=== PATIENT | female | born 1950 | race Caucasian/White ===

== ENCOUNTER → 2016-10-12 | Outpatient (CLI) | payer OTHER ==
[~2016-10-12] MED LIST: ACET-1138 PO; ALL180 PO; ASPI-435 PO; ATEN-173 PO; ATOR-24 PO; BUME1TAB43 PO; CHOL200010 PO; CYAN100028 PO; DOCU100C31 PO; FEXO1TAB49 PO; FLUT0.15 NAE; LPT/20 PO; METO25TA56 PO; NITR1CAP32 PO; OMEG10002 PO; OXYC1TAB3 PO; PRLSR20 PO; PROB1TAB16 PO; SERT-234 PO; TRAM-10 PO; TRAM-453 PO; WARF10TA4 PO; WARF7.5T4 PO; [UNRECOGNIZED DRUG - CODE] PO
[2016-10-12 09:47] LABS: BASO % 0.2 %; BASO ABS # 0.01 K/uL (0-0.2); COMPLETE YES; EOS % 3.1 %; HEMATOCRIT 37.2 % (37-47); IG% 0.2 %; LYMPH % 22.4 %; LYMPH ABS # 0.94 K/uL (1.2-3.4); MEAN CELL VOLUME 84.7 fL (80-100); MEAN CORPUSCULAR HEMOGLOBIN 27.6 pg (25-34); MEAN CORPUSCULAR HGB CONC 32.5 g/dl (32-36); MEAN PLATELET VOLUME 12.1 fL (7.4-10.4); MONO % 9.5 %; NEUT % 64.6 %; PLATELET COUNT 165 K/uL (130-400); RED BLOOD COUNT 4.39 M/uL (4.2-5.4); WHITE BLOOD COUNT 4.19 K/uL (4.8-10.8)
[2016-10-12 10:41] LABS: ALT/SGPT 35 U/L (12-78); BLOOD UREA NITROGEN 15 mg/dl (7-18); BUN/CREATININE RATIO 21.6 (10-20); CARBON DIOXIDE 26 mmol/L (21-32); CHLORIDE 110 mmol/L (98-107); CHOLESTEROL 184 mg/dl (0-200); CREATININE 0.69 mg/dl (0.60-1.20); GLUCOSE 96 mg/dl (70-99); SODIUM 144 mmol/L (136-145); TRIGLYCERIDES 110 mg/dl (0-150); VERY LOW DENSITY LIPOPROT CALC 22 mg/dl
[2016-10-12 10:51] LABS: AST/SGOT 26 U/L (15-37); CHOLESTEROL/HDL RATIO 3.5; HDL CHOLESTEROL 52 mg/dl; LDL CHOLESTEROL CALCULATED 110 mg/dl
== END | disposition home or self-care (01) ==
LOC: C.LAB 07:14
PROVIDERS: ATTEND Internal Medicine
DX: E78.5 Hyperlipidemia, unspecified (principal); D64.9 Anemia, unspecified; I10 Essential (primary) hypertension; I35.0 Nonrheumatic aortic (valve) stenosis

== ENCOUNTER → 2016-10-15 | Outpatient (CLI) | payer OTHER ==
--- NOTE | 2016-10-15 13:44 | DIAGNOSTIC IMAGING REPORT ---
C-SPINE ROUTINE 4 OR 5 VIEWS CLINICAL HISTORY: Neck pain. COMPARISON STUDY: No previous studies for comparison. FINDINGS: There is mild reversal of the normal cervical lordosis. No fracture or suspicious lesion is present. There is mild to moderate disc space narrowing and osteophytosis at C5-C6 and C6-C7. There is severe multilevel facet arthrosis with multilevel bony neural foraminal narrowing. IMPRESSION: 1. No cervical spine fracture. 2. Moderate multilevel degenerative disc disease and moderate to severe multilevel facet arthrosis of the cervical spine. Electronically signed by: Earl Solorio M.D. 10/15/2016 1:41 PM Dictated Date/Time: 10/15/2016 1:40 PM
== END | disposition home or self-care (01) ==
LOC: C.RAD1850 12:51
PROVIDERS: ATTEND Nurse Practitioner Adult Health
DX: M50.30 Other cervical disc degeneration, unspecified cervical region (principal); M47.892 Other spondylosis, cervical region

== ENCOUNTER → 2016-11-16 | Outpatient (CLI) | payer OTHER ==
[~2016-11-16] MED LIST changes: -ALL180 PO; -CYAN100028 PO; -DOCU100C31 PO; -OMEG10002 PO; -OXYC1TAB3 PO; -TRAM-453 PO; -[UNRECOGNIZED DRUG - CODE] PO
--- NOTE | 2016-11-26 08:51 | CODING QUERY MEDICAL NECESSITY ---
SUPPORTING DIAGNOSIS NEEDED [employer], A supporting diagnosis is required for the test/procedure performed on this patient in order for us to be reimbursed by the patient's insurance. Please provide a supporting diagnosis for the following test/procedure listed below next to the test name along with your signature. *If there is no additional diagnosis for this patient that would support the following test/procedure please document that below next to the test/procedure. Test(s)/Procedure(s) that require a supporting diagnosis: * ([id number]) VITAMIN B6 PYRIDOXAL PHOSPHATE DIAGNOSIS: DATE OF SERVICE: 11/16/16 Provider Signature: Date: Thank you Ruperto Diop [facility] Information Management Once completed, please kindly fax back to [phone] For questions please call [phone]
== END | disposition home or self-care (01) ==
LOC: C.LAB 11:39
PROVIDERS: ATTEND Nurse Practitioner Adult Health
DX: R20.0 Anesthesia of skin (principal); R19.7 Diarrhea, unspecified; R94.6 Abnormal results of thyroid function studies

== ENCOUNTER → 2016-11-16 | Day surgery (SDC) | payer OTHER ==
[2016-11-14 08:56] VITALS: Ht 160 cm; Wt 102.3 kg
[~2016-11-16] VITALS: Ht 160 cm; Wt 102.3 kg
[~2016-11-16] MED LIST changes: +LIDOCAINE HCL 2% 2 ML VIAL (20MG/ML) ONE; +MIDAZOLAM HCL 1 MG/ML 2ML VIAL ONE; +PROPOFOL IV EMULSION 10 MG/ML 20 ML VIAL IV ONE; +SODIUM CHLORIDE 0.9% 500ML 500 ML IV ONE
--- NOTE | 2016-11-16 10:18 | Endo History and Physical ---
History & Physical Date of Service: November 16, 2016. Chief Complaint: CHANGE IN BOWEL HABITS Referring Physician: JANIE WEBBER History of Present Illness 66 yo CF who presents for colonoscopy secondary to change in bowel habits. Past Medical History Arthritis, Pulmonary Emboli, Reflux, Depression Past Surgical History Hx Cardiac Surgery: No Hx Internal Defibrillator: No Hx Pacemaker: No Hx Abdominal Surgery: Yes (2 C-SECTIONS/ TUBAL LIGATION) Hx of Implantable Prosthesis: No Hx Post-Op Nausea and Vomiting: No Hx Cancer Surgery: No Hx Thoracic Surgery: No Hx Orthopedic: Yes (LT TKA) Hx Urinary Tract Surgery: No Family History None Social History Smoking Status: Never Smoker Hx Substance Use: No Hx Alcohol Use: Yes ("SOCIALLY") Allergies Coded Allergies: Cat Dander (Verified Allergy, Unknown, "sneezing", 11/16/16) Dust (Verified Allergy, Unknown, "itchy eyes,sneezing", 11/16/16) NO KNOWN DRUG ALLERGIES (Verified Allergy, Unknown, ., 11/16/16) Current Medications Reported Home Medications Medications Dose Route/Sig Max Daily Dose Days Date Category Dose Instructions Vitamin D (Cholecalciferol) 2,000 Unit Cap 2 Cap PO QAM 11/14/16 Reported Ultram (Tramadol HCl) 50 Mg Tab 50 Mg PO Q8H PRN 11/14/16 Reported Zoloft (Sertraline HCl) 100 Mg Tab 100 Mg PO QAM 11/14/16 Reported Prilosec (Omeprazole) 20 Mg Capcr 20 Mg PO HS 11/14/16 Reported Macrodantin (Nitrofurantoin Macrocrystals) 100 Mg Cap 100 Mg PO QAM 11/14/16 Reported Probiotic (Probiotic Product) 1 Tab Tab 1 Tab PO QAM 11/14/16 Reported Flonase Allergy Relief (Fluticasone Propionate (Nasal)) 50 Mcg/Act Spr 1 [place] MARCELA DAILY PRN 11/14/16 Reported Janet Allergy (Fexofenadine Hcl) 180 Mg Tab 1 Tab PO QAM 14 11/14/16 Reported Tenormin (Atenolol) 25 Mg Tab 25 Mg PO HS 11/14/16 Reported Jantoven (Warfarin Sodium) 10 Mg Tab 10 Mg PO 2XWK 06/12/16 Reported ON HOLD FOR PROCEDURE Jantoven (Warfarin Sodium) 7.5 Mg Tab 7.5 Mg PO 5XWK 06/12/16 Reported ON HOLD FOR PROCEDURE Atorvastatin Calcium (Atorvastatin) 20 Mg Tab 20 Mg PO QAM 11/23/13 Reported Vital Signs Weight (Kilograms): 102.27 Height (Feet): 5 Height (Inches): 3 Date Time Temp Pulse Resp B/P Pulse Ox O2 Delivery O2 Flow Rate FiO2 11/16/16 09:50 188/87 11/16/16 09:38 36.5 72 24 200/84 96 Room Air Physical Exam General Appearance: WD/WN, no apparent distress Respiratory/Chest: Auscultation: breath sounds normal Cardiovascular: Heart Auscultation: RRR Abdomen: Bowel Sounds: normal Inspection & Palpation: soft, non-distended, no tenderness, guarding & rebound Assessment and Plan Assessment: 66 yo CF who presents for colonoscopy secondary to change in bowel habits. Plan: Proceed with colonoscopy.
--- NOTE | 2016-11-16 10:50 | GI REPORT ---
Procedure Date: 11/16/2016 10:17 AM Procedure: Colonoscopy Indications: Change in bowel habits Medicines: Monitored Anesthesia Care Complications: No immediate complications. Estimated Blood Loss: Estimated blood loss: none. Procedure: Pre-Anesthesia Assessment: - Prior to the procedure, a History and Physical was performed, and patient medications and allergies were reviewed. The patient's tolerance of previous anesthesia was also reviewed. The risks and benefits of the procedure and the sedation options and risks were discussed with the patient. All questions were answered, and informed consent was obtained. Prior Anticoagulants: The patient has taken Coumadin (warfarin), last dose was 4 days prior to procedure. ASA Grade Assessment: III - A patient with severe systemic disease. After reviewing the risks and benefits, the patient was deemed in satisfactory condition to undergo the procedure. After I obtained informed consent, the scope was passed under direct vision. Throughout the procedure, the patient's blood pressure, pulse, and oxygen saturations were monitored continuously. The Scope was introduced through the anus and advanced to the cecum, identified by appendiceal orifice and ileocecal valve. The colonoscopy was performed without difficulty. The patient tolerated the procedure well. The quality of the bowel preparation was good. The ileocecal valve, appendiceal orifice, and rectum were photographed. Findings: Multiple small-mouthed diverticula were found in the sigmoid colon. Non-bleeding internal hemorrhoids were found during retroflexion. The hemorrhoids were small. Impression: - Diverticulosis in the sigmoid colon. - Non-bleeding internal hemorrhoids. - No specimens collected. Recommendation: - Resume previous diet. - Continue present medications. - Repeat colonoscopy in 10 years for surveillance. - Return to primary care physician as previously scheduled. Murphy Cruz, 11/16/2016 10:49:42 AM This report has been signed electronically. Note Initiated On: 11/16/2016 10:17 AM I attest to the content of the Intraoperative Record and orders documented therein, exceptions below
--- NOTE | 2016-11-16 10:50 | Discharge Instructions ---
Endoscopy Patient Instructions Date / Procedure(s) Performed November 16, 2016. Colonoscopy Allergy Information Coded Allergies: Cat Dander (Verified Allergy, Unknown, "sneezing", 11/16/16) Dust (Verified Allergy, Unknown, "itchy eyes,sneezing", 11/16/16) NO KNOWN DRUG ALLERGIES (Verified Allergy, Unknown, ., 11/16/16) Discharge Date / Findings November 16, 2016. Diverticulosis Internal Hemorrhoids Medication Instructions Stopped Medication(s): COUMADIN 7.5MG LAST DOSE Saturday11/12/16 OK to resume all medications today as prescribed Reported Home Medications Medications Dose Route/Sig Max Daily Dose Days Date Category Dose Instructions Vitamin D (Cholecalciferol) 2,000 Unit Cap 2 Cap PO QAM 11/14/16 Reported Ultram (Tramadol HCl) 50 Mg Tab 50 Mg PO Q8H PRN 11/14/16 Reported Zoloft (Sertraline HCl) 100 Mg Tab 100 Mg PO QAM 11/14/16 Reported Prilosec (Omeprazole) 20 Mg Capcr 20 Mg PO HS 11/14/16 Reported Macrodantin (Nitrofurantoin Macrocrystals) 100 Mg Cap 100 Mg PO QAM 11/14/16 Reported Probiotic (Probiotic Product) 1 Tab Tab 1 Tab PO QAM 11/14/16 Reported Flonase Allergy Relief (Fluticasone Propionate (Nasal)) 50 Mcg/Act Spr 1 [place] MARCELA DAILY PRN 11/14/16 Reported Janet Allergy (Fexofenadine Hcl) 180 Mg Tab 1 Tab PO QAM 14 11/14/16 Reported Tenormin (Atenolol) 25 Mg Tab 25 Mg PO HS 11/14/16 Reported Jantoven (Warfarin Sodium) 10 Mg Tab 10 Mg PO 2XWK 06/12/16 Reported ON HOLD FOR PROCEDURE Jantoven (Warfarin Sodium) 7.5 Mg Tab 7.5 Mg PO 5XWK 06/12/16 Reported ON HOLD FOR PROCEDURE Atorvastatin Calcium (Atorvastatin) 20 Mg Tab 20 Mg PO QAM 11/23/13 Reported Provider Instructions Activity Restrictions - No exercising or heavy lifting for 24 hours. - Do not drink alcohol the day of the procedure. - Do not drive a car or operate machinery until the day after the procedure. - Do not make any important decisions or sign important papers in 24 hours after the procedure. Following Day: - Return to full activity which may include returning to work/school. Diet Start your diet with liquids and light foods (jello, soup, juice, toast). Then eat your usual diet if not nauseated. Treatment For Common After Affects For mild abdominal pain, bloating, or excessive gas: - Rest - Eat lightly - Lie on right side Follow-Up Information Follow-up with JANIE WEBBER as scheduled Anesthesia Information What You Should Know You have had a procedure that required some medicine to reduce anxiety and discomfort. This treatment is called moderate sedation. After receiving the treatment, you may be sleepy, but you will be able to breathe on your own. The effects of the treatment may last for several hours. Follow these instructions along with Activity/Diet recommendations noted above: * Do NOT do anything where dizziness or clumsiness would be dangerous. * Rest quietly at home today, then you can be up and about tomorrow. * Have a responsible person stay with you the rest of today. * You may have had an I.V. today. If so, you may take the dressing off later today. Recommendations Call your doctor if: * Trouble breathing * Continuous vomiting for more than 24 hours * Temperature above 101 degrees * Severe abdominal pain or bloating * Pain not relieved by pain medicine ordered * There is increased drainage or redness from any incision * A large amount of rectal bleeding greater than 2-3 tablespoons. (If you had a polyp/s removed or have hemorrhoids, a small amount of blood - from the rectum is to be expected.) * You have any unanswered questions or concerns. IN THE EVENT OF A SERIOUS EMERGENCY, GO TO THE NEAREST EMERGENCY ROOM Your discharge instructions were prepared by provider Murphy Cruz. Patient Instructions Signature Page Ophelia Serrano Patient (or Guardian) Signature/Date: I have read and understand the instructions given to me by my caregivers. Caregiver/RN/Doctor Signature/Date: The above-named patient and/or guardian has received patient instructions on this date. + Original Patient Signature Page (only) stays with chart. Please make copy for patient.
[2016-11-16 11:10] VITALS: BP 168/86; PULSE 65; O2SAT 97
--- NOTE | 2016-11-16 11:19 | Anesthesiology Progress Note ---
Anesthesia Post Op Note Date & Time November 16, 2016 at 11:19 Vital Signs Pain Intensity: 0 Vital Signs Past 12 Hours Date Time Temp Pulse Resp B/P Pulse Ox O2 Delivery O2 Flow Rate FiO2 11/16/16 11:10 65 20 168/86 97 Room Air 11/16/16 11:01 64 20 151/71 97 Room Air 11/16/16 10:51 65 20 134/78 95 Room Air 11/16/16 09:50 188/87 11/16/16 09:38 36.5 72 24 200/84 96 Room Air Notes Mental Status: alert / awake / arousable, participated in evaluation Pt Amnestic to Procedure: Yes Nausea / Vomiting: adequately controlled Pain: adequately controlled Airway Patency, RR, SpO2: stable & adequate BP & HR: stable & adequate Hydration State: stable & adequate Anesthetic Complications: no major complications apparent
== END | disposition home or self-care (01) ==
LOC: C.GI 09:12
PROVIDERS: ATTEND Internal Medicine
DX: R19.4 Change in bowel habit (principal); K57.30 Diverticulosis of large intestine without perforation or abscess without bleeding; K64.8 Other hemorrhoids; F32.9 Major depressive disorder, single episode, unspecified; G47.33 Obstructive sleep apnea (adult) (pediatric); I10 Essential (primary) hypertension; Z98.51 Tubal ligation status; Z68.41 Body mass index [BMI] 40.0-44.9, adult; E66.9 Obesity, unspecified; Z96.652 Presence of left artificial knee joint; Z86.711 Personal history of pulmonary embolism; Z79.01 Long term (current) use of anticoagulants; R20.0 Anesthesia of skin; R19.7 Diarrhea, unspecified; R94.6 Abnormal results of thyroid function studies

== ENCOUNTER → 2017-01-30 | Outpatient (CLI) | payer OTHER ==
[~2017-01-30] MED LIST changes: -ACET-1138 PO; -ATOR-24 PO; -BUME1TAB43 PO; -LIDOCAINE HCL 2% 2 ML VIAL (20MG/ML) ONE; -MIDAZOLAM HCL 1 MG/ML 2ML VIAL ONE; -PROPOFOL IV EMULSION 10 MG/ML 20 ML VIAL IV ONE; -SODIUM CHLORIDE 0.9% 500ML 500 ML IV ONE
[2017-01-30 14:37] LABS: HEMATOCRIT 37.1 % (37-47); MEAN CELL VOLUME 83.7 fL (80-100); MEAN CORPUSCULAR HEMOGLOBIN 27.1 pg (25-34); MEAN CORPUSCULAR HGB CONC 32.3 g/dl (32-36); MEAN PLATELET VOLUME 11.8 fL (7.4-10.4); PLATELET COUNT 156 K/uL (130-400); RED BLOOD COUNT 4.43 M/uL (4.2-5.4); WHITE BLOOD COUNT 5.33 K/uL (4.8-10.8)
[2017-01-30 15:05] LABS: PARTIAL THROMBOPLASTIN RATIO 1.4
[2017-01-30 15:20] LABS: BLOOD UREA NITROGEN 15 mg/dl (7-18); BUN/CREATININE RATIO 20.2 (10-20); CALCIUM 8.9 mg/dl (8.5-10.1); CARBON DIOXIDE 27 mmol/L (21-32); CHLORIDE 110 mmol/L (98-107); CREATININE 0.75 mg/dl (0.60-1.20); GLUCOSE 92 mg/dl (70-99); POTASSIUM 3.9 mmol/L (3.5-5.1); SODIUM 142 mmol/L (136-145)
== END | disposition home or self-care (01) ==
LOC: C.LAB 13:42
PROVIDERS: ATTEND Internal Medicine Cardiovascular Disease
DX: Z01.818 Encounter for other preprocedural examination (principal)

== ENCOUNTER → 2017-02-05 | Day surgery (SDC) | payer OTHER ==
[~2017-02-05] VITALS: Ht 160 cm; Wt 105.0 kg
[~2017-02-05] MED LIST changes: +ACETAMINOPHEN 325 MG TAB PO PRN; +FENTANYL CITRATE INJ 50 MCG/1 ML 2 ML VIAL ONE; +HEPARIN SOD (PORCINE) 1000 UNIT/ML 10 ML VIAL ONE; +METOPROLOL TARTRATE 25 MG TAB PO SCH; +MIDAZOLAM HCL 1 MG/ML 2ML VIAL ONE; +NITROGLYCERIN/D5W 100MCG/ML 20ML SYR ONE; +NiCARDipine HCL INJ 2.5 MG/ML 10 ML AMP ONE; +ONDANSETRON INJ 2 MG/ML 2 ML VIAL IV PRN; +SODIUM CHLORIDE 0.9% 1000ML 1,000 ML IV SCH; +SODIUM CHLORIDE 0.9% 1000ML 250 ML IV PRN
[2017-02-05 10:31] VITALS: BP 171/82; PULSE 68; TEMP 36.5; O2SAT 97; Ht 160 cm; Wt 105.0 kg
--- NOTE | 2017-02-05 11:18 | History & Physical Bridge Note ---
H&P Re-Evaluation Bridge Note: I have examined the patient, reviewed the History & Physical and in the interval since the performance of the History & Physical I have noted the following changes of clinical significance: No changes noted
--- NOTE | 2017-02-05 11:18 | Procedure Note ---
Pre-Mod Sedation Assessment General Date of Moderate Sedation: Feb 05, 2017. Vital Signs: Vital Signs Past 12 Hours Date Time Temp Pulse Resp B/P (MAP) Pulse Ox O2 Delivery O2 Flow Rate FiO2 02/05/17 10:31 36.5 68 16 171/82 97 Room Air Review Cardiovascular: regular rate, rhythm, + systolic murmur Abdomen: soft Lungs: lungs clear Pre-Sedation Airway Assessment Oral Cavity: WNL Short Thick Neck: No Hx of Sleep Apnea: Yes Smoking Status: Never Smoker Procedure Planning Contraindications-for Mod Sed: None Yes Notes The planned sedation has been discussed with the patient and consent obtained. I have identified the patient, determined the appropriateness of sedation and have assessed the patient immediately prior to the procedure. All medicine(s) and interventions are by my order.
--- NOTE | 2017-02-05 12:39 | Procedure Note ---
Post-Mod Sedation Assessment General Date of Moderate Sedation Feb 05, 2017. Vital Signs: Vital Signs Past 12 Hours Date Time Temp Pulse Resp B/P (MAP) Pulse Ox O2 Delivery O2 Flow Rate FiO2 02/05/17 12:30 71 16 145/65 (91) 95 Room Air 02/05/17 12:15 77 16 153/55 (87) 95 Room Air 02/05/17 12:00 72 16 156/72 (100) 95 Room Air 02/05/17 11:55 69 16 171/63 (99) 95 Room Air 02/05/17 11:50 71 18 167/71 (103) 95 Room Air 02/05/17 11:45 72 16 145/75 (98) 95 Room Air 02/05/17 10:31 36.5 68 16 171/82 97 Room Air Review - Discharge Criteria Vital Signs Stable: Yes Alert/Oriented/Conversant: Yes Returned to Baseline Mental St: Yes Nausea Absent/Minimal: Yes Pain/Discomfort/Absent/Minimal: Yes Normal/Baseline Respirations: Yes Active Bleeding?: No
--- NOTE | 2017-02-05 12:46 | Cardiac Catheterization ---
Procedure Note Procedure Date Feb 05, 2017. Pre-Procedure Diagnosis Valvular Disease AUC Score 7 Post-Procedure Diagnosis Severe CAD Procedure(s) Performed Coronary Angiography [facility] Lia[facility] Dr. Gallegos [place] Department Operator(s) Estimated Blood Loss < 20 ml Medication(s) Fentanyl, Heparin, Nicardipine, Versed, Lidocaine 1% Summary of Findings Coronary angiography: 1. Left main coronary artery: The LMCA is very short but does give rise to the LAD and circumflex vessels. No significant CAD within the LM CA. 2. Left anterior descending: The LAD is a large caliber vessel that extends to the apex. Proximal LAD 20%. Mid LAD 70% just prior to the bifurcation of a small caliber D1. Distal LAD 30%. Small caliber D1 and D2 without significant CAD. 3. Circumflex: The circumflex is codominant. Proximal circumflex 40%. Medium caliber OM1. Large caliber OM 2 and OM 3. No significant CAD within the marginal vessels and left PDA. 4. Right coronary artery: The RCA is medium in caliber and codominant. No significant CAD within the RCA or RCA PDA. Procedural notes: 1. There were no attempts made to cross the aortic valve as she has severe aortic stenosis as seen on transthoracic echo. Sedation start time 11:22 a.m. Sedation end time 11:45 a.m. Impression: 1. Severe CAD within the early mid LAD. Otherwise, nonobstructive CAD within the circumflex and proximal/distal LAD. 2. Known severe aortic stenosis. Plan: 1. CT surgery evaluation for consideration of aortic valve replacement and LAD CABG. 2. Adjusting beta-armando as she is no longer able to obtain atenolol. Will start metoprolol. 3. High-intensity statin therapy. Hemodynamics Rest Ao: 158/70 Final Ao: 165/76 LV: n/a Recommendations valve replacement Specimens Radiation Exposure (mGy) 1194 mGy. Fluoro time 4.2 min. Contrast (mls) 90 ml Procedural Complication(s) None Disposition Quality Process Lead Holding/Recovery ACC Data Cardiac Status Clinical evaluation leading to the procedure CAD Presntation: No Sxs, no angina Anginal Classification: No symptoms Heart Failure: No Cardiogenic Shock w/in 24Hrs: No Cardiac Arrest w/in 24Hrs: No Imaging studies past 6 months: Yes (echo) Stress studies past 6 months: No Standard Exercise Stress Test: No Stress Echocardiogram: No Stress Testing w/SPECT MPI: No Cardiac CTA: No Coronary Anatomy Dominant: Co-dominant Left Main (% Stenosis): Normal LAD (% Stenosis): Proximal (20%), Mid (70%), Distal (30%) D1 (% Stenosis): Normal D2 (% Stenosis): Normal Circumflex (% Stenosis): Proximal (40%) OM1 (% Stenosis): Normal OM2 (% Stenosis): Normal OM3 (% Stenosis): Normal L PDA (% Stenosis): Normal RCA (% Stenosis): Normal R PDA (% Stenosis): Normal Left Ventricular Angiography EF (%): n/a Diagnostic Physician's Name: Osmin Gallegos MD Status: Elective Closure Device Percutaneous Entry Location: Radial Closure Device: Radial Band Recommendations: CABG, valve replacement
--- NOTE | 2017-02-05 12:52 | Discharge Instructions ---
Discharge Instructions Date of Service Feb 05, 2017. Visit Reason for Visit: Aortic Stenosis Discharge Discharge Diagnosis / Problem: Coronary artery disease and aortic stenosis Discharge Goals Goal(s): Diagnostic testing Medications Restart Stopped Medication(s): Resume coumadin tonight and notify PCP's office. Activity Recommendations Activity Limitations: per Instructions/Follow-up section Anesthesia . Post Anesthesia Instructions: If you have had General Anesthesia or IV Sedation: * Do not drive today. * Resume driving when surgeon permits. * Do not make important decisions or sign legal documents today. * Call surgeon for: 1. Temperature elevations greater than 101 degrees F. 2. Uncontrollable pain. 3. Excessive bleeding. 4. Persistent nausea and vomiting. 5. Medication intolerance (nausea, vomiting or rash). * For nausea and vomiting use only clear liquids such as: tea, soda, bouillon until nausea subsides, then gradually increase diet as tolerated. * If you have any concerns or questions, call your surgeon's office. If physician is unavailable and it is an emergency, call 911 or go to the nearest emergency room. . Instructions / Follow-Up Instructions / Follow-Up Follow up: 1. CT surgery (Dr. Dunham) at [facility]. Take Echo and Cath images with you to appointment. [facility] will contact you. Call [phone] for questions/directions. 2. Follow up with Dr. Gallegos after procedure. ACTIVITY RECOMMENDATIONS: Excess manipulation of the wrist should be avoided for the next 24-48 hours. * No lifting over 2 pounds (approximately a 1/2 gallon of milk) with the utilized arm for 24 hours. * No strenuous activity such as bowling or tennis for 3 days. * Keep the site of the procedure covered with a bandage for 24 hours. *You may shower the day after the procedure. Do not take a tub bath or submerge the puncture site in water for the next 3 days. *Do not operate any motorized equipment for 3 days. SPECIAL CARE INSTRUCTIONS: The site may be slightly bruised and sore following your procedure. Should any of the following occur, contact the DrRamiro who performed your procedure. 1. Redness/inflammation, swelling, chills, or fever, or colored drainage at procedure site within 3-7 days after your procedure. 2. Coldness, discoloration, ongoing numbness, severe pain, or swelling. Expect mild tingling of hand and tenderness at the puncture site for up to three days. If this persists beyond three days, or other symptoms develop, notify the Dr. who performed your procedure. BLEEDING: If the procedure site on your wrist begins to bleed, do not panic 1. Place 1 or 2 fingers firmly just slightly above the insertion site to stop the bleeding. You may be able to feel your pulse as you hold pressure. 2. Lift your finger after 5 minutes to see if the bleeding has stopped. 3. Once the bleeding has stopped, gently wipe the wrist area clean with a bandage. * If the bleeding from your wrist does not stop after 10 minutes, or if there is a large amount of bleeding or spurting, call 911 (do not drive yourself to the hospital). SKIN IRRITATION: * You may experience some redness and/or swelling in the area where radiation was administered. If any skin irritation occurs, please contact your family physician. FOLLOW UP VISIT: Keep any scheduled doctor appointments. Diet Recommendations Recommended Home Diet: low cholesterol Procedures Procedures Performed: 1. Coronary angiography Pending Studies Studies pending at discharge: yes List of pending studies: Carotid duplex Medical Emergencies . Who to Call and When: Medical Emergencies: If at any time you feel your situation is an emergency, please call 911 immediately. . Non-Emergent Contact Non-Emergency issues call your: Pipefitter Helper . . "Provider Documentation" section prepared by Osmin Jesus. .
[2017-02-05 15:00] VITALS: BP 157/86; PULSE 76; O2SAT 95
== END | disposition home or self-care (01) ==
LOC: C.CATH 10:04
PROVIDERS: ATTEND Internal Medicine Cardiovascular Disease
DX: I35.0 Nonrheumatic aortic (valve) stenosis (principal); I25.10 Atherosclerotic heart disease of native coronary artery without angina pectoris; I10 Essential (primary) hypertension; K21.9 Gastro-esophageal reflux disease without esophagitis; F32.9 Major depressive disorder, single episode, unspecified; K44.9 Diaphragmatic hernia without obstruction or gangrene; E78.5 Hyperlipidemia, unspecified; K64.8 Other hemorrhoids; G47.33 Obstructive sleep apnea (adult) (pediatric); Z79.01 Long term (current) use of anticoagulants; Z86.711 Personal history of pulmonary embolism; Z87.440 Personal history of urinary (tract) infections; Z96.659 Presence of unspecified artificial knee joint; Z82.49 Family history of ischemic heart disease and other diseases of the circulatory system

== ENCOUNTER 2017-04-22 09:11 | Observation (INO) | payer OTHER ==
[~2017-04-22] VITALS: Ht 160 cm; Wt 106.1 kg
[~2017-04-22 09:11] MED LIST changes: -ACETAMINOPHEN 325 MG TAB PO PRN; -ATEN-173 PO; -FENTANYL CITRATE INJ 50 MCG/1 ML 2 ML VIAL ONE; -HEPARIN SOD (PORCINE) 1000 UNIT/ML 10 ML VIAL ONE; -METOPROLOL TARTRATE 25 MG TAB PO SCH; -MIDAZOLAM HCL 1 MG/ML 2ML VIAL ONE; -NITROGLYCERIN/D5W 100MCG/ML 20ML SYR ONE; -NiCARDipine HCL INJ 2.5 MG/ML 10 ML AMP ONE; -ONDANSETRON INJ 2 MG/ML 2 ML VIAL IV PRN; -PROB1TAB16 PO; -SODIUM CHLORIDE 0.9% 1000ML 1,000 ML IV SCH; -SODIUM CHLORIDE 0.9% 1000ML 250 ML IV PRN; -WARF10TA4 PO
[2017-04-22] MEDS ORDERED: METO25TA56 PO (09:35)
[2017-04-22] MEDS ORDERED: ATOR-24 PO (09:35)
[2017-04-22] MEDS ORDERED: ACET-1138 PO (09:36)
[2017-04-22 10:14] LABS: ISTAT CREATININE 0.7 mg/dl (0.6-1.3); ISTAT HEMOGLOBIN 10.2 g/dl (12.0-16.0); ISTAT IONIZED CALCIUM 1.18 mmol/l (1.12-1.32)
[2017-04-22 10:25] LABS: INR 1.6 (0.9-1.1); PARTIAL THROMBOPLASTIN RATIO 1.3; PROTHROMBIN TIME (PATIENT) 17.1 SECONDS (9.0-12.0)
[2017-04-22 10:28] LABS: BASO % 0.3 %; BASO ABS # 0.02 K/uL (0-0.2); COMPLETE YES; EOS % 3.2 %; HEMATOCRIT 30.3 % (37-47); IG% 0.7 %; LYMPH % 12.8 %; LYMPH ABS # 0.95 K/uL (1.2-3.4); MEAN CELL VOLUME 83.9 fL (80-100); MEAN CORPUSCULAR HEMOGLOBIN 26.6 pg (25-34); MEAN CORPUSCULAR HGB CONC 31.7 g/dl (32-36); MEAN PLATELET VOLUME 10.6 fL (7.4-10.4); MONO % 7.8 %; NEUT % 75.2 %; PLATELET COUNT 276 K/uL (130-400); RED BLOOD COUNT 3.61 M/uL (4.2-5.4); WHITE BLOOD COUNT 7.42 K/uL (4.8-10.8)
[2017-04-22 10:32] LABS: BUN/CREATININE RATIO 17.3 (10-20); CALCIUM 8.8 mg/dl (8.5-10.1); CREATININE 0.67 mg/dl (0.60-1.20); POTASSIUM 3.8 mmol/L (3.5-5.1)
[2017-04-22] MEDS ORDERED: OPTIRAY 320 IV PRN (11:15)
--- NOTE | 2017-04-22 11:50 | DIAGNOSTIC IMAGING REPORT ---
(CHEST FOR PE) ANGIO WITH CT DOSE: 568.90 mGy.cm HISTORY: 66 years-old Female presents with acute shortness of breath with history of recent heart surgery. Concern for pulmonary was. TECHNIQUE: Multiple CTA images of the chest were obtained after the intravenous administration of 92 ml Optiray 320. Coronal and sagittal MIPS were obtained from the axial data set and were submitted for review. A dose lowering technique was utilized adhering to the principles of ALARA. COMPARISON: Chest radiograph 07/31/2015, chest CT 09/13/2011. FINDINGS: CTA: Heart is moderately enlarged with multiple chamber enlargement. No large pericardial effusion. Postoperative changes from prior median sternotomy and CABG with [place] coronary arterial calcifications. Aortic annular static valvular ring is noted. No acute aortic dissection or aneurysm identified. Mild mixed plaquing of the aorta. Pulmonary arterial tree is well-opacified to the level of the segmental branches, however evaluation of the more distal pulmonary arterial branches is limited secondary to respiratory motion. No central pulmonary embolus identified. CT CHEST: Small bilateral pleural effusions with dependent subsegmental consolidative opacities, right greater than left. Fluid tracks along the fissures. No pneumothorax. Linear subsegmental opacities of the upper lobe suggest atelectasis. 3 mm pulmonary nodule of the right middle lobe within the region of the minor fissure suggests perifissural lymph node, however is indeterminate. Central airways are patent. No dominant thyroid lesion. No pathologic-appearing adenopathy of the chest. No acute amount of the imaged upper abdomen. Patient obesity is noted. Mild soft tissue stranding at area of sternotomy noted. No drainable fluid collection. Bones appear intact. Multilevel endplate spurring of the spine. IMPRESSION: 1. Limited evaluation of the pulmonary arterial tree secondary to prominent respiratory motion. No central pulmonary embolus identified. 2. Small bilateral pleural effusions with subsegmental bibasilar consolidative opacities, likely reflecting atelectasis. Superimposed pneumonia would be difficult to exclude. 3. Moderate cardiomegaly with evidence of recent median sternotomy. The above report was generated using voice recognition software. It may contain grammatical, syntax or spelling errors. Electronically signed by: Mark Arias M.D. 04/22/2017 11:49 AM Dictated Date/Time: 04/22/2017 11:41 AM
[2017-04-22] MEDS ORDERED: FUROSEMIDE 40 MG/4 ML VIAL IV STA (12:11)
[2017-04-22] MEDS ORDERED: BUMETANIDE SOLN 1 MG/4 ML VIAL IV ONE (12:30)
[2017-04-22] MEDS ORDERED: ONDANSETRON INJ 2 MG/ML 2 ML VIAL IV PRN (12:45)
[2017-04-22] MEDS ORDERED: ALUMINUM/MAGNESIUM/SIMETH (MAALOX MAX) 30 ML UDC PO PRN (12:45)
[2017-04-22] MEDS ORDERED: POLYETHYLENE (MIRALAX) 17 GM PACK PO PRN (12:45)
[2017-04-22] MEDS ORDERED: ACETAMINOPHEN 325 MG TAB PO PRN (12:45)
[2017-04-22] MEDS ORDERED: MAGNESIUM HYDROXIDE SUSP 30 ML UDC PO PRN (12:45)
[2017-04-22 12:50] VITALS: O2SAT 98; Ht 160 cm; Wt 106.1 kg
[2017-04-22] MEDS ORDERED: IV FLUIDS COMPLETED PRN (14:00)
[2017-04-22 14:37] VITALS: BP 105/73; PULSE 89; O2SAT 98
[2017-04-22 16:00] VITALS: O2SAT 98
--- NOTE | 2017-04-22 16:37 | EMERGENCY ROOM VISIT NOTE ---
History Report prepared by Dheeraj: Yann Gutierrez Under the Supervision of: Dr. Freddy Brown M.D. First contact with patient: 09:51 Chief Complaint: RESPIRATORY PROBLEMS Stated Complaint: POST OP, SHORT OF BREATH,DARK STOOL History of Present Illness The patient is a 66 year old female who presents to the Emergency Room with complaints of worsening shortness of breath that started yesterday. The patient had a single vessel bypass and aortic valve replacement a week ago in [place], and was discharged 2 days ago. The patient states that she was doing fine after the surgery, but started to get a bit short of breath yesterday. She adds that she then had one episode of blackened stools last night, but did not notice any blood in the stool. The patient states that she called [facility] this morning while on the way to get her INR checked, and was noted to be short of breath, so she was told to come here. She notes that she started to become short of breath yesterday, but it worsened today. The patient notes that she also noted some worsened leg swelling this morning. She says that during the surgery, a vessel was not taken from her leg. They used an internal mammary artery. The patient states that she was on an iron supplement while in [place], but is not on it anymore. She says that she did not seem short of breath in the hospital. Per the patient's family, the patient has been using an incentive spirometer, but has not been more active the past few days. The patient states that she has noticed some left shoulder blade pain ever since the surgery. She denies any chest pain other than her incision site, and she also denies any fevers, abdominal pain, or urinary symptoms. The patient was noted to have restarted her Coumadin 5 days ago. She adds that she has hypertension, and a history of blood clots in her lungs. She is a non-smoker. Source of History: patient, family Onset: Yesterday Position: other (global - shortness of breath) Quality: other (had surgery a week ago) Timing: worsening Associated Symptoms: No fevers, No chest pain (other than incision site), No abdominal pain, No urinary symptoms Note: Associated symptoms: One episode of blackened stool last night. Noticed some increased leg swelling this morning. Left shoulder blade pain since surgery. Review of Systems See HPI for pertinent positives & negatives. A total of 10 systems reviewed and were otherwise negative. Past Medical & Surgical Medical Problems: (1) Anemia (2) Aortic Valve Disorder (3) Arthritis (4) Atrial Fibrillation (5) CHF (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 failure) (6) Diaphragmatic Hernia (7) Esophageal Reflux (8) HTN (hypertension) (9) Hyperlipidemia, Unspecified (10) Hypothyroidism Nos (11) Morbid Obesity (12) Obstructive Sleep Apnea (Adult) (Pediatric) (13) Pulmonary emboli (14) Vitamin D Deficiency Nos Surgical Problems: (1) History of delivery (2) History of knee surgery Family History FH: cancer FH: heart disease FH: hypertension No pertinent family history Social History Smoking Status: Never Smoker Alcohol Use: none Marital Status: Housing Status: lives with family Occupation Status: retired Current/Historical Medications Scheduled Aspirin (Aspirin 81), 81 MG PO DAILY Atorvastatin (Lipitor), 40 MG PO QAM Cholecalciferol (Vitamin D), 4,000 UNITS PO QAM Fexofenadine Hcl (Jaent Allergy), 180 MG PO QAM Metoprolol Tartrate (Lopressor) (Lopressor), 25 MG PO BID Nitrofurantoin Macrocrystals (Macrodantin), 100 MG PO QAM Omeprazole (Prilosec), 20 MG PO HS Sertraline (Zoloft), 100 MG PO QAM Warfarin Sod (Jantoven), 7.5 MG PO DAILY Scheduled PRN Acetaminophen (Tylenol Extra Strength), 1,000 MG PO UD PRN for Pain Fluticasone Propionate (Nasal) (Flonase Allergy Relief), 1 SPRAY MARCELA DAILY PRN for PRN Tramadol (Ultram), 50 MG PO Q8H PRN for Pain Allergies Coded Allergies: Amlodipine (Unverified Allergy, Unknown, ANAPHYLAXIS, 04/22/17) Cat Dander (Verified Allergy, Unknown, "sneezing", 04/22/17) Dust (Verified Allergy, Unknown, "itchy eyes,sneezing", 04/22/17) NO KNOWN DRUG ALLERGIES (Verified Allergy, Unknown, ., 11/16/16) Physical Exam Vital Signs Date Time Temp Pulse Resp B/P (MAP) Pulse Ox O2 Delivery O2 Flow Rate FiO2 04/22/17 11:57 75 20 156/99 100 Room Air 04/22/17 10:27 73 24 146/62 99 Nasal Cannula 2.0 04/22/17 09:49 94 Room Air 04/22/17 09:49 97 Nasal Cannula 2.0 04/22/17 09:35 94 Room Air 04/22/17 09:32 82 04/22/17 09:16 36.4 81 18 175/76 96 Room Air Physical Exam Constitutional: Vital signs reviewed. Dyspneic with some labored breathing. Eyes: Pupils are equal round reactive to light. Conjunctiva are noninjected. ENT: Pharynx is clear without erythema or exudate. Mucous membranes are moist. Neck supple without meningeal signs. Respiratory: Has bibasilar rales with some expiratory wheezing. Breathing sounds are equal bilaterally. Cardiovascular: Regular rate and rhythm. No rubs or gallops. GI: Soft, nondistended and nontender. Bowel sounds are present. Musculoskeletal: Lower extremity edema. Incision to midline chest without signs of dehiscence, redness, or drainage. Integumentary: No cyanosis. Neurological: The patient is awake and alert. No focal deficits. Psychiatric: Normal affect. Medical Decision & Procedures ER Provider Diagnostic Interpretation: CT results as stated below per my review and radiologist interpretation. (CHEST FOR PE) ANGIO WITH CT DOSE: 568.90 mGy.cm HISTORY: 66 years-old Female presents with acute shortness of breath with history of recent heart surgery. Concern for pulmonary was. TECHNIQUE: Multiple CTA images of the chest were obtained after the intravenous administration of 92 ml Optiray 320. Coronal and sagittal MIPS were obtained from the axial data set and were submitted for review. A dose lowering technique was utilized adhering to the principles of ALARA. COMPARISON: Chest radiograph 07/31/2015, chest CT 09/13/2011. FINDINGS: CTA: Heart is moderately enlarged with multiple chamber enlargement. No large pericardial effusion. Postoperative changes from prior median sternotomy and CABG with pilot station coronary arterial calcifications. Aortic annular static valvular ring is noted. No acute aortic dissection or aneurysm identified. Mild mixed plaquing of the aorta. Pulmonary arterial tree is well-opacified to the level of the segmental branches, however evaluation of the more distal pulmonary arterial branches is limited secondary to respiratory motion. No central pulmonary embolus identified. CT CHEST: Small bilateral pleural effusions with dependent subsegmental consolidative opacities, right greater than left. Fluid tracks along the fissures. No pneumothorax. Linear subsegmental opacities of the upper lobe suggest atelectasis. 3 mm pulmonary nodule of the right middle lobe within the region of the minor fissure suggests perifissural lymph node, however is indeterminate. Central airways are patent. No dominant thyroid lesion. No pathologic-appearing adenopathy of the chest. No acute amount of the imaged upper abdomen. Patient obesity is noted. Mild soft tissue stranding at area of sternotomy noted. No drainable fluid collection. Bones appear intact. Multilevel endplate spurring of the spine. IMPRESSION: 1. Limited evaluation of the pulmonary arterial tree secondary to prominent respiratory motion. No central pulmonary embolus identified. 2. Small bilateral pleural effusions with subsegmental bibasilar consolidative opacities, likely reflecting atelectasis. Superimposed pneumonia would be difficult to exclude. 3. Moderate cardiomegaly with evidence of recent median sternotomy. The above report was generated using voice recognition software. It may contain grammatical, syntax or spelling errors. Electronically signed by: Mark Arias M.D. 04/22/2017 11:49 AM Dictated Date/Time: 04/22/2017 11:41 AM Laboratory Results 04/22/17 09:03 Red Blood Count 3.61, Mean Corpuscular Volume 83.9, Mean Corpuscular Hemoglobin 26.6, Mean Corpuscular Hemoglobin Concent 31.7, Mean Platelet Volume 10.6, Neutrophils (%) (Auto) 75.2, Lymphocytes (%) (Auto) 12.8, Monocytes (%) (Auto) 7.8, Eosinophils (%) (Auto) 3.2, Basophils (%) (Auto) 0.3, Neutrophils # (Auto) 5.58, Lymphocytes # (Auto) 0.95, Monocytes # (Auto) 0.58, Eosinophils # (Auto) 0.24, Basophils # (Auto) 0.02 04/22/17 09:03 Test 04/22/17 09:03 04/22/17 10:00 04/22/17 10:05 04/22/17 10:25 White Blood Count 7.42 K/uL (4.8-10.8) Red Blood Count 3.61 M/uL (4.2-5.4) Hemoglobin 9.6 g/dL (12.0-16.0) Hematocrit 30.3 % (37-47) Mean Corpuscular Volume 83.9 fL (80-100) Mean Corpuscular Hemoglobin 26.6 pg (25-34) Mean Corpuscular Hemoglobin Concent 31.7 g/dl (32-36) Platelet Count 276 K/uL (130-400) Mean Platelet Volume 10.6 fL (7.4-10.4) Neutrophils (%) (Auto) 75.2 % Lymphocytes (%) (Auto) 12.8 % Monocytes (%) (Auto) 7.8 % Eosinophils (%) (Auto) 3.2 % Basophils (%) (Auto) 0.3 % Neutrophils # (Auto) 5.58 K/uL (1.4-6.5) Lymphocytes # (Auto) 0.95 K/uL (1.2-3.4) Monocytes # (Auto) 0.58 K/uL (0.11-0.59) Eosinophils # (Auto) 0.24 K/uL (0-0.5) Basophils # (Auto) 0.02 K/uL (0-0.2) RDW Standard Deviation 48.0 fL (36.4-46.3) RDW Coefficient of Variation 15.8 % (11.5-14.5) Immature Granulocyte % (Auto) 0.7 % Immature Granulocyte # (Auto) 0.05 K/uL (0.00-0.02) Prothrombin Time 17.1 SECONDS (9.0-12.0) Prothromb Time International Ratio 1.6 (0.9-1.1) Activated Partial Thromboplast Time 32.5 SECONDS (21.0-31.0) Partial Thromboplastin Ratio 1.3 Est Creatinine Clear Calc Drug Dose 94.1 ml/min Estimated GFR () 104.7 Estimated GFR (Non- 90.3 BUN/Creatinine Ratio 17.3 (10-20) Calcium Level 8.8 mg/dl (8.5-10.1) Pro-B-Type Natriuretic Peptide 1887 pg/ml (0-900) Bedside Hemoglobin 10.2 g/dl (12.0-16.0) Bedside Hematocrit 30 % (37-47) Bedside Sodium 140 mEq/L (135-144) Bedside Potassium 4.0 mEq/L (3.3-5.0) Bedside Chloride 103 mEq/L (101-112) Bedside Total CO2 28 mEq/l (24-31) Anion Gap 15.0 mmol/L (16-25) Bedside Blood Urea Nitrogen 12 mg/dl (7-18) Bedside Creatinine 0.7 mg/dl (0.6-1.3) Bedside Glucose (other) 109 mg/dl (70-99) Bedside Ionized Calcium (Inés) 1.18 mmol/l (1.12-1.32) Bedside Prothrombin Time INR 1.8 (0.9-1.1) Bedside Troponin I 0.050 ng/ml (0-0.045) Laboratory results as reviewed by me. Medications Administered Medications (Trade) Dose Ordered Sig/Yudy Route Start Time Stop Time Status Last Admin Dose Admin Bumetanide (Bumex Iv) 1 mg NOW ONCE IV 04/22/17 12:30 04/22/17 12:34 DC 04/22/17 13:15 1 MG ECG Indication: SOB/dyspnea Rate (beats per minute): 81 Rhythm: normal sinus Findings: no acute ischemic change, no ectopy ED Course 0957: The patient was evaluated in room B5. A complete history and physical exam was performed. 1015: I reevaluated the patient and discussed her low INR and need for CT to rule-out PE. Nurses are working on an 18-gauge. 1155: I reevaluated the patient and talked to her about the test results. She is feeling better but is still dyspneic. The patient's stool exam done by nurses was Guaiac negative, no blood. 1209: I discussed the patient with Dr. Dunham of CT surgery at [facility] - he says there is no need for transfer, and to diurese her with Lasix and admit to the medical service. 1211: Ordered Lasix Inj 40 mg IV. 1221: I spoke with Dr. Rees - [facility] steel handler. We discussed the patient and her results. He will evaluate the patient for further treatment. 1227: I reevaluated the patient and she is resting. The patient verbally expressed understanding and agreement of the treatment plan. The patient will be evaluated for further treatment. Medical Decision This is a 66-year-old female who presents with shortness of breath after bypass surgery and aortic valve replacement. Differential diagnosis includes pulmonary embolism, DVT, anemia, rectal bleeding, pleural effusion, CHF, pericardial effusion. I did perform a limited focused review of portions of the patient's old chart on the electronic medical record. The patient had a cardiac catheterization in January, which showed severe CAD and aortic stenosis, and was referred to CT surgery for AVR and CABG. Her INR was 2.1 on April 09. Reviewed discharge summary from [facility]: The patient had a [facility] valve placed with a single vessel bypass on April 15. Her Coumadin was resumed to a dose of 7.5 mg, and her last INR at [facility] was 1.3. I did evaluate the patient as noted above. The patient is presenting with dyspnea yesterday. She also complained of one episode of black stools. The nurse performed a rectal guaiac exam which was negative for blood. She does state that she was on iron during her hospitalization which may have discolored her stool. IV access was established. The patient was placed on a continuous monitoring and evaluation advisor. I did order and personally review the patient's 12-lead EKG and chest x-ray as described above. I did order and review the patient's blood work as noted in the electronic medical record. She is anemic. Troponin is slightly elevated. I did order a CT of the chest to rule out pulmonary embolism. I did review the images myself as well as the radiology report as described above. The CAT scan was somewhat compromised but did not show any evidence of pulmonary emboli. She does have pleural effusions. I did discuss the test results with the patient. I did discuss the case with the patient's cardiothoracic surgeon at [facility]. He recommended diuresis and did not see any need for transfer. I did discuss case with the hospitalist. Initially ordered Lasix IV but the patient states that she gets tinnitus with Lasix. I did cancel that order. The patient was hospitalized and will likely receive echocardiogram and possible Dopplers of the lower extremities. Medication Reconcilliation Current Medication List: was personally reviewed by me Blood Pressure Screening Patient's blood pressure: Elevated blood pressure Consults Time Called: 1200 Consulting Physician: Dr. Dunham of CT surgery at [place] Returned Call: 1209 discussed the patient with Dr. Dunham of CT surgery at [place] - he says there is no need for transfer, and to diurese her with Lasix and admit to the medical service. Additional Consults: Time Called: 1220 Consulted Physician: Dr. Cabrera [facility] steel handler Returned Call: 1221 Additional Comments: I spoke with Dr. Cabrera [facility] steel handler. We discussed the patient and her results. He will evaluate the patient for further treatment. Impression Primary Impression: Acute dyspnea Additional Impressions: Bilateral pleural effusion Subtherapeutic international normalized ratio (INR) Anemia Scribe Attestation The scribe's documentation has been prepared under my direct and personally reviewed by me in its entirety. I confirm that the note above accurately reflects all work, treatment, procedures, and medical decision making performed by me. Departure Information Dispostion Being Evaluated By Hospitalist Referrals Pro,Fahad Beal M.D. (PCP) Patient Instructions My [facility] Problem Qualifiers Additional Impressions: Anemia Anemia type: unspecified type Qualified Codes: D64.9 - Anemia, unspecified
--- NOTE | 2017-04-22 17:19 | History and Physical ---
History & Physical Date & Time of Service: Apr 22, 2017 at 17:14 Chief Complaint: CHF Primary Care Physician: Fahad Ye M.D. Past Medical/Surgical History Medical Problems: (1) Anemia Status: Chronic (2) Arthritis Status: Chronic (3) Pulmonary emboli Status: Resolved Family History FH: cancer FH: heart disease FH: hypertension No pertinent family history Social History Smoking Status: Never Smoker Marital Status: Occupational Status: retired Immunizations History of Influenza Vaccine: Yes Influenza Vaccine Date: May 15, 2011 History of Tetanus Vaccine?: Yes History of Pneumococcal: No History of Hepatitis B Vaccine: No Multi-Drug Resistant Organisms History of MDRO: No Allergies Coded Allergies: Amlodipine (Unverified Allergy, Unknown, ANAPHYLAXIS, 04/22/17) Cat Dander (Verified Allergy, Unknown, "sneezing", 04/22/17) Dust (Verified Allergy, Unknown, "itchy eyes,sneezing", 04/22/17) NO KNOWN DRUG ALLERGIES (Verified Allergy, Unknown, ., 11/16/16) Home Medications Scheduled Aspirin (Aspirin 81), 81 MG PO DAILY Atorvastatin (Lipitor), 40 MG PO QAM Cholecalciferol (Vitamin D), 4,000 UNITS PO QAM Fexofenadine Hcl (Janet Allergy), 180 MG PO QAM Metoprolol Tartrate (Lopressor) (Lopressor), 25 MG PO BID Nitrofurantoin Macrocrystals (Macrodantin), 100 MG PO QAM Omeprazole (Prilosec), 20 MG PO HS Sertraline (Zoloft), 100 MG PO QAM Warfarin Sod (Jantoven), 7.5 MG PO DAILY Scheduled PRN Acetaminophen (Tylenol Extra Strength), 1,000 MG PO UD PRN for Pain Fluticasone Propionate (Nasal) (Flonase Allergy Relief), 1 SPRAY MARCELA DAILY PRN for PRN Tramadol (Ultram), 50 MG PO Q8H PRN for Pain Physical Exam Vital Signs Date Time Temp Pulse Resp B/P (MAP) Pulse Ox O2 Delivery O2 Flow Rate FiO2 04/22/17 16:00 98 Nasal Cannula 4.0 04/22/17 14:37 89 24 105/73 (84) 98 Nasal Cannula 4.0 04/22/17 13:19 79 20 159/76 98 Nasal Cannula 2.0 04/22/17 13:04 78 04/22/17 12:50 98 Nasal Cannula 2.0 04/22/17 11:57 75 20 156/99 100 Room Air 04/22/17 10:27 73 24 146/62 99 Nasal Cannula 2.0 04/22/17 09:49 94 Room Air 04/22/17 09:49 97 Nasal Cannula 2.0 04/22/17 09:35 94 Room Air 04/22/17 09:32 82 04/22/17 09:16 36.4 81 18 175/76 96 Room Air Diagnostics Laboratory Results Results Past 24 Hours Test 04/22/17 09:03 04/22/17 10:00 04/22/17 10:05 04/22/17 10:25 Range/Units White Blood Count 7.42 4.8-10.8 K/uL Red Blood Count 3.61 4.2-5.4 M/uL Hemoglobin 9.6 12.0-16.0 g/dL Hematocrit 30.3 37-47 % Mean Corpuscular Volume 83.9 80-100 fL Mean Corpuscular Hemoglobin 26.6 25-34 pg Mean Corpuscular Hemoglobin Concent 31.7 32-36 g/dl Platelet Count 276 130-400 K/uL Mean Platelet Volume 10.6 7.4-10.4 fL Neutrophils (%) (Auto) 75.2 % Lymphocytes (%) (Auto) 12.8 % Monocytes (%) (Auto) 7.8 % Eosinophils (%) (Auto) 3.2 % Basophils (%) (Auto) 0.3 % Neutrophils # (Auto) 5.58 1.4-6.5 K/uL Lymphocytes # (Auto) 0.95 1.2-3.4 K/uL Monocytes # (Auto) 0.58 0.11-0.59 K/uL Eosinophils # (Auto) 0.24 0-0.5 K/uL Basophils # (Auto) 0.02 0-0.2 K/uL RDW Standard Deviation 48.0 36.4-46.3 fL RDW Coefficient of Variation 15.8 11.5-14.5 % Immature Granulocyte % (Auto) 0.7 % Immature Granulocyte # (Auto) 0.05 0.00-0.02 K/uL Prothrombin Time 17.1 9.0-12.0 SECONDS Prothromb Time International Ratio 1.6 0.9-1.1 Activated Partial Thromboplast Time 32.5 21.0-31.0 SECONDS Partial Thromboplastin Ratio 1.3 Sodium Level 140 136-145 mmol/L Potassium Level 3.8 3.5-5.1 mmol/L Chloride Level 106 98-107 mmol/L Carbon Dioxide Level 26 21-32 mmol/L Anion Gap 9.0 15.0 16-25 mmol/L Blood Urea Nitrogen 12 7-18 mg/dl Creatinine 0.67 0.60-1.20 mg/dl Est Creatinine Clear Calc Drug Dose 94.1 ml/min Estimated GFR () 104.7 Estimated GFR (Non- 90.3 BUN/Creatinine Ratio 17.3 10-20 Random Glucose 106 70-99 mg/dl Calcium Level 8.8 8.5-10.1 mg/dl Pro-B-Type Natriuretic Peptide 1887 0-900 pg/ml Bedside Hemoglobin 10.2 12.0-16.0 g/dl Bedside Hematocrit 30 37-47 % Bedside Sodium 140 135-144 mEq/L Bedside Potassium 4.0 3.3-5.0 mEq/L Bedside Chloride 103 101-112 mEq/L Bedside Total CO2 28 24-31 mEq/l Bedside Blood Urea Nitrogen 12 7-18 mg/dl Bedside Creatinine 0.7 0.6-1.3 mg/dl Bedside Glucose (other) 109 70-99 mg/dl Bedside Ionized Calcium (Inés) 1.18 1.12-1.32 mmol/l Bedside Prothrombin Time INR 1.8 0.9-1.1 Bedside Troponin I 0.050 0-0.045 ng/ml Impression Assessment and Plan #[id number] Advanced Directives Existing Living Will: No Existing Power of County Or City Auditor: No VTE Prophylaxis VTE Risk Assessment Done? Y/N: Yes Risk Level: Moderate
--- NOTE | 2017-04-22 17:48 | HISTORY & PHYSICAL EXAMINATION ---
DATE OF ADMISSION: 04/22/2017 CHIEF COMPLAINT: Shortness of breath as well as dark stools. HISTORY OF PRESENT ILLNESS: The patient is a very pleasant 66-year-old female who is about 1 week status post CABG single vessel and aortic valve replacement at [place] who came to the ER after discussion with Harika for dual complaints of dark stools and shortness of breath. She noted the dark stools late last night, called [place] for further guidance, complained about sitting on hold for about a half an hour and then was directed to the ER. She also notes incidentally but on directed questioning, it does appear to be new and of significant that she is feeling a bit short of breath. This seems to be new, it is a little bit ill-defined, but definitely that she cannot catch her breath, cannot breathe very deeply. She does in a way related to feeling anxious but also then separately notes that she was truly feeling short of breath. She does not have any weakness, lightheadedness, dizziness, no fevers, chills, or sweats. She does have a little bit of leg swelling today that is new. In regards to her shortness of breath she notes since she has had a dose of Bumex and supplemental oxygen, her breathing feels much better. REVIEW OF SYSTEMS: Otherwise negative, except for as above. PAST MEDICAL HISTORY: Includes coronary artery disease, aortic valve stenosis. She is now status post single vessel bypass and aortic valve replacement a week ago, hypertension, anemia, history of PE. PAST SURGICAL HISTORY: Includes last week's cardiothoracic surgery as well as a left knee replacement. MEDICATIONS: Her meds are noted to be Tylenol, aspirin, atorvastatin, vitamin D, Janet, Flonase allergy, Lopressor, Macrodantin, Prilosec, Zoloft, Ultram, and Coumadin. FAMILY HISTORY: Both parents had heart issues including aortic valve stenosis. SOCIAL HISTORY: She is not a smoker and a social drinker. No significant alcohol or drugs. ALLERGIES: AMLODIPINE, CAT DANDER AND DUST. PHYSICAL EXAMINATION: VITAL SIGNS: Temp 36.4, pulse 81, respiratory rate 18, blood pressure 175/76, and 96% on room air. GENERAL: She is awake, alert, oriented x3, pleasant, in no acute distress. HEENT: Normocephalic, atraumatic. Mucous membranes are moist. CARDIOVASCULAR: Regular without rubs, murmurs, or gallops. She does have a click. LUNGS: Show diminished air entry bibasilar and no rales, rhonchi, or wheezes. Good effort. No accessory muscle use. ABDOMEN: Soft, nondistended, nontender, no masses or organomegaly. EXTREMITIES: Without cyanosis or clubbing. She has trace to maybe 1+ edema equal bilaterally, no erythema. No cords. No calf tenderness. SKIN: Shows no rashes. No pallor or icterus. NEUROLOGIC: Shows cranial nerves II-XII to be grossly intact. Gross motor and sensory are intact. MUSCULOSKELETAL: Yields no gross lesions. LABORATORY AND DIAGNOSTICS: Her CBC shows a white count of 7.42, hemoglobin 9.6 with an MCV of 83.9, platelets 276. Basic metabolic panel with sodium 140, potassium 3.8, chloride 106, CO2 26, BUN 12, creatinine 0.67, calcium 8.8, glucose 106. BNP of 187. Troponin is 0.05. PT of 17.1 with INR of 1.6. Chest CT shows no PE, did show a consolidative opacity that seems most consistent with atelectasis bibasilar, but certainly right worse than left. She also has small to maybe on the small size with moderate bilateral pleural effusions. Her EKG is sinus with nonspecific ST-T abnormalities. ASSESSMENT AND PLAN: 1. Shortness of breath: This appears to be multifactorial between a degree of acute probably diastolic 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 failure as well as her pleural effusions as well as what appears to be atelectasis. She has been given 0.5 mg of Bumex in the ER. We will follow for need for further diuretic dosing. Given that the pulmonary edema did not seem markedly overwhelming, we will hold on additional diuretics and dose only if clearly if needed. We will encourage incentive spirometry and follow serial exams. Her CT has consolidative changes that kind of bridge the differential between infiltrate or atelectasis; however, clinically it behaves much more like atelectasis and therefore, we will refrain from antibiotics and follow for improvement with incentive spirometry and her effusions are doubtfully big enough to require intervention, but if it seems like she is unable to be weaned off oxygen, then we may need to give consideration to a thoracentesis. If this were to be the case, I discussed with her certainly we are going to discuss with cardiothoracic surgery in [place]; however, at this point in time, the ER has already discussed with cardiothoracic surgery team in [place] and at this point, they would prefer that she be treated here. 2. Mild hypoxia: This is related to above. See above. 3. Melena: She is taking an iron supplement. She shows no other signs of active bleeding. We will continue her warfarin, but not give her escalated dosing with her subtherapeutic INR at this point in time, but rather we will follow it up and follow her hemoglobin. She certainly shows no signs of active bleeding. At this point, a Hemoccult would not be of value because it would definitely be positive from her iron supplement and she also notes her last colonoscopy was only about a year ago and she was told that she would probably not need any further colonoscopies. 4. Anemia: See above. She seems to be consistent with what one would expect post coronary artery bypass grafting. Her prior baseline hemoglobin that I have access to was about 12.9, but it was 4 months ago. We will follow up her hemoglobin in the morning. Hopefully, I will be able to obtain records from [place] in regards to her discharge hemoglobin there. 5. Hypertension: Continue her home meds and follow. 6. Coronary artery disease: Continue home meds. 7. Deep venous thrombosis prophylaxis: Coumadin and obviously need to follow her INR. MTDD
[2017-04-22 19:51] LABS: URINE APPEARANCE CLEAR (CLEAR); URINE BILIRUBIN NEG (NEG); URINE COLOR YELLOW; URINE EPITHELIAL CELL AUTO >30 /lpf (0-5); URINE NITRITE NEG (NEG); URINE SPECIFIC GRAVITY 1.015 (1.000-1.030); UROBILINOGEN NEG (NEG)
[2017-04-22 19:54] LABS: MANUAL MICROSCOPIC REQUIRED? NO; REVIEW REQ? NO
[2017-04-22] MEDS ORDERED: FLUTICASONE PROPIONATE NA SPR 16 GM BTL NAE PRN (20:30)
[2017-04-22] MEDS ORDERED: TRAMADOL HCL 50 MG TAB PO PRN (20:30)
[2017-04-22] MEDS ORDERED: ACETAMINOPHEN 500 MG TAB PO PRN (20:30)
[2017-04-22] MEDS ORDERED: WARFARIN SOD 7.5 MG TAB PO SCH (21:00)
[2017-04-22] MEDS ORDERED: PANTOprazole SOD 40 MG TAB PO SCH (21:00)
[2017-04-22 21:42] VITALS: BP 178/72; PULSE 97
[2017-04-22] MEDS: METOPROLOL TARTRATE 25 MG TAB PO SCH (21:46)
[2017-04-22 23:56] VITALS: BP 125/75; PULSE 86; TEMP 37.1; O2SAT 99
[2017-04-23 06:54] LABS: BASO % 0.2 %; BASO ABS # 0.02 K/uL (0-0.2); COMPLETE YES; EOS % 2.2 %; HEMATOCRIT 30.8 % (37-47); IG% 0.4 %; LYMPH % 13.2 %; LYMPH ABS # 1.08 K/uL (1.2-3.4); MEAN CELL VOLUME 83.5 fL (80-100); MEAN CORPUSCULAR HEMOGLOBIN 26.8 pg (25-34); MEAN CORPUSCULAR HGB CONC 32.1 g/dl (32-36); MEAN PLATELET VOLUME 10.6 fL (7.4-10.4); MONO % 6.6 %; NEUT % 77.4 %; PLATELET COUNT 283 K/uL (130-400); RED BLOOD COUNT 3.69 M/uL (4.2-5.4); WHITE BLOOD COUNT 8.18 K/uL (4.8-10.8)
[2017-04-23 07:05] LABS: INR 1.8 (0.9-1.1); PROTHROMBIN TIME (PATIENT) 19.4 SECONDS (9.0-12.0)
[2017-04-23 07:15] VITALS: BP 132/80; PULSE 89; TEMP 37; O2SAT 100
[2017-04-23 07:37] LABS: BUN/CREATININE RATIO 18.3 (10-20); CALCIUM 8.8 mg/dl (8.5-10.1); CREATININE 0.7 mg/dl (0.60-1.20)
[2017-04-23] MEDS ORDERED: SERTRALINE HCL 100 MG TAB PO SCH (08:00)
[2017-04-23] MEDS ORDERED: CHOLECALCIFEROL 1000 INTER.UNIT TAB PO SCH (08:00)
[2017-04-23] MEDS ORDERED: FEXOFENADINE HCL 180 MG TAB PO SCH (08:00)
[2017-04-23] MEDS ORDERED: ASPIRIN 81 MG ECTAB PO SCH (08:00)
[2017-04-23] MEDS ORDERED: ATORVASTATIN 40 MG TAB PO SCH (08:00)
[2017-04-23] MEDS ORDERED: NITROFURANTOIN MACROCRYSTALS 50 MG CAP PO SCH (08:00)
[2017-04-23] MEDS: METOPROLOL TARTRATE 25 MG TAB PO SCH (08:11)
[2017-04-23] MEDS ORDERED: BUME1TAB43 PO (09:11)
--- NOTE | 2017-04-23 09:17 | Discharge Instructions ---
Discharge Instructions Date of Service Apr 23, 2017. Admission Reason for Admission: CHF Discharge Discharge Diagnosis / Problem: acute diastolic heart failure, small pleural effusions, atelectasis Discharge Goals Goal(s): Decrease discomfort, Improve function Activity Recommendations Activity Limitations: per Instructions/Follow-up section Lifting Limitations: until after follow-up appointment Exercise/Sports Limitations: as tolerated May Resume Sexual Activity: when tolerated Shower/Bathe: no limitations Driving or Machine Use: no limitations . Instructions / Follow-Up Instructions / Follow-Up Medications: - BUMEX: take 1mg in the morning for increased lower extremity edema or weight gain of 2 lbs from baseline Acute diastolic heart failure, pleural effusions: likely related to recent heart surgery, responded well to Bumex yesterday best way to track volume retention is to weigh yourself daily, step on scale in morning after you urinate, before you eat if your weight goes up by 2 lbs from baseline, take a Bumex, or, if you notice increased leg swelling that is abnormal for you, take a Bumex if you are taking Bumex more often than not, contact Dr. Gallegos for further instructions Atelectasis: bases of lungs are compressed from small effusions, continue to take deep breaths with the incentive spirometer several times a day to open up lungs Dark stools, anemia: as we discussed, your hemoglobin went up to 9.9 from 9.6, no concerns for active bleeding FOLLOW UP - call office of Dr. Ye for appointment in 5-7 days for hospital follow up - keep previously scheduled appointments with heart surgeon and Dr. Gallegos Call your Primary Care doctor if any of the following symptoms or problems start or get worse: * Shortness of breath or difficulty breathing * Wake up at night short of breath * Chest pain * Cough * Swelling of your hands, feet, or legs * More fatigued or tired with your normal activity * Palpitations - sudden fast heart beats WEIGHT * Weigh yourself every morning after using the bathroom. * Use the same scale. * Wear the same amount of clothing. * Write your weight down on a chart. * Call your Primary Care doctor if you gain more than 2-3 pounds in 1-2 days. MEDICATIONS * Use this discharge instruction sheet for medication instructions. * Take your medications at the time your doctor ordered. * Do not skip a dose of your medicines. * If you miss a dose of medicine, take it as soon as possible, but DO NOT DOUBLE A DOSE. * Read your medicine information when you get home. * Know all of the side effects of your medicine. If in doubt, ask your pharmacist * Call your Primary Care doctor's office if you have any side effects. * Be sure all of your doctors know what medicine and herbs you take (including cold, flu, and herbal medicine). Take the following with you to your follow-up doctor appointments: * Weight Chart * Medication List * List of questions Do not drink excessive alcohol, beer or wine. Current Hospital Diet Patient's current hospital diet: Low Sodium Diet (2gm Na) Discharge Diet Recommended Diet: Low Sodium Diet (2gm Na) Pending Studies Studies pending at discharge: no Medical Emergencies . Who to Call and When: Call 911 or go to the Emergency Room if: * If at any time you feel your situation is an emergency * You have tightness or pain in your chest that does not go away with rest or Nitroglycerin * You are very short of breath even with rest . Non-Emergent Contact Non-Emergency issues call your: Primary Care Provider, Project Production Engineer Call Non-Emergent contact if: you have any medication questions if you are gaining fluid, swelling despite Bumex use . . "Provider Documentation" section prepared by Freddy Hayes. . VTE Core Measure Inpt VTE Proph given/why not?: Warfarin (Coumadin) [place] Drug Monitoring Program Search Results: no issues identified
[2017-04-23 09:33] VITALS: BP 132/80; PULSE 89; TEMP 37; O2SAT 100
--- NOTE | 2017-04-23 14:48 | Discharge Summary ---
Discharge Summary Date of Service Apr 23, 2017. Discharge Summary Admission Date: Apr 22, 2017 at 12:38 Discharge Date: Apr 23, 2017 Discharge Disposition: Home Principal Diagnosis: Acute diastolic heart failure Problems/Secondary Diagnoses: Acute on chronic anemia recent CABG and AVR h/o PE Immunizations: Have You Had Influenza Vaccine: Yes Influenza Vaccine Date: May 15, 2011 History of Tetanus Vaccine?: Yes History of Pneumococcal: No History of Hepatitis B Vaccine: No Procedures: none Consultations: none Medication Reconciliation New Medications: Bumetanide (Bumex) 1 Mg Tab 1 MG PO UD PRN for weight gain/swelling, #30 TABS 2 Refills Continued Medications: Acetaminophen (Tylenol Extra Strength) 500 Mg Tab 1000 MG PO UD PRN for Pain Aspirin (Aspirin 81) 81 Mg Tab 81 MG PO DAILY for 30 Days Atorvastatin (Lipitor) 40 Mg Tab 40 MG PO QAM, TAB Cholecalciferol (Vitamin D) 2,000 Unit Cap 4000 UNITS PO QAM Fexofenadine Hcl (Janet Allergy) 180 Mg Tab 180 MG PO QAM, TAB 2 Refills Fluticasone Propionate (Nasal) (Flonase Allergy Relief) 50 Mcg/Act Spr 1 SPRAY MARCELA DAILY PRN for PRN Metoprolol Tartrate (Lopressor) (Lopressor) 25 Mg Tab 25 MG PO BID, TAB Nitrofurantoin Macrocrystals (Macrodantin) 100 Mg Cap 100 MG PO QAM, CAP Omeprazole (Prilosec) 20 Mg Capcr 20 MG PO HS, CAP Sertraline (Zoloft) 100 Mg Tab 100 MG PO QAM, TAB Tramadol (Ultram) 50 Mg Tab 50 MG PO Q8H PRN for Pain, TAB Warfarin Sod (Jantoven) 7.5 Mg Tab 7.5 MG PO DAILY, TAB Discharge Exam Patient feeling much better this morning, responded well to Bumex, lots of diuresis yesterday and last night. Breathing improved with diuresis. Discussed labs, Hb up to 9.9, Cr stable, electrolytes stable. 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 Review of Systems: Constitutional: No fever, No chills, No sweats, No weight loss, No weakness , No fatigue, No problem reported Eyes: No worsening of vision, No eye pain, No redness, No discharge, No diplopia, No problem reported ENT: No hearing loss, No unusual epistaxis, No nasal symptoms, No sore throat, No tinnitus, No dental problems, No trouble swallowing, No problem reported Respiratory: + dyspnea on exertion, No cough, No sputum, No wheezing, No shortness of breath, No dyspnea at rest, No hemoptysis, No problem reported Cardiovascular: + edema (nearly gone), No chest pain, No orthopnea, No PND, No claudication, No palpitations, No problem reported Abdomen: No pain, No nausea, No vomiting, No diarrhea, No constipation, No GI bleeding, No problem reported Musculoskeletal: No joint pain, No muscle pain, No swelling, No calf pain, No problem reported Genitourinary - Female: No dysuria, No urinary frequency, No urinary urgency , No urinary incontinence Neurologic: No memory loss, No paralysis, No weakness, No numbness/tingling , No vertigo, No balance problems, No problem reported Psychiatric: No depression symptoms, No anhedonism, No anxiety, No insomnia , No substance abuse, No problem reported Endocrine: No fatigue, No excessive thirst, No excessive urination, No problem reported Hematologic / Lymphatic: No abnormal bleeding/bruising, No clotting problems , No swollen lymph nodes, No night sweats, No problem reported Integumentary: No rash, No itch, No new/changing skin lesions, No color change, No bleeding, No problem reported Physical Exam: General Appearance: WD/WN, no apparent distress Eyes: normal inspection, EOMI, sclerae normal ENT: normal ENT inspection, hearing grossly normal, pharynx normal Neck: supple, no adenopathy, no JVD, trachea midline Respiratory/Chest: chest non-tender, no respiratory distress, no accessory muscle use, + decreased breath sounds (bases) Cardiovascular: regular rate, rhythm, no edema, no gallop, no JVD, no murmur , normal peripheral pulses, + pertinent finding (artificial valve sound) Abdomen / GI: normal bowel sounds, non tender, soft, no organomegaly Extremities: normal inspection, no calf tenderness, normal capillary refill , normal range of motion, non-tender, pelvis stable, + pedal edema (trace bilaterally) Neurologic/Psychiatric: mechanical designer II-XII nml as tested, no motor/sensory deficits , alert, normal mood/affect, normal reflexes Skin: normal color, warm/dry, no rash Hospital Course 66 yo female who presented with shortness of breath, one week out from CABG with AVR at [facility]. Found to have small effusions bilaterally with atelectasis. Treated for acute diastolic heart failure with Bumex and encouraged incentive spirometry for atelectasis. Responded quite well, off of oxygen quickly and ready to go home. 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 Gallegos in two weeks - Atelectasis with acute hypoxic respiratory failure breathing room air given incentive spirometer to use at home, encourage up in chair, ambulate often - H/o PE: continue Coumadin Total Time Spent: Greater than 30 minutes This includes examination of the patient, discharge planning, medication reconciliation, and communication with other providers. Discharge Instructions Please refer to the electronic Patient Visit Report (Discharge Instructions) for additional information. Follow-Up Dr. Ye in one week Cardiothoracic surgeon at [facility] next week Dr. Gallegos in two weeks Additional Copies To ,Fahad Beal M.D.; Osmin Gallegos MD
== END 2017-04-23 10:23 | disposition home or self-care (01) ==
LOC: C.EDB 09:16 → C.4E 12:38 → ENRESERV 13:07
PROVIDERS: ADMIT Family Medicine; ATTEND Internal Medicine
DX: I50.31 Acute diastolic (congestive) heart failure (principal); D64.9 Anemia, unspecified; J98.11 Atelectasis; Z79.01 Long term (current) use of anticoagulants; Z79.899 Other long term (current) drug therapy; Z86.711 Personal history of pulmonary embolism; Z95.1 Presence of aortocoronary bypass graft; Z95.2 Presence of prosthetic heart valve

== ENCOUNTER → 2017-05-03 | Outpatient (CLI) | payer OTHER ==
[~2017-05-03] MED LIST changes: +ACET-1138 PO; +ATOR-24 PO; +BUME1TAB43 PO; -LPT/20 PO
[2017-05-03 09:36] LABS: INR 3.1 (0.9-1.1); PROTHROMBIN TIME (PATIENT) 34.6 SECONDS (9.0-12.0)
== END | disposition home or self-care (01) ==
LOC: C.LAB 08:31
PROVIDERS: ATTEND Internal Medicine Cardiovascular Disease
DX: Z79.01 Long term (current) use of anticoagulants (principal); Z51.81 Encounter for therapeutic drug level monitoring

== ENCOUNTER → 2017-05-08 | Outpatient (CLI) | payer OTHER ==
[2017-05-08 15:43] LABS: HEMATOCRIT 33.6 % (37-47); MEAN CELL VOLUME 85.1 fL (80-100); MEAN CORPUSCULAR HEMOGLOBIN 26.3 pg (25-34); MEAN PLATELET VOLUME 11.1 fL (7.4-10.4); PLATELET COUNT 262 K/uL (130-400); RED BLOOD COUNT 3.95 M/uL (4.2-5.4); WHITE BLOOD COUNT 6.59 K/uL (4.8-10.8)
[2017-05-08 16:12] LABS: BLOOD UREA NITROGEN 20 mg/dl (7-18); BUN/CREATININE RATIO 26.6 (10-20); CARBON DIOXIDE 26 mmol/L (21-32); CHLORIDE 108 mmol/L (98-107); CREATININE 0.76 mg/dl (0.60-1.20); GLUCOSE 101 mg/dl (70-99); POTASSIUM 3.8 mmol/L (3.5-5.1); SODIUM 143 mmol/L (136-145)
== END | disposition home or self-care (01) ==
LOC: C.LAB1850 14:32
PROVIDERS: ATTEND Internal Medicine Cardiovascular Disease
DX: I10 Essential (primary) hypertension (principal); I35.0 Nonrheumatic aortic (valve) stenosis; I25.10 Atherosclerotic heart disease of native coronary artery without angina pectoris; R06.09 Other forms of dyspnea; D64.9 Anemia, unspecified

== ENCOUNTER → 2017-05-15 | Outpatient (CLI) | payer OTHER ==
--- NOTE | 2017-05-15 11:00 | DIAGNOSTIC IMAGING REPORT ---
CHEST 2 VIEWS ROUTINE CLINICAL HISTORY: I11.0 Hypertensive heart disease with CHFR07.89 Chest discomfort COMPARISON STUDY: 06/16/2014 FINDINGS: The heart is borderline enlarged. There are postsurgical changes of midline sternotomy and aortic valve replacement. There is mild elevation right hemidiaphragm. There is no failure. There are parenchymal opacities the right lung base, likely atelectatic. No significant pleural effusions are visualized. IMPRESSION: 1. Postsurgical changes of midline sternotomy and aortic valve replacement 2. Elevation right hemidiaphragm 3. Right lower lobe parenchymal opacities, statistically atelectatic Electronically signed by: Torsten Lozada M.D. 05/15/2017 10:59 AM Dictated Date/Time: 05/15/2017 10:57 AM
== END | disposition home or self-care (01) ==
LOC: C.RAD1850 10:32
PROVIDERS: ATTEND Internal Medicine Pulmonary Disease
DX: R07.89 Other chest pain (principal); I11.0 Hypertensive heart disease with heart failure; R91.8 Other nonspecific abnormal finding of lung field; J98.6 Disorders of diaphragm; Z98.890 Other specified postprocedural states

== ENCOUNTER → 2017-05-15 | Outpatient (CLI) | payer OTHER ==
[~2017-05-15] MED LIST changes: +OPTIRAY 320 IV PRN
--- NOTE | 2017-05-15 13:51 | DIAGNOSTIC IMAGING REPORT ---
CT ANGIOGRAM OF THE CHEST CLINICAL HISTORY: Shortness of breath. Chest pain. History of recent open heart surgery. COMPARISON STUDY: 04/22/2017 TECHNIQUE: Following the IV administration of 109 mL of Optiray-320, CT angiogram of the thorax was performed from the thoracic inlet to the lung bases utilizing the pulmonary embolus protocol. Images are reviewed in the axial, sagittal, and coronal planes. IV contrast was administered without complication. MIP imaging was performed. A dose lowering technique was utilized adhering to the principles of ALARA. CT DOSE: 552.39 mGycm FINDINGS: No pathologically enlarged axillary mediastinal or hilar lymph nodes were visualized. There was no evidence of thoracic aortic dilatation. There were no pulmonary artery filling defects to indicate acute pulmonary embolism. There is a small left pleural effusion which has decreased in size when compared the preceding study. There is persistent but improving right lower and middle lobe atelectasis/consolidation. There are minimal dependent left lower lobe atelectatic changes. There is a 3 mm solid right upper lobe pulmonary nodule. There is a stable solid 4 mm perifissural left lower lobe pulmonary nodule. In a low risk patient, no further follow-up is indicated. In a high risk patient, a 12 month follow-up is optional. There is elevation/eventration right hemidiaphragm. There are postsurgical changes of a midline sternotomy. Increased attenuation of the anterior mediastinal fat is felt to be postsurgical. IMPRESSION: 1. No CT evidence of acute pulmonary embolism 2. Decreasing left pleural effusion 3. Improving right middle and lower lobe atelectasis/consolidation. 4. Persistent elevation of the right hemidiaphragm Electronically signed by: Torsten Lozada M.D. 05/15/2017 1:50 PM Dictated Date/Time: 05/15/2017 1:43 PM
--- NOTE | 2017-05-15 14:33 | DIAGNOSTIC IMAGING REPORT ---
FLUOROSCOPY PROVIDED FOR A SNIFF TEST CLINICAL HISTORY: Chest discomfort. Short of breath. Elevated hemidiaphragm. COMPARISON STUDY: Chest 05/15/2017. FINDINGS: There is persistent elevation the right hemidiaphragm. There are poststernotomy changes. There is markedly diminished movement of the right hemidiaphragm with the. There is evidence for paradoxical movement of the right hemidiaphragm in comparison to the left. 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 Electronically signed by: Fabian Kamara M.D. 05/15/2017 2:32 PM Dictated Date/Time: 05/15/2017 2:28 PM
== END | disposition home or self-care (01) ==
LOC: C.RAD 12:17
PROVIDERS: ATTEND Internal Medicine Pulmonary Disease
DX: R06.02 Shortness of breath (principal); R07.89 Other chest pain; J98.6 Disorders of diaphragm

== ENCOUNTER → 2017-07-18 | Outpatient (CLI) | payer OTHER ==
[~2017-07-18] MED LIST changes: -OPTIRAY 320 IV PRN
--- NOTE | 2017-07-18 13:49 | DIAGNOSTIC IMAGING REPORT ---
CHEST 2 VIEWS ROUTINE CLINICAL HISTORY: R05 CoughPRIOR TO F/U IN [id number] COMPARISON STUDY: 1120 08/23/2016 FINDINGS: Mildly progressive infiltrative/atelectatic changes right base. Persistent and/or chronic elevation right hemidiaphragm. Moderate cardiomegaly post median sternotomy and valve replacement. The left lung as well as mid and upper right lung are clear. IMPRESSION: Mildly progressive infiltrative and/or atelectatic change right base. All remaining components of the study are unaltered. Given this progression, CT of the chest is suggested. The above report was generated using voice recognition software. It may contain grammatical, syntax or spelling errors. Electronically signed by: Rashard Zimmer M.D. 07/18/2017 1:48 PM Dictated Date/Time: 07/18/2017 1:46 PM
== END | disposition home or self-care (01) ==
LOC: C.RAD1850 13:30
PROVIDERS: ATTEND Internal Medicine Pulmonary Disease
DX: R05 Cough (principal)

== ENCOUNTER → 2017-07-18 | Outpatient (CLI) | payer OTHER ==
--- NOTE | 2017-07-18 16:53 | DIAGNOSTIC IMAGING REPORT ---
BILATERAL LOWER EXTREMITY VENOUS DOPPLER HISTORY: R06.02 SOB (shortness of breath)R60.0 Edema of extremitiesAPPT S COMPARISON STUDY: Duplex venous Doppler study 09/13/2011. FINDINGS: There is normal compressibility, flow, and augmentation within the bilateral lower extremity deep venous systems. IMPRESSION: No sonographic evidence of deep venous thrombosis within the right or left lower extremity. Electronically signed by: Mark Arias M.D. 07/18/2017 4:52 PM Dictated Date/Time: 07/18/2017 4:51 PM
== END | disposition home or self-care (01) ==
LOC: C.ULTR 15:22
PROVIDERS: ATTEND Internal Medicine Pulmonary Disease
DX: R06.02 Shortness of breath (principal); R60.0 Localized edema

== ENCOUNTER → 2017-08-02 | Day surgery (SDC) | payer OTHER ==
[2017-08-02] VITALS (7 sets, daily range): BP systolic 141–181; BP diastolic 62–74; PULSE 66–77; TEMP 36.6–37; O2SAT 93–99; Ht 160 cm; Wt 109.0 kg
[~2017-08-02] VITALS: Ht 160 cm; Wt 109.0 kg
[~2017-08-02] MED LIST changes: +FENTANYL CITRATE INJ 50 MCG/1 ML 2 ML VIAL IV ONE; +LEVALBUTEROL 1.25MG/3ML NEB INH ONE; +LIDOCAINE 4% INH SOLN 4 ML BTL TOP ONE; +LIDOCAINE HCL 2% LOCAL 50ML VIAL INSTIL ONE; +LIDOCAINE VISCOUS 2% 100ML TOP ONE; +MIDAZOLAM HCL 5 MG/ML 1 ML VIAL IV ONE; +OXYMETAZOLINE HCL 0.05% NA SPR 15 ML BTL ONE
--- NOTE | 2017-08-02 07:42 | Pre Sedation Assessment ---
Pre Sedation Assessment General Date of Sedation: Aug 02, 2017. Pre-Sedation Airway Assessment Smoking Status: Never Smoker Mallampati Classification: Class II ASA Classification: Class II Procedure Planning Contraindications for Sedation: None Current Medications Reviewed: Yes Notes The planned sedation has been discussed with the patient. Informed Consent was obtained. I have identified the patient, determined the appropriateness of sedation and have assessed the patient immediately prior to the procedure. All medicine(s) and interventions are by my order.
--- NOTE | 2017-08-02 09:45 | Post Sedation Assessment ---
Post Sedation Assessment General Date of Sedation Aug 02, 2017. Vital Signs: Vital Signs Past 12 Hours Date Time Temp Pulse Resp B/P (MAP) Pulse Ox O2 Delivery O2 Flow Rate FiO2 08/02/17 09:30 68 21 197/78 98 Nasal Cannula 6 08/02/17 09:25 60 21 173/94 98 Nasal Cannula 6 08/02/17 09:20 64 20 189/89 97 Nasal Cannula 4 08/02/17 09:15 60 20 173/96 97 Nasal Cannula 4 08/02/17 09:05 60 20 173/96 97 Nasal Cannula 4 08/02/17 07:58 36.6 68 22 181/69 (106) 97 Room Air Post Procedure Recovery Score Activity: (2) Moves 4 extremities * Respiration: (1) Dyspnea/ltd breathing Circulation: (2) +/-20% PreAnes Value Consciousness: (2) Fully Awake Oxygen Saturation: (1) O2 needed for >90% Post Anesthesia Score: 8 Discharge Sedation Level of Care: Fast Track Phase II Post Sedation Plan On clinical assessment, the patient appears to have tolerated the sedation without complications. Patient is recovering as anticipated. Patient will continue to be monitored by nursing and may be discharged when sedation discharge criteria are met per below protocol. Upon Completions of procedure and additional 15 minutes continue every 5 minute vital signs and the P.A.R. score; then discharge to a Phase I or Fast Track to Phase II per the following guidelines: * Discharge Patient to appropriate Phase II area if PAR is 8 or greater or return to pre- procedure baseline. The post - procedure orders will be as directed. * If PAR score is less than 8 or not return to pre-procedure baseline then patient will follow Phase I monitoring till PAR is reached for Phase II. The Phase I may be done in procedure room or may call to secure a Phase I area. * If naloxone or flumazenil are used for reversal, hold in Phase I for an additional 60 -120 minutes before discharge to Phase II. Please call the Sedation Physician to re-evaluate and complete post-note for discharge to Phase II area. Do NOT discharge from procedure sedation or Phase 1 until post- sedation evaluation note is complete by procedure /sedation MD Sedation Discharge Instructions to be given to the patient at discharge to home.
--- NOTE | 2017-08-02 09:56 | OPERATIVE REPORT ---
DATE OF OPERATION: 08/02/2017 PROCEDURE: Fiberoptic bronchoscopy with bronchoalveolar lavage. INDICATIONS: Right hemidiaphragmatic paralysis/atelectasis right middle and right lower lobe secondary to mucoid impaction. ANESTHESIA PREOPERATIVELY: None. ANESTHESIA DURING PROCEDURE: 15 mcg IV fentanyl, 5 mg IV Versed, 20 mL 2% Xylocaine spray above and below the cords, 4% viscous Xylocaine intranasally. DESCRIPTION OF PROCEDURE: Fiberoptic bronchoscope was inserted into the left naris with minimal difficulty and passed to the level of the true vocal cords. The cords appeared to approximate normally with phonation without evidence of lesions or paralysis. The area was anesthetized with 2% Xylocaine spray and the scope was then introduced in the trachea and right and left tracheobronchial tree. The ghada was sharp. The right main stem bronchus was explored initially and there was clear evidence of EDAC or endoscopic dynamic airway collapse involving the right mainstem bronchus, specifically the right posterior wall of the right main stem bronchus at the level of the ghada during expiratory maneuvers and coughing paroxysms. The scope was entered into the right mainstem bronchus and no endobronchial lesion was seen. A global degree of inflammatory mucosal change was seen. The right upper lobe, the apical posterior, anterior segments, bronchus intermedius, right middle lobe, medial lateral segments and all basilar segments of right lower lobe were found to be free of endobronchial lesions. A moderate amount of mucopurulent secretion was lavaged from the right middle lobe and right lower lobe basilar segments until clear. There was some evidence for fish-mouthing or volume loss involving the basilar segments of right lower lobe. These segments were lavaged with normosol copiously and the aspirate sent for appropriate studies. The left tracheobronchial tree was explored and no endobronchial lesion was seen. Left upper lobe, the apical-posterior and anterior segments, lingular subdivision with the superior and inferior segments and all basilar segments of left lower lobe were found to be free of endobronchial lesions. The left lower lobe was lavaged with normosol and the aspirate sent for appropriate studies. No brushings or biopsies were deemed necessary. The patient did desaturate to 83% and the procedure was terminated and patient was given a nebulizer treatment with Xopenex 1.25 mg and appeared to be hemodynamically stable. There was some evidence of paradoxical breathing. Post-procedure patient appeared in no respiratory distress, was transferred to the medical treatment unit hemodynamically stable with no signs of respiratory compromise. We will await microbiological and cytologic examination of the bronchial washings. I attest to the content of the Intraoperative Record and any orders documented therein. Any exception s are noted below.
--- NOTE | 2017-08-02 11:12 | Discharge Instructions ---
Discharge Instructions Date of Service Aug 02, 2017. Admission Reason for Admission: Cough, Shortness Of Breath Discharge Discharge Diagnosis / Problem: Chronic Mucopurulent Bronchitis Discharge Goals Goal(s): Diagnostic testing Activity Recommendations Activity Limitations: resume your previous activity Lifting Limitations: none Exercise/Sports Limitations: none May Resume Sexual Activity: when tolerated Shower/Bathe: no limitations Driving or Machine Use: resume 1 day after discharge None . Instructions / Follow-Up Instructions / Follow-Up ACTIVITY RECOMMENDATIONS: * Rest today, resume normal activity tomorrow. * Do not drive today. SPECIAL CARE INSTRUCTIONS: * Call your physician if you experience any chest or shoulder pain, fever, coughing, spitting up blood (more than 2 teaspoons) or excessive shortness of breath. * Remove dressing from IV site (where needle was placed into the vein) after 2 hours. Apply a warm, moist compress to site if irritation occurs. Call physician if site becomes red or painful to touch. FOLLOW UP VISIT: * Keep any scheduled doctor appointments. Current Hospital Diet Patient's current hospital diet:regular Discharge Diet Recommended Diet: Regular Diet Fluid Restriction: None Procedures Procedures Performed: BRONCHOSCOPY Pending Studies Studies pending at discharge: no Medical Emergencies . Who to Call and When: Medical Emergencies: If at any time you feel your situation is an emergency, please call 911 immediately. . Non-Emergent Contact Non-Emergency issues call your: Cycling Instructor Call Non-Emergent contact if: temperature is above 101 . . "Provider Documentation" section prepared by Fahad Chinchilla. . VTE Core Measure Inpt VTE Proph given/why not?: Treatment not indicated
== END | disposition home or self-care (01) ==
LOC: C.ACU 07:26
PROVIDERS: ATTEND Internal Medicine Pulmonary Disease
DX: J98.6 Disorders of diaphragm (principal); J98.11 Atelectasis; R07.89 Other chest pain; I11.0 Hypertensive heart disease with heart failure; G47.33 Obstructive sleep apnea (adult) (pediatric); I50.31 Acute diastolic (congestive) heart failure; F32.9 Major depressive disorder, single episode, unspecified; E78.5 Hyperlipidemia, unspecified; Z96.659 Presence of unspecified artificial knee joint; Z86.711 Personal history of pulmonary embolism; Z98.51 Tubal ligation status; Z88.8 Allergy status to other drugs, medicaments and biological substances; Z82.49 Family history of ischemic heart disease and other diseases of the circulatory system; Z82.61 Family history of arthritis

== ENCOUNTER → 2017-08-22 | Outpatient (CLI) | payer OTHER ==
[~2017-08-22] MED LIST changes: -BUME1TAB43 PO; -FENTANYL CITRATE INJ 50 MCG/1 ML 2 ML VIAL IV ONE; -FLUT0.15 NAE; -LEVALBUTEROL 1.25MG/3ML NEB INH ONE; -LIDOCAINE 4% INH SOLN 4 ML BTL TOP ONE; -LIDOCAINE HCL 2% LOCAL 50ML VIAL INSTIL ONE; -LIDOCAINE VISCOUS 2% 100ML TOP ONE; -MIDAZOLAM HCL 5 MG/ML 1 ML VIAL IV ONE; -OXYMETAZOLINE HCL 0.05% NA SPR 15 ML BTL ONE
[2017-08-22 12:44] LABS: BLOOD UREA NITROGEN 21 mg/dl (7-18); CALCIUM 8.9 mg/dl (8.5-10.1); CARBON DIOXIDE 27 mmol/L (21-32); CREATININE 0.81 mg/dl (0.60-1.20); GLUCOSE 95 mg/dl (70-99); POTASSIUM 3.9 mmol/L (3.5-5.1); SODIUM 141 mmol/L (136-145)
== END | disposition home or self-care (01) ==
LOC: C.LAB 10:55
PROVIDERS: ATTEND Internal Medicine Cardiovascular Disease
DX: I10 Essential (primary) hypertension (principal); E78.5 Hyperlipidemia, unspecified; I25.10 Atherosclerotic heart disease of native coronary artery without angina pectoris; R06.09 Other forms of dyspnea; Z51.81 Encounter for therapeutic drug level monitoring

== ENCOUNTER → 2018-01-29 | Outpatient (CLI) | payer OTHER ==
[~2018-01-29] MED LIST changes: +AZIT-57 PO; +BMX1 PO; +CIPR-304 PO; +FLUT1INH7 INH; +METO50TA16 PO; +ONDA4TAB10 SL; +POTA10CA28 PO; +PRED10TA PO; +WARF5TAB7 PO
--- NOTE | 2018-01-29 16:29 | DIAGNOSTIC IMAGING REPORT ---
CHEST 2 VIEWS ROUTINE CLINICAL HISTORY: R05 [id number] Chronic [id number] cough COMPARISON STUDY: 07/18/2017 FINDINGS: Chronic right basilar atelectatic change. Chronic interstitial prominence left base. Mid and upper lungs are clear. Degenerative change both shoulders. IMPRESSION: Bibasilar atelectasis and chronic interstitial change. The above report was generated using voice recognition software. It may contain grammatical, syntax or spelling errors. Electronically signed by: Rashard Zimmer M.D. 01/29/2018 4:27 PM Dictated Date/Time: 01/29/2018 4:27 PM
== END | disposition home or self-care (01) ==
LOC: C.RAD1850 15:37
PROVIDERS: ATTEND Internal Medicine Pulmonary Disease
DX: J42 Unspecified chronic bronchitis (principal); R05 Cough

== ENCOUNTER 2018-01-31 16:44 | Emergency (ER) | payer OTHER ==
[~2018-01-31] VITALS: Ht 160 cm; Wt 110.0 kg
[~2018-01-31 16:44] MED LIST changes: -AZIT-57 PO; -BMX1 PO; -METO50TA16 PO; -PRED10TA PO
[2018-01-31 17:05] VITALS: Ht 160 cm; Wt 110.0 kg
[2018-01-31] MEDS ORDERED: METOCLOPRAMIDE HCL INJ 5 MG/ML 2 ML VIAL IV. STA (17:23)
[2018-01-31] MEDS ORDERED: ALBUTEROL 0.083% NEBU SOLN 3 ML VIAL INH STA ×2 (17:23→18:32)
[2018-01-31] MEDS ORDERED: HYDROmorphone INJ 1 MG/ML SYR IV STA ×2 (17:23→21:32)
[2018-01-31] MEDS ORDERED: OPTIRAY 320 IV PRN (17:30)
[2018-01-31 17:38] VITALS: O2SAT 95
--- NOTE | 2018-01-31 17:42 | DIAGNOSTIC IMAGING REPORT ---
CHEST ONE VIEW PORTABLE CLINICAL HISTORY: Chest pain. COMPARISON STUDY: Chest radiograph January 29, 2018. FINDINGS: There are median sternotomy wires, prosthetic aortic valve and median sternotomy wires. There is no pneumothorax. Moderate cardiomegaly is unchanged. Elevation of the right hemidiaphragm is unchanged. There are suspected small bilateral pleural effusions. Interstitial thickening has developed. Bibasilar opacities favor atelectasis. IMPRESSION: 1. Pulmonary vascular congestion with suspected mild pulmonary edema. 2. Linear right basilar opacity suggestive of atelectasis. Electronically signed by: Earl Solorio M.D. 01/31/2018 5:41 PM Dictated Date/Time: 01/31/2018 5:39 PM
[2018-01-31 18:06] LABS: EOS % 0.1 %; EOS ABS # 0.01 K/uL (0-0.5); HEMATOCRIT 34.9 % (37-47); IG# 0.02 K/uL (0.00-0.02); LYMPH % 8.4 %; LYMPH ABS # 0.61 K/uL (1.2-3.4); MEAN CELL VOLUME 80.6 fL (80-100); MEAN CORPUSCULAR HEMOGLOBIN 25.4 pg (25-34); MEAN CORPUSCULAR HGB CONC 31.5 g/dl (32-36); MEAN PLATELET VOLUME 11.3 fL (7.4-10.4); MONO % 1.4 %; NEUT % 89.8 %; PLATELET COUNT 231 K/uL (130-400); RED CELL DISTRIBUTION WIDTH CV 17.1 % (11.5-14.5); WHITE BLOOD COUNT 7.24 K/uL (4.8-10.8)
[2018-01-31 18:11] LABS: INR 1.8 (0.9-1.1)
[2018-01-31] MEDS ORDERED: AZIT-57 PO (18:18)
[2018-01-31] MEDS ORDERED: PRED10TA PO (18:18)
[2018-01-31] MEDS ORDERED: BMX1 PO (18:18)
[2018-01-31] MEDS ORDERED: METO50TA16 PO (18:18)
[2018-01-31 18:28] LABS: ALBUMIN 3.4 gm/dl (3.4-5.0); ALKALINE PHOSPHATASE 111 U/L (45-117); ALT/SGPT 33 U/L (12-78); AST/SGOT 29 U/L (15-37); BLOOD UREA NITROGEN 15 mg/dl (7-18); CALCIUM 8.1 mg/dl (8.5-10.1); CARBON DIOXIDE 22 mmol/L (21-32); CREATININE 1.09 mg/dl (0.60-1.20); GLUCOSE 149 mg/dl (70-99); LIPASE 87 U/L (73-393); POTASSIUM 4.2 mmol/L (3.5-5.1); SODIUM 138 mmol/L (136-145); TOTAL PROTEIN 7.2 gm/dl (6.4-8.2)
--- NOTE | 2018-01-31 20:13 | EMERGENCY ROOM VISIT NOTE ---
History Report prepared by Dheeraj: Debora Shelton Under the Supervision of: Dr. Munir Rodriguez M.D. First contact with patient: 17:12 Chief Complaint: ABDOMINAL PAIN Stated Complaint: SEVERE ABDOMINAL PAIN History of Present Illness The patient is a 67 year old female who presents to the Emergency Room with complaints of worsening abdominal pain that onset today. The patient notes that she was in the hospital 12 days ago for bronchitis and was put on steroids and antibiotics 10 days ago. She states that she came to the ED 5 days ago because she was coughing and had an x-ray completed for a suspected broken rib. She describes her pain as sharp and hot. The patient notes that her pain is exacerbated with coughing, sneezing, and movement. The patient denies rib cage pain, and rash. 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 She notes that she had a blood clot in her lung 5 years ago. She states that she has hypertension, which she takes Coumadin for. Source of History: patient Onset: today Quality: sharp, other (hot) Timing: worsening Modifying Factors (Worsening): movement, other (coughing and sneezing ) Associated Symptoms: No rash Note: The patient denies rib cage pain. Review of Systems See HPI for pertinent positives & negatives. A total of 10 systems reviewed and were otherwise negative. Past Medical & Surgical Medical Problems: (1) Anemia (2) Aortic Valve Disorder (3) Arthritis (4) Atrial Fibrillation (5) CHF (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 failure) (6) Diaphragmatic Hernia (7) Esophageal Reflux (8) HTN (hypertension) (9) Hyperlipidemia, Unspecified (10) Hypothyroidism Nos (11) Morbid Obesity (12) Obstructive Sleep Apnea (Adult) (Pediatric) (13) Pulmonary emboli (14) Vitamin D Deficiency Nos Surgical Problems: (1) History of delivery (2) History of knee surgery Family History FH: cancer FH: heart disease FH: hypertension No pertinent family history Social History Smoking Status: Never Smoker Alcohol Use: none Marital Status: Housing Status: lives with family Occupation Status: retired Current/Historical Medications Scheduled Aspirin (Aspirin 81), 81 MG PO DAILY Atorvastatin (Lipitor), 40 MG PO QAM Azithromycin (Azithromycin), 1 DOSE PO UD Cholecalciferol (Vitamin D), 4,000 UNITS PO QAM Fexofenadine Hcl (Janet Allergy), 180 MG PO QAM Fluticasone Furoate-Vilanterol (Breo Ellipta 200-25 Mcg/INH), 1 PUFF INH DAILY Metoprolol Tartrate (Lopressor) (Lopressor), 50 MG PO BID Nitrofurantoin Macrocrystals (Macrodantin), 100 MG PO QAM Omeprazole (Prilosec), 20 MG PO HS Prednisone (Prednisone), 1 DOSE PO UD Sertraline (Zoloft), 100 MG PO QAM Warfarin Sod (Jantoven), 5 MG PO DAILY Scheduled PRN Bumetanide (Bumetanide), 1 MG PO DAILY PRN for FLUID RETENTION Potassium Chloride (Micro-K Ext Rel), 10 MEQ PO DAILY PRN for WHEN TAKING BUMEX Tramadol (Ultram), 50 MG PO Q8H PRN for Pain Allergies Coded Allergies: Amlodipine (Unverified Allergy, Unknown, ANAPHYLAXIS, 01/31/18) Cat Dander (Verified Allergy, Unknown, "sneezing", 01/31/18) Dust (Verified Allergy, Unknown, "itchy eyes,sneezing", 01/31/18) NO KNOWN DRUG ALLERGIES (Verified Allergy, Unknown, ., 01/31/18) Physical Exam Vital Signs Date Time Temp Pulse Resp B/P (MAP) Pulse Ox O2 Delivery O2 Flow Rate FiO2 02/01/18 01:35 36.8 62 20 168/93 92 02/01/18 01:12 36.8 62 168/93 92 Room Air 01/31/18 23:35 56 21 192/84 01/31/18 22:59 60 01/31/18 22:25 62 194/78 01/31/18 20:40 64 22 162/76 95 Room Air 01/31/18 18:57 58 16 167/80 94 Room Air 01/31/18 18:56 58 01/31/18 17:56 58 18 167/80 98 Room Air 01/31/18 17:38 95 Room Air 01/31/18 17:05 36.6 68 18 198/94 95 Room Air Physical Exam GENERAL: Awake, alert, well-appearing, in no acute distress HENT: Normocephalic, atraumatic. Oropharynx unremarkable. EYES: Normal conjunctiva. Sclera non-icteric. NECK: Supple. No nuchal rigidity. FROM. No JVD. RESPIRATORY: Bilateral wheezing present. CARDIAC: Regular rate, normal rhythm. Extremities warm and well perfused. Pulses equal. ABDOMEN: Soft, non-distended. Tender to right upper quadrant. No rebound or guarding. No masses. RECTAL: Deferred. MUSCULOSKELETAL: Chest examination reveals no tenderness. The back is symmetrical on inspection without obvious abnormality. There is no CVA tenderness to palpation. No joint edema. LOWER EXTREMITIES: Calves are equal size bilaterally and non-tender. No edema. No discoloration. NEURO: Normal sensorium. No sensory or motor deficits noted. SKIN: No rash or jaundice noted. Medical Decision & Procedures ER Provider Diagnostic Interpretation: Radiology results as stated below per my review and radiologist interpretation: CHEST ONE VIEW PORTABLE CLINICAL HISTORY: Chest pain. COMPARISON STUDY: Chest radiograph January 29, 2018. FINDINGS: There are median sternotomy wires, prosthetic aortic valve and median sternotomy wires. There is no pneumothorax. Moderate cardiomegaly is unchanged. Elevation of the right hemidiaphragm is unchanged. There are suspected small bilateral pleural effusions. Interstitial thickening has developed. Bibasilar opacities favor atelectasis. IMPRESSION: 1. Pulmonary vascular congestion with suspected mild pulmonary edema. 2. Linear right basilar opacity suggestive of atelectasis. Electronically signed by: Earl Solorio M.D. 01/31/2018 5:41 PM Dictated Date/Time: 01/31/2018 5:[address] OF THE ABDOMEN AND PELVIS WITH CONTRAST CLINICAL HISTORY: Right flank pain. COMPARISON STUDY: CT of the abdomen and pelvis January 07, 2018 and right upper quadrant ultrasound performed earlier today. TECHNIQUE: Following IV administration of 115 mL of Optiray-320, axial images of the abdomen and pelvis were obtained from the lung bases to the proximal femurs. Images were reviewed in the axial, sagittal, and coronal planes. IV contrast was administered without complication. A dose lowering technique was utilized adhering to the principles of ALARA. Oral contrast was administered. CT DOSE: 1365.28 mGy.cm FINDINGS: Elevation of the right hemidiaphragm is unchanged. Note is made of moderate cardiomegaly with a prosthetic aortic valve. Lower lung opacities favor atelectasis. The liver, spleen, adrenal glands, kidneys and pancreas are unremarkable. There is no evidence for a bowel obstruction. There is no right lower quadrant inflammation. There is no evidence for a bowel obstruction. Note is made of a large right rectus sheath hematoma which measures approximately 16 x 9.7 x 5.1 cm. This contains a focus of active extravasation. There is slight extension into the extraperitoneal space within the pelvis. No additional sites of hemorrhage are identified on this examination. No suspicious osseous lesion is noted. There is no lymphadenopathy. IMPRESSION: Large right rectus sheath hematoma, measuring approximately 16 x 9.7 x 5.1 cm, with active extravasation and slight extension into the extraperitoneal space. Findings discussed with Dr. Rodriguez at time of dictation. Electronically signed by: Earl Solorio M.D. 01/31/2018 8:40 PM Dictated Date/Time: 01/31/2018 8:34 PM ABDOMINAL ULTRASOUND, RIGHT UPPER QUADRANT HISTORY: Right upper quadrant abdominal pain. COMPARISON: CT of the abdomen and pelvis January 07, 2018. FINDINGS: No hepatic lesions are identified. There is mild heterogeneity of the liver parenchyma. The pancreas was obscured. No biliary ductal dilatation is noted. Note is made of sludge versus nonshadowing stones within the gallbladder. There is no gallbladder wall thickening or pericholecystic fluid. There is no right hydronephrosis. IMPRESSION: 1. Sludge versus nonshadowing stones within the gallbladder. No evidence for acute cholecystitis. 2. No biliary ductal dilatation. 3. Largely obscured pancreas. 4. Heterogeneous liver parenchyma. This may be artifactual however early cirrhosis could have this sonographic appearance. Electronically signed by: Earl Solorio M.D. 01/31/2018 8:11 PM Dictated Date/Time: 01/31/2018 8:09 PM Laboratory Results 01/31/18 17:45 Red Blood Count 4.33, Mean Corpuscular Volume 80.6, Mean Corpuscular Hemoglobin 25.4, Mean Corpuscular Hemoglobin Concent 31.5, Mean Platelet Volume 11.3, Neutrophils (%) (Auto) 89.8, Lymphocytes (%) (Auto) 8.4, Monocytes (%) (Auto) 1.4, Eosinophils (%) (Auto) 0.1, Basophils (%) (Auto) 0.0, Neutrophils # (Auto) 6.50, Lymphocytes # (Auto) 0.61, Monocytes # (Auto) 0.10, Eosinophils # (Auto) 0.01, Basophils # (Auto) 0.00 01/31/18 17:45 Test 01/31/18 17:45 01/31/18 17:56 01/31/18 18:05 White Blood Count 7.24 K/uL (4.8-10.8) Red Blood Count 4.33 M/uL (4.2-5.4) Hemoglobin 11.0 g/dL (12.0-16.0) Hematocrit 34.9 % (37-47) Mean Corpuscular Volume 80.6 fL (80-100) Mean Corpuscular Hemoglobin 25.4 pg (25-34) Mean Corpuscular Hemoglobin Concent 31.5 g/dl (32-36) Platelet Count 231 K/uL (130-400) Mean Platelet Volume 11.3 fL (7.4-10.4) Neutrophils (%) (Auto) 89.8 % Lymphocytes (%) (Auto) 8.4 % Monocytes (%) (Auto) 1.4 % Eosinophils (%) (Auto) 0.1 % Basophils (%) (Auto) 0.0 % Neutrophils # (Auto) 6.50 K/uL (1.4-6.5) Lymphocytes # (Auto) 0.61 K/uL (1.2-3.4) Monocytes # (Auto) 0.10 K/uL (0.11-0.59) Eosinophils # (Auto) 0.01 K/uL (0-0.5) Basophils # (Auto) 0.00 K/uL (0-0.2) RDW Standard Deviation 51.0 fL (36.4-46.3) RDW Coefficient of Variation 17.1 % (11.5-14.5) Immature Granulocyte % (Auto) 0.3 % Immature Granulocyte # (Auto) 0.02 K/uL (0.00-0.02) Prothrombin Time 18.3 SECONDS (9.0-12.0) Prothromb Time International Ratio 1.8 (0.9-1.1) Anion Gap 8.0 mmol/L (3-11) Est Creatinine Clear Calc Drug Dose 58.0 ml/min Estimated GFR () 60.0 Estimated GFR (Non- 51.8 BUN/Creatinine Ratio 13.8 (10-20) Calcium Level 8.1 mg/dl (8.5-10.1) Total Bilirubin 0.4 mg/dl (0.2-1) Direct Bilirubin 0.1 mg/dl (0-0.2) Aspartate Amino Transf (AST/SGOT) 29 U/L (15-37) Alanine Aminotransferase (ALT/SGPT) 33 U/L (12-78) Alkaline Phosphatase 111 U/L (45-117) Total Creatine Kinase 336 U/L (26-192) Creatine Kinase MB 1.0 ng/ml (0.5-3.6) Creatine Kinase MB Ratio 0.3 (0-3.0) Troponin I < 0.015 ng/ml (0-0.045) Total Protein 7.2 gm/dl (6.4-8.2) Albumin 3.4 gm/dl (3.4-5.0) Lipase 87 U/L (73-393) Bedside Lactic Acid Venous 1.45 mmol/L (0.90-1.70) Urine Color YELLOW Urine Appearance CLEAR (CLEAR) Urine pH 6.0 (4.5-7.5) Urine Specific [place] 1.012 (1.000-1.030) Urine Protein NEG (NEG) Urine Glucose (UA) NEG (NEG) Urine Ketones NEG (NEG) Urine Occult Blood NEG (NEG) Urine Nitrite NEG (NEG) Urine Bilirubin NEG (NEG) Urine Urobilinogen NEG (NEG) Urine Leukocyte Esterase NEG (NEG) Labs reviewed by ED physician. Medications Administered Medications (Trade) Dose Ordered Sig/Yudy Route Start Time Stop Time Status Last Admin Dose Admin Hydromorphone HCl (Dilaudid Inj) 1 mg NOW STAT IV 01/31/18 17:23 01/31/18 17:27 DC 01/31/18 17:56 1 MG Metoclopramide HCl (Reglan Inj) 10 mg NOW STAT IV. 01/31/18 17:23 01/31/18 17:27 DC 01/31/18 17:56 10 MG Albuterol Sulfate (Ventolin 0.083% 2.5MG/3ML Neb) 2.5 mg NOW STAT INH 01/31/18 17:23 01/31/18 17:27 DC 01/31/18 17:56 2.5 MG Albuterol Sulfate (Ventolin 0.083% 2.5MG/3ML Neb) 2.5 mg NOW STAT INH 01/31/18 18:32 01/31/18 18:33 DC 01/31/18 18:56 2.5 MG Phytonadione 2 mg/ Sodium Chloride 50.2 ml @ 100.5 mls/ hr ONE ONCE IV 01/31/18 21:30 01/31/18 21:59 DC 01/31/18 21:50 100.5 MLS/HR Hydromorphone HCl (Dilaudid Inj) 1 mg NOW STAT IV 01/31/18 21:32 01/31/18 21:33 DC 01/31/18 21:51 1 MG Hydromorphone HCl (Dilaudid Inj) 1 mg NOW STAT IV 02/01/18 00:09 02/01/18 00:10 DC 02/01/18 00:14 1 MG ECG Per My Interpretation Indication: abdominal pain Rate (beats per minute): 64 Rhythm: normal sinus Findings: other (Normal EKG, no ST segment elevation or depression. ) ED Course 1741: Past medical records reviewed. The patient was evaluated in room B12A. A complete history and physical examination was performed. 1815: Upon reexamination the patient is resting comfortably. 1827: Upon reexamination the patient is resting comfortably. 2014: Upon reexamination the patient is resting comfortably. 0140: Upon reexamination the patient is resting comfortably. I discussed results and treatment plan with the patient. She verbalizes agreement and understanding. The patient is being transferred to an acute care facility [facility]. Medical Decision Differential diagnosis: Etiologies such as appendicitis, diverticulitis, PUD, biliary pathology, UTI, pancreatitis, obstruction, mesenteric ischemia, aortic pathology, infections, inflammatory bowel disease, renal colic, as well as others were entertained. This is a 67-year-old female who presents emergency department over concerns of right sided abdominal pain. Patient has had a severe cough for the past week and was being treated for bronchitis. The patient is on Coumadin for a mechanical heart valve. She was given Reglan as well as Dilaudid here in the emergency department for her pain. The patient was originally sent for an ultrasound based on the location of her pain however this did not show any evidence of acute cholecystitis. She was then sent for CAT scan of the abdomen pelvis which was concerning for a rectus sheath hematoma with active extravasation. For this reason I did discuss the case with the on-call electrical maintenance engineer Dr. Deluca who recommended that the patient's INR be reversed. This was done with 2 mg of vitamin K IV. I did discuss the case with the on- call surgeon who asked that the patient be transferred to a tertiary care center with interventional radiology capabilities. I then discussed this with the patient. The patient does not wish to go to [facility] and at first requested [facility] however [facility] does not have any available beds. At that the patient then requested [facility]. I did discuss the case with the on-call surgeon at [facility] who readily accepted the patient. Patient did require Dilaudid 2. She was then transferred without further incident. Medication Reconcilliation Current Medication List: was personally reviewed by me Blood Pressure Screening Patient's blood pressure: Elevated blood pressure Blood pressure disposition: Referred to PCP Impression Primary Impression: Rectus sheath hematoma Scribe Attestation The scribe's documentation has been prepared under my direction and personally reviewed by me in its entirety. I confirm that the note above accurately reflects all work, treatment, procedures, and medical decision making performed by me. Departure Information Dispostion Transfer Acute Care Facility Referrals ProFahad M.D. (PCP) Forms Call Back Authorization, HOME CARE DOCUMENTATION FORM, IMPORTANT VISIT INFORMATION Patient Instructions My [facility]
--- NOTE | 2018-01-31 20:41 | DIAGNOSTIC IMAGING REPORT ---
CT OF THE ABDOMEN AND PELVIS WITH CONTRAST CLINICAL HISTORY: Right flank pain. COMPARISON STUDY: CT of the abdomen and pelvis January 07, 2018 and right upper quadrant ultrasound performed earlier today. TECHNIQUE: Following IV administration of 115 mL of Optiray-320, axial images of the abdomen and pelvis were obtained from the lung bases to the proximal femurs. Images were reviewed in the axial, sagittal, and coronal planes. IV contrast was administered without complication. A dose lowering technique was utilized adhering to the principles of ALARA. Oral contrast was administered. CT DOSE: 1365.28 mGy.cm FINDINGS: Elevation of the right hemidiaphragm is unchanged. Note is made of moderate cardiomegaly with a prosthetic aortic valve. Lower lung opacities favor atelectasis. The liver, spleen, adrenal glands, kidneys and pancreas are unremarkable. There is no evidence for a bowel obstruction. There is no right lower quadrant inflammation. There is no evidence for a bowel obstruction. Note is made of a large right rectus sheath hematoma which measures approximately 16 x 9.7 x 5.1 cm. This contains a focus of active extravasation. There is slight extension into the extraperitoneal space within the pelvis. No additional sites of hemorrhage are identified on this examination. No suspicious osseous lesion is noted. There is no lymphadenopathy. IMPRESSION: Large right rectus sheath hematoma, measuring approximately 16 x 9.7 x 5.1 cm, with active extravasation and slight extension into the extraperitoneal space. Findings discussed with Dr. Rodriguez at time of dictation. Electronically signed by: Earl Solorio M.D. 01/31/2018 8:40 PM Dictated Date/Time: 01/31/2018 8:34 PM
[2018-01-31] MEDS ORDERED: PHYTONADIONE INJ 2 MG in SODIUM CHLORIDE 0.9% 50ML 50 ML IV ONE (21:30)
[2018-02-01] MEDS ORDERED: HYDROmorphone INJ 1 MG/ML SYR IV STA (00:09)
[2018-02-01 01:35] VITALS: BP 168/93; PULSE 62; TEMP 36.8; O2SAT 92
--- NOTE | 2018-02-04 07:22 | EDITING REQUIRED CODING QUERY ---
CODING QUERY To promote full compliance with coding requirements relating to patient care, provider participation is requested in all cases of channel rougher uncertainty. Please assist us with the question(s) below: Coding Question(s): Patient's Primary Impression: Rectus Sheath Hematoma, please document if the hematoma is traumatic or non-traumatic. Physician's Response(s): Nontraumatic Thank you Serina Mcfarland Principal Diagnosis: "_that condition established after study, to be chiefly responsible for occasioning the admission of the patient to the hospital for care." Co-Existing Principal Diagnosis: "_when two or more diagnoses equally meet the criteria for principal diagnosis as determined by the circumstances of admission, diagnostic work up, and/or therapy provided, and the Alphabetic Index, Tabular List, or another coding guideline does not provide sequencing direction, any one of the diagnoses may be sequenced first." "When the physician has documented what appears to be a current diagnosis in the body of the record, but has not included the diagnosis in the final diagnostic statement, the physician should be asked whether the diagnosis should be added." (Source Coding [facility] 2 QTR90. p3-4)
== END 2018-02-01 01:36 | disposition short-term general hospital (02) ==
LOC: C.EDB 16:46
DX: M79.81 Nontraumatic hematoma of soft tissue (principal); Z79.01 Long term (current) use of anticoagulants; I10 Essential (primary) hypertension; Z87.09 Personal history of other diseases of the respiratory system; E78.5 Hyperlipidemia, unspecified; I48.91 Unspecified atrial fibrillation; K21.9 Gastro-esophageal reflux disease without esophagitis; Z79.82 Long term (current) use of aspirin; E55.9 Vitamin D deficiency, unspecified; Z86.711 Personal history of pulmonary embolism; Z95.2 Presence of prosthetic heart valve; Z88.8 Allergy status to other drugs, medicaments and biological substances; Z91.048 Other nonmedicinal substance allergy status

== ENCOUNTER 2018-07-27 16:39 | Inpatient (IN) ==
[2018-07-27] MEDS ORDERED: ONDANSETRON INJ 2 MG/ML 2 ML VIAL IV STA ×3 (16:58→21:24)
[2018-07-27] MEDS ORDERED: MoRPHine SULFATE 10 MG/ML CARP/VIAL IV STA (16:58)
[2018-07-27] MEDS: SODIUM CHLORIDE 0.9% 1000ML 1,000 ML IV SCH (17:22)
[2018-07-27 17:54] LABS: Basophils # (auto) 0.01 K/uL (0-0.2); Basophils % (auto) 0.1 %; Eosinophils # (auto) 0.06 K/uL (0-0.5); Eosinophils % (auto) 0.7 %; Hematocrit (blood only) 38.7 % (37-47); Immature Granulocytes # (auto) 0.03 K/uL (0.00-0.02); Immature Granulocytes % (auto) 0.4 %; Lymphocytes % (auto) 3.6 %; Mean Platelet Volume 11.1 fL (7.4-10.4); Monocytes # (auto) 0.19 K/uL (0.11-0.59); Monocytes % (auto) 2.3 %; Neutrophils # (auto) 7.77 K/uL (1.4-6.5); Neutrophils % (auto) 92.9 %; Platelet Count 233 K/uL (130-400); RDW Coefficient of Variation 18.7 % (11.5-14.5); RDW Standard Deviation 54.2 fL (36.4-46.3); Red Blood Count 4.84 M/uL (4.2-5.4); White Blood Count 8.36 K/uL (4.8-10.8)
[2018-07-27 18:03] LABS: INR 2.2 (0.9-1.1); Prothrombin Time 21.4 Seconds (9.0-12.0)
--- NOTE | 2018-07-27 18:14 | XRay Report ---
XR chest 1V portable CLINICAL HISTORY: recent pneumonia dyspnea COMPARISON STUDY: 07/22/2017 FINDINGS: Interval development of diffuse bilateral parenchymal infiltrative change versus pulmonary edema. Chronic elevation right hemidiaphragm. Moderate cardiomegaly. IMPRESSION: Developing pulmonary edema The above report was generated using voice recognition software. It may contain grammatical, syntax or spelling errors. Electronically signed by: Rashard Zimmer M.D. 07/27/2018 6:13 PM
[2018-07-27] MEDS ORDERED: FAMOTIDINE 20MG/5ML IV PUSH IV STA (18:18)
[2018-07-27] MEDS ORDERED: NITROGLYCERIN 2% OINTMENT 30GM TUBE EXT ONE (18:18)
[2018-07-27 18:19] LABS: Alanine Aminotransferase 79 U/L (12-78); Albumin Globulin Ratio 0.8 (0.9-2); Albumin Level 3.4 gm/dl (3.4-5.0); Alkaline Phosphatase 139 U/L (45-117); BUN Creatinine Ratio 21.2 (10-20); Bilirubin,Total 0.9 mg/dl (0.2-1); Blood Urea Nitrogen 18 mg/dl (7-18); Calcium 8.4 mg/dl (8.5-10.1); Carbon Dioxide 24 mmol/L (21-32); Chloride 106 mmol/L (98-107); Est GFR (African American) 82.2; Est GFR (Non-African American) 70.9; Globulin 4.2 gm/dl (2.5-4.0); Glucose 112 mg/dl (70-99); Sodium 139 mmol/L (136-145); Total Protein 7.6 gm/dl (6.4-8.2); Troponin I < 0.015 ng/ml (0-0.045)
[2018-07-27] MEDS ORDERED: FUROSEMIDE 40 MG/4 ML VIAL IV STA (18:21)
[2018-07-27 18:53] LABS: Potassium 4.1 mmol/L (3.5-5.1)
[2018-07-27] MEDS ORDERED: METOPROLOL TARTRATE 1 MG/ML VIAL IV STA (19:42)
[2018-07-27] MEDS ORDERED: OPTIRAY 320 125ml IV PRN (19:48)
--- NOTE | 2018-07-27 20:02 | CT Scan Report ---
CT angio chest PE protocol CT DOSE: 2108.50 mGy.cm HISTORY: Chest pain PE TECHNIQUE: Multiaxial CT images of the chest were performed following the intravenous administration of contrast to evaluate the pulmonary arteries. Maximal intensity projection images were also obtaine d. A dose lowering technique was utilized adhering to the principles of ALARA. COMPARISON STUDY: 05/15/2017 FINDINGS: Limited study technically due to considerable artifact due to patient respiratory and somat ic motion. There is no evidence for a central or main pulmonary embolus. The peripheral vessels are n ot diagnostically evaluated. There is a small left effusion. There is left basilar atelectatic change . There is chronic right lower lobe atelectatic change. There is moderate pleural reactive changes of p osterior gastric angle. Pulmonary vasculature is moderately prominent. IMPRESSION: 1. Limited study technically due to respiratory and somatic motion. 2. No evidence for main or central pulmonary embolus. 3. Nondiagnostic evaluation of the peripheral and third order pulmonary arterial vasculature. 4. Prominent pulmonary vasculature 5. Bibasilar atelectasis and pleural reactive change, considered somewhat progressive compared to the prior exam.. The above report was generated using voice recognition software. It may contain grammatical, syntax or spelling errors. Electronically signed by: Rashard Zimmer M.D. 07/27/2018 7:59 PM
--- NOTE | 2018-07-27 20:06 | CT Scan Report ---
CT abd pelvis IV con only CT DOSE: HISTORY: Pain. Nausea. central abd pain,n/v TECHNIQUE: Multiaxial CT images of the abdomen and pelvis were performed following the use of intrave nous contrast. A dose lowering technique was utilized adhering to the principles of ALARA. COMPARISON STUDY: 01/31/2018 FINDINGS: Limited study due to respiratory and somatic motion. Mildly progressive bibasilar atelectat ic and pleural reactive change compared to the prior exam. Fluid-filled distal esophagus possibly on the basis of reflux. Configuration of liver spleen and pancreas are unremarkable. Stomach is fluid-fi lled. Moderate wall thickening of the duodenal sweep suggesting probable enteritis/duodenitis. Slight increase in prominence of the right renal pelvis although there is no definitive evidence for hydron ephrosis. Bowel pattern overall is nonobstructive. Bladder is midline. Uterus is anteflexed. IMPRESSION: 1. Limited study due to considerable patient somatic and respiratory motion. 2. Nonspecific enteritis/duodenitis with moderate wall thickening of the duodenal sweep. 3. Secondary gastric distention. 4. Moderate fluid within the distal esophagus possibly on the basis of reflux. 5.. Mildly progressive bibasilar atelectatic/pleural reactive change compared to the prior study. 6. Generalized nonobstructive ileus. The above report was generated using voice recognition software. It may contain grammatical, syntax or spelling errors. Electronically signed by: Rashard Zimmer M.D. 07/27/2018 8:05 PM
--- NOTE | 2018-07-27 21:21 | History & Physical Report ---
Date of Service July 27, 2018 Assessment & Plan (1) Acute electrocardiogram changes: ST depressions noted Trop neg x1, serials pending No hx chest pain ECHO pending Tele monitor (2) Abdominal pain: CTAP noted for enteritis with nonobstructive ileus IVF in ED, will hold further given fluid overload overall Zofran PRN (3) SANCHES (dyspnea on exertion): PNA noted as outpt, finished abx and steroids without improvement Elevated BNP with increased weight and LE swelling noted as outpt, likely a CHF exacerbation ECHO pending Reassess further diuresis in AM (4) Elevated LFTs: In the setting of recent trip to [facility] Improved with d/c statin Repeat in AM and resume statin when able (5) PNA (pneumonia): Completed course of abx, steroids as outpt Not noted on CXR in ED, however now with CHF WBC WNL, will hold on further abx for now (6) Hyperlipidemia: Statin being held for elevated LFTs, monitor (7) S/P AVR: ECHO pending Last ECHO 06/25/18 showed AVR as stable (8) Depression: continue home meds (9) HTN (hypertension): continue home meds (10) Pulmonary HTN: continue home meds (11) GERD (gastroesophageal reflux disease): continue home meds (12) Pulmonary emboli: Hx of PE roughly 5yrs ago s/p travel Therapeutic on coumadin CTA neg (13) DVT prophylaxis: Therapeutic on coumadin History of Present Illness Primary Care Provider: Mary Briggs PA-C 67 y/o F c/o SOB, abd pain, n/v. Pt was in her usual state of health until . She and her partner went to [facility] the week prior to this. They spent the day on 07/19 flying in return to [place] [employer] There were no issues at that time. On 07/20, pt started to feel SOB. This was worse the next day, so she made an appt to see pulm. Pt had a CXR noted for PNA and was started on a zpack and prednisone. A ddimer was neg. A BNP was elevated and pt was noted to have b/l LE swelling and a 15lb weight gain since her last weight 07/07/18. Pt takes bumex PRN at baseline, but had not taken any of this. Pulm also recommended that she resume taking her bumex + K. Pt states she took 2 x1/2 tabs on Saturday and 1x1/2 tabs on Saturday. She is uncertain of the dosing she takes, but records indicate she has 1mg tabs at home. She felt that her LE swelling was better, so she did not continue with this further. She did complete the abx and prednisone. Pt states that her breathing was no better or worse by that point. She has SANCHES at baseline s/p AVR, but the SOB/SANCHES is worse than her baseline. Pt and her partner became more concerned today as pt developed epigastric pain and nausea around 10a and started to have episodes of emesis around 2p in addition to the ongoing SOB, so they came to the ED. Pt denies fever, chest pain, c/d, LE pain. Pt states that her LE swelling is improved from earlier this week but she does have more swelling than her baseline today. Pt had a CMP done that was noted for elevated LFTs. She was instructed to hold her statin at that time. LFTs today are improving, but still elevated. In the ED, pt was given IVF, zofran, lasix, and nitro patch. She does feel that she is no longer SOB on O2. She has had no further emesis but still has nausea. It has been helped by the zofran. Pt had an ECHO with cardiology on 06/25/18 as routine f/u for her AVR. It noted that her AVR was stable. EF 65%. It was noted as no change from 04/2017 overall. Allergies Allergy/AdvReac Type Severity Reaction Status Date / Time amlodipine Allergy Unknown ANAPHYLAXIS Verified 07/27/18 16:59 cat dander Allergy Unknown "sneezing" Verified 07/27/18 16:59 Dust Allergy Unknown "itchy Uncoded 07/27/18 16:59 eyes,sneezing" Home Medications Home Medications Medication Instructions Recorded Confirmed Type aspirin [Aspir-81] 81 mg PO DAILY 07/27/18 07/27/18 History bumetanide 1 mg PO DAILY PRN 07/27/18 07/27/18 History cholecalciferol (vitamin D3) 4,000 unit PO DAILY 07/27/18 07/27/18 History fexofenadine 180 mg PO DAILY 07/27/18 07/27/18 History fluticasone-vilanterol [Breo 1 puff INHALATION DAILY 07/27/18 07/27/18 History Ellipta] metoprolol tartrate 50 mg PO BID 07/27/18 07/27/18 History nitrofurantoin monohyd/m-cryst 100 mg PO QAM 07/27/18 07/27/18 History omeprazole 20 mg PO DAILY 07/27/18 07/27/18 History potassium chloride 10 meq PO DAILY PRN 07/27/18 07/27/18 History sertraline 100 mg PO DAILY 07/27/18 07/27/18 History tramadol 50 mg PO Q8 PRN 07/27/18 07/27/18 History warfarin 5 mg PO 3XWK 07/27/18 07/27/18 History warfarin 7.5 mg PO 4XWK 07/27/18 07/27/18 History Past Med/Surg History Medical History HTN (hypertension) (Chronic) Pulmonary emboli (Resolved) Family History Other Heart attack Social History Feels Safe at Home: Yes Smoking Status: Never smoker Hx Alcohol Use: Yes (social) Hx Substance Use: No Preferred Language: Nepali Review of Systems Pertinent positives and negatives reviewed in HPI--all others negative Physical Exam 2 Vital Signs (Past 24 Hours): Last Vital Signs Temp 37.6 C H 07/27/18 16:43 Pulse 87 07/27/18 20:32 Resp 33 H 07/27/18 20:32 BP 142/83 H 07/27/18 20:32 Pulse Ox 100 07/27/18 20:32 Constitutional: WD/WN, vitals as above + obese Eyes: normal visual goodman by confrontation and + anicteric sclerae Neck: normal visual inspection and trachea midline Respiratory: no respiratory distress Auscultation: + crackles Cardiovascular: Rate/Rhythm: regular rate and regular rhythm Gastrointestinal (Abdomen): Inspection/Auscultation: + abdomen distended Percussion/Palpation: + abdomen tender (epigastric) and abdomen soft Musculoskeletal: Head/Neck/Chest: normocephalic and head atraumatic b/l 1+ pitting edema, peripheral pulses intact Skin: no rashes, warm and dry Neurologic: awake; not confused Speech / Cognition: normal speech Psychiatric: A+Ox3, euthymic affect Results & Data Diagnostic Findings CXR: CHF CTAP: nonspecific enteritis, nonobstructive ileus CTA: neg for PE ECG Findings: + ST depression Code Status & VTE Plan Code Status Full code VTE Prophylaxis Plan VTE Prophylaxis will be ordered: Yes _ (1) Abdominal pain Abdominal location: unspecified location Qualified Code(s): R10.9 - Unspecified abdominal pain (2) HTN (hypertension) Hypertension type: unspecified Qualified Code(s): I10 - Essential (primary) hypertension
[2018-07-27] MEDS ORDERED: POTASSIUM CHLORIDE 10 MEQ TABCR PO PRN (22:26)
[2018-07-27] MEDS ORDERED: ACETAMINOPHEN 325 MG TAB PO PRN (22:26)
[2018-07-27] MEDS ORDERED: TRAMADOL HCL 50 MG TABLET PO PRN (22:26)
[2018-07-27] MEDS ORDERED: MAGNESIUM HYDROXIDE SUSP 30 ML UDC PO PRN (22:26)
[2018-07-27] MEDS ORDERED: ONDANSETRON INJ 2 MG/ML 2 ML VIAL IV PRN (22:26)
[2018-07-27] MEDS ORDERED: BUMETANIDE 1 MG TAB PO PRN (22:26)
[2018-07-28] MEDS: WARFARIN SOD 7.5 MG TAB PO SCH (02:49)
[2018-07-28 04:50] LABS: BUN Creatinine Ratio 29.8 (10-20); Calcium 7.7 mg/dl (8.5-10.1); Creatinine Clr Calc Pharmacy 71.9 ml/min; Est GFR (African American) 77.7; Potassium 3.5 mmol/L (3.5-5.1)
[2018-07-28 05:46] LABS: Albumin Globulin Ratio 0.8 (0.9-2); Bilirubin,Total 0.7 mg/dl (0.2-1); Globulin 3.7 gm/dl (2.5-4.0); Total Protein 6.7 gm/dl (6.4-8.2); Troponin I 0.176 ng/ml (0-0.045)
[2018-07-28] MEDS: SODIUM CHLORIDE 0.9% 1000ML 1,000 ML IV SCH (08:14)
[2018-07-28] MEDS: PANTOprazole 40 MG TAB PO SCH (08:16)
[2018-07-28] MEDS: CHOLECALCIFEROL 1,000 UNITS TAB PO SCH (08:16)
[2018-07-28] MEDS: ASPIRIN 81 MG ECTAB PO SCH (08:16)
[2018-07-28] MEDS: METOPROLOL TARTRATE 50 MG TAB PO SCH ×2 (08:17→20:39)
[2018-07-28] MEDS: FEXOFENADINE HCL 180 MG TAB PO SCH (08:17)
[2018-07-28] MEDS: SERTRALINE HCL 100 MG TABLET PO SCH (08:17)
--- NOTE | 2018-07-28 12:16 | Hospitalist Progress Note ---
Date of Service July 28, 2018 Assessment & Plan (1) Acute electrocardiogram changes: ST depressions noted on initial EKG, resolved in subsequent EKG Trop bumped to 0.2 and then down to 0.17, no chest pain Echo shows preserved EF, no WM abnormalities appreciate consult from Dr. Majano no evidence for ACS, troponin up likely from pulmonary congestion (2) Abdominal pain: CTAP noted for enteritis with nonobstructive ileus improved today, no further pain however, her diarrhea persists dry heaving yesterday but resolved likely a viral illness given her partners's illness and her recent travel (3) SANCHES (dyspnea on exertion): PNA noted as outpt, finished abx and steroids without improvement Elevated BNP with increased weight and LE swelling noted as outpt likely due to pulmonary congestion from too much volume intake the past two weeks responded well to Bumex as outpatient will give a dose tomorrow morning (she had incontinence) (4) Elevated LFTs: In the setting of recent trip to [facility] Improved with d/c statin resolved today will resume Statin as outpatient (5) PNA (pneumonia): Completed course of abx, steroids as outpt Not noted on CXR in ED, however now with CHF WBC WNL, no need for further antibiotics (6) Hyperlipidemia: Statin being held for elevated LFTs, monitor (7) S/P AVR: valve in good position on echo continue Coumadin (8) Depression: continue home meds (9) HTN (hypertension): continue home meds (10) Pulmonary HTN: continue home meds (11) GERD (gastroesophageal reflux disease): continue home meds (12) Pulmonary emboli: Hx of PE roughly 5yrs ago s/p travel Therapeutic on coumadin CTA neg (13) DVT prophylaxis: Therapeutic on coumadin Subjective patient says she is breathing a little better this morning but still short of breath discussed the EKG results from admission and mild rise and fall in troponin says she always has some mild chest pain since AVR and CABG over a year ago, no new pains EKG this AM was normal echo performed this AM and pending still with vomiting (a lot yesterday) and some diarrhea (all liquid this morning , no blood) denies abdominal pain no peripheral edema she got back from [facility] 9 days ago, admitted to drinking a lot of alcohol and excess fluids while there no sickness while there but her partner had gastroenteritis while there she felt more short of breath, went to Dr. Chinchilla's office on Saturday (6 days ago) treated for possible pneumonia right lower lobe with Prednison, Zithromax reviewed labs, Cr normal, K is 3.5, WBC normal troponin up to 0.22 and then down to 0.17 AST and ALT and bili normal CT abd/pelvis showed enteritis, duodenitis and non-obstructive ileus Review of Systems All systems reviewed & are unremarkable except as noted in HPI & below Respiratory: + dyspnea and + dyspnea on exertion; no cough Cardiovascular: no chest pain, no palpitations and no edema Gastrointestinal: + nausea, + vomiting and + diarrhea/loose stools; no abdominal pain and no blood in stools Physical Exam 2 Vital Signs (Past 24 Hours): Last Vital Signs Temp 37.8 C H 07/28/18 07:53 Pulse 81 07/28/18 07:53 Resp 17 07/28/18 07:53 BP 117/71 07/28/18 07:53 Pulse Ox 75 L 07/28/18 07:53 Constitutional: WD/WN, vitals as above + obese Eyes: PERRL, conjunctivae normal, anicteric sclerae ENMT: external ear and nose normal, oropharynx normal Neck: trachea midline, no thyromegaly Respiratory: normal respiratory effort, lungs clear to auscultation Cardiovascular: Rate/Rhythm: regular rate and regular rhythm Heart Sounds: normal S1 and normal S2; no murmur Vessels: normal peripheral pulses Extremities: normal capillary refill and + pedal edema (1+, slight pitting bilaterally) Gastrointestinal (Abdomen): normal bowel sounds, soft, nontender, no hepatosplenomegaly Musculoskeletal: no cyanosis or clubbing, extremities motor strength 5/5 Skin: no rashes, warm and dry Neurologic: patellar DTR's 2+ bilat, sensation intact and PERRL, EOMI, accommodation nl, no face palsy, no dysarthria Psychiatric: A+Ox3, euthymic affect Lymphatic: no cervical or axillary lymphadenopathy Results & Data Laboratory Results Laboratory Results - last 24 hr 07/27/18 07/27/18 07/27/18 17:45 17:45 17:45 WBC 8.36 RBC 4.84 Hgb 12.0 Hct 38.7 MCV 80.0 MCH 24.8 L MCHC 31.0 L RDW Std Deviation 54.2 H RDW Coeff of Matthew 18.7 H Plt Count 233 MPV 11.1 H Immature Gran % (Auto) 0.4 Neut % (Auto) 92.9 Lymph % (Auto) 3.6 Mcclain % (Auto) 2.3 Eos % (Auto) 0.7 Baso % (Auto) 0.1 Immature Gran # (Auto) 0.03 H Neut # (Auto) 7.77 H Lymph # (Auto) 0.30 L Mcclain # (Auto) 0.19 Eos # (Auto) 0.06 Baso # (Auto) 0.01 PT 21.4 H INR 2.2 H Sodium 139 Potassium TNP Chloride 106 Carbon Dioxide 24 Anion Gap 10.0 BUN 18 Creatinine 0.84 Est Cr Clr Drug Dosing Not Reportable Est GFR ( Amer) 82.2 Est GFR (Non-Af Amer) 70.9 BUN/Creatinine Ratio 21.2 H Glucose 112 H POC Lactic Acid Matthias Calcium 8.4 L Magnesium TNP Total Bilirubin 0.9 AST ALT 79 H Alkaline Phosphatase 139 H Troponin I < 0.015 NT-Pro-B Natriuret Pep Cancelled Total Protein 7.6 Albumin 3.4 Globulin 4.2 H Albumin/Globulin Ratio 0.8 L Lipase 100 Blood Type Antibody Screen 07/27/18 07/27/18 07/27/18 18:31 18:33 18:33 WBC RBC Hgb Hct MCV MCH MCHC RDW Std Deviation RDW Coeff of Matthew Plt Count MPV Immature Gran % (Auto) Neut % (Auto) Lymph % (Auto) Mcclain % (Auto) Eos % (Auto) Baso % (Auto) Immature Gran # (Auto) Neut # (Auto) Lymph # (Auto) Mcclain # (Auto) Eos # (Auto) Baso # (Auto) PT INR Sodium Potassium 4.1 Chloride Carbon Dioxide Anion Gap BUN Creatinine Est Cr Clr Drug Dosing Est GFR ( Amer) Est GFR (Non-Af Amer) BUN/Creatinine Ratio Glucose POC Lactic Acid Matthias 1.32 Calcium Magnesium 2.0 Total Bilirubin AST 26 ALT Alkaline Phosphatase Troponin I NT-Pro-B Natriuret Pep 2543 H Total Protein Albumin Globulin Albumin/Globulin Ratio Lipase Blood Type O Positive Antibody Screen NEGATIVE 07/27/18 07/28/18 22:41 04:06 WBC RBC Hgb Hct MCV MCH MCHC RDW Std Deviation RDW Coeff of Matthew Plt Count MPV Immature Gran % (Auto) Neut % (Auto) Lymph % (Auto) Mcclain % (Auto) Eos % (Auto) Baso % (Auto) Immature Gran # (Auto) Neut # (Auto) Lymph # (Auto) Mcclain # (Auto) Eos # (Auto) Baso # (Auto) PT INR Sodium 138 Potassium 3.5 Chloride 105 Carbon Dioxide 26 Anion Gap 7.0 BUN 26 H Creatinine 0.88 Est Cr Clr Drug Dosing 71.9 Est GFR ( Amer) 77.7 Est GFR (Non-Af Amer) 67.0 BUN/Creatinine Ratio 29.8 H Glucose 105 H POC Lactic Acid Matthias Calcium 7.7 L Magnesium Total Bilirubin 0.7 AST 16 ALT 61 Alkaline Phosphatase 113 Troponin I 0.223 H* 0.176 H* NT-Pro-B Natriuret Pep Total Protein 6.7 Albumin 3.0 L Globulin 3.7 Albumin/Globulin Ratio 0.8 L Lipase Blood Type Antibody Screen Medications Administered Current Inpatient Medications Acetaminophen (Tylenol) 650 mg PO Q4H PRN PRN Reason: Pain or Fever Stop: 08/26/18 22:25 Aspirin (Ecotrin Ectab) 81 mg PO DAILY [facility] Stop: 08/27/18 08:59 Last Admin: 07/28/18 08:16 Dose: 81 mg Bumetanide (Bumex) 1 mg PO DAILY PRN PRN Reason: Weight Gain Stop: 08/26/18 22:25 Fexofenadine HCl (Janet) 180 mg PO DAILY [place] Stop: 08/27/18 08:59 Last Admin: 07/28/18 08:17 Dose: 180 mg Ioversol (Optiray 320 125ml) 94 ml IV ONCE PRN PRN Reason: Interaction Checking Stop: 07/31/18 19:47 Last Admin: 07/27/18 19:48 Dose: 94 ml Magnesium Hydroxide (Milk Of Magnesia) 30 ml PO Q12H PRN PRN Reason: Constipation Stop: 08/26/18 22:25 Metoprolol Tartrate (Lopressor) 50 mg PO BID [place] Stop: 08/27/18 08:59 Last Admin: 07/28/18 08:17 Dose: 50 mg Miscellaneous (Order Awaiting Action) 1 ea N/A DAILY [place] Stop: 08/27/18 08:59 Last Admin: 07/28/18 08:17 Dose: Not Given Ondansetron HCl (Zofran) 4 mg IV Q6H PRN PRN Reason: Nausea Stop: 08/26/18 22:25 Pantoprazole Sodium (Protonix) 40 mg PO DAILY [facility] Stop: 08/27/18 08:59 Last Admin: 07/28/18 08:16 Dose: 40 mg Potassium Chloride (Klor-Con M10) 10 meq PO DAILY PRN PRN Reason: diurectic use Stop: 08/26/18 22:25 Sertraline HCl (Zoloft) 100 mg PO DAILY [facility] Stop: 08/27/18 08:59 Last Admin: 07/28/18 08:17 Dose: 100 mg Tramadol HCl (Ultram) 50 mg PO Q8 PRN PRN Reason: Pain Stop: 08/26/18 22:25 Last Admin: 07/28/18 08:35 Dose: 50 mg Vitamin D (Vitamin D3) 4,000 units PO DAILY [facility] Stop: 08/27/18 08:59 Last Admin: 07/28/18 08:16 Dose: 4,000 units Warfarin Sodium (Coumadin) 7.5 mg PO [email or web address] [facility] Stop: 08/27/18 00:29 Last Admin: 07/28/18 02:49 Dose: 7.5 mg Warfarin Sodium (Coumadin) 5 mg PO [email or web address] [facility] Stop: 08/27/18 15:59 _ (1) Abdominal pain Abdominal location: unspecified location Qualified Code(s): R10.9 - Unspecified abdominal pain (2) HTN (hypertension) Hypertension type: unspecified Qualified Code(s): I10 - Essential (primary) hypertension
[2018-07-28] MEDS ORDERED: WARFARIN SOD 5 MG TAB PO SCH (16:00)
--- NOTE | 2018-07-28 18:42 | Cardiology Consultation ---
Date of Consultation July 28, 2018 Assessment & Plan (1) SANCHES (dyspnea on exertion): She is known to have an element of primary pulmonary disease manifest by bronchitis, possible recent infection and right hemidiaphragm paralysis. She generally has an element of mild dyspnea which worsened significantly after her trip to [place]. It is very likely that she did experience some weight gain due to edema and pulmonary congestion. It is not clear from her records whether she received any doses of diuretic here in the hospital. However, symptomatic Bessy she is improved. I think her elevated N terminal proBNP, weight gain and history are consistent with pulmonary congestion and we should consider additional diuresis. Need to take into account the fact that she is likely losing fluid due to her current diarrhea. (2) CHF (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 failure): She is known to have preserved LV systolic function. She may have an element of diastolic dysfunction and recent weight gain due to increased sodium intake. I do not believe she has decompensated due to any particular arrhythmia or ischemic event. We will need to continue monitoring her symptoms and administer diuretics as necessary. She should avoid further episodes increased sodium intake. (3) S/P AVR: She had known of element of aortic stenosis and underwent valve replacement last year. Normally functioning valve on recent echocardiogram. (4) Coronary artery disease: She has single-vessel bypass the time of aortic valve replacement. I do not believe her current elevation in troponin is digital media representative of an acute coronary syndrome. I think this is more likely due to her pulmonary edema. She did not have symptoms consistent with a recent acute coronary syndrome. Despite very minor changes on her EKG, I would not pursue any ischemic evaluation at this point. (5) Transaminitis: She did have elevated liver function tests on a panel performed 2018. Her atorvastatin was stopped at that time. There function tests obtained yesterday were normal. Would seem reasonable to rechallenge her when she is clinically improved. History of Present Illness Reason for Consultation: Dyspnea Requesting Physician: Freddy Attending Physician: Freddy Hayes DO History of Present Illness The patient is a 67-year-old woman with a history of aortic valve disease, coronary artery disease, pulmonary embolus, right phrenic nerve paralysis and bronchitis who has been experiencing symptoms of both dyspnea and diarrhea. Patient recently returned from a trip to [place]. He states that upon her return she began experience symptoms of worsening dyspnea. The symptoms persisted and she sought medical attention. At this point she was felt to have an element of pulmonary infection and prescribed both an antibiotic as well as steroids. Her symptoms persisted and she eventually developed diarrhea as well. She went to the [facility] Emergency room for evaluation is felt to have evidence of pulmonary edema and admitted for observation. Patient states that she did experience a significant weight gain after returning from [place]. She admits to eating a lot of salty foods. She did have an element of edema and did use a half a dose of her oral Bumex on 2 or 3 occasions. In general she attempts to avoid diuretic use as she has an element of incontinence. In general she is a sedentary individual who is able to perform mild activity but does have an element of chronic breathlessness. She does not have overt orthopnea but sleeps upright for a variety of other reasons. She is limited by dyspnea as well as orthopedic issues involving her right knee. She has occasional lower extremity edema which currently is improved. She has not report overt dizziness or lightheadedness. She has not had symptoms of chest pain. She has not been experiencing symptoms of palpitations or tachycardia. Allergies Allergy/AdvReac Type Severity Reaction Status Date / Time amlodipine Allergy Unknown ANAPHYLAXIS Verified 07/27/18 16:59 cat dander Allergy Unknown "sneezing" Verified 07/27/18 16:59 Dust Allergy Unknown "itchy Uncoded 07/27/18 16:59 eyes,sneezing" Home Medications Home Medications Medication Instructions Recorded Confirmed Type aspirin [Aspir-81] 81 mg PO DAILY 07/27/18 07/27/18 History bumetanide 1 mg PO DAILY PRN 07/27/18 07/27/18 History cholecalciferol (vitamin D3) 4,000 unit PO DAILY 07/27/18 07/27/18 History fexofenadine 180 mg PO DAILY 07/27/18 07/27/18 History fluticasone-vilanterol [Breo 1 puff INHALATION DAILY 07/27/18 07/27/18 History Ellipta] metoprolol tartrate 50 mg PO BID 07/27/18 07/27/18 History nitrofurantoin monohyd/m-cryst 100 mg PO QAM 07/27/18 07/27/18 History omeprazole 20 mg PO DAILY 07/27/18 07/27/18 History potassium chloride 10 meq PO DAILY PRN 07/27/18 07/27/18 History sertraline 100 mg PO DAILY 07/27/18 07/27/18 History tramadol 50 mg PO Q8 PRN 07/27/18 07/27/18 History warfarin 5 mg PO 3XWK 07/27/18 07/27/18 History warfarin 7.5 mg PO 4XWK 07/27/18 07/27/18 History Patient History Medical History HTN (hypertension) (Chronic) Pulmonary emboli (Resolved) Family History Other Heart attack Social History Current Living Situation: Spouse Feels Safe at Home: Yes Safety Concerns: Feels Safe At This Time Smoking Status: Never smoker Hx Alcohol Use: No Hx Substance Use: No Beliefs That Will Affect Care: None Preferred Language: Burkinan Communication Ability: Unable Financial Secretary Required: No Review of Systems Complete. Pertinent positives noted in history of present illness. Patient did have �dry heaves�. She did not report any subjective fevers or chills. She continues to have very watery and frequent stools. Physical Exam 2 Vital Signs (Past 24 Hours): Last Vital Signs Temp 36.5 C 07/28/18 15:50 Pulse 69 07/28/18 15:54 Resp 18 07/28/18 12:00 BP 102/52 L 07/28/18 15:50 Pulse Ox 90 07/28/18 15:50 Physical Exam: She is alert and oriented x3. Mood affect appear normal. She answered all questions appropriately. Currently wearing supplemental oxygen HEENT: Sclerae are anicteric. Pupils are equal and reactive to light and accommodation. Extraocular movements were intact. Neuro: Cranial nerves intact Neck: Examination of the submandibular region did not reveal any significant lymphadenopathy. Carotids are palpable bilaterally and free of bruits on auscultation. There was no evidence of jugular venous distention. The thyroid was not enlarged. Lungs: Reduced breath sounds on the right base. Occasional crackle through both lung goodman. Cardiac: The rhythm was regular. S1 and S2 were normal. There are no murmurs on examination. The PMI was not markedly displaced on palpation. Abdomen: The abdomen was soft and nontender. Extremities: Patient has bilateral radial pulses that are equal in intensity. There is no evidence cyanosis or clubbing. There was no evidence of significant peripheral edema bilaterally. Skin: There are no rashes noted on examination today. Results & Data Laboratory Results Abnormal Lab Results 07/27/18 07/27/18 07/27/18 17:45 18:31 18:33 Sodium 139 Potassium TNP 4.1 Chloride 106 Carbon Dioxide 24 Anion Gap 10.0 BUN 18 Creatinine 0.84 Est Cr Clr Drug Dosing Est GFR ( Amer) 82.2 Est GFR (Non-Af Amer) 70.9 BUN/Creatinine Ratio 21.2 H Glucose 112 H POC Lactic Acid Matthias Calcium 8.4 L Magnesium TNP 2.0 Total Bilirubin 0.9 AST 26 ALT 79 H Alkaline Phosphatase 139 H Troponin I < 0.015 NT-Pro-B Natriuret Pep Cancelled 2543 H Total Protein 7.6 Albumin 3.4 Globulin 4.2 H Albumin/Globulin Ratio 0.8 L Lipase 100 Stl C. diff Tox B Gene Blood Type O Positive Antibody Screen NEGATIVE 07/27/18 07/27/18 07/28/18 18:33 22:41 04:06 Sodium 138 Potassium 3.5 Chloride 105 Carbon Dioxide 26 Anion Gap 7.0 BUN 26 H Creatinine 0.88 Est Cr Clr Drug Dosing 71.9 Est GFR ( Amer) 77.7 Est GFR (Non-Af Amer) 67.0 BUN/Creatinine Ratio 29.8 H Glucose 105 H POC Lactic Acid Matthias 1.32 Calcium 7.7 L Magnesium Total Bilirubin 0.7 AST 16 ALT 61 Alkaline Phosphatase 113 Troponin I 0.223 H* 0.176 H* NT-Pro-B Natriuret Pep Total Protein 6.7 Albumin 3.0 L Globulin 3.7 Albumin/Globulin Ratio 0.8 L Lipase Stl C. diff Tox B Gene Blood Type Antibody Screen 07/28/18 14:50 Sodium Potassium Chloride Carbon Dioxide Anion Gap BUN Creatinine Est Cr Clr Drug Dosing Est GFR ( Amer) Est GFR (Non-Af Amer) BUN/Creatinine Ratio Glucose POC Lactic Acid Matthias Calcium Magnesium Total Bilirubin AST ALT Alkaline Phosphatase Troponin I NT-Pro-B Natriuret Pep Total Protein Albumin Globulin Albumin/Globulin Ratio Lipase Stl C. diff Tox B Gene Neg C.diff Toxin B Blood Type Antibody Screen Diagnostic Findings Chest CT obtained at the time of admission did not reveal any evidence of acute pulmonary embolus. There was suggestion of pulmonary edema. Echocardiogram performed 06/25/2018 revealed preserved LV systolic function. Normal mechanical aortic valve function. Mild mitral regurgitation. ECG Additional Comments: EKG obtained at that admission revealed normal sinus rhythm. Telemetry has not revealed any significant arrhythmias. _ (1) CHF (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 failure) Heart failure chronicity: acute Heart failure type: unspecified Qualified Code(s): I50.9 - Heart failure, unspecified
[2018-07-28 19:00] LABS: Appearance Urine Cloudy (Clear); Bacteria Urine Automated 4+ (Negative); Bilirubin Urine Negative (Negative); Blood Urine Negative (Negative); Color Urine Dark Yellow; Epithelial Cell Urine Auto >30 /lpf (0-5); Glucose Urine UA Negative (Negative); Ketones Urine Negative (Negative); Leukocyte Esterase Urine 1+ (Negative); Nitrite Urine Positive (Negative); Protein Urine Negative (Negative); RBC Urine Automated 0-4 /hpf (0-4); Specific Gravity Urine 1.023 (1.000-1.030); Urobilinogen Urine Negative (Negative); pH Urine 5.5 (4.5-7.5)
[2018-07-29 05:50] LABS: Hemoglobin 11.3 g/dL (12.0-16.0); Mean Corpuscular Hgb Conc 30.5 g/dL (32-36); Mean Corpuscular Volume 80.3 fL (80-100); Mean Platelet Volume 10.9 fL (7.4-10.4); Platelet Count 194 K/uL (130-400); RDW Coefficient of Variation 18.5 % (11.5-14.5); RDW Standard Deviation 54.8 fL (36.4-46.3); Red Blood Count 4.61 M/uL (4.2-5.4); White Blood Count 7.73 K/uL (4.8-10.8)
[2018-07-29 06:06] LABS: Prothrombin Time 28.8 Seconds (9.0-12.0)
[2018-07-29 06:28] LABS: Albumin Level 2.9 gm/dl (3.4-5.0); BUN Creatinine Ratio 26.1 (10-20); Creatinine Clr Calc Pharmacy 55.6 ml/min; Est GFR (African American) 56.8; Potassium 2.9 mmol/L (3.5-5.1)
[2018-07-29 06:29] LABS: Basophils # (auto) 0.01 K/uL (0-0.2); Basophils % (auto) 0.1 %; Eosinophils % (auto) 1.3 %; Immature Granulocytes # (auto) 0.02 K/uL (0.00-0.02); Immature Granulocytes % (auto) 0.3 %; Lymphocytes # (auto) 0.54 K/uL (1.2-3.4); Monocytes # (auto) 0.49 K/uL (0.11-0.59); Monocytes % (auto) 6.3 %; Neutrophils # (auto) 6.57 K/uL (1.4-6.5)
[2018-07-29 06:40] LABS: Albumin Globulin Ratio 0.8 (0.9-2); Bilirubin,Total 0.5 mg/dl (0.2-1); Globulin 3.5 gm/dl (2.5-4.0); Total Protein 6.4 gm/dl (6.4-8.2)
[2018-07-29] MEDS: ASPIRIN 81 MG ECTAB PO SCH (08:18)
[2018-07-29] MEDS: CHOLECALCIFEROL 1,000 UNITS TAB PO SCH (08:19)
[2018-07-29] MEDS: SERTRALINE HCL 100 MG TABLET PO SCH (08:19)
[2018-07-29] MEDS: FEXOFENADINE HCL 180 MG TAB PO SCH (08:19)
[2018-07-29] MEDS: PANTOprazole 40 MG TAB PO SCH (08:19)
[2018-07-29] MEDS: METOPROLOL TARTRATE 50 MG TAB PO SCH ×2 (08:19→20:23)
[2018-07-29] MEDS: BREO ELLIPTA PO SCH (08:23)
[2018-07-29] MEDS ORDERED: BUMETANIDE 1 MG TAB PO SCH (09:00)
--- NOTE | 2018-07-29 10:08 | Hospitalist Progress Note ---
Date of Service July 29, 2018 Assessment & Plan (1) Acute electrocardiogram changes: ST depressions noted on initial EKG, resolved in subsequent EKG Trop bumped to 0.2 and then down to 0.17, no chest pain Echo shows preserved EF, no WM abnormalities appreciate consult from Dr. Majano no evidence for ACS, troponin up likely from pulmonary congestion (2) Abdominal pain: CTAP noted for enteritis with nonobstructive ileus improved no further pain however, her diarrhea persists diarrhea, likely infectious C diff negative and stool culture negative will treat with Lomotil PRN advance to heart healthy diet (3) SANCHES (dyspnea on exertion): PNA noted as outpt, finished abx and steroids without improvement Elevated BNP with increased weight and LE swelling noted as outpt likely due to pulmonary congestion from too much volume intake the past two weeks responded well to Bumex as outpatient will give a dose of 0.5mg this morning, follow response (4) Elevated LFTs: [place] the [place] Improved with d/c statin resolved on 07/28 will resume Statin as outpatient (5) UTI (urinary tract infection): culture growing GNR, low grade temperature yesterday start Rocephin and follow up results (6) PNA (pneumonia): Completed course of abx, steroids as outpt Not noted on CXR in ED, however now with CHF WBC WNL, no need for further antibiotics (7) Hyperlipidemia: Statin being held for elevated LFTs, monitor (8) S/P AVR: valve in good position on echo continue Coumadin, INR 3.0 today (9) Depression: continue home meds (10) HTN (hypertension): continue home meds (11) Pulmonary HTN: continue home meds (12) GERD (gastroesophageal reflux disease): continue home meds (13) Pulmonary emboli: Hx of PE roughly 5yrs ago s/p travel Therapeutic on coumadin CTA neg (14) DVT prophylaxis: Therapeutic on coumadin Plan: transfer off monitor, check labs in AM, follow up urine culture hopeful that she can go home tomorrow need to titrate off of oxygen Subjective patient feeling a little better today wants to eat more than just clear liquids, has an appetite, no nausea she says her bowels are less frequent but still loose reviewed micro results, negative C diff and no bacteria on stool culture UA yesterday evening showed signs of UTI and urine culture growing gram negative bacilli breathing is a little better Bumex ordered for this morning, patient wanted to discuss that she typically takes only 1/2 a tablet reviewed labs, CBC normal, INR 3, K is 2.9, Cr 1.14 echo showed preserved EF Review of Systems All systems reviewed & are unremarkable except as noted in HPI & below Respiratory: + dyspnea and + dyspnea on exertion Gastrointestinal: + diarrhea/loose stools; no abdominal pain, no nausea, no vomiting, no blood in stools and no melena Physical Exam 2 Vital Signs (Past 24 Hours): Last Vital Signs Temp 36.9 C 07/29/18 07:00 Pulse 61 07/29/18 07:00 Resp 18 07/29/18 07:00 BP 150/71 H 07/29/18 07:00 Pulse Ox 98 07/29/18 07:00 Constitutional: WD/WN, vitals as above + obese Eyes: PERRL, conjunctivae normal, anicteric sclerae ENMT: external ear and nose normal, oropharynx normal Neck: trachea midline, no thyromegaly Respiratory: normal respiratory effort, lungs clear to auscultation Cardiovascular: Rate/Rhythm: regular rate and regular rhythm Heart Sounds: normal S1 and normal S2; no murmur Vessels: normal peripheral pulses Extremities: normal capillary refill; no pedal edema Gastrointestinal (Abdomen): normal bowel sounds, soft, nontender, no hepatosplenomegaly Musculoskeletal: no cyanosis or clubbing, extremities motor strength 5/5 Skin: no rashes, warm and dry Neurologic: patellar DTR's 2+ bilat, sensation intact and PERRL, EOMI, accommodation nl, no face palsy, no dysarthria Psychiatric: A+Ox3, euthymic affect Lymphatic: no cervical or axillary lymphadenopathy Results & Data Laboratory Results Laboratory Results - last 24 hr 07/28/18 07/28/18 07/29/18 14:50 18:32 05:23 WBC RBC Hgb Hct MCV MCH MCHC RDW Std Deviation RDW Coeff of Matthew Plt Count MPV Immature Gran % (Auto) Neut % (Auto) Lymph % (Auto) [place] % (Auto) Eos % (Auto) Baso % (Auto) Immature Gran # (Auto) Neut # (Auto) Lymph # (Auto) [place] # (Auto) Eos # (Auto) Baso # (Auto) Hyposegmented Neuts PT 28.8 H INR 3.0 H Sodium Potassium Chloride Carbon Dioxide Anion Gap BUN Creatinine Est Cr Clr Drug Dosing Est GFR ( Amer) Est GFR (Non-Af Amer) BUN/Creatinine Ratio Glucose Calcium Total Bilirubin AST ALT Alkaline Phosphatase NT-Pro-B Natriuret Pep Total Protein Albumin Globulin Albumin/Globulin Ratio Urine Color Dark Yellow Urine Appearance Cloudy H Urine pH 5.5 Ur Specific [place] 1.023 Urine Protein Negative Urine Glucose (UA) Negative Urine Ketones Negative Urine Blood Negative Urine Nitrite Positive H Urine Bilirubin Negative Urine Urobilinogen Negative Ur Leukocyte Esterase 1+ H Urine WBC (Auto) 10-30 H Urine RBC (Auto) 0-4 U Hyaline Cast (Auto) 5-10 H U Epithel Cells (Auto) >30 H Urine Bacteria (Auto) 4+ H Granular Casts 1-5 H Urine Yeast Not Reportable Stl C. diff Tox B Gene Neg C.diff Toxin B 07/29/18 07/29/18 05:23 05:23 WBC 7.73 RBC 4.61 Hgb 11.3 L Hct 37.0 MCV 80.3 MCH 24.5 L MCHC 30.5 L RDW Std Deviation 54.8 H RDW Coeff of Matthew 18.5 H Plt Count 194 MPV 10.9 H Immature Gran % (Auto) 0.3 Neut % (Auto) 85.0 Lymph % (Auto) 7.0 [place] % (Auto) 6.3 Eos % (Auto) 1.3 Baso % (Auto) 0.1 Immature Gran # (Auto) 0.02 Neut # (Auto) 6.57 H Lymph # (Auto) 0.54 L [place] # (Auto) 0.49 Eos # (Auto) 0.10 Baso # (Auto) 0.01 Hyposegmented Neuts 2+ PT INR Sodium 139 Potassium 2.9 L D Chloride 107 Carbon Dioxide 25 Anion Gap 7.0 BUN 30 H Creatinine 1.14 Est Cr Clr Drug Dosing 55.6 Est GFR ( Amer) 56.8 Est GFR (Non-Af Amer) 49.0 BUN/Creatinine Ratio 26.1 H Glucose 81 Calcium 8.0 L Total Bilirubin 0.5 AST 14 L ALT 46 Alkaline Phosphatase 104 NT-Pro-B Natriuret Pep 1590 H Total Protein 6.4 Albumin 2.9 L Globulin 3.5 Albumin/Globulin Ratio 0.8 L Urine Color Urine Appearance Urine pH Ur Specific [place] Urine Protein Urine Glucose (UA) Urine Ketones Urine Blood Urine Nitrite Urine Bilirubin Urine Urobilinogen Ur Leukocyte Esterase Urine WBC (Auto) Urine RBC (Auto) U Hyaline Cast (Auto) U Epithel Cells (Auto) Urine Bacteria (Auto) Granular Casts Urine Yeast Stl C. diff Tox B Gene Medications Administered Current Inpatient Medications Acetaminophen (Tylenol) 650 mg PO Q4H PRN PRN Reason: Pain or Fever Stop: 08/26/18 22:25 Aspirin (Ecotrin Ectab) 81 mg PO DAILY [facility] Stop: 08/27/18 08:59 Last Admin: 07/29/18 08:18 Dose: 81 mg Bumetanide (Bumex) 0.5 mg PO DAILY [facility] Stop: 08/28/18 10:59 Last Admin: 07/29/18 13:13 Dose: Not Given Diphenoxylate HCl/Atropine (Lomotil) 1 tab PO Q4 PRN PRN Reason: Diarrhea Stop: 08/28/18 11:28 Fexofenadine HCl (Janet) 180 mg PO DAILY [facility] Stop: 08/27/18 08:59 Last Admin: 07/29/18 08:19 Dose: 180 mg Ceftriaxone Sodium 1,000 mg/ (Dextrose) 60 mls @ 100 mls/hr IV DAILY [facility] Stop: 08/03/18 14:14 Ioversol (Optiray 320 125ml) 94 ml IV ONCE PRN PRN Reason: Interaction Checking Stop: 07/31/18 19:47 Last Admin: 07/27/18 19:48 Dose: 94 ml Magnesium Hydroxide (Milk Of Magnesia) 30 ml PO Q12H PRN PRN Reason: Constipation Stop: 08/26/18 22:25 Metoprolol Tartrate (Lopressor) 50 mg PO BID [place] Stop: 08/27/18 08:59 Last Admin: 07/29/18 08:19 Dose: 50 mg Miscellaneous (Order Awaiting Action) 1 ea N/A DAILY [place] Stop: 08/27/18 08:59 Last Admin: 07/29/18 08:24 Dose: Not Given Breo Ellipta: Non- Formulary Patient's Own Med 1 ea PO DAILY [place] Stop: 08/28/18 08:59 Last Admin: 07/29/18 08:23 Dose: 1 puffs Ondansetron HCl (Zofran) 4 mg IV Q6H PRN PRN Reason: Nausea Stop: 08/26/18 22:25 Pantoprazole Sodium (Protonix) 40 mg PO DAILY [facility] Stop: 08/27/18 08:59 Last Admin: 07/29/18 08:19 Dose: 40 mg Potassium Chloride (Klor-Con M10) 10 meq PO DAILY PRN PRN Reason: diurectic use Stop: 08/26/18 22:25 Potassium Chloride (Klor-Con M20) 40 meq PO TIDM [facility] Stop: 08/28/18 08:59 Last Admin: 07/29/18 10:38 Dose: 40 meq Sertraline HCl (Zoloft) 100 mg PO DAILY [facility] Stop: 08/27/18 08:59 Last Admin: 07/29/18 08:19 Dose: 100 mg Tramadol HCl (Ultram) 50 mg PO Q8 PRN PRN Reason: Pain Stop: 08/26/18 22:25 Last Admin: 07/28/18 08:35 Dose: 50 mg Vitamin D (Vitamin D3) 4,000 units PO DAILY [facility] Stop: 08/27/18 08:59 Last Admin: 07/29/18 08:19 Dose: 4,000 units Warfarin Sodium (Coumadin) 7.5 mg PO [id number] [facility] Stop: 08/27/18 00:29 Last Admin: 07/28/18 02:49 Dose: 7.5 mg Warfarin Sodium (Coumadin) 5 mg PO [id number] [facility] Stop: 08/27/18 15:59 Last Admin: 07/28/18 17:44 Dose: 5 mg _ (1) Abdominal pain Abdominal location: unspecified location Qualified Code(s): R10.9 - Unspecified abdominal pain (2) HTN (hypertension) Hypertension type: unspecified Qualified Code(s): I10 - Essential (primary) hypertension
[2018-07-29] MEDS: POTASSIUM CHLORIDE 20 MEQ TABCR PO SCH ×3 (10:38→16:52)
[2018-07-29] MEDS: BUMETANIDE 1 MG TAB PO SCH (13:13)
[2018-07-29] MEDS ORDERED: cefTRIAXone SODIUM 1,000 MG in DEXTROSE 5% 50 ML IV SCH (14:30)
[2018-07-29] MEDS: WARFARIN SOD 7.5 MG TAB PO SCH (16:51)
[2018-07-29] MEDS: DIPHENOXYLATE/ATROPINE 2.5/0.025MG TAB PO PRN ×2 (18:02→23:20)
--- NOTE | 2018-07-29 19:53 | Emergency Department Note ---
Entered by Sydnee Morrow acting as a scribe for Blessing Leach DO History of Present Illness General Chief complaint: Vomiting Stated complaint: WEAKNESS Time Seen by Provider: 07/27/18 16:46 Source: patient and family History of Present Illness Provider complaint: nausea Onset (ago): day(s) (yesterday) Location: abdomen Maximum Pain Intensity: 6 Quality: + other (nausea) Associated symptoms: + fever/chills (febrile at 100.1) and + other (diarrhea) The patient is a 67 year old female who presents to the Emergency Room with complaints of nausea since yesterday. She rates her pain at a 6/10. Her states that the patient has been dry heaving and spitting up bile. She also reports being febrile at 100.1 and having abdominal pain. She states that she had diarrhea yesterday but states that it was not bloody. She reports that she did not have diarrhea today. The patient states that she came back from [place] one week ago and states that she was not breathing well for 2 days after but reports that she has respiratory problems. She states that she saw her pulmonary [facility] Azucena Claros and had an X-Ray done that showed pneumonia. She states that she was placed on Prednisone and a Z-pack. She states she did finish the course of both of them. The patient does report that her liver numbers were reported to her as being elevated on those labs this week and her heart doctor told her to stop taking her atorvastatin. The patient denies a history of abdominal surgeries. Pt denied any illness while in [place]. Denies sick contacts or any other medication change. Home Medications Home Medications Medication Instructions Recorded Confirmed Type aspirin [Aspir-81] 81 mg PO DAILY 07/27/18 07/27/18 History bumetanide 1 mg PO DAILY PRN 07/27/18 07/27/18 History cholecalciferol (vitamin D3) 4,000 unit PO DAILY 07/27/18 07/27/18 History fexofenadine 180 mg PO DAILY 07/27/18 07/27/18 History fluticasone-vilanterol [Breo 1 puff INHALATION DAILY 07/27/18 07/27/18 History Ellipta] metoprolol tartrate 50 mg PO BID 07/27/18 07/27/18 History nitrofurantoin monohyd/m-cryst 100 mg PO QAM 07/27/18 07/27/18 History omeprazole 20 mg PO DAILY 07/27/18 07/27/18 History potassium chloride 10 meq PO DAILY PRN 07/27/18 07/27/18 History sertraline 100 mg PO DAILY 07/27/18 07/27/18 History tramadol 50 mg PO Q8 PRN 07/27/18 07/27/18 History warfarin 5 mg PO 3XWK 07/27/18 07/27/18 History warfarin 7.5 mg PO [id number] 07/27/18 07/27/18 History Allergies Allergy/AdvReac Type Severity Reaction Status Date / Time amlodipine Allergy Unknown ANAPHYLAXIS Verified 07/27/18 16:59 cat dander Allergy Unknown "sneezing" Verified 07/27/18 16:59 Dust Allergy Unknown "itchy Uncoded 07/27/18 16:59 eyes,sneezing" Past Med/Surg History Medical History HTN (hypertension) (Chronic) Pulmonary emboli (Resolved) Family History Other Heart attack Social History Current Living Situation: Spouse Feels Safe at Home: Yes Safety Concerns: Feels Safe At This Time Smoking Status: Never smoker Hx Alcohol Use: No Hx Substance Use: No Beliefs That Will Affect Care: None Preferred Language: Mosotho Communication Ability: Unable Resolution Rep Required: No Review of Systems See HPI for pertinent positives & negatives. and A total of 10 systems reviewed and were otherwise negative Physical Exam Vital Signs Vital Signs - 24 hr 07/28/18 20:30 07/28/18 20:32 07/28/18 23:36 Temperature 36.6 C 36.8 C Temperature Source Oral Oral Pulse Rate Pulse Rate [Finger] 63 68 Pulse Rhythm [Finger] Regular Pulse Strength [Finger] Normal Respiratory Rate 20 16 Respiratory Effort / Characteristics Non-Labored Spontaneous SOB on Exertion Respiratory Depth Normal Respiratory Pattern Regular Blood Pressure [Right Arm] 111/63 133/78 Blood Pressure Mean [Right Arm] 79 96 Blood Pressure Position [Right Arm] Lying Pulse Oximetry 84 L 95 Oxygen Delivery Method Nasal Cannula Room Air Room Air Oxygen Flow Rate 3 07/28/18 23:50 07/29/18 00:00 07/29/18 02:49 Temperature 37.0 C 36.6 C Temperature Source Oral Oral Pulse Rate 55 L Pulse Rate [Finger] 65 59 L Pulse Rhythm [Finger] Regular Pulse Strength [Finger] Normal Respiratory Rate 18 18 Respiratory Effort / Characteristics Non-Labored Respiratory Depth Normal Respiratory Pattern Blood Pressure [Right Arm] 144/84 H 145/84 H Blood Pressure Mean [Right Arm] 104 104 Blood Pressure Position [Right Arm] Lying Lying Pulse Oximetry 97 97 Oxygen Delivery Method Nasal Cannula Nasal Cannula Oxygen Flow Rate 3 3 07/29/18 07:00 07/29/18 09:00 07/29/18 11:33 Temperature 36.9 C 36.7 C Temperature Source Oral Oral Pulse Rate 62 Pulse Rate [Finger] 61 57 L Pulse Rhythm [Finger] Pulse Strength [Finger] Respiratory Rate 18 26 H Respiratory Effort / Characteristics Respiratory Depth Respiratory Pattern Blood Pressure [Right Arm] 150/71 H 123/73 Blood Pressure Mean [Right Arm] 97 89 Blood Pressure Position [Right Arm] Lying Lying Pulse Oximetry 98 97 Oxygen Delivery Method Room Air Nasal Cannula Nasal Cannula Oxygen Flow Rate 3 3 07/29/18 19:07 Temperature 36.7 C Temperature Source Oral Pulse Rate Pulse Rate [Finger] 58 L Pulse Rhythm [Finger] Pulse Strength [Finger] Respiratory Rate 22 Respiratory Effort / Characteristics Respiratory Depth Respiratory Pattern Blood Pressure [Right Arm] 126/74 Blood Pressure Mean [Right Arm] 91 Blood Pressure Position [Right Arm] Pulse Oximetry 97 Oxygen Delivery Method Oxygen Flow Rate GENERAL: alert, ill appearing, well nourished, mild distress, non-toxic EYE EXAM: normal conjunctiva, PERRL and EOM's grossly intact OROPHARYNX: no exudate, no erythema, lips, buccal mucosa, and tongue normal and mucous membranes are dry NECK: supple, no nuchal rigidity, no adenopathy, non-tender LUNGS: Clear to auscultation. Normal chest wall mechanics, no w/r/r HEART: no murmurs, S1 normal and S2 normal ABDOMEN: abdomen soft, central tenderness to palpation, normo-active bowel sounds, no masses, no rebound or guarding. BACK: Back is symmetrical on inspection and there is no deformity, no midline tenderness, no CVA tenderness. SKIN: no rashes and no bruising UPPER EXTREMITIES: upper extremities are grossly normal. FROM, nml pulses b/l. LOWER EXTREMITIES: No pitting edema. FROM, nml pulses b/l. NEURO EXAM: Normal sensorium, cranial nerves II-XII intact, normal speech, no weakness of arms, no weakness of legs. Course 1649: Past medical records reviewed. The patient was evaluated in room A11B, and a complete history and physical examination were performed. 1799: Review of EMR: I saw the patient's outpatient X-Ray and labs ordered earlier this week by Azucena Claros. LFT's were elevated. Labs otw reassuring. 1811: I reassessed the patient. She stated that she is still having abdominal pain and nausea. She reports a history of an aortic valve replacement but no history of a heart attack or CHF. 1817: I reviewed the patient's repeat ECG. No new changes. First troponin negative. 1823: I reassessed the patient. Still ill appearing. 2003: I checked on the patient. She stated that she is still nauseous and currently denies having shortness of breath and abdominal pain. 2020: I discussed the patient's case with Dr. Reji Campos who will evaluate the patient for further management. Consultations Consultation #1: Dr. Reji Campos Time: 20:20 Administered Medications Aspirin (Ecotrin Ectab) 81 mg PO DAILY [facility] Stop: 08/27/18 08:59 Last Admin: 07/29/18 08:18 Dose: 81 mg Admin: 07/28/18 08:16 Dose: 81 mg Bumetanide (Bumex) 0.5 mg PO DAILY [facility] Stop: 08/28/18 10:59 Last Admin: 07/29/18 13:13 Dose: Not Given Diphenoxylate HCl/Atropine (Lomotil) 1 tab PO Q4 PRN PRN Reason: Diarrhea Stop: 08/28/18 11:28 Last Admin: 07/29/18 18:02 Dose: 1 tab Fexofenadine HCl (Janet) 180 mg PO DAILY [facility] Stop: 08/27/18 08:59 Last Admin: 07/29/18 08:19 Dose: 180 mg Admin: 07/28/18 08:17 Dose: 180 mg Ceftriaxone Sodium 1,000 mg/ (Dextrose) 50 mls @ 100 mls/hr IV Q24H [facility] Stop: 08/03/18 14:29 Last Infusion: 07/29/18 16:07 Dose: 0 mls/hr Admin: 07/29/18 15:37 Dose: 100 mls/hr Ioversol (Optiray 320 125ml) 94 ml IV ONCE PRN PRN Reason: Interaction Checking Stop: 07/31/18 19:47 Last Admin: 07/27/18 19:48 Dose: 94 ml Metoprolol Tartrate (Lopressor) 50 mg PO BID [place] Stop: 08/27/18 08:59 Last Admin: 07/29/18 08:19 Dose: 50 mg Admin: 07/28/18 20:39 Dose: 50 mg Admin: 07/28/18 08:17 Dose: 50 mg Miscellaneous (Order Awaiting Action) 1 ea N/A DAILY [place] Stop: 08/27/18 08:59 Last Admin: 07/29/18 08:24 Dose: Not Given Admin: 07/28/18 08:17 Dose: Not Given Breo Ellipta: Non- Formulary Patient's Own Med 1 ea PO DAILY [place] Stop: 08/28/18 08:59 Last Admin: 07/29/18 08:23 Dose: 1 puffs Pantoprazole Sodium (Protonix) 40 mg PO DAILY [place] Stop: 08/27/18 08:59 Last Admin: 07/29/18 08:19 Dose: 40 mg Admin: 07/28/18 08:16 Dose: 40 mg Potassium Chloride (Klor-Con M20) 40 meq PO TIDM [place] Stop: 08/28/18 08:59 Last Admin: 07/29/18 16:52 Dose: 40 meq Admin: 07/29/18 14:21 Dose: 40 meq Admin: 07/29/18 10:38 Dose: 40 meq Sertraline HCl (Zoloft) 100 mg PO DAILY [place] Stop: 08/27/18 08:59 Last Admin: 07/29/18 08:19 Dose: 100 mg Admin: 07/28/18 08:17 Dose: 100 mg Tramadol HCl (Ultram) 50 mg PO Q8 PRN PRN Reason: Pain Stop: 08/26/18 22:25 Last Admin: 07/28/18 08:35 Dose: 50 mg Vitamin D (Vitamin D3) 4,000 units PO DAILY [place] Stop: 08/27/18 08:59 Last Admin: 07/29/18 08:19 Dose: 4,000 units Admin: 07/28/18 08:16 Dose: 4,000 units Warfarin Sodium (Coumadin) 7.5 mg PO [id number] [facility] Stop: 08/27/18 00:29 Last Admin: 07/29/18 16:51 Dose: 7.5 mg Admin: 07/28/18 02:49 Dose: 7.5 mg Warfarin Sodium (Coumadin) 5 mg PO [id number] [facility] Stop: 08/27/18 15:59 Last Admin: 07/28/18 17:44 Dose: 5 mg Discontinued Medications Bumetanide (Bumex) 1 mg PO DAILY [facility] Stop: 08/28/18 08:59 Last Admin: 07/29/18 08:23 Dose: 1 mg Famotidine (Pepcid 20mg Iv Push) 20 mg IV ONE STA Stop: 07/27/18 18:19 Last Admin: 07/27/18 18:33 Dose: 20 mg Furosemide (Lasix) 40 mg IV NOW STA Stop: 07/27/18 18:22 Last Admin: 07/27/18 18:33 Dose: 40 mg Sodium Chloride (Nss 1000ml) 1,000 mls @ 250 mls/hr IV .Q4H [facility] Stop: 08/26/18 16:59 Last Admin: 07/28/18 08:14 Dose: Not Given Infusion: 07/27/18 18:39 Dose: Admin: 07/27/18 17:22 Dose: 250 mls/hr Metoprolol Tartrate (Lopressor) 5 mg IV NOW STA Stop: 07/27/18 19:43 Last Admin: 07/27/18 19:58 Dose: 5 mg Morphine Sulfate (Morphine Sulfate) 6 mg IV NOW STA Stop: 07/27/18 16:59 Last Admin: 07/27/18 17:21 Dose: 6 mg Nitroglycerin (Nitro-Bid 2%) 1 inch EXT NOW ONE Stop: 07/27/18 18:19 Last Admin: 07/27/18 18:39 Dose: 1 inch Ondansetron HCl (Zofran) 4 mg IV NOW STA Stop: 07/27/18 16:59 Last Admin: 07/27/18 17:21 Dose: 4 mg Ondansetron HCl (Zofran) 4 mg IV NOW STA Stop: 07/27/18 20:26 Last Admin: 07/27/18 20:31 Dose: 4 mg Ondansetron HCl (Zofran) 4 mg IV NOW STA Stop: 07/27/18 21:25 Last Admin: 07/27/18 21:28 Dose: 4 mg Medical Decision Making Differential Diagnosis Differential diagnosis: Etiologies such as biliary colic, cholecystitis, hepatitis, perihepatitis, pancreatitis, cardiac disease, pancreatitis, gastritis, peptic ulcer disease, appendicitis, ovarian cyst, ovarian torsion, pelvic inflammatory disease, cystitis, diverticulitis, mesenteric ischemia, inflammatory bowel disease, ileus , bowel obstruction, aortic pathology, shingles, as well as others were considered. Medical Records Attestation: I reviewed the patient's medical records. Home Medications Current Medication List: was personally reviewed by me Laboratory Data Attestation: I reviewed the patient's lab results. Result diagrams: 07/29/18 05:23 07/29/18 05:23 Lab Results 07/27/18 07/27/18 07/27/18 Range/Units 17:45 17:45 17:45 WBC 8.36 (4.8-10.8) K/uL RBC 4.84 (4.2-5.4) M/uL Hgb 12.0 (12.0-16.0) g/dL Hct 38.7 (37-47) % MCV 80.0 (80-100) fL MCH 24.8 L (25-34) pg MCHC 31.0 L (32-36) g/dL RDW Std Deviation 54.2 H (36.4-46.3) fL RDW Coeff of Matthew 18.7 H (11.5-14.5) % Plt Count 233 (130-400) K/uL MPV 11.1 H (7.4-10.4) fL Immature Gran % (Auto) 0.4 % Neut % (Auto) 92.9 % Lymph % (Auto) 3.6 % [place] % (Auto) 2.3 % Eos % (Auto) 0.7 % Baso % (Auto) 0.1 % Immature Gran # (Auto) 0.03 H (0.00-0.02) K/uL Neut # (Auto) 7.77 H (1.4-6.5) K/uL Lymph # (Auto) 0.30 L (1.2-3.4) K/uL [place] # (Auto) 0.19 (0.11-0.59) K/uL Eos # (Auto) 0.06 (0-0.5) K/uL Baso # (Auto) 0.01 (0-0.2) K/uL Hyposegmented Neuts PT 21.4 H (9.0-12.0) Seconds INR 2.2 H (0.9-1.1) Sodium 139 (136-145) mmol/L Potassium TNP Chloride 106 (98-107) mmol/L Carbon Dioxide 24 (21-32) mmol/L Anion Gap 10.0 (3-11) BUN 18 (7-18) mg/dl Creatinine 0.84 (0.6-1.2) mg/dl Est Cr Clr Drug Dosing Not Reportable Est GFR ( Amer) 82.2 Est GFR (Non-Af Amer) 70.9 BUN/Creatinine Ratio 21.2 H (10-20) Glucose 112 H (70-99) mg/dl POC Lactic Acid Matthias (0.90-1.70) mmol/L Calcium 8.4 L (8.5-10.1) mg/dl Magnesium TNP Total Bilirubin 0.9 (0.2-1) mg/dl AST (15-37) U/L ALT 79 H (12-78) U/L Alkaline Phosphatase 139 H (45-117) U/L Troponin I < 0.015 (0-0.045) ng/ml NT-Pro-B Natriuret Pep Cancelled Total Protein 7.6 (6.4-8.2) gm/dl Albumin 3.4 (3.4-5.0) gm/dl Globulin 4.2 H (2.5-4.0) gm/dl Albumin/Globulin Ratio 0.8 L (0.9-2) Lipase 100 (73-393) U/L Urine Color Urine Appearance (Clear) Urine pH (4.5-7.5) Ur Specific [place] (1.000-1.030) Urine Protein (Negative) Urine Glucose (UA) (Negative) Urine Ketones (Negative) Urine Blood (Negative) Urine Nitrite (Negative) Urine Bilirubin (Negative) Urine Urobilinogen (Negative) Ur Leukocyte Esterase (Negative) Urine WBC (Auto) (0-5) /hpf Urine RBC (Auto) (0-4) /hpf U Hyaline Cast (Auto) (0-5) /lpf U Epithel Cells (Auto) (0-5) /lpf Urine Bacteria (Auto) (Negative) Granular Casts (0) /lpf Urine Yeast Stl C. diff Tox B Gene (Neg) Blood Type Antibody Screen 07/27/18 07/27/18 07/27/18 Range/Units 18:31 18:33 18:33 WBC (4.8-10.8) K/uL RBC (4.2-5.4) M/uL Hgb (12.0-16.0) g/dL Hct (37-47) % MCV (80-100) fL MCH (25-34) pg MCHC (32-36) g/dL RDW Std Deviation (36.4-46.3) fL RDW Coeff of Matthew (11.5-14.5) % Plt Count (130-400) K/uL MPV (7.4-10.4) fL Immature Gran % (Auto) % Neut % (Auto) % Lymph % (Auto) % [place] % (Auto) % Eos % (Auto) % Baso % (Auto) % Immature Gran # (Auto) (0.00-0.02) K/uL Neut # (Auto) (1.4-6.5) K/uL Lymph # (Auto) (1.2-3.4) K/uL [place] # (Auto) (0.11-0.59) K/uL Eos # (Auto) (0-0.5) K/uL Baso # (Auto) (0-0.2) K/uL Hyposegmented Neuts PT (9.0-12.0) Seconds INR (0.9-1.1) Sodium (136-145) mmol/L Potassium 4.1 Chloride (98-107) mmol/L Carbon Dioxide (21-32) mmol/L Anion Gap (3-11) BUN (7-18) mg/dl Creatinine (0.6-1.2) mg/dl Est Cr Clr Drug Dosing Est GFR ( Amer) Est GFR (Non-Af Amer) BUN/Creatinine Ratio (10-20) Glucose (70-99) mg/dl POC Lactic Acid Matthias 1.32 (0.90-1.70) mmol/L Calcium (8.5-10.1) mg/dl Magnesium 2.0 Total Bilirubin (0.2-1) mg/dl AST 26 (15-37) U/L ALT (12-78) U/L Alkaline Phosphatase (45-117) U/L Troponin I (0-0.045) ng/ml NT-Pro-B Natriuret Pep 2543 H Total Protein (6.4-8.2) gm/dl Albumin (3.4-5.0) gm/dl Globulin (2.5-4.0) gm/dl Albumin/Globulin Ratio (0.9-2) Lipase (73-393) U/L Urine Color Urine Appearance (Clear) Urine pH (4.5-7.5) Ur Specific [place] (1.000-1.030) Urine Protein (Negative) Urine Glucose (UA) (Negative) Urine Ketones (Negative) Urine Blood (Negative) Urine Nitrite (Negative) Urine Bilirubin (Negative) Urine Urobilinogen (Negative) Ur Leukocyte Esterase (Negative) Urine WBC (Auto) (0-5) /hpf Urine RBC (Auto) (0-4) /hpf U Hyaline Cast (Auto) (0-5) /lpf U Epithel Cells (Auto) (0-5) /lpf Urine Bacteria (Auto) (Negative) Granular Casts (0) /lpf Urine Yeast Stl C. diff Tox B Gene (Neg) Blood Type O Positive Antibody Screen NEGATIVE 07/27/18 07/28/18 07/28/18 Range/Units 22:41 04:06 14:50 WBC (4.8-10.8) K/uL RBC (4.2-5.4) M/uL Hgb (12.0-16.0) g/dL Hct (37-47) % MCV (80-100) fL MCH (25-34) pg MCHC (32-36) g/dL RDW Std Deviation (36.4-46.3) fL RDW Coeff of Matthew (11.5-14.5) % Plt Count (130-400) K/uL MPV (7.4-10.4) fL Immature Gran % (Auto) % Neut % (Auto) % Lymph % (Auto) % [place] % (Auto) % Eos % (Auto) % Baso % (Auto) % Immature Gran # (Auto) (0.00-0.02) K/uL Neut # (Auto) (1.4-6.5) K/uL Lymph # (Auto) (1.2-3.4) K/uL [place] # (Auto) (0.11-0.59) K/uL Eos # (Auto) (0-0.5) K/uL Baso # (Auto) (0-0.2) K/uL Hyposegmented Neuts PT (9.0-12.0) Seconds INR (0.9-1.1) Sodium 138 (136-145) mmol/L Potassium 3.5 Chloride 105 (98-107) mmol/L Carbon Dioxide 26 (21-32) mmol/L Anion Gap 7.0 (3-11) BUN 26 H (7-18) mg/dl Creatinine 0.88 (0.6-1.2) mg/dl Est Cr Clr Drug Dosing 71.9 Est GFR ( Amer) 77.7 Est GFR (Non-Af Amer) 67.0 BUN/Creatinine Ratio 29.8 H (10-20) Glucose 105 H (70-99) mg/dl POC Lactic Acid Matthias (0.90-1.70) mmol/L Calcium 7.7 L (8.5-10.1) mg/dl Magnesium Total Bilirubin 0.7 (0.2-1) mg/dl AST 16 (15-37) U/L ALT 61 (12-78) U/L Alkaline Phosphatase 113 (45-117) U/L Troponin I 0.223 H* 0.176 H* (0-0.045) ng/ml NT-Pro-B Natriuret Pep Total Protein 6.7 (6.4-8.2) gm/dl Albumin 3.0 L (3.4-5.0) gm/dl Globulin 3.7 (2.5-4.0) gm/dl Albumin/Globulin Ratio 0.8 L (0.9-2) Lipase (73-393) U/L Urine Color Urine Appearance (Clear) Urine pH (4.5-7.5) Ur Specific [place] (1.000-1.030) Urine Protein (Negative) Urine Glucose (UA) (Negative) Urine Ketones (Negative) Urine Blood (Negative) Urine Nitrite (Negative) Urine Bilirubin (Negative) Urine Urobilinogen (Negative) Ur Leukocyte Esterase (Negative) Urine WBC (Auto) (0-5) /hpf Urine RBC (Auto) (0-4) /hpf U Hyaline Cast (Auto) (0-5) /lpf U Epithel Cells (Auto) (0-5) /lpf Urine Bacteria (Auto) (Negative) Granular Casts (0) /lpf Urine Yeast Stl C. diff Tox B Gene Neg C.diff Toxin B (Neg) Blood Type Antibody Screen 07/28/18 07/29/18 07/29/18 Range/Units 18:32 05:23 05:23 WBC 7.73 (4.8-10.8) K/uL RBC 4.61 (4.2-5.4) M/uL Hgb 11.3 L (12.0-16.0) g/dL Hct 37.0 (37-47) % MCV 80.3 (80-100) fL MCH 24.5 L (25-34) pg MCHC 30.5 L (32-36) g/dL RDW Std Deviation 54.8 H (36.4-46.3) fL RDW Coeff of Matthew 18.5 H (11.5-14.5) % Plt Count 194 (130-400) K/uL MPV 10.9 H (7.4-10.4) fL Immature Gran % (Auto) 0.3 % Neut % (Auto) 85.0 % Lymph % (Auto) 7.0 % [place] % (Auto) 6.3 % Eos % (Auto) 1.3 % Baso % (Auto) 0.1 % Immature Gran # (Auto) 0.02 (0.00-0.02) K/uL Neut # (Auto) 6.57 H (1.4-6.5) K/uL Lymph # (Auto) 0.54 L (1.2-3.4) K/uL [place] # (Auto) 0.49 (0.11-0.59) K/uL Eos # (Auto) 0.10 (0-0.5) K/uL Baso # (Auto) 0.01 (0-0.2) K/uL Hyposegmented Neuts 2+ PT 28.8 H (9.0-12.0) Seconds INR 3.0 H (0.9-1.1) Sodium (136-145) mmol/L Potassium Chloride (98-107) mmol/L Carbon Dioxide (21-32) mmol/L Anion Gap (3-11) BUN (7-18) mg/dl Creatinine (0.6-1.2) mg/dl Est Cr Clr Drug Dosing Est GFR ( Amer) Est GFR (Non-Af Amer) BUN/Creatinine Ratio (10-20) Glucose (70-99) mg/dl POC Lactic Acid Matthias (0.90-1.70) mmol/L Calcium (8.5-10.1) mg/dl Magnesium Total Bilirubin (0.2-1) mg/dl AST (15-37) U/L ALT (12-78) U/L Alkaline Phosphatase (45-117) U/L Troponin I (0-0.045) ng/ml NT-Pro-B Natriuret Pep Total Protein (6.4-8.2) gm/dl Albumin (3.4-5.0) gm/dl Globulin (2.5-4.0) gm/dl Albumin/Globulin Ratio (0.9-2) Lipase (73-393) U/L Urine Color Dark Yellow Urine Appearance Cloudy H (Clear) Urine pH 5.5 (4.5-7.5) Ur Specific [place] 1.023 (1.000-1.030) Urine Protein Negative (Negative) Urine Glucose (UA) Negative (Negative) Urine Ketones Negative (Negative) Urine Blood Negative (Negative) Urine Nitrite Positive H (Negative) Urine Bilirubin Negative (Negative) Urine Urobilinogen Negative (Negative) Ur Leukocyte Esterase 1+ H (Negative) Urine WBC (Auto) 10-30 H (0-5) /hpf Urine RBC (Auto) 0-4 (0-4) /hpf U Hyaline Cast (Auto) 5-10 H (0-5) /lpf U Epithel Cells (Auto) >30 H (0-5) /lpf Urine Bacteria (Auto) 4+ H (Negative) Granular Casts 1-5 H (0) /lpf Urine Yeast Not Reportable Stl C. diff Tox B Gene (Neg) Blood Type Antibody Screen 07/29/18 Range/Units 05:23 WBC (4.8-10.8) K/uL RBC (4.2-5.4) M/uL Hgb (12.0-16.0) g/dL Hct (37-47) % MCV (80-100) fL MCH (25-34) pg MCHC (32-36) g/dL RDW Std Deviation (36.4-46.3) fL RDW Coeff of Matthew (11.5-14.5) % Plt Count (130-400) K/uL MPV (7.4-10.4) fL Immature Gran % (Auto) % Neut % (Auto) % Lymph % (Auto) % [place] % (Auto) % Eos % (Auto) % Baso % (Auto) % Immature Gran # (Auto) (0.00-0.02) K/uL Neut # (Auto) (1.4-6.5) K/uL Lymph # (Auto) (1.2-3.4) K/uL [place] # (Auto) (0.11-0.59) K/uL Eos # (Auto) (0-0.5) K/uL Baso # (Auto) (0-0.2) K/uL Hyposegmented Neuts PT (9.0-12.0) Seconds INR (0.9-1.1) Sodium 139 (136-145) mmol/L Potassium 2.9 L D Chloride 107 (98-107) mmol/L Carbon Dioxide 25 (21-32) mmol/L Anion Gap 7.0 (3-11) BUN 30 H (7-18) mg/dl Creatinine 1.14 (0.6-1.2) mg/dl Est Cr Clr Drug Dosing 55.6 Est GFR ( Amer) 56.8 Est GFR (Non-Af Amer) 49.0 BUN/Creatinine Ratio 26.1 H (10-20) Glucose 81 (70-99) mg/dl POC Lactic Acid Matthias (0.90-1.70) mmol/L Calcium 8.0 L (8.5-10.1) mg/dl Magnesium Total Bilirubin 0.5 (0.2-1) mg/dl AST 14 L (15-37) U/L ALT 46 (12-78) U/L Alkaline Phosphatase 104 (45-117) U/L Troponin I (0-0.045) ng/ml NT-Pro-B Natriuret Pep 1590 H Total Protein 6.4 (6.4-8.2) gm/dl Albumin 2.9 L (3.4-5.0) gm/dl Globulin 3.5 (2.5-4.0) gm/dl Albumin/Globulin Ratio 0.8 L (0.9-2) Lipase (73-393) U/L Urine Color Urine Appearance (Clear) Urine pH (4.5-7.5) Ur Specific [place] (1.000-1.030) Urine Protein (Negative) Urine Glucose (UA) (Negative) Urine Ketones (Negative) Urine Blood (Negative) Urine Nitrite (Negative) Urine Bilirubin (Negative) Urine Urobilinogen (Negative) Ur Leukocyte Esterase (Negative) Urine WBC (Auto) (0-5) /hpf Urine RBC (Auto) (0-4) /hpf U Hyaline Cast (Auto) (0-5) /lpf U Epithel Cells (Auto) (0-5) /lpf Urine Bacteria (Auto) (Negative) Granular Casts (0) /lpf Urine Yeast Stl C. diff Tox B Gene (Neg) Blood Type Antibody Screen Imaging Data Radiologist's Impression: Radiology results as stated below per my review and the radiologist's interpretation: XR chest 1V portable CLINICAL HISTORY: recent pneumonia dyspnea COMPARISON STUDY: 07/22/2017 FINDINGS: Interval development of diffuse bilateral parenchymal infiltrative change versus pulmonary edema. Chronic elevation right hemidiaphragm. Moderate cardiomegaly. IMPRESSION: Developing pulmonary edema The above report was generated using voice recognition software. It may contain grammatical, syntax or spelling errors. Electronically signed by: Rashard Zimmer M.D. 07/27/2018 6:[address] angio chest PE protocol CT DOSE: 2108.50 mGy.cm HISTORY: Chest pain PE TECHNIQUE: Multiaxial CT images of the chest were performed following the intravenous administration of contrast to evaluate the pulmonary arteries. Maximal intensity projection images were also obtained. A dose lowering technique was utilized adhering to the principles of ALARA. COMPARISON STUDY: 05/15/2017 FINDINGS: Limited study technically due to considerable artifact due to patient respiratory and somatic motion. There is no evidence for a central or main pulmonary embolus. The peripheral vessels are not diagnostically evaluated. There is a small left effusion. There is left basilar atelectatic change. There is chronic right lower lobe atelectatic change. There is moderate pleural reactive changes of posterior gastric angle. Pulmonary vasculature is moderately prominent. IMPRESSION: 1. Limited study technically due to respiratory and somatic motion. 2. No evidence for main or central pulmonary embolus. 3. Nondiagnostic evaluation of the peripheral and third order pulmonary arterial vasculature. 4. Prominent pulmonary vasculature 5. Bibasilar atelectasis and pleural reactive change, considered somewhat progressive compared to the prior exam.. The above report was generated using voice recognition software. It may contain grammatical, syntax or spelling errors. Electronically signed by: Rashard Zimmer M.D. 07/27/2018 7:[address] abd pelvis IV con only CT DOSE: HISTORY: Pain. Nausea. central abd pain,n/v TECHNIQUE: Multiaxial CT images of the abdomen and pelvis were performed following the use of intravenous contrast. A dose lowering technique was utilized adhering to the principles of ALARA. COMPARISON STUDY: 01/31/2018 FINDINGS: Limited study due to respiratory and somatic motion. Mildly progressive bibasilar atelectatic and pleural reactive change compared to the prior exam. Fluid-filled distal esophagus possibly on the basis of reflux. Configuration of liver spleen and pancreas are unremarkable. Stomach is fluid- filled. Moderate wall thickening of the duodenal sweep suggesting probable enteritis/duodenitis. Slight increase in prominence of the right renal pelvis although there is no definitive evidence for hydronephrosis. Bowel pattern overall is nonobstructive. Bladder is midline. Uterus is anteflexed. IMPRESSION: 1. Limited study due to considerable patient somatic and respiratory motion. 2. Nonspecific enteritis/duodenitis with moderate wall thickening of the duodenal sweep. 3. Secondary gastric distention. 4. Moderate fluid within the distal esophagus possibly on the basis of reflux. 5.. Mildly progressive bibasilar atelectatic/pleural reactive change compared to the prior study. 6. Generalized nonobstructive ileus. The above report was generated using voice recognition software. It may contain grammatical, syntax or spelling errors. Electronically signed by: Rashard Zimmer M.D. 07/27/2018 8:05 PM ECG Data Attestation: I personally reviewed and interpreted this ECG as follows: Indication: nausea Rate (beats per minute): 95 Rhythm: sinus rhythm Findings: + other (normal axis, normal intervals) and + ST depression (in lead I , II, aVL, and V3-V6) Comparison ECG Date: from (changes are new from 01/31/18) Additional Comments: repeat ECG: sinus 94, normal axis, normal intervals, ST depressions in lead I, II, V4, V5, V6 Blood Pressure Blood Pressure Findings: Elevated blood pressure Blood Pressure Disposition: further management by hospitalist MDM Narrative Pt here ill appearing. Concern initially for aaa, mesenteric ischemia, perf, gi bleed, bacteremia/sepsis, acs given ill appearance of pt. EKG change noted and CT chest added to initial abd/pelvis due to condition. Pt hypertensive, not hypoxic, denied cp/sob. CXR showed appearance of CHF. Given ekg changes and cxr finding, concern for acute pulm edema/unstable angina. Pt with risk factors for ACS. Once pt more comfortable and other meds for chf started, pt sent for CT's. Enteritis noted on CT, no other acute findings. Rest of labs resulted and were reassuring. LFt's improved compared to earlier in the week. Doubt cholecystitis, choledocholithiasis, ascending cholangitis. No evidence of acute vascular etiology. BP began to improved with nitro paste and lasix. No fever noted an lactic acid negative. I have a lower suspicion for sepsis at this time. Pt and kept up to date on results and plan and were in agreement. Case discussed with hospitalist for additional evaluation. Pt already on coumadin, heparin not started despite concern for ekg changes and possible evolving chf or unstable angina. Impression & Plan Abdominal pain, HTN (hypertension), CHF (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 failure), Nausea, Acute electrocardiogram changes, Enteritis Discharge Plan Visit Data *Final* Discharge Date/Time: 07/27/18 21:59 Chief Complaint: Vomiting Stated Complaint: WEAKNESS Other Complaint: Weakness ED Provider: Blessing Leach Discharge Problem: Abdominal pain, HTN (hypertension), CHF (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 failure), Nausea, Acute electrocardiogram changes, Enteritis Patient Disposition: Admitted As Inpatient Discharge Instructions Interventions: ED Discharge Assessment Last Done: 07/27/18 21:59 The scribe's documentation has been prepared under my direction and personally reviewed by me in its entirety. I confirm that the note above accurately reflects all work, treatment, procedures, and medical decision making performed by me.
[2018-07-30 06:57] LABS: Prothrombin Time 43.6 Seconds (9.0-12.0)
[2018-07-30 07:04] LABS: INR 4.7 (0.9-1.1)
[2018-07-30] MEDS: FEXOFENADINE HCL 180 MG TAB PO SCH (08:20)
[2018-07-30] MEDS: ASPIRIN 81 MG ECTAB PO SCH (08:20)
[2018-07-30] MEDS: PANTOprazole 40 MG TAB PO SCH (08:21)
[2018-07-30] MEDS: SERTRALINE HCL 100 MG TABLET PO SCH (08:21)
[2018-07-30] MEDS: METOPROLOL TARTRATE 50 MG TAB PO SCH (08:21)
[2018-07-30] MEDS: CHOLECALCIFEROL 1,000 UNITS TAB PO SCH (08:22)
[2018-07-30] MEDS: BUMETANIDE 1 MG TAB PO SCH (08:22)
[2018-07-30] MEDS: POTASSIUM CHLORIDE 20 MEQ TABCR PO SCH (08:23)
[2018-07-30] MEDS: BREO ELLIPTA PO SCH (08:23)
[2018-07-30] MEDS ORDERED: CIPROFLOXACIN 500 MG TAB PO SCH (09:00)
--- NOTE | 2018-07-31 08:15 | Discharge Summary ---
Date of Service July 30, 2018 Admission HPI Per Admitting Provider 67 y/o F c/o SOB, abd pain, n/v. Pt was in her usual state of health until . She and her [place] went to [place] the week prior to this. They spent the day on 07/19 flying in return to [place]. There were no issues at that time. On 07/20, pt started to feel SOB. This was worse the next day, so she made an appt to see pulm. Pt had a CXR noted for PNA and was started on a zpack and prednisone. A ddimer was neg. A BNP was elevated and pt was noted to have b/l LE swelling and a 15lb weight gain since her last weight 07/07/18. Pt takes bumex PRN at baseline, but had not taken any of this. Pulm also recommended that she resume taking her bumex + K. Pt states she took 2 x1/2 tabs on Saturday and 1x1/2 tabs on Saturday. She is uncertain of the dosing she takes, but records indicate she has 1mg tabs at home. She felt that her LE swelling was better, so she did not continue with this further. She did complete the abx and prednisone. Pt states that her breathing was no better or worse by that point. She has SANCHES at baseline s/p AVR, but the SOB/SANCHES is worse than her baseline. Pt and her partner became more concerned today as pt developed epigastric pain and nausea around 10a and started to have episodes of emesis around 2p in addition to the ongoing SOB, so they came to the ED. Pt denies fever, chest pain, c/d, LE pain. Pt states that her LE swelling is improved from earlier this week but she does have more swelling than her baseline today. Pt had a CMP done that was noted for elevated LFTs. She was instructed to hold her statin at that time. LFTs today are improving, but still elevated. In the ED, pt was given IVF, zofran, lasix, and nitro patch. She does feel that she is no longer SOB on O2. She has had no further emesis but still has nausea. It has been helped by the zofran. Pt had an ECHO with cardiology on 06/25/18 as routine f/u for her AVR. It noted that her AVR was stable. EF 65%. It was noted as no change from 04/2017 overall. Admission Exam Per Admitting Provider Constitutional: WD/WN, vitals as above + obese Eyes: normal visual goodman by confrontation and + anicteric sclerae Neck: normal visual inspection and trachea midline Respiratory: no respiratory distress Auscultation: + crackles Cardiovascular: Rate/Rhythm: regular rate and regular rhythm Gastrointestinal (Abdomen): Inspection/Auscultation: + abdomen distended Percussion/Palpation: + abdomen tender (epigastric) and abdomen soft Musculoskeletal: Head/Neck/Chest: normocephalic and head atraumatic b/l 1+ pitting edema, peripheral pulses intact Skin: no rashes, warm and dry Neurologic: awake; not confused Speech / Cognition: normal speech Psychiatric: A+Ox3, euthymic affect Principal Diagnosis Acute respiratory failure with hypoxia Discharge Exam Constitutional WD/WN, vitals as above + obese Eyes PERRL, conjunctivae normal, anicteric sclerae ENMT external ear and nose normal, oropharynx normal Neck trachea midline, no thyromegaly Respiratory normal respiratory effort, lungs clear to auscultation Cardiovascular Rate/Rhythm: regular rate and regular rhythm Heart Sounds: normal S1 and normal S2; no murmur Vessels: normal peripheral pulses Extremities: normal capillary refill; no pedal edema Gastrointestinal (Abdomen) normal bowel sounds, soft, nontender, no hepatosplenomegaly Musculoskeletal no cyanosis or clubbing, extremities motor strength 5/5 Skin no rashes, warm and dry Neurologic patellar DTR's 2+ bilat, sensation intact and PERRL, EOMI, accommodation nl, no face palsy, no dysarthria Psychiatric A+Ox3, euthymic affect Lymphatic no cervical or axillary lymphadenopathy Discharge Data Allergies Allergy/AdvReac Type Severity Reaction Status Date / Time amlodipine Allergy Unknown ANAPHYLAXIS Verified 07/27/18 16:59 cat dander Allergy Unknown "sneezing" Verified 07/27/18 16:59 Dust Allergy Unknown "itchy Uncoded 07/27/18 16:59 eyes,sneezing" Consultations 07/27/18 20:35 ED Decision to Admit Stat 07/28/18 12:08 Consult Cardiology Routine Ordered Studies 07/27/18 17:01 CT abd pelvis IV con only Stat 07/27/18 18:32 CT angio chest PE protocol Stat Hospital Course (1) SANCHES (dyspnea on exertion): acute respiratory failure with hypoxia PNA noted as outpt, finished abx and steroids without improvement Elevated BNP with increased weight and LE swelling noted as outpt likely due to pulmonary congestion from too much volume intake the past two weeks responded well to Bumex as outpatient will give a dose of 0.5mg this morning, follow response stressed importance of weighing herself EVERY DAY and taking Bumex if weight up by 2-3 lbs or if she has edema (2) Acute electrocardiogram changes: ST depressions noted on initial EKG, resolved in subsequent EKG Trop bumped to 0.2 and then down to 0.17, no chest pain Echo shows preserved EF, no WM abnormalities appreciate consult from Dr. Majano no evidence for ACS, troponin up likely from pulmonary congestion (3) Abdominal pain: CTAP noted for enteritis with nonobstructive ileus improved no further pain diarrhea slowly improving diarrhea, likely infectious C diff negative and stool culture negative improved with Lomotil PRN advance to heart healthy diet d/c to home on Lomotil (4) Elevated LFTs: In the setting of recent trip to [place] Improved with d/c statin resolved on 07/28 will resume Statin as outpatient (5) UTI (urinary tract infection): culture growing Klebsiella intermediate sensitivity to cephalosporins, will stop Rocephin treat with Cipro BID, she says she has Cipro in the past and tolerated well (6) PNA (pneumonia): Completed course of abx, steroids as outpt Not noted on CXR in ED, however now with CHF WBC WNL, no need for further antibiotics (7) Hyperlipidemia: Statin being held for elevated LFTs, monitor (8) S/P AVR: valve in good position on echo continue Coumadin, INR 4.7 today will hold Coumadin for two days, get INR on Tuesday 08/01 with results to Cardiology (9) Depression: continue home meds (10) HTN (hypertension): continue home meds (11) Pulmonary HTN: continue home meds (12) GERD (gastroesophageal reflux disease): continue home meds (13) Pulmonary emboli: Hx of PE roughly 5yrs ago s/p travel Therapeutic on coumadin CTA neg (14) DVT prophylaxis: INR 4.7 Total Time Total Time Spent Total Time Spent (In Minutes): 40 minutes Total Time Includes: Examination of the Patient, Discharge Planning and Medication Reconciliation Discharge Plan Discharge Items Patient Disposition: Home - Self-Care Reason For Visit: SOB Discharge Diagnosis: Shortness of breath due to volume overload Acute gastroenteritis Klebsiella UTI Discharge Goals: Diagnostic testing, Improve disease control and Improve function Activity: Resume your previous activity Non-emergency contact: Primary Care Provider, [employer] Call non-emergency contact if: you have any medication questions, your symptoms worsen and you have a fever Follow-up/Referrals: Osmin Gallegos MD [Family Provider] - 08/11/18 1:30 pm (Please, follow up at the [facility] Cardiology Office with Dr. Gallegos's assistant to the dean, Yonatan Stauffer PA-C, on SaturdayAugust 11 at 1:30 pm. *This office is located in [address] of [facility] - big building next to the hospital. If you need to change this appointment, call the office at [phone].) Mary Briggs PA-C [Primary Care Provider] - 08/04/18 10:50 am (Please, follow up with Mary Briggs PA-C on SaturdayAugust 04 at 10:50 am. *If you need to change this appointment, call the office at [phone].) Diet: Heart Healthy Other Ambulatory Orders: Prothrombin Time INR (Routine) Timeframe: 2 Days Location: Determined by Patient Ordered By: Freddy Begum Provider Instructions: Medications: - CIPRO: take twice a day until prescription complete, this is for Klebsiella UTI - LOMOTIL: over the counter, use every 4 hours as needed for loose stools - COUMADIN: hold this medication until you get INR checked on Saturday morning, further instructions from cardiology office - BUMEX: continue to use this medication as needed, see below - POTASSIUM: recommend taking 20mEq daily for the next week due to potassium losses from diarrhea (take two of the 10mEq tablets daily that you already have) Shortness of breath: due to volume overload from too much fluids and salt improved with Bumex lungs clear, no edema on CT chest recommend that you step on scale every morning use Bumex if your weight goes up by 2 lbs from baseline or if you see edema in legs follow a fluid restriction of 2 liters a day, follow low sodium diet (<2gm a day) follow up with cardiology Klebsiella UTI: sensitive to Cipro on testing complete 10 more doses no fever, WBC normal Diarrhea: likely a viral gastroenteritis given the enteritis and duodenitis seen on CT abdomen stool tested, negative for C diff, negative for bacterial infectious diarrhea will be self limiting, take Lomotil for symptom relief advance diet as tolerated H/o AVR on Coumadin: INR is elevated today at 4.7, was 3.0 yesterday HOLD coumadin until Saturday and you can get INR checked as we discussed, INR can go up with Cipro so make cardiology aware you are taking it further instructions from cardiology on Saturday FOLLOW UP - Mary Rico on 08/04 - Cardiology in the next 1-2 weeks, my nurse navigator will help set up appointment and be in contact Prescriptions: New diphenoxylate-atropine 2.5-0.025 mg Tablet 1 tab PO Q4 PRN (Reason: diarrhea) 7 Days Qty: 30 RF: 0 ciprofloxacin HCl 500 mg Tablet 500 mg PO BID 5 Days Qty: 10 RF: 0 Continue sertraline 100 mg tablet 100 mg PO DAILY RF: 0 potassium chloride 10 mEq tablet extended release 10 meq PO DAILY PRN (Reason: diurectic use) RF: 0 fexofenadine 180 mg Tablet 180 mg PO DAILY RF: 0 aspirin [Aspir-81] 81 mg Tablet,Delayed Release (Dr/Ec) 81 mg PO DAILY RF: 0 tramadol 50 mg tablet 50 mg PO Q8 PRN (Reason: Pain) RF: 0 warfarin 5 mg tablet 5 mg PO 3XWK RF: 0 warfarin 5 mg tablet 7.5 mg PO 4XWK RF: 0 metoprolol tartrate 50 mg tablet 50 mg PO BID RF: 0 omeprazole 20 mg capsule,delayed release(DR/EC) 20 mg PO DAILY RF: 0 bumetanide 1 mg tablet 1 mg PO DAILY PRN (Reason: Weight Gain) RF: 0 cholecalciferol (vitamin D3) 4,000 unit Tablet 4,000 unit PO DAILY RF: 0 fluticasone-vilanterol 200-25 mcg/dose blister with device 1 puff Inhalation DAILY RF: 0 Discontinued nitrofurantoin monohyd/m-cryst 100 mg capsule 100 mg PO QAM RF: 0 Stand-Alone Forms: [facility] Discharge Orders: Discharge Order (Routine); Ordered 07/30/18 Ordered By: Freddy Hayes Admission Data Admit Date/Time: 07/27/18 21:11 Attending Provider: Freddy Hayes Admit Provider: Mary Mistry Primary Care Provider: Mary Briggs Other Providers: Mary Mistry ; Osmin Gallegos Service: Medical Other Interventions: Discharge Summary Assessment (RN) Last Done: 07/30/18 11:02 DC Date/Time DO NOT enter until pt leaves facility: 07/30/18 13:05
--- NOTE | 2018-08-01 15:25 | Coding Query ---
CONGESTIVE HEART FAILURE To Promote full compliance with coding requirements relating to patient care, physician participation is requested in all cases of composition floor layer uncertainty. Please assist us with the following questions. A diagnosis of Congestive Heart Failure is documented in the patient's medical record. To accurately code this diagnosis and to compare patient severity, we ask that you specify the type of heart failure by placing an X within the parenthesis (x). SYSTOLIC HEART FAILURE ( ) Acute ( ) Chronic ( ) Acute on Chronic ( ) Rheumatic ( ) Unknown DIASTOLIC HEART FAILURE ( x ) Acute ( ) Chronic ( Acute on Chronic ( ) Rheumatic ( ) Unknown COMBINED SYSTOLIC AND DIASTOLIC HEART FAILURE ( ) Acute ( ) Chronic ( ) Acute on Chronic ( ) Rheumatic ( ) Unknown Was the CHF Present On Admission? Please check the appropriate box: ( x ) Present on Admission ( ) Not Present On Admission ( ) Clinically undetermined Thank you Evelyne RODGERS
== END 2018-07-30 13:05 | disposition home or self-care (01) ==
LOC: ED 16:39 → 2N 21:11 → SUATTDRO 21:11 → 2N 21:59

== ENCOUNTER 2022-02-06 06:26 | Observation (INO) ==
--- NOTE | 2022-01-16 11:27 | PAT Medication Instructions ---
Medication Instructions Date of Service January 16, 2022 Home Medications Medication Instructions Recorded ipratropium 0.5 mg-albuterol 3 mg 3 ml inhalation Q6H PRN shortness 11/17/19 (2.5 mg base)/3 mL nebulization of breath or wheezing #360 mL soln metoprolol tartrate 100 mg tablet 100 mg PO BID #180 tabs 09/19/21 atorvastatin 40 mg tablet 40 mg PO QAM #90 tabs 01/01/22 cholecalciferol (vitamin D3) 100 mcg (4,000 unit) tablet 4,000 unit PO QAM fexofenadine 180 mg tablet 180 mg PO QAM omeprazole 20 mg capsule,delayed release 20 mg PO HS tramadol 50 mg tablet 50 mg PO QAM ipratropium 0.5 mg-albuterol 3 mg (2.5 mg base)/3 mL nebulization soln 3 ml inhalation Q6H PRN calcium carbonate 600 mg calcium (1,500 mg) tablet (Calcium) 325 mg PO BID metoprolol tartrate 100 mg tablet 100 mg PO BID bumetanide 2 mg tablet 2 mg PO QAM cyanocobalamin (vitamin B-12) 100 mcg tablet (Vitamin B-12) 100 mcg PO QAM potassium chloride 10 mEq tablet,extended release 10 meq PO QAM sertraline 100 mg tablet 100 mg PO HS warfarin 5 mg tablet 5 - 7.5 mg PO UD atorvastatin 40 mg tablet 40 mg PO QAM [id number] 250 mg-dha 90 mg-epa 160 br-ctgs-ghni-zeax capsule (Ocuvite Adult 50 Plus) 1 cap PO HS ASK your prescriber and surgeon warfarin 5 mg tablet 5 - 7.5 mg PO UD STOP taking 2 weeks before surgery [id number] 250 mg-dha 90 mg-epa 160 lm-vtks-hzzc-zeax capsule (Ocuvite Adult 50 Plus) 1 cap PO HS DO NOT take the morning of surgery cholecalciferol (vitamin D3) 100 mcg (4,000 unit) tablet 4,000 unit PO QAM fexofenadine 180 mg tablet 180 mg PO QAM calcium carbonate 600 mg calcium (1,500 mg) tablet (Calcium) 325 mg PO BID bumetanide 2 mg tablet 2 mg PO QAM cyanocobalamin (vitamin B-12) 100 mcg tablet (Vitamin B-12) 100 mcg PO QAM potassium chloride 10 mEq tablet,extended release 10 meq PO QAM Take morning of surgery With a small sip of water, OTHERWISE NOTHING TO EAT OR DRINK AFTER MIDNIGHT: tramadol 50 mg tablet 50 mg PO QAM ipratropium 0.5 mg-albuterol 3 mg (2.5 mg base)/3 mL nebulization soln 3 ml inhalation Q6H PRN(if needed) metoprolol tartrate 100 mg tablet 100 mg PO BID atorvastatin 40 mg tablet 40 mg PO QAM Take evening before surgery omeprazole 20 mg capsule,delayed release 20 mg PO HS ipratropium 0.5 mg-albuterol 3 mg (2.5 mg base)/3 mL nebulization soln 3 ml inhalation Q6H PRN(if needed) calcium carbonate 600 mg calcium (1,500 mg) tablet (Calcium) 325 mg PO BID metoprolol tartrate 100 mg tablet 100 mg PO BID sertraline 100 mg tablet 100 mg PO HS Other Notes If you have any questions please call us at [phone] or [phone] or [phone] or [phone]
--- NOTE | 2022-01-19 11:31 | Anesthesiology Consultation ---
Date of Service January 19, 2022 Assessment & Plan (1) Encounter for pre-operative examination: - COVID screening: Per assessment on 01/19: No known COVID-19 positive contacts or current COVID-19 related symptoms. Travel screen negative. Patient vaccinated. Patient was Covid positive 12/23/21 (home test after vacation). Symptoms at time: cough and cold symptoms > resolved. Patient had subsequent Covid test which was negative 01/19/22 (PCR; [facility]). Pt aware to still obtain preop Covid testing 02/02 ([facility]). Awaiting results. - Pulmonary office visit (08/16/21): "Her symptoms have improved significantly after the up titration of her metoprolol. It is felt that her dyspnea was mostly related to frequent PVCs. I still think there is a multifactorial component given her obesity and diastolic heart failure. She has some element of secondary pulmonary hypertension from diastolic CHF. She follows with cardiology closely. She does have a history of a diaphragmatic elevation re lated to her open heart surgery, but this is largely improved. Unfortunately, she is intolerant of her BiPAP mask due to sinusitis symptoms. I will refer her to ENT and have her follow-up with sleep medicine. Continued weight loss is encouraged. BMI is currently 39.9 which is improved from her last visit. Repeat PFT in 6 months to ensure stability of lung functions." - ENT (10/12/21): "The patient has a history and exam consistent with chronic rhinitis and BRIDGETT on BiPAP. Had episodes of sneezing and severe rhinorrhea which have resolved since fixing her issue with cleaning her BiPAP. Symptoms and exam are not consistent with chronic sinusitis. Continue nasal saline prn, can use azelastine 2 sprays to each nostril prn for sneezing/rhinorrhea. F/u prn" - Heart failure clinic (11/07/21): "Aortic stenosis s/p mechanical AVR: Mechanical aortic valve appears to be functioning appropriately on July 2019 echo.. Chronic diastolic CHF: She is near euvolemic today. She is having more dyspnea. Continue Bumex 2 mg daily and continue to take additional 1 mg of Bumex daily for edema, weight gain, or shortness of breath. Continue low-sodium diet, less than 2000 mg daily. Continue daily weights. Echocardiogram in November with preserved EF.. CAD status post CABG x 1: She had BANDA to LAD. She denies angina. Chronic and stable atypical left-sided chest discomfort since sternotomy and shingles. Continue aspirin 81 mg daily. Continue beta-armando. Continue statin therapy.. Pulmonary hypertension: When she was hospitalized with hypervolemia, she had severely elevated RVSP. RVSP normal on most recent echo in July of 2019. Pulmonary hypertension likely multifactorial from hype rvolemia in the past, sleep apnea, COPD, and prior PE.. Shortness of breath: Likely multifactorial. Currently stable. She has history of paralyzed hemidiaphragm, PE, sleep apnea, and abnormal PFTs suggesting restrictive and obstructive abnormalities. Continue to follow with pulmonology. PFTs recently improved from 2017. She is anticoagulated with Coumadin so PE less likely. She has been referred to sleep medicine. High PVC load- improved with titration of beta armando.. PVCs: High PVC load. Continue Metoprolol to 100 mg BID. Follow up with EP - S/P Left cataracts with IOL implant (08/16/21): MAC at [facility] [place]. No issues noted per post-op anesthesia progress note. - Check coags AM DOS (warfarin instructions per surgeon/prescriber) Chart Review Chart Review: Acceptable Risk for Surgery (pending evaluation AM DOS) and Patient seen in Pre Admission Testing Teaching & Discussion Pre-Anesthesia Teaching/Discussion Notes: Instructed NPO after midnight before surgery,except medications with 15 cc of water. Medication instructions provided according to the PAT guidelines. History Surgery Operation Date: 02/06/22 07:00 Proposed Procedures p Right Total Knee Replacement - Jarod Stone MD Height/Weight Height: 5 ft 3 in Weight: 109.7 kg Allergies Allergy/AdvReac Type Severity Reaction Status Date / Time amlodipine Allergy Unknown Unknown Verified 01/17/22 09:55 furosemide [From Lasix] AdvReac Unknown Loud ear Verified 01/17/22 09:55 ringing Medications Home Medications Medication Instructions Recorded Confirmed Last Taken cholecalciferol (vitamin D3) 100 4,000 unit PO QAM 07/27/18 01/16/22 10/29/21 mcg (4,000 unit) tablet fexofenadine 180 mg tablet 180 mg PO QAM 07/27/18 01/16/22 10/29/21 omeprazole 20 mg capsule,delayed 20 mg PO HS 07/27/18 01/16/22 11/13/21 06:00 release tramadol 50 mg tablet 50 mg PO QAM ARTHRITIS 07/27/18 01/16/22 10/29/21 ipratropium 0.5 mg-albuterol 3 mg 3 ml inhalation Q6H PRN shortness 11/17/19 01/16/22 Unknown (2.5 mg base)/3 mL nebulization of breath or wheezing #360 mL soln calcium carbonate 600 mg calcium 325 mg PO BID 03/17/20 01/16/22 10/29/21 (1,500 mg) tablet (Calcium) metoprolol tartrate 100 mg tablet 100 mg PO BID #180 tabs 09/19/21 01/16/22 11/13/21 06:00 bumetanide 2 mg tablet 2 mg PO QAM 10/25/21 01/16/22 10/29/21 cyanocobalamin (vitamin B-12) 100 100 mcg PO QAM 10/25/21 01/16/22 10/29/21 mcg tablet (Vitamin B-12) potassium chloride 10 mEq 10 meq PO QAM diurectic use 10/25/21 01/16/22 10/29/21 tablet,extended release sertraline 100 mg tablet 100 mg PO HS 10/25/21 01/16/22 10/29/21 warfarin 5 mg tablet 5 - 7.5 mg PO UD 10/25/21 01/16/22 10/29/21 22:00 [id number] 250 mg-dha 90 1 cap PO HS 01/16/22 01/16/22 Unknown mg-epa 160 [id number] capsule (Ocuvite Adult 50 Plus) atorvastatin 40 mg tablet 40 mg PO QAM #90 tabs 01/19/22 Unknown Past Medical History Medical History Acid reflux Aortic valve disease s/p AVR (2017)- Mechanical Arthritis Chronic diastolic CHF (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 failure) COPD (chronic obstructive pulmonary disease) Per records Coronary artery disease s/p CABG x1 (BANDA-LAD) 2017 Diaphragmatic paralysis Transieny hemidiaphragmatic paralysis d/t CABG (2017) Follows with [facility] pulmonary History of airway obstruction Airway collapse post-op heart surgery History of COVID-19 Dx 12/2021 (home test after vacation) Symptoms at time: cough and cold symptoms > resolved HTN (hypertension) 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 Other Myocardial infarction No family history of adverse response to anesthesia No family history of bleeding disorder Past Surgical History Surgical History History of cardiac cath 2016 ([facility]) > referred for CABG x1 + AVR History of cataract surgery R/L History of delivery X2 History of colonoscopy History of endoscopy History of total left knee replacement History of tubal ligation History of urologic surgery + mesh S/P AVR Mechanical (2016) S/P CABG (coronary artery bypass graft) CABG x1 (2016) Status post left knee replacement Past Anesthesia History No Hx of Anesthesia Complications and No Family Hx of Anesthesia Complications History of PONV No Hx of PONV and Hx of Motion Sickness Social History Smoking Status: Never smoker Do You Dip or Chew Tobacco: No Hx Alcohol Use: Yes Alcohol type: wine alcohol intake frequency: holidays/special occasions only Hx Substance Use: No substance use type: does not use Review of Systems Patient denies chest pain, shortness of breath, fever, chills, cough, wheezing, palpitations. Physical Exam Vital Signs VITALS BP 138/82 P 70 TEMP 98.0 SP02 97%RA RESP 16 PHYSICAL Significantly decreased cervical extension range of motion. Full TMJ range of motion. TMD 3 finger breaths Mallampati Score 1 Dentition: several molars missing, + left upper side "plastic" temporary Lungs: clear throughout to auscultation Cardiac: regular rate and rhythm, no murmurs noted Spine: normal Carotid arteries: negative bruit Extremities: no edema Lab Results Anesthesia Preop Results Results Anesthesia Widget: WBC 5.87 K/ul (4.8-10.8) 01/19/22 Hgb 11.9 g/dl (12.0-16.0) L 01/19/22 Hct 36.5 % (34.1-44.9) 01/19/22 Plt 157 K/uL (130-400) 01/19/22 Na 139 mmol/L (136-145) 01/11/22 K 3.9 mmol/L (3.5-5.1) 01/11/22 Cl 105 mmol/L (98-107) 01/11/22 CO2 26 mmol/L (21-32) 01/11/22 BUN 20 mg/dl (6-23) 01/11/22 Creat 1.11 mg/dl (0.6-1.2) 01/11/22 Glucose Level 105 mg/dl (70-99(Fasting)) H 01/11/22 PT 25.6 Seconds (9.0-12.0) H 01/19/22 PTT 41.9 Seconds (21.0-31.0) H 01/19/22 INR 2.5 (0.9-1.1) H 01/19/22 Blood Type O Positive 01/19/22 Antibody Screen NEGATIVE 01/19/22 Testing Electrocardiogram Date: 05/09/21 SR with first degree AVB at 77bpm with frequent PVCs in pattern of bigeminy. Stress test done 05/2021* Chest X-Ray Date: 05/09/21 FINDINGS: Cardiac silhouette is enlarged. Suggested pulmonary artery h ypertension. Prior median sternotomy with cardiac valvular prosthesis. Calcified plaque of the thoracic aorta. No pneumothorax, pleural effusion, airspace consolidation or overt pulmonary edema. Mild chronic interstitial coarsening. Unchanged right hemidiaphragmatic elevation. Degenerative changes of the shoulders and spine. IMPRESSION: Cardiomegaly without acute process. Echocardiogram Date: 12/12/20 EF 60-65%. No regional motion abnormality. Mild concentric LVH. Mild LAD. Mechanical aortic valve with acceptable transvalvular gradient/velocity. RVSP 32 mmHg. No significant change compared to 08/18/2019 study per report. Stress Test Date: 06/13/21 Type: nuclear Negative myocardial perfusion study for ischemia. Small fixed base to mid lateral wall defect. Wall motion normal, but cannot exclude small infarct. Due to frequent ectopy, gated images difficult but LV systolic function appeared normal with normal wall motion. EF 62%. Lexiscan induced dyspnea. Frequent PVCs noted pre stress and throughout. No arrhythmia. Nondiagnostic Lexiscan ECG. Pulmonary Function Test Date: 04/14/21 Nonspecific spirometric pattern. Lung volumes normal. DLCO moderately reduced. FVC and FEV1 significantly improved compared to 05/2017.
[~2022-02-06 06:26] MED LIST changes: -ACET-1138 PO; +ACETAMINOPHEN 500 MG TAB PO SCH; -ASPI-435 PO; -ATOR-24 PO; +BUPIVACAINE LIPOSOME/PF 266 MG, BUPIVACAINE/EPINEPHRINE 50 ML, SODIUM CHLORIDE 0.9% 30 ... INFIL SCH; -CHOL200010 PO; -CIPR-304 PO; +FAMOTIDINE 20 MG TAB PO SCH; -FEXO1TAB49 PO; -FLUT1INH7 INH; +GABAPENTIN 300 MG CAP PO SCH; +LR 500ML BOLUS, THEN 15ML/HR IV SCH; +LR 60ML/HR IV SCH; -METO25TA56 PO; +METOCLOPRAMIDE HCL 10 MG TABLET PO SCH; -NITR1CAP32 PO; -ONDA4TAB10 SL; -POTA10CA28 PO; -PRLSR20 PO; -SERT-234 PO; +Scopolamine 1 MG TDSY TD SCH; -TRAM-10 PO; +TRANEXAMIC ACID 1,000 MG **IV Intra-op IV SCH; -WARF5TAB7 PO; -WARF7.5T4 PO; +ceFAZolin 2000MG 2,000 MG/15 ML SYR IV SCH
[2022-02-06] MEDS ORDERED: ROPIVACAINE 0.5% 5 MG/ML 30 ML VIAL ONE (06:29)
[2022-02-06] MEDS ORDERED: BUPIVACAINE 0.5 % 5 MG/1 ML PF 10ML VIAL ONE (06:29)
--- NOTE | 2022-02-06 06:59 | History & Physical Bridge Note ---
Date of Service February 06, 2022 History & Physical Bridge Note I have examined the patient, reviewed the History & Physical and in the interval since the performance of the History & Physical I have noted the following changes of clinical significance: no changes noted
[2022-02-06 07:26] LABS: Partial Thromboplastin Ratio 1.1; Partial Thromboplastin Time 29.1 Seconds (21.0-31.0); Prothrombin Time 10.7 Seconds (9.0-12.0)
[2022-02-06] MEDS ORDERED: MIDAZOLAM HCL 1 MG/ML 2ML VIAL ONE ×2 (07:28→10:23)
[2022-02-06] MEDS ORDERED: PROPOFOL IV EMULSION 10 MG/ML 20 ML VIAL IV ONE ×2 (07:29→09:35)
[2022-02-06] MEDS ORDERED: ATROPINE SULFATE 0.1 MG/ML 10ML SYR IV PRN (07:52)
[2022-02-06] MEDS ORDERED: ONDANSETRON INJ 2 MG/ML 2 ML VIAL IV PRN ×2 (07:52→13:53)
[2022-02-06] MEDS ORDERED: fentaNYL citrate 100 MCG/2 ML VIAL IV PRN (07:52)
[2022-02-06] MEDS ORDERED: ePHEDrine sulfate 50 MG/ML AMP IV PRN (07:52)
[2022-02-06] MEDS ORDERED: SODIUM CHLORIDE 0.9% PF 50 ML VIAL ONE (08:47)
[2022-02-06] MEDS ORDERED: BUPIVACAINE LIPOSOME 1.3% 266 MG/20 ML VIAL ONE (08:47)
[2022-02-06] MEDS ORDERED: BUPIVACAINE/EPINEPHRINE 0.25% 1:200,000 30 ML VIAL ONE (08:47)
--- NOTE | 2022-02-06 11:25 | Operative Report ---
PG Post Operative Report Pre & Post Diagnosis Operation Date: 02/06/22 09:00 Pre-Op Diagnosis: Right Knee Advanced Degenerative Joint Disease Post-Op Diagnosis: Right Knee Advanced Degenerative Joint Disease I identified the patient and participated in the time-out.: Yes Procedure Operation Date: 02/06/22 09:00 Actual Procedures p Right Total Knee Arthroplasty(Right) - Jarod Stone MD Surgeon Jarod Stone MD Skin Grader Alessio Brooks PA-C Estimated Blood Loss 50 Findings Consistent with Post-Op Diagnosis Operative findings revealed advanced right knee tricompartment DJD. Extensive grade 4 [id number] disease in all 3 compartments. She had a very stiff knee with about 100 degrees of flexion and flexion contracture of 10 to 15 degrees to start out. She had diffuse osteopenia throughout and her bone was very soft. Osteophytes in all 3 compartments. Specimens Right knee sent for pathology. Anesthesia Type Spinal Complications none Disposition Accompanied Patient To Recovery: No Indications Patient is a 71-year-old female whose had a long history of knee problems. She underwent left knee replacement about 7 and half years ago. Over the past several years she developed increased pain discomfort her right knee. Failed all conservative measures. She elected proceed with total knee arthroplasty. Description of Procedure Operative implants consist of: 1. Biomet Vanguard size 67.5 right posterior stabilized femoral component. 2. Biomet size 67 tibial tray. 3. 10 mm posterior stabilized polyethylene insert. 4. 31 x 8 all Paller patella. The patient was taken to the operating, identified, and placed on the operating table supine position protectors were properly padded. IV antibiotics arrived by anesthesia team. Spinal anesthetic and abductor canal block had provided in the holding area. Vega catheter was placed in sterile fashion. A right thigh tent was then placed in the right lower extremities and prepped and draped in usual sterile fashion. The right leg was elevated exsanguinated with use of an Esmarch and the tourniquet was placed at 300 mmHg. An anterior approach to the right knee was then performed through a longitudinal incision centered over the patella. Sharp dissection was carried through subcutaneous tissue down the extensor mechanism. A medial parapatellar arthrotomy incision was made. Some subperiosteal dissection was carried out medially. The fat pad was dissected from Neath patella tendon. Lateral patellofemoral ligament was released. Patella subluxated laterally and the knee was flexed. The osteophytes taken off distal femur. The ACL and PCL then released from the distal femur and the tibia subluxated anteriorly. External femoral alignment jig was then placed in the interface the tibia and adjusted 14 mm medially. Proximal tibial cut was made to remove about 2 mm of bone from most deficient aspect medial tibial plateau. Some osteophytes taken off medial and posterior medially. The tibia was sized to a size 67. Attention drawn the femur. The distal femur examined the sharp drop with intramedullary canal was suction. A right 5 degree valgus cutting guide was placed. The distal femoral cutting block was pinned in place. Distal femoral cut was made to take an additional 5 mm off the distal femur due to her flexion contracture. Femur was then sized to a size 67.5. The AP cutting block was pinned parallel to the epicondylar axis which was 4 degrees of external rotation. The anterior cut, anterior chamfer, posterior cut, posterior chamfer cuts were made. The box cutting guide was placed in just slight lateral box cut was made. The knee was flexed. The remnants of the medial and lateral menisci were excised. The osteophytes were taken off distal femur. Trial femoral component was placed. The tibial tray was pinned in maximum external rotation and the drill and stem punch were used to create defect in proximal tibia for the tibial tray. The knee was then trialed and the 10 mm insert fit most appropriately. Attention drawn the patella. Patella was cleaned of all soft tissues. Patella thickness measured 18 mm and was cut down to 13. I tried to leave this a little thicker just because of her osteoporosis and known patella fracture on the other side. The patella sized to a size 31. The lug holes were drilled for the 31 patella. The lateral osteophytes removed. Patella button was placed. Knee was taken through range of motion and the patella tracked nicely with no thumbs test. Attention drawn to placing permanent components. Nupathe all trial components were removed. Bone plug was placed in the distal femur limit blood loss. Double batch Palacos G cement was mixed. Biomet Xfireguard size 67.5 right posterior stabilized f emoral component, size 67 tibial tray, a 10 mm posterior stabilized polyethylene insert, and a 31 x 8 all Paller patella then cemented in place. Knee was brought out in full extension total cement hardened. Final cement check was then performed. The pericapsular tissues were injected with total 100 cc of combination of 20 cc of Exparel, 30 cc normal saline, 50 cc of quarter percent Marcaine with epinephrine. Patient did receive 1 g tranexamic acid. The tourniquet was then let down for final turn time 66 minutes. Hemostasis assured use electrocautery. Extensor mechanism closed with combination 1 PDS suture and #1 Vicryl suture in [id number] fashion. Extensor mechanism checked found to be intact the subcutaneous tissue then closed with 2 Dexon suture in a buried interrupted fashion skin was closed skin gabby. Leg was then cleaned and dried a sterile dressing was Xeroform, 4 x 4's, sterile cast padding, Florentin bandage were applied. Patient then transferred to the recovery room in stable condition. Patient tolerated procedure well no complications. Joselo Brooks, my physician assistant at surgery, was present for the entire procedure. His assistance was required for proper patient positioning, prepping and draping, surgical exposure, retraction, perform the technical details of the operation, placement of the implants, closure of the wound and placement of the sterile bandage. I attest to the content of the Intraoperative Record and any orders documented therein. Any exceptions are noted below.
--- NOTE | 2022-02-06 11:49 | XRay Report ---
TWO VIEWS RIGHT KNEE CLINICAL HISTORY: Postoperative examination. FINDINGS: AP and crosstable lateral portable views of the right knee are obtained. A right knee arthr oplasty is in near anatomic alignment. There has been undersurface remodeling of the patella. No acut e fracture is seen. There are expected postoperative changes around the knee including skin clips, so ft tissue edema, and subcutaneous gas. IMPRESSION: Expected postoperative changes status post right knee arthroplasty. No acute fracture is seen. ACT 112: Negative or not required by law. Electronically signed by: Nain Harrell M.D. 02/06/2022 11:48 AM
--- NOTE | 2022-02-06 12:46 | Anesthesiology Progress Note ---
Date of Service February 06, 2022 Anesthesia Post Procedure Vital Signs Vital Signs: Temp Pulse Resp BP Pulse Ox O2 Del Method O2 Flow Rate 02/06/22 12:25 69 16 131/57 L 100 Nasal Cannula 2 02/06/22 12:15 70 16 104/67 99 Nasal Cannula 2 02/06/22 12:05 68 17 123/60 99 Nasal Cannula 2 02/06/22 11:45 98.8 F 59 L 17 132/63 100 Nasal Cannula 2 02/06/22 11:35 65 16 141/68 H 100 Nasal Cannula 2 02/06/22 11:25 64 16 129/65 100 Oxymask 4 02/06/22 11:15 68 17 134/72 100 Oxymask 6 02/06/22 11:55 64 17 133/68 99 Nasal Cannula 2 02/06/22 11:09 99.0 F 64 20 134/64 100 Oxymask 6 02/06/22 07:00 98.8 F 75 22 148/84 H 97 Room Air Transfer of Care Handoff Completed per policy Notes Mental Status: alert / awake / arousable and participated in evaluation Patient Amnestic to Procedure: Yes Nausea / Vomiting: adequately controlled Pain: adequately controlled Airway Patency, RR, SpO2: stable & adequate BP & HR: stable & adequate Hydration State: stable & adequate Neuraxial Anesthesia: was administered and sensory block is resolving Anesthetic Complications: no major complications apparent and Pt Satisfied with anesthetic care
[2022-02-06] MEDS ORDERED: bisacodyL 10 MG SUPP PR PRN (13:53)
[2022-02-06] MEDS ORDERED: ALUMINUM/MAGNESIUM SUSP 30 ML UDC PO PRN (13:53)
[2022-02-06] MEDS ORDERED: HYDROmorphone INJ 0.5 MG/0.5 ML SYR IV PRN (13:53)
[2022-02-06] MEDS ORDERED: METOCLOPRAMIDE HCL INJ 5 MG/ML 2 ML VIAL IV PRN (13:53)
[2022-02-06] MEDS ORDERED: NALOXONE HCL 0.4 MG/1 ML VIAL/CARP IV PRN (13:53)
[2022-02-06] MEDS ORDERED: MAGNESIUM HYDROXIDE SUSP 30 ML UDC PO PRN (13:53)
[2022-02-06] MEDS ORDERED: ALBUT/IPRATROP 3MG/0.5MG NEB 3 ML VIAL INH PRN (13:53)
[2022-02-06] MEDS: KETOROLAC TROMETHAMINE 15 MG/ML VIAL IV SCH ×2 (14:27→20:23)
[2022-02-06] MEDS: SODIUM CHLORIDE 0.9% 1000ML 1,000 ML IV SCH (14:28)
[2022-02-06] MEDS: ACETAMINOPHEN 500 MG TAB PO SCH ×2 (14:28→22:59)
--- NOTE | 2022-02-06 14:38 | Progress Notes ---
DATE OF NOTE: 02/06/2022. SUBJECTIVE: A 71-year-old female postop from a right knee replacement. She is doing pretty well. N ot having any pain yet. No chest pain or shortness of breath. Not feeling dizzy or lightheaded. OBJECTIVE: VITAL SIGNS: Temperature 36.7. Vital signs stable. GENERAL: Shows a pleasant middle-aged female. He is lying in bed and I had to wake her this afterno on. LUNGS: Clear to auscultation. HEART: Regular rate and rhythm. ABDOMEN: Soft, nontender, nondistended. EXTREMITIES: Grossly neurovascularly intact except as follows. Examination of the right knee reveals the leg to be well aligned. Dressing is clean, dry and intact. She can dorsiflex and plantarflex her foot appropriately. She is neurologically intact. X-RAYS: X-rays of the right knee from recovery room are reviewed. It shows a right cemented posteri or stabilized total knee arthroplasty. Components looked to be in good position. No signs of proble ms. ASSESSMENT: A 71-year-old female with a history of a deep venous thrombosis, pulmonary embolism on c hronic Coumadin, now postop from a right knee replacement, doing well. Pain is controlled. She is n eurologically intact. PLAN: 1. DVT prophylaxis includes thigh-high TEDs, SCDs and we will start her back on Coumadin. We will l oad her today with 10 mg. We will start her on a lower dose of Lovenox 24 hours postoperatively but we cannot put her on the high doses immediately postop. 2. PT, OT, weightbear as tolerated. Right total knee protocol. 3. Pain control, doing okay with current pain regimen. 4. IV antibiotics x24 hours. 5. Disposition: She is planning to be discharged to home with some home health and outpatient thera py once stable and recovered. Job ID: [id number]
[2022-02-06] MEDS ORDERED: WARFARIN SOD 10 MG TAB PO ONE (16:00)
[2022-02-06] MEDS: Scopolamine CHECK PATCH PLACEMENT SCH (16:20)
[2022-02-06] MEDS: ASCORBIC ACID 500 MG TAB PO SCH (16:23)
[2022-02-06] MEDS ORDERED: TRANEXAMIC ACID / 0.7% NACL 1,000 MG/100 ML BAG IV SCH (17:30)
[2022-02-06] MEDS: ceFAZolin 2000MG 2,000 MG/15 ML SYR IV SCH (20:23)
[2022-02-06] MEDS: DOCUSATE SODIUM 100 MG CAP PO SCH (20:29)
[2022-02-06] MEDS: METOPROLOL TARTRATE 100 MG TAB PO SCH (20:30)
[2022-02-06] MEDS: PANTOprazole 40 MG TAB PO SCH (20:30)
[2022-02-06] MEDS: SERTRALINE HCL 100 MG TABLET PO SCH (20:30)
[2022-02-06] MEDS: SENNA 8.6 MG TAB PO SCH (20:30)
[2022-02-06] MEDS: TAPENTADOL HCL ER 50 MG TABCR PO SCH (20:34)
[2022-02-06] MEDS ORDERED: CEROVITE ADV FORMULA TAB PO SCH (21:00)
[2022-02-06] MEDS ORDERED: NON-FORMULARY MEDICATION (Calcium Carbonate [Calcium 600] 600 mg calcium (1,500 mg) tablet PO SCH (21:00)
[2022-02-07] MEDS: Scopolamine CHECK PATCH PLACEMENT SCH ×4 (00:20→23:18)
[2022-02-07] MEDS: SODIUM CHLORIDE 0.9% 1000ML 1,000 ML IV SCH (01:27)
[2022-02-07] MEDS: ceFAZolin 2000MG 2,000 MG/15 ML SYR IV SCH (03:01)
[2022-02-07] MEDS: KETOROLAC TROMETHAMINE 15 MG/ML VIAL IV SCH ×2 (03:01→09:35)
[2022-02-07] MEDS: ACETAMINOPHEN 500 MG TAB PO SCH ×3 (05:53→21:02)
[2022-02-07] MEDS ORDERED: Scopolamine 1 MG TDSY TD SCH (06:00)
[2022-02-07] MEDS ORDERED: BUPIVACAINE LIPOSOME/PF 266 MG, BUPIVACAINE/EPINEPHRINE 50 ML, SODIUM CHLORIDE 0.9% 30 ... INFIL SCH (06:00)
[2022-02-07] MEDS ORDERED: TRANEXAMIC ACID 1,000 MG **IV Intra-op IV SCH (06:00)
[2022-02-07] MEDS ORDERED: GABAPENTIN 300 MG CAP PO SCH (06:00)
[2022-02-07] MEDS ORDERED: METOCLOPRAMIDE HCL 10 MG TABLET PO SCH (06:00)
[2022-02-07] MEDS ORDERED: LR 60ML/HR IV SCH (06:00)
[2022-02-07] MEDS ORDERED: ACETAMINOPHEN 500 MG TAB PO SCH (06:00)
[2022-02-07] MEDS ORDERED: FAMOTIDINE 20 MG TAB PO SCH (06:00)
[2022-02-07] MEDS ORDERED: ceFAZolin 2000MG 2,000 MG/15 ML SYR IV SCH (06:00)
[2022-02-07 06:08] LABS: Hematocrit (blood only) 29.3 % (34.1-44.9); Hemoglobin 9.4 g/dl (12.0-16.0); Mean Corpuscular Hgb Conc 32.1 g/dL (32.0-36.0); Mean Corpuscular Volume 84.2 fL (80.0-100.0); Mean Platelet Volume 12.4 fL (9.4-12.3); Platelet Count 133 K/uL (130-400); RDW Standard Deviation 45.9 fL (36.4-46.3); Red Blood Count 3.48 M/uL (3.93-5.22)
[2022-02-07 06:23] LABS: INR 1.1 (0.9-1.1); Prothrombin Time 11.3 Seconds (9.0-12.0)
[2022-02-07 06:32] LABS: BUN Creatinine Ratio 16.4 (10-20); Calcium 8.3 mg/dl (8.5-10.1); Creatinine Clr Calc Pharmacy 51.4 ml/min; Est GFR (African American) 54.1 ml/min; Est GFR (Non-African American) 46.7 ml/min; Potassium 4.5 mmol/L (3.5-5.1)
[2022-02-07] MEDS ORDERED: dexAMETHasone 10 MG in SYRINGE 0 ML IV SCH (08:00)
[2022-02-07] MEDS: oxyCODONE HCL IR 5 MG TAB (IMMEDIATE RELEASE) PO PRN ×2 (08:01→20:59)
[2022-02-07] MEDS ORDERED: WARFARIN SOD 7.5 MG TAB PO ONE ×2 (08:32→16:00)
[2022-02-07] MEDS ORDERED: DOCUSATE SODIUM/SENNA 50/8.6MG TAB PO SCH (09:00)
[2022-02-07] MEDS: BUMETANIDE 1 MG TAB PO SCH (09:33)
[2022-02-07] MEDS: FEXOFENADINE HCL 180 MG TAB PO SCH (09:33)
[2022-02-07] MEDS: DOCUSATE SODIUM 100 MG CAP PO SCH ×2 (09:33→21:01)
[2022-02-07] MEDS: CHOLECALCIFEROL 1,000 UNITS 25 MCG TAB PO SCH (09:33)
[2022-02-07] MEDS: METOPROLOL TARTRATE 100 MG TAB PO SCH ×2 (09:33→21:01)
[2022-02-07] MEDS: ATORVASTATIN 40 MG TAB PO SCH (09:34)
[2022-02-07] MEDS: CYANOCOBALAMIN (B-12) 100 MCG TABLET PO SCH (09:34)
[2022-02-07] MEDS: ASCORBIC ACID 500 MG TAB PO SCH ×2 (09:34→16:54)
[2022-02-07] MEDS: MULTIVITAMIN TAB PO SCH (09:34)
[2022-02-07] MEDS: POTASSIUM CHLORIDE 10 MEQ TABCR PO SCH (09:34)
[2022-02-07] MEDS: TAPENTADOL HCL ER 50 MG TABCR PO SCH ×2 (09:41→20:59)
[2022-02-07] MEDS: ENOXAPARIN INJ 30 MG/0.3 ML SYR SQ SCH ×2 (10:30→23:07)
--- NOTE | 2022-02-07 13:35 | Progress Notes ---
DATE OF SERVICE: 02/07/2022. SUBJECTIVE: A 71-year-old white female postoperative day 1 from right knee replacement. Had a prett y rough day in the morning with therapy. Pretty painful. She is doing okay while resting in bed. N o chest pain or shortness of breath. Just knee pain. OBJECTIVE: VITAL SIGNS: Temperature 37.1. Vital signs are stable. PHYSICAL EXAMINATION: GENERAL: Shows a pleasant middle-aged female. She was talking on the phone when I visited her this afternoon. EXTREMITIES: Examination of the right leg reveals dressing to be clean, dry and intact. She can juani siflex and plantarflex her foot appropriately. NEUROLOGIC: She is neurologically intact. LABORATORY DATA: Hemoglobin 9.4. Hematocrit 29.3. Electrolytes are stable. ASSESSMENT: A 71-year-old white female postoperative day 1 from a right knee replacement, doing okay . Having quite a bit of pain, but doing better now, the therapy is over. Nothing out of the ordinar y for knee replacement surgery. PLAN: 1. DVT prophylaxis includes thigh-high TEDs, SCDs, and she is back on Coumadin. We will start her a t prophylactic Lovenox doses 24 hours postop. Goal will be to get her INR between 2 and 3. 2. PT, OT, weightbear as tolerated. Right total knee protocol. 3. Pain control, doing okay with current pain regimen. She is struggling with pain. She is requiri ng IV medicines for now, we will keep her in the hospital overnight and see if we get it under better control. 4. Disposition: Plan to discharge her home with some home health once adequately recovered and pain adequately controlled. Job ID: [id number]
[2022-02-07] MEDS ORDERED: Scopolamine CHECK PATCH PLACEMENT SCH (16:00)
[2022-02-07] MEDS: SENNA 8.6 MG TAB PO SCH (21:00)
[2022-02-07] MEDS: SERTRALINE HCL 100 MG TABLET PO SCH (21:00)
[2022-02-07] MEDS: PANTOprazole 40 MG TAB PO SCH (21:01)
[2022-02-08] MEDS: ACETAMINOPHEN 500 MG TAB PO SCH ×2 (05:36→13:33)
[2022-02-08] MEDS: oxyCODONE HCL IR 5 MG TAB (IMMEDIATE RELEASE) PO PRN ×2 (05:37→11:40)
[2022-02-08 06:34] LABS: INR 1.2 (0.9-1.1); Prothrombin Time 13.1 Seconds (9.0-12.0)
[2022-02-08 06:43] LABS: Creatinine Clr Calc Pharmacy 64.9 ml/min; Est GFR (African American) 71.6 ml/min; Est GFR (Non-African American) 61.8 ml/min
[2022-02-08] MEDS: POTASSIUM CHLORIDE 10 MEQ TABCR PO SCH (08:42)
[2022-02-08] MEDS: TAPENTADOL HCL ER 50 MG TABCR PO SCH (08:42)
[2022-02-08] MEDS: CYANOCOBALAMIN (B-12) 100 MCG TABLET PO SCH (08:43)
[2022-02-08] MEDS: METOPROLOL TARTRATE 100 MG TAB PO SCH (08:43)
[2022-02-08] MEDS: MULTIVITAMIN TAB PO SCH (08:43)
[2022-02-08] MEDS: ATORVASTATIN 40 MG TAB PO SCH (08:43)
[2022-02-08] MEDS: ASCORBIC ACID 500 MG TAB PO SCH (08:43)
[2022-02-08] MEDS: BUMETANIDE 1 MG TAB PO SCH (08:43)
[2022-02-08] MEDS: CHOLECALCIFEROL 1,000 UNITS 25 MCG TAB PO SCH (08:43)
[2022-02-08] MEDS: FEXOFENADINE HCL 180 MG TAB PO SCH (08:44)
[2022-02-08] MEDS: Scopolamine CHECK PATCH PLACEMENT SCH ×2 (08:44→15:46)
[2022-02-08] MEDS: DOCUSATE SODIUM 100 MG CAP PO SCH (08:44)
--- NOTE | 2022-02-08 08:48 | Progress Notes ---
DATE OF SERVICE: 02/08/2022. SUBJECTIVE: A 71-year-old female postop day 2 from a right knee replacement. She is doing quite a b it better this morning. Pain seems to be improved. Just waiting to do therapy. No chest pain or sh ortness of breath. Not feeling dizzy or lightheaded. OBJECTIVE: VITAL SIGNS: Temperature 37.0. Vital signs are stable. GENERAL: Shows a pleasant middle-aged female. She is sitting up in bed and looks reasonably comfort able this morning. EXTREMITIES: Examination of the right leg reveals the dressing to be clean, dry and intact. No drai nage. She can dorsiflex and plantarflex her foot appropriately. LABORATORY DATA: INR 1.2. ASSESSMENT: A 71-year-old female postop day 2 from a right knee replacement, doing somewhat better. PLAN: 1. DVT prophylaxis includes thigh-high TEDs, SCDs, and she is back on Coumadin. She is on a prophyl actic Lovenox dose until more therapeutic. 2. PT, OT, weightbear as tolerated. Right total knee protocol. 3. Pain control, doing okay with current pain regimen. 4. Disposition: Plan to discharge to home with some home health hopefully later today if she does o julio c in therapy. Job ID: [id number]
[2022-02-08] MEDS: ENOXAPARIN INJ 30 MG/0.3 ML SYR SQ SCH (11:41)
[2022-02-08] MEDS ORDERED: WARFARIN SOD 7.5 MG TAB PO SCH (16:00)
--- NOTE | 2022-02-21 12:25 | Discharge Summary ---
Date of Service February 21, 2022 Principal Diagnosis Same as "Discharge Diagnosis" noted below under Discharge Instructions. Discharge Data Procedures Performed Operation Date: 02/06/22 09:00 Actual Procedures p Right Total Knee Arthroplasty(Right) - Jarod Stone MD Ordered Studies 02/06/22 05:00 US - OR guided needle placemen Routine Hospital Course (1) Status post total right knee replacement: This is a 71 y/o female admitted on 02/06/22 and underwent a right total knee arthroplasty. She tolerated the procedure well and there were no complications. Transferred to PACU post op and later to the orthopedic floor for further care. She was given ancef for antibiotic prophylaxis. She was also given WILLIE stockings, SCDs, and aspirin for DVT prophylaxis. Hemoglobin, Hematocrit, and vital signs were monitored during her hospital stay and remained stable. Did not require blood transfusions. There were no complications during the hospital stay. By post op day #1 the patient was tolerating a regular diet, pain was well controlled with oral pain medication, and she was participating in PT. On post op day #1 the patient was discharged to home and set up with home health care. She was given printed discharge instructions including prescriptions for tylenol, aspirin, toradol, and oxycodone. Continue PT, weightbearing as tolerated. Continue WILLIE stockings. Follow up 2 weeks post opor sooner if there are any problems. PG Care Time/CCT Total # of Minutes Spent Total Time Spent with Patient: Total time spent is greater than 50% in coordination of care (as documented) at patient's floor/unit and/or counseling patient: Discharge Plan Discharge Items Patient Disposition: Home - Home Health Services Reason For Visit: Right Knee Osteoarthritis Discharge Diagnosis: Right knee replacement Activity: Per Instructions section Weightbearing: Full weightbearing Non-emergency contact: Surgeon Call non-emergency contact if: you have any medication questions Follow-up/Referrals: Mary Briggs PA-C [Primary Care Provider] - Diet: Regular Addtl Attending Provider Instructions: ACTIVITY RECOMMENDATIONS: Physical Therapy: * You will go to physical therapy three times each week for four to six weeks after your surgery in order to regain your knee range of motion and to retrain your knee to work properly. * It is just as important to make sure you are getting your knee perfectly straight as it is to regain your knee bend. * Taking a pain pill an hour before therapy can help you have a more productive and comfortable therapy session. Home Exercise: * You were shown a series of exercises (heel props, heel slides, etc.) in the hospital. Do these exercises three to four times each day including the exercises you were shown in physical therapy. Walking: * Get up and walk several times each day. For the first four weeks, try not to stand or walk for more than one hour at a time. If you do stand or walk for more than one hour, you will not hurt anything, but your knee and leg will likely swell. * As you feel comfortable, you may change from the walker or crutches to a cane and then to independent walking. MEDICATIONS: New Medicine: * You will likely be taking one or more of these medications: 1. Oxycodone - A quick and shorter-acting pain medication. Take one to two tablets every six hours to lessen your pain. 2. Coumadin - Thins your blood to lessen the chance of forming a blood clot. * The most common side effects of pain medicine and iron are nausea and constipation. If nausea or constipation is too much of a problem or if you have any questions about your new medicines or doses, call [facility] at . We will try to help you manage these issues. "VERY IMPORTANT TO READ AND REVIEW" Pain: * The immediate post-operative period after knee replacement surgery is often quite painful. * You are given a prescription for pain medicine. You should take it, as directed, when you need it, especially before physical therapy and before going to bed. Pain that interferes with sleep is very common and can last several months. * You will likely need pain medicine for the first four to six weeks. It will not stop all of the pain. The pain will lessen and as you feel better, you may change to milder pain medicine such as Tylenol. * The most common side effects of pain medicine are nausea and constipation, so don't take more than you need. SPECIAL CARE INSTRUCTIONS: TEDs/Elastic Stockings: * The white elastic stockings help limit swelling and prevent blood clots from forming in your legs. The more you wear them, the more they work. * Wear them for six weeks after knee replacement surgery and four weeks after partial knee replacement. Incision Site Care: * Remove dressing postoperative day 2 and then shower. Keep direct shower pressure off the incision site. * After showering, cover gabby with dry gauze and change daily or more frequently if the dressing is getting saturated with drainage. * Use the WILLIE stockings to hold dressing in place. DO NOT apply tape on the skin. * May completely stop using bandage if wound is dry and no drainage * Gabby are removed between 2 and 3 weeks post-op. If your follow-up appointment is made before 2 weeks, please have your appointment re- scheduled. It is too early to remove the gabby. Prevention of Infection: * Take antibiotics one hour before any dental cleaning, dental work, urological procedure, gastrointestinal procedure or any invasive surgery in order to prevent your new joint from getting infected. * You may get the antibiotics from the doctor performing the procedure or you may call our office at [phone] before and we will call in a prescription to the pharmacy of your choice. Things to Watch For: * Drainage from the incision site that occurs more than one week after your surgery. * Severely increased knee/leg pain or swelling. * Increased redness at the incision site. * Fever above 102 degrees Fahrenheit. * Unusual chest pain or shortness of breath. * Unusual pain or burning with urination. Call [facility] at [phone] with any of the above problems or if you have any questions about your medicines or recovery. FOLLOW UP VISIT: Make an appointment to see your doctor for approximately two weeks after surgery for a progress check and staple removal by calling the office at [phone]. Pending Studies at Discharge: No Stand-Alone Forms: My [facility], Smoking Cessation Medications and DE Order Prescriptions: Continued ipratropium-albuterol 0.5 mg-3 mg(2.5 mg base)/3 mL solution for nebulization 3 ml INH Q6H PRN (Reason: shortness of breath or wheezing) Qty: 360 0RF Label Comments: HAVEN'T USED IN QUITE A WHILE metoprolol tartrate 100 mg tablet 100 mg PO BID Qty: 180 3RF atorvastatin 40 mg tablet 40 mg PO QAM Qty: 90 3RF oxycodone 5 mg tablet 5 - 10 mg PO Q6 PRN (Reason: pain) Qty: 40 0RF Rx Instructions: Take as needed for Pain. ondansetron HCl 4 mg tablet 4 mg PO Q6 PRN (Reason: nausea) Qty: 20 1RF acetaminophen 500 mg capsule 1,000 mg PO TID 30 Days Qty: 180 0RF Rx Instructions: Take 3 times per day to lessen Pain sennosides-docusate sodium [Senokot-S] 8.6-50 mg tablet 1 tab-cap PO DAILY Qty: 14 0RF Rx Instructions: Take daily to prevent constipation calcium carbonate [Calcium 600] 600 mg calcium (1,500 mg) tablet 325 mg PO BID tafluprost (PF) 0.0015 % dropperette 1 drp ophthalmic (eye) QPM fexofenadine 180 mg Tablet 180 mg PO QAM tramadol 50 mg tablet 50 mg PO QAM omeprazole 20 mg capsule,delayed release(DR/EC) 20 mg PO HS cholecalciferol (vitamin D3) 4,000 unit Tablet 4,000 unit PO QAM cyanocobalamin (vitamin B-12) [Vitamin B-12] 100 mcg Tablet 100 mcg PO QAM bumetanide 2 mg tablet 2 mg PO QAM Rx Instructions: May take an additional 1 mg daily for weight gain, SOB, swelling. (PT VERIFIED PAT CALL 10/25/21) sertraline 100 mg tablet 100 mg PO HS potassium chloride 10 mEq tablet extended release 10 meq PO QAM warfarin 5 mg tablet 5 - 7.5 mg PO UD Protocol: Dose Management Condition: Saturday Dose/Route: 5 mg Instruction: 1 x 5 mg tablet Condition: Saturday Dose/Route: 5 mg Instruction: 1 x 5 mg tablet Condition: Saturday Dose/Route: 5 mg Instruction: 1 x 5 mg tablet Condition: Saturday Dose/Route: 5 mg Instruction: 1 x 5 mg tablet Condition: Dose/Route: 5 mg Instruction: 1 x 5 mg tablet Condition: Saturday Dose/Route: 5 mg Instruction: 1 x 5 mg tablet Condition: Saturday Dose/Route: 7.5 mg Instruction: 1.5 x 5 mg tablets Protocol Text: Adjustment Start Date: 02/15/22 INR Value: 2.2 INR Date: 02/15/22 Recheck Date: 03/01/22 Label Comments: 5 MG 6 DAYS A WEEK (SAT - SAT) , 7.5 MG ON SATURDAYS - AT NIGHT Rx Instructions: 5 mg PO 6 days per week and 7.5mg 1 day per week; in the evening Ocuvite Adult 50 Plus 250 mg (90 mg-160 mg) Capsule 1 cap PO HS Discontinued enoxaparin [Lovenox] 100 mg/mL syringe 100 mg subcut Q12H Rx Instructions: weight is 110.6 kg on 01/24/2022 Discharge Orders: Discharge Order (Routine); Ordered 02/08/22 Ordered By: Jarod Diaz/Other Patient Handouts: Knee Replacement Recovery at Home Admission Data Admit Date/Time: 02/06/22 11:16 Attending Provider: Jarod Stone Admit Provider: Jarod Stone Primary Care Provider: Mary Briggs Other Interventions: Discharge Summary Assessment (RN) Last Done: 02/08/22 15:45
== END 2022-02-08 16:20 | disposition home health service (06) ==
LOC: ASU 06:26 → 3E 06:26

== ENCOUNTER 2024-09-19 05:40 | Inpatient (IN) ==
[2024-09-19 06:12] LABS: Basophils # (auto) 0.01 K/uL (0.00-0.20); Basophils % (auto) 0.1 %; Eosinophils # (auto) 0.17 K/uL (0.00-0.50); Eosinophils % (auto) 2.1 %; Hematocrit (blood only) 31.8 % (37.0-47.0); Immature Granulocytes # (auto) 0.03 K/uL (0.01-0.20); Immature Granulocytes % (auto) 0.4 %; Lymphocytes # (auto) 0.82 K/uL (1.20-3.40); Lymphocytes % (auto) 9.9 %; Mean Corpuscular Hemoglobin 27.6 pg (25.0-34.0); Mean Corpuscular Hgb Conc 31.4 g/dL (32.0-36.0); Mean Corpuscular Volume 87.8 fL (80.0-100.0); Mean Platelet Volume 11.2 fL (9.4-12.4); Monocytes # (auto) 0.45 K/uL (0.11-0.59); Monocytes % (auto) 5.4 %; Neutrophils # (auto) 6.79 K/uL (1.40-6.50); Neutrophils % (auto) 82.1 %; Platelet Count 154 K/uL (130-400); RDW Coefficient of Variation 14.9 % (11.5-14.5); RDW Standard Deviation 47.7 fL (36.4-46.3); Red Blood Count 3.62 M/uL (4.20-5.40); White Blood Count 8.27 K/ul (4.8-10.8)
[2024-09-19 06:24] LABS: INR 3.3 (0.9-1.1); Partial Thromboplastin Ratio 1.7; Partial Thromboplastin Time 46 Seconds (21-31); Prothrombin Time 32.2 Seconds (9.0-12.0)
[2024-09-19 06:34] LABS: Albumin Globulin Ratio 1.3 (0.9-2); Albumin Level 3.8 gm/dl (3.4-5.0); BUN Creatinine Ratio 16.9 (10-20); Bilirubin,Total 0.5 mg/dl (0.2-1.0); Calcium 8.7 mg/dl (8.6-10.3); Creatinine Clr Calc Pharmacy 48.1 ml/min; Potassium 3.5 mmol/L (3.5-5.1); Total Protein 6.8 gm/dl (6.0-8.3)
[2024-09-19 06:40] LABS: Troponin I High Sensitivity 6.6 pg/ml (0-14)
--- NOTE | 2024-09-19 06:55 | XRay Report ---
EXAM: XR chest 1V portable CLINICAL HISTORY: Chest pain. TECHNIQUE: An X-ray image of the chest is obtained in AP projection. COMPARISON: Prior to 08/16/2022. FINDINGS: Pulmonary Parenchyma: Bilateral prominent bronchopulmonary vasculature with basal reticulations and right basal thin atelectatic bands. No evidence of pleural effusion or pleural thickening. Heart and Mediastinum: Evidence of previous sternotomy and cardiomegaly. No mediastinal widening or masses. No hilar or mediastinal lymphadenopathy. Bony Thorax: Bony thorax appears intact without fractures or deformities. Soft Tissues: Soft tissues overlying the chest wall are unremarkable. IMPRESSION: 1. Bilateral prominent bronchopulmonary vasculature with basal reticulations and right basal thin atelectatic bands. (stable). 2. Evidence of previous sternotomy and cardiomegaly (stable). 3. No time interval significant radiological changes. Electronically signed by Blane Real 09-19-2024 06:55 AM
[2024-09-19] MEDS: OPTIRAY 320 100ml IV ONE (07:01)
[2024-09-19] MEDS: ACETAMINOPHEN 1,000 MG/100 ML VIAL IV STA (07:12)
--- NOTE | 2024-09-19 07:36 | Emergency Department Note ---
Impression & Plan Acute pancreatitis ED Provider Note NAME: DONNA MENSAH AGE: 73 SEX: F : 1950 ARRIVES VIA: Walk-In INFORMANT: Patient, ED PROVIDER(S): Beatriz Stephens MD CHIEF COMPLAINT: Chest pain HPI: This is a 73-year-old female presenting for chest pain. Patient notes that chest pain started on the right side goes into her back and down into her abdomen. She notes this previously worsened in the past few days. This happened before when relation to pulmonary emboli, abdominal bleeding. She states she feels like a dull achy sensation. Reports it is 6/10. She has worsening pain with exertion. Otherwise no nausea, vomiting. No diarrhea. No fevers or chills. ROS: See above HPI for pertinent positives & negatives. A total of 10 systems reviewed and were otherwise negative. PAST MEDICAL HISTORY: See Below PAST SURGICAL HISTORY: See Below FAMILY HISTORY: See Below SOCIAL HISTORY: See Below HOME MEDICATIONS: See Below ALLERGIES: See Below VITALS: See Below PHYSICAL EXAMINATION: General: resting comfortably in no acute distress Head: Normocephalic and atraumatic Eyes: Normal inspection, extraocular muscles intact Ear, nose, throat: Normal external exam Neck: Normal range of motion Respiratory: lungs clear to auscultation bilaterally Cardiovascular: Regular rate/rhythm, no murmur GI: soft, nontender, no guarding or rebound Extremities: nontender, moves all extremities Neuro: The patient awake and alert, appropriately conversive, no focal deficits, symmetric faces Skin: Warm, dry, and intact MEDICAL DECISION MAKING: This is 73-year-old female presenting for chest pain. Patient does take anticoagulation, Coumadin. INR sent to triage, is currently 3.3. Low concern for PE with his INR especially without hypoxia, tachypnea, or tachycardia. -Chest x-ray reveals no focal opacity concerning for pneumonia or pneumothorax as Independently interpreted by me -Will proceed with CT of the chest/abdomen due to patient's history of bleeds as well as pain extending from chest and abdomen concern for intra-abdominal pathology as well. -Blood work is reviewed showing no cytosis. Otherwise INR is 2.3 electrolytes within normal limits. -CT imaging reveals signs of pancreatitis. Lipase is not elevated at this time. -Patient is in pain, offered discharge with clear fluid diet versus admission. Patient was for admission at this time due to significant pain and symptoms. -Discussed care with Fabian Maldonado PA-C for hospital admission Differential diagnosis: ACS, PE, dissection, pneumonia, CHF, appendicitis, cholecystitis, diverticulitis, bowel perforation Independent History obtained from: Diagnostics interpreted by me: ECG: ECG independently interpreted by me with normal sinus rhythm, rate of 72, first-degree AV block, incomplete right bundle branch block, normal QTc, no ST segment elevations consistent with STEMI criteria Cardiac Monitoring: An order was placed for continuous cardiac monitoring. The monitor shows a rate of 75 with sinus rhythm. Past Med/Surg History Problem List (Updated 09/19/24 @ 14:11 by Beatriz Stephens MD) Chest pain Acute pancreatitis (Acute) Prediabetes Nocturnal hypoxemia Chronic heart failure with preserved ejection fraction Depression GERD (gastroesophageal reflux disease) Osteopenia History of pulmonary embolism Severe obesity (BMI >= 40) Mild persistent asthma Anticoagulated on Coumadin Status post total right knee replacement S/P AVR (Chronic) Mechanical (2017) Status post left knee replacement Right knee DJD Arthritis (Chronic) Anemia (Chronic) HTN (hypertension) (Acute) Transaminitis Hemidiaphragm paralysis Paralyzed hemidiaphragm Dyspnea on exertion BRIDGETT (obstructive sleep apnea) Bradycardia Frequent PVCs Sinusitis Chronic rhinitis Medical History (Updated 09/19/24 @ 14:11 by Beatriz Stephens MD) Aortic valve disease s/p AVR (2017)- Mechanical PVC (premature ventricular contraction) Palpitations controlled since beta armando dose increase History of COVID-19 Dx 12/2021 (home test after vacation) Symptoms at time: cough and cold symptoms > resolved Osteoarthritis History of airway obstruction Airway collapse post-op heart surgery Urinary bladder incontinence Arthritis Diaphragmatic paralysis Transieny hemidiaphragmatic paralysis d/t CABG (2017) Follows with [facility] pulmonary BRIDGETT treated with BiPAP COPD (chronic obstructive pulmonary disease) Per records Chronic diastolic CHF (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 failure) care home (current) use of anticoagulants Coronary artery disease s/p CABG x1 ([facility]) 2017 Hyperlipidemia HTN (hypertension) Surgical History History of cardiac cath 2017 ([facility]) > referred for CABG x1 + AVR History of cataract surgery R/L History of endoscopy History of colonoscopy History of urologic surgery + mesh History of tubal ligation History of total left knee replacement S/P CABG (coronary artery bypass graft) CABG x1 (2017) History of delivery X2 Family History Family/Other Heart disease Hypertension Sister Asthma Family history of diabetes mellitus Sister Family history of diabetes mellitus Father Myocardial infarction Aunt Myocardial infarction Uncle Myocardial infarction Grandmother (Maternal) Myocardial infarction Other No family history of adverse response to anesthesia No family history of bleeding disorder Denies family history of Ovarian cancer Prostate cancer Breast cancer Colorectal cancer Social History Smoking Status: Never smoker Second Hand Exposure: No; Do You Dip or Chew Tobacco: No; Hx Alcohol Use: Yes Alcohol type: wine Hx Substance Use: No Preferred Language: Macedonian Communication Ability: Effective Visual Impairment: No Limitations Cashier Checker Required: No Beliefs That Will Affect Care: None marital status: Current Living Situation: Spouse current occupational status: employed current occupation: [employer] Feels Safe at Home: Yes Childhood Exposure to Second-Hand Smoke: No Dental Care, Regularly: No Physical Activity Frequency: Does not Exercise Seatbelt Use: sometimes Sunscreen Use: Yes Assistive Devices: Walker Allergies Allergies Allergy/AdvReac Type Severity Reaction Status Date / Time amlodipine Allergy Unknown Unknown Verified 08/21/24 11:52 furosemide [From Lasix] AdvReac Severe Loud ear Verified 08/21/24 11:52 ringing Home Meds Home Medications Medication Instructions Recorded Confirmed fexofenadine 180 mg tablet 180 mg PO QAM 07/27/18 09/19/24 calcium carbonate (Calcium 600) 325 mg PO BID 03/17/20 09/19/24 cyanocobalamin (vitamin B-12) 100 100 mcg PO QAM 10/25/21 09/19/24 mcg tablet (Vitamin B-12) potassium chloride 10 mEq 10 meq PO UD diurectic use 10/25/21 09/19/24 tablet,extended release aspirin 81 mg tablet,delayed 81 mg PO DAILY 03/25/23 09/19/24 release acetaminophen 500 mg capsule 1,000 mg PO TID PRN Pain 08/21/24 09/19/24 amoxicillin 500 mg tablet 2,000 mg PO ONCE PRN dental yusra 08/21/24 09/19/24 montelukast 10 mg tablet 10 mg PO UD 08/21/24 09/19/24 sennosides 8.6 mg-docusate sodium 1 tab-cap PO Q OTHER DAY 08/21/24 09/19/24 50 mg tablet (Senokot-S) bumetanide 2 mg tablet 4 mg PO UD 09/19/24 09/19/24 metoprolol tartrate 100 mg tablet 100 mg PO UD 09/19/24 09/19/24 semaglutide (weight loss) 0.5 0.5 mg subcut UD 09/19/24 09/19/24 mg/0.5 mL subcutaneous pen injector (Wegovy) warfarin 5 mg tablet 5 mg PO UD 09/19/24 09/19/24 Previous Rx's Medication Instructions Recorded ipratropium 0.5 mg-albuterol 3 mg 3 ml inhalation Q6H PRN shortness 11/17/19 (2.5 mg base)/3 mL nebulization of breath or wheezing #360 mL soln empagliflozin 10 mg tablet 10 mg PO DAILY #90 tabs 11/28/23 (Jardiance) ranolazine 500 mg tablet,extended 500 mg PO BID #180 tabs 02/26/24 release,12 hr atorvastatin 80 mg tablet 80 mg PO QAM #90 tabs 07/06/24 omeprazole 20 mg capsule,delayed 20 mg PO HS #90 caps 08/21/24 release sertraline 100 mg tablet 100 mg PO HS #90 tabs 08/21/24 trimethoprim 100 mg tablet 100 mg PO DAILY #90 tabs 09/02/24 semaglutide (weight loss) 0.25 0.25 mg (0.5 mL) subcut Q7D #2 mL 09/09/24 mg/0.5 mL subcutaneous pen injector (Wegovy) tramadol 50 mg tablet 50 mg PO BID PRN ARTHRITIS pain 09/17/24 #60 tabs Results & Data (ED) Vital Signs Vital Signs - 24 hr 09/19/24 05:42 09/19/24 05:57 09/19/24 06:03 Temperature 36.4 C L Temperature Source Temporal Artery Scan Pulse Rate 73 65 70 Pulse Rate [Right] Pulse Rhythm Regular Pulse Rhythm [Right] Pulse Strength [Right] Respiratory Rate 16 18 Respiratory Effort / Characteristics Non-Labored Spontaneous Respiratory Depth Normal Respiratory Pattern Regular Blood Pressure 150/74 H Blood Pressure [Right Arm] Blood Pressure Mean 99 Blood Pressure Mean [Right Arm] Blood Pressure Position [Right Arm] Pulse Oximetry 95 95 Oxygen Delivery Method Room Air Room Air Sepsis Recent Fever Within 48 Hours No Sepsis New/Unexplained Change in Mental Status N/A Sepsis Action Taken by Nursing No Action Required 09/19/24 07:19 09/19/24 07:40 09/19/24 09:00 Temperature Temperature Source Pulse Rate 75 Pulse Rate [Right] 69 70 Pulse Rhythm Pulse Rhythm [Right] Regular Pulse Strength [Right] Normal Respiratory Rate 22 16 Respiratory Effort / Characteristics Non-Labored Non-Labored Respiratory Depth Normal Normal Respiratory Pattern Regular Regular Blood Pressure Blood Pressure [Right Arm] 150/85 H 139/74 Blood Pressure Mean Blood Pressure Mean [Right Arm] 106 95 Blood Pressure Position [Right Arm] Lying Lying Pulse Oximetry 95 96 Oxygen Delivery Method Room Air Room Air Sepsis Recent Fever Within 48 Hours Sepsis New/Unexplained Change in Mental Status Sepsis Action Taken by Nursing 09/19/24 11:13 09/19/24 11:28 Temperature Temperature Source Pulse Rate 69 Pulse Rate [Right] 71 Pulse Rhythm Pulse Rhythm [Right] Pulse Strength [Right] Respiratory Rate 18 Respiratory Effort / Characteristics Non-Labored Spontaneous Respiratory Depth Normal Respiratory Pattern Blood Pressure Blood Pressure [Right Arm] 134/93 Blood Pressure Mean Blood Pressure Mean [Right Arm] 106 Blood Pressure Position [Right Arm] Sitting Pulse Oximetry 93 Oxygen Delivery Method Room Air Sepsis Recent Fever Within 48 Hours Sepsis New/Unexplained Change in Mental Status Sepsis Action Taken by Nursing Laboratory Data 09/19/24 06:00 09/19/24 06:00 Lab Results 09/19/24 Range/Units 06:00 WBC 8.27 (4.8-10.8) K/ul RBC 3.62 L (4.20-5.40) M/uL Hgb 10.0 L (12.0-16.0) g/dl Hct 31.8 L (37.0-47.0) % MCV 87.8 (80.0-100.0) fL MCH 27.6 (25.0-34.0) pg MCHC 31.4 L (32.0-36.0) g/dL RDW Std Deviation 47.7 H (36.4-46.3) fL RDW Coeff of Matthew 14.9 H (11.5-14.5) % Plt Count 154 (130-400) K/uL MPV 11.2 (9.4-12.4) fL Immature Gran % (Auto) 0.4 % Neut % (Auto) 82.1 % Lymph % (Auto) 9.9 % [place] % (Auto) 5.4 % Eos % (Auto) 2.1 % Baso % (Auto) 0.1 % Neut # (Auto) 6.79 H (1.40-6.50) K/uL Lymph # (Auto) 0.82 L (1.20-3.40) K/uL [place] # (Auto) 0.45 (0.11-0.59) K/uL Eos # (Auto) 0.17 (0.00-0.50) K/uL Baso # (Auto) 0.01 (0.00-0.20) K/uL Immature Gran # (Auto) 0.03 (0.01-0.20) K/uL PT 32.2 H (9.0-12.0) Seconds INR 3.3 H (0.9-1.1) APTT 46 H (21-31) Seconds PTT Ratio 1.7 Sodium 141 (136-145) mmol/L Potassium 3.5 (3.5-5.1) mmol/L Chloride 103 (98-107) mmol/L Carbon Dioxide 34 H (21-32) mmol/L Anion Gap 4 (3-11) BUN 20 (6-23) mg/dl Creatinine 1.18 (0.6-1.2) mg/dl Est Cr Clr Drug Dosing 48.1 ml/min eGFR 48.17 BUN/Creatinine Ratio 16.9 (10-20) Glucose 124 H (70-99(Fasting)) mg/dl Calcium 8.7 (8.6-10.3) mg/dl Total Bilirubin 0.5 (0.2-1.0) mg/dl AST 21 (13-39) U/L ALT 13 (7-52) U/L Alkaline Phosphatase 93 (34-104) U/L Troponin I High Sens 6.6 (0-14) pg/ml B-Natriuretic Peptide 629 H (0-100) pg/ml Total Protein 6.8 (6.0-8.3) gm/dl Albumin 3.8 (3.4-5.0) gm/dl Globulin 3.0 (2.5-4.0) gm/dl Albumin/Globulin Ratio 1.3 (0.9-2) Triglycerides 120 (0-150) mg/dl Lipase 44 (11-82) U/L Administered Medications Hydromorphone HCl (Hydromorphone Inj 0.5 Mg/0.5 Ml Syr) 0.5 mg IV Q4H PRN PRN Reason: Mod/Severe Pain (6-10) on NRS Stop: 10/03/24 10:31 Last Admin: 09/19/24 12:47 Dose: 0.5 mg Documented By: CC Lactated Ringer's (Lr) 1,000 mls @ 70 mls/hr IV .[id number] [place] Stop: 09/21/24 10:44 Last Admin: 09/19/24 12:50 Dose: 70 mls/hr Documented By: CC Pantoprazole Sodium (Protonix) 40 mg in 10 mls @ 5 mls/min IV DAILY [place] Stop: 10/19/24 10:44 Last Admin: 09/19/24 11:06 Dose: 5 mls/min Documented By: CC Discontinued Medications Acetaminophen (Ofirmev) 1,000 mg in 100 mls @ 400 mls/hr IV NOW STA Stop: 09/19/24 07:02 Last Infusion: 09/19/24 08:05 Dose: Infused Documented By: Admin: 09/19/24 07:12 Dose: 400 mls/hr Documented By: MPD Sodium Chloride (Nss) 1,000 mls @ 999 mls/hr IV .Q1H1M ONE Stop: 09/19/24 11:21 Last Infusion: 09/19/24 12:51 Dose: Infused Documented By: Admin: 09/19/24 11:06 Dose: 999 mls/hr Documented By: CC Ioversol (Optiray 320 100ml) 94 ml IV ONCE ONE Stop: 09/19/24 07:02 Last Admin: 09/19/24 07:01 Dose: 94 ml Documented By: MANUEL Imaging Data Radiologist's Impression: Chest X-Ray 09/19/24 05:46 EXAM: XR chest 1V portable CLINICAL HISTORY: Chest pain. TECHNIQUE: An X-ray image of the chest is obtained in AP projection. COMPARISON: Prior to 08/16/2022. FINDINGS: Pulmonary Parenchyma: Bilateral prominent bronchopulmonary vasculature with basal reticulations and right basal thin atelectatic bands. No evidence of pleural effusion or pleural thickening. Heart and Mediastinum: Evidence of previous sternotomy and cardiomegaly. No mediastinal widening or masses. No hilar or mediastinal lymphadenopathy. Bony Thorax: Bony thorax appears intact without fractures or deformities. Soft Tissues: Soft tissues overlying the chest wall are unremarkable. IMPRESSION: 1. Bilateral prominent bronchopulmonary vasculature with basal reticulations and right basal thin atelectatic bands. (stable). 2. Evidence of previous sternotomy and cardiomegaly (stable). 3. No time interval significant radiological changes. Electronically signed by Blane Real 09-19-2024 06:55 AM Abdomen/Pelvis CT 09/19/24 06:46 EXAM: CT abd pelvis IV con only CLINICAL HISTORY: R flank/chest pain, hx bleed. R CP down to RLQ TECHNIQUE: Multiple contiguous axial images were obtained from the level of diaphragm to the pubis symphysis. This study was acquired after the IV administration of iodinated contrast material, given the patients indications for the examination. If IV contrast material had not been administered, the likelihood of detecting abnormalities relevant to the patients condition would have been substantially decreased. Coronal and sagittal reformatted images were generated and reviewed to improve anatomic localization and optimize lesion detection. CT scan was performed according to ALARA (as low as reasonable achievable). COMPARISON: 07/27/2018 18:37:24 NAILING MACHINE FEEDER FINDINGS: The visualized lung bases are clear. ABDOMEN/PELVIS: The liver is normal in size and attenuation. No focal liver lesions are seen. There is no intra or extrahepatic biliary ductal dilatation. Hepatic vasculature is patent. The gallbladder is distended with few tiny calculi within. The spleen and adrenal glands are unremarkable. Mild fat stranding is noted along the head and uncinate process of pancreas The kidneys are normal in size and attenuation. There is no hydronephrosis or perinephric fat stranding. No renal calculi or renal masses are identified. The ureters are normal in caliber and no ureteral calculi are seen. The bladder is normal in contour. No evidence of focal or diffuse bowel wall thickening or evidence of bowel obstruction is seen. The appendix is visualized in the right lower quadrant and appears within normal limits. No adenopathy or fluid collections are seen. The aorta is normal in caliber. No aggressive appearing osseous lesions are identified. A calcified lesion of size 1.6 x 1.5cm is noted in the region of vagina, likely a calcified Bartholin's cyst. IMPRESSION: 1. Mild peripancreatic fat stranding along the head and uncinate process of pancreas, likely suggestive of acute interstitial pancreatitis. Suggest- Serum amylase/ lipase correlation. (New finding) 2. Cholelithiasis. (New finding) Electronically signed by Gilmer Castillo 09-19-2024 08:[address] 09/19/24 06:46 EXAM: CT chest diagnostic w con CLINICAL HISTORY: R chest flank pain, hx CHF/abd bleed TECHNIQUE: Contiguous axial images were obtained from the neck base through the upper abdomen without contrast. In addition, sagittal and coronal reconstructions were performed to potentially increase the sensitivity for the detection of disease. CT scan was performed according to ALARA (as low as reasonable achievable). COMPARISON: 07/27/2018 18:37:24 NAILING MACHINE FEEDER FINDINGS: The lungs are clear, with no focal areas of consolidation. Few subsegmental atelectatic bands in right lower zone. No pulmonary nodules are seen. The central airways are patent. There are no pleural effusions. No pneumothorax is seen. Evaluation of the mediastinum and michelle is limited due to the lack of intravenous contrast. No axillary or mediastinal adenopathy is identified. The thyroid is unremarkable. The heart, aorta, and pulmonary arteries are of normal size and configuration. There are no appreciable coronary artery and aortic atherosclerotic calcifications. No pericardial effusion is identified. Imaged portions of the upper abdomen show cholelithiasis. No aggressive appearing osseous lesions are identified. Old left 4th to 6th rib fractures. IMPRESSION: 1. Few subsegmental atelectatic bands in posterior basal segment of right lower lobe. (Significant resolution of basal atelectasis compared to previous study) 2. Rest unremarkable. Electronically signed by Gilmer Castillo 09-19-2024 08:06 AM Discharge Plan Visit Data Chief Complaint: Chest Pain Stated Complaint: CHEST PAIN ED Provider: Beatriz Stephens Discharge Problem: Acute pancreatitis Forms Stand Alone Forms: [facility] [place] Prescriptions Prescriptions: No Action ipratropium-albuterol 0.5 mg-3 mg(2.5 mg base)/3 mL solution for nebulization 3 ml INH Q6H PRN (Reason: shortness of breath or wheezing) Qty: 360 0RF Patient Comments: HAVEN'T USED IN QUITE A WHILE Rx Instructions: no fill history available Jardiance 10 mg tablet 10 mg PO DAILY Qty: 90 3RF ranolazine 500 mg tablet extended release 12 hr 500 mg PO BID Qty: 180 3RF atorvastatin 80 mg tablet 80 mg PO QAM Qty: 90 3RF trimethoprim 100 mg tablet 100 mg PO DAILY Qty: 90 3RF Wegovy 0.25 mg/0.5 mL pen injector 0.25 mg subcut Q7D Qty: 2 0RF tramadol 50 mg tablet 50 mg PO BID PRN (Reason: ARTHRITIS pain) Qty: 60 0RF calcium carbonate [Calcium 600] 600 mg calcium (1,500 mg) tablet 325 mg PO BID Rx Instructions: otc unable to verify aspirin 81 mg tablet,delayed release (DR/EC) 81 mg PO DAILY Rx Instructions: otc unable to verify montelukast 10 mg tablet 10 mg PO UD Rx Instructions: 10 mg po pm. no fill history available unable to verify acetaminophen 500 mg capsule 1,000 mg PO TID PRN (Reason: Pain) Rx Instructions: otc unable to verify Take 3 times per day to lessen Pain amoxicillin 500 mg tablet 2,000 mg PO ONCE PRN (Reason: dental yusra) Rx Instructions: no fill history unable to verify Take 4 tablets at 1 time, 1 hour prior to dental procedure sennosides-docusate sodium [Senokot-S] 8.6-50 mg tablet 1 tab-cap PO Q OTHER DAY Rx Instructions: otc unable to verify Take every other day to prevent constipation sertraline 100 mg tablet 100 mg PO HS Qty: 90 3RF omeprazole 20 mg capsule,delayed release(DR/EC) 20 mg PO HS Qty: 90 3RF fexofenadine 180 mg Tablet 180 mg PO QAM Rx Instructions: otc unable to verify cyanocobalamin (vitamin B-12) [Vitamin B-12] 100 mcg Tablet 100 mcg PO QAM Rx Instructions: otc unable to verify potassium chloride 10 mEq tablet extended release 10 meq PO UD Rx Instructions: 10 meq po qam. no fill history available unable to verify bumetanide 2 mg tablet 4 mg PO UD Rx Instructions: 4 mg po qam. Last filled 05/27/24 90 day supply May take an additional 2 mg in the afternoon for weight gain, SOB, swelling. metoprolol tartrate 100 mg tablet 100 mg PO UD Rx Instructions: 100 mg po bid. Last filled 06/16/24 90 day supply Wegovy 0.5 mg/0.5 mL pen injector 0.5 mg subcut UD Rx Instructions: 0.5mg subcut weekly. no fill history available unable to verify warfarin 5 mg tablet 5 mg PO UD Protocol: Dose Management Condition: Saturday Dose/Route: 5 mg Instruction: 1 x 5 mg tablet Condition: Saturday Dose/Route: 5 mg Instruction: 1 x 5 mg tablet Condition: Saturday Dose/Route: 2.5 mg Instruction: 0.5 x 5 mg tablets Condition: Saturday Dose/Route: 5 mg Instruction: 1 x 5 mg tablet Condition: Dose/Route: 2.5 mg Instruction: 0.5 x 5 mg tablets Condition: Saturday Dose/Route: 5 mg Instruction: 1 x 5 mg tablet Condition: Saturday Dose/Route: 5 mg Instruction: 1 x 5 mg tablet Protocol Text: Adjustment Start Date: 08/27/24 INR Value: 2.6 INR Date: 08/27/24 Recheck Date: 09/24/24 Referrals Referrals: Viri Keller MD [Primary Care Provider] - Discharge Problem: Acute pancreatitis Qualifiers: Pancreatitis type: idiopathic Acute pancreatitis complication: no infection or necrosis Qualified Code(s): K85.00 - Idiopathic acute pancreatitis without necrosis or infection
--- NOTE | 2024-09-19 08:07 | CT Scan Report ---
EXAM: CT chest diagnostic w con CLINICAL HISTORY: R chest flank pain, hx CHF/abd bleed TECHNIQUE: Contiguous axial images were obtained from the neck base through the upper abdomen without contrast. In addition, sagittal and coronal reconstructions were performed to potentially increase the sensitivity for the detection of disease. CT scan was performed according to ALARA (as low as reasonable achievable). COMPARISON: 07/27/2018 18:37:24 ULTRA SOUND TECHNICIAN FINDINGS: The lungs are clear, with no focal areas of consolidation. Few subsegmental atelectatic bands in right lower zone. No pulmonary nodules are seen. The central airways are patent. There are no pleural effusions. No pneumothorax is seen. Evaluation of the mediastinum and michelle is limited due to the lack of intravenous contrast. No axillary or mediastinal adenopathy is identified. The thyroid is unremarkable. The heart, aorta, and pulmonary arteries are of normal size and configuration. There are no appreciable coronary artery and aortic atherosclerotic calcifications. No pericardial effusion is identified. Imaged portions of the upper abdomen show cholelithiasis. No aggressive appearing osseous lesions are identified. Old left 4th to 6th rib fractures. IMPRESSION: 1. Few subsegmental atelectatic bands in posterior basal segment of right lower lobe. (Significant resolution of basal atelectasis compared to previous study) 2. Rest unremarkable. Electronically signed by Gilmer Castillo 09-19-2024 08:06 AM
--- NOTE | 2024-09-19 08:11 | CT Scan Report ---
EXAM: CT abd pelvis IV con only CLINICAL HISTORY: R flank/chest pain, hx bleed. R CP down to RLQ TECHNIQUE: Multiple contiguous axial images were obtained from the level of diaphragm to the pubis symphysis. This study was acquired after the IV administration of iodinated contrast material, given the patients indications for the examination. If IV contrast material had not been administered, the likelihood of detecting abnormalities relevant to the patients condition would have been substantially decreased. Coronal and sagittal reformatted images were generated and reviewed to improve anatomic localization and optimize lesion detection. CT scan was performed according to ALARA (as low as reasonable achievable). 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 ABDOMEN/PELVIS: The liver is normal in size and attenuation. No focal liver lesions are seen. There is no intra or extrahepatic biliary ductal dilatation. Hepatic vasculature is patent. The gallbladder is distended with few tiny calculi within. The spleen and adrenal glands are unremarkable. Mild fat stranding is noted along the head and uncinate process of pancreas The kidneys are normal in size and attenuation. There is no hydronephrosis or perinephric fat stranding. No renal calculi or renal masses are identified. The ureters are normal in caliber and no ureteral calculi are seen. The bladder is normal in contour. No evidence of focal or diffuse bowel wall thickening or evidence of bowel obstruction is seen. The appendix is visualized in the right lower quadrant and appears within normal limits. No adenopathy or fluid collections are seen. The aorta is normal in caliber. No aggressive appearing osseous lesions are identified. A calcified lesion of size 1.6 x 1.5cm is noted in the region of vagina, likely a calcified Bartholin's cyst. IMPRESSION: 1. Mild peripancreatic fat stranding along the head and uncinate process of pancreas, likely suggestive of acute interstitial pancreatitis. Suggest- Serum amylase/ lipase correlation. (New finding) 2. Cholelithiasis. (New finding) Electronically signed by Gilmer Castillo 09-19-2024 08:11 AM
--- NOTE | 2024-09-19 09:49 | History & Physical Report ---
Date of Service September 19, 2024 Assessment & Plan (1) Acute pancreatitis: (2) Chest pain: (3) History of pulmonary embolism: (4) Melena: Plan This pt is a 73-year-old female who presented on 09/19 for right sided chest pain and RUQ abd pain with radiation to the back and RLQ that began on Saturday 09/16. She also had 5 days of dark stools twice a day which is now resolved. A/P CT revealed acute pancreatitis on arrival. While lipase was WNL, patient coming in for pain control/fluids, and further workup for possible GIB. #Acute pancreatitis/RUQ pain Lipase WNL at 44 on arrival However, A/P CT revealed peripancreatic fat stranding suggestive of acute interstitial pancreatitis Patient does endorse right-sided chest pain/RUQ abdominal pain with radiation to her back This began shortly after patient was drinking Saturday night on 09/16; no alcohol use since. Does have gallstones on CT, no CBD dilation, LFTs normal Question if has duodenal ulcer causing duodenitis/pancreatitis? No prior h/o pancreatitis LFTs okay on arrival Triglycerides WNL RUQ ultrasound ordered to assess gallbladder N.p.o. for now; p.o. medications okay Patient reports she has not started Wegovy yet; Hold Jardiance; ? potential culprit Given h/o CHF, will place on gentle fluids and hold diuretics-LR at 70mL/hr x 2 days; add on additional fluids as needed Acetaminophen 1000 mg IV for pain 1-5 Dilaudid 0.5 mg IV for pain 6-10 Trend lipase/LFTs # Suspected acute blood loss Anemia; recent episodes of melena Note: Patient reports dark stool starting approximately 5 days ago; this has since since resolved No diarrhea (stool was formed) but did have stools twice daily rather than her usual once daily Hgb 10.0 on arrival down from 12.4 one month prior Patient does have h/o GI bleed Fecal occult stool ordered, pending Given resolution + high risk (h/o B/L PEs), will plan to continue warfarin for now, but HOLD ASA Close monitoring of H&H Consult GI to see about EGD Increase PPI to Protonix 40mg IV bid #Chronic HFpEF Last echocardiogram on 12/14/2022 revealed LVEF at 55 to 60%. She is euvolemic, currently Strict I&O monitoring Daily weights Continue home metoprolol,holding home diuretics and Jardiance #Chest pain Troponin WNL on arrival, repeat pending EKG without acute changes While suspect that patient's chest pain is largely secondary to pancreatitis, will continue on continuous telemetry for now #History of pulmonary embolism/mechanical AVR Continue warfarin INR 3.3 on arrival; recommend holding warfarin if INR >3.5 Trend PT/INR #BRIDGETT - BiPAP HS #HTN/Frequent PVCs - continue metoprolol, Ranexa; montor on tele #HLD - continue atorvastatin #GERD - hold omeprazole, IV Protonix bid #History of CABG - continue, metoprolol, statin; hold ASA #Depression - continue sertraline #Arthritis - hold tramadol, IV pain medicine as above Disposition: Obs - admit to MedSurg telemetry Full code N.p.o./bowel rest VTE PPx: Warfarin History of Present Illness Chief Complaint: Chest pain, RUQ abdominal pain Primary Care Provider: Viri Keller MD Ophelia is a 73-year-old female with PMH of HTN, B/L pulmonary embolism (on warfarin), GI bleed, AVR, BRIDGETT, GERD, and depression. She presented on 09/19 for intermittent right-sided chest pain. She reports that the pain initially started on Saturday 09/16. At first, it was in her right breast, with radiation to the back, but since then it has since moved to her right upper quadrant. Still rating to her back. She was having dark stool for approximately 5 days prior to this, and was concerned given her history of GI bleed, but she went back to having normal stool yesterday. Patient rates the pain in her right upper quadrant as an 8/10 at present. She has been taking Tylenol at home for the pain, which helps a bit. She is unsure if it is worse with movements or eating. No prior history of pancreatitis. No prior history of gallbladder issues or gallstones. She reports she was drinking on Saturday night; she had one lemon drop martini. No prior history of heavy alcohol use, but reports she is a social drinker. No recent change in diet. Patient did not take her regular morning medicine today; no recent change in medications. She was set to start Wegovy, but has not started it yet. She has been on Jardiance for almost a year now, which she takes for heart failure. No prior history of DM. Additionally, patient reports dyspnea on exertion at baseline. Patient sleeps in a recliner due to her history of heart failure. CPAP at night; no supplemental oxygen. Remote history of norovirus in June 2024 with diarrhea x 1 week. She denies smoking or tobacco use. Patient's vitals are stable at time of admission. ED course: Acetaminophen 1000 mg IV ROS: Patient endorses lightheadedness on , right-sided chest pain with radiation to back, RUQ pain, SANCHES (attributes to diaphragm injury and current weight), pleuritic CP, nausea, melena (formed; resolved yesterday), urinary incontinence (wears briefs; ongoing), Patient denies fever, chills, night-sweats, syncope, recent falls, headache, SOB at night, cough, hemoptysis, vomiting, diarrhea, BRB in stool, changes in urinary habits, saddle anesthesia, or numbness/tingling in the legs. Allergies Allergy/AdvReac Type Severity Reaction Status Date / Time amlodipine Allergy Unknown Unknown Verified 08/21/24 11:52 furosemide [From Lasix] AdvReac Severe Loud ear Verified 08/21/24 11:52 ringing Home Medications Medication Instructions Recorded Confirmed Type fexofenadine 180 mg tablet 180 mg PO QAM 07/27/18 09/19/24 History ipratropium 0.5 mg-albuterol 3 mg 3 ml inhalation Q6H PRN shortness 11/17/19 09/19/24 Rx (2.5 mg base)/3 mL nebulization of breath or wheezing #360 mL soln calcium carbonate (Calcium 600) 325 mg PO BID 03/17/20 09/19/24 History cyanocobalamin (vitamin B-12) 100 100 mcg PO QAM 10/25/21 09/19/24 History mcg tablet (Vitamin B-12) potassium chloride 10 mEq 10 meq PO UD diurectic use 10/25/21 09/19/24 History tablet,extended release aspirin 81 mg tablet,delayed 81 mg PO DAILY 03/25/23 09/19/24 History release empagliflozin 10 mg tablet 10 mg PO DAILY #90 tabs 11/28/23 09/19/24 Rx (Jardiance) ranolazine 500 mg tablet,extended 500 mg PO BID #180 tabs 02/26/24 09/19/24 Rx release,12 hr atorvastatin 80 mg tablet 80 mg PO QAM #90 tabs 07/06/24 09/19/24 Rx acetaminophen 500 mg capsule 1,000 mg PO TID PRN Pain 08/21/24 09/19/24 History amoxicillin 500 mg tablet 2,000 mg PO ONCE PRN dental yusra 08/21/24 09/19/24 History montelukast 10 mg tablet 10 mg PO UD 08/21/24 09/19/24 History omeprazole 20 mg capsule,delayed 20 mg PO HS #90 caps 08/21/24 09/19/24 Rx release sennosides 8.6 mg-docusate sodium 1 tab-cap PO Q OTHER DAY 08/21/24 09/19/24 History 50 mg tablet (Senokot-S) sertraline 100 mg tablet 100 mg PO HS #90 tabs 08/21/24 09/19/24 Rx trimethoprim 100 mg tablet 100 mg PO DAILY #90 tabs 09/02/24 09/19/24 Rx semaglutide (weight loss) 0.25 0.25 mg (0.5 mL) subcut Q7D #2 mL 09/09/24 09/19/24 Rx mg/0.5 mL subcutaneous pen injector (Wegovy) tramadol 50 mg tablet 50 mg PO BID PRN ARTHRITIS pain 09/17/24 09/19/24 Rx #60 tabs bumetanide 2 mg tablet 4 mg PO UD 09/19/24 09/19/24 History metoprolol tartrate 100 mg tablet 100 mg PO UD 09/19/24 09/19/24 History semaglutide (weight loss) 0.5 0.5 mg subcut UD 09/19/24 09/19/24 History mg/0.5 mL subcutaneous pen injector (Wegovy) warfarin 5 mg tablet 5 mg PO UD 09/19/24 09/19/24 History Past Med/Surg History Problem List (Updated 09/19/24 @ 18:02 by Tashia Leonard MD) Melena Chest pain Acute pancreatitis (Acute) Prediabetes Nocturnal hypoxemia Chronic heart failure with preserved ejection fraction Depression GERD (gastroesophageal reflux disease) Osteopenia History of pulmonary embolism Severe obesity (BMI >= 40) Mild persistent asthma Anticoagulated on Coumadin Status post total right knee replacement S/P AVR (Chronic) Mechanical (2017) Status post left knee replacement Right knee DJD Arthritis (Chronic) Anemia (Chronic) HTN (hypertension) (Acute) Transaminitis Hemidiaphragm paralysis Paralyzed hemidiaphragm Dyspnea on exertion BRIDGETT (obstructive sleep apnea) Bradycardia Frequent PVCs Sinusitis Chronic rhinitis Medical History Aortic valve disease s/p AVR (2017)- Mechanical PVC (premature ventricular contraction) Palpitations controlled since beta armando dose increase History of COVID-19 Dx 12/2021 (home test after vacation) Symptoms at time: cough and cold symptoms > resolved Osteoarthritis History of airway obstruction Airway collapse post-op heart surgery Urinary bladder incontinence Arthritis Diaphragmatic paralysis Transieny hemidiaphragmatic paralysis d/t CABG (2017) Follows with [facility] pulmonary BRIDGETT treated with BiPAP COPD (chronic obstructive pulmonary disease) Per records Chronic diastolic CHF (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 failure) 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 Coronary artery disease s/p CABG x1 ([facility]) 2017 Hyperlipidemia HTN (hypertension) Surgical History History of cardiac cath 2017 ([facility]) > referred for CABG x1 + AVR History of cataract surgery R/L History of endoscopy History of colonoscopy History of urologic surgery + mesh History of tubal ligation History of total left knee replacement S/P CABG (coronary artery bypass graft) CABG x1 (2016) History of delivery X2 Family History Family/Other Heart disease per patient-"all" Hypertension per patient "all" Sister Asthma Family history of diabetes mellitus Sister Family history of diabetes mellitus Father Myocardial infarction Aunt Myocardial infarction Uncle Myocardial infarction Grandmother (Maternal) Myocardial infarction Other No family history of adverse response to anesthesia No family history of bleeding disorder Denies family history of Ovarian cancer Prostate cancer Breast cancer Colorectal cancer Social History Smoking Status: Never smoker Second Hand Exposure: No; Do You Dip or Chew Tobacco: No; Tobacco Cessation Education Requested by Patient: No Hx Alcohol Use: Yes Alcohol type: wine and hard liquor Hx Substance Use: No Preferred Language: [place] Citizen Communication Ability: Effective Visual Impairment: No Limitations 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: No Beliefs That Will Affect Care: None marital status: Current Living Situation: Significant Other Current Living Situation Comment: Marianne Johnson current occupational status: employed current occupation: [employer] Other Information That Helps Us Care for You: No Feels Safe at Home: Yes Safety Concerns: Feels Safe At This Time Childhood Exposure to Second-Hand Smoke: No Dental Care, Regularly: No Physical Activity Frequency: Does not Exercise Seatbelt Use: sometimes Sunscreen Use: Yes Assistive Devices: Glasses Review of Systems Review of Systems: See HPI above Physical Exam Physical Exam: General: Mild distress/discomfort secondary to RUQ abdominal pain; anxious; non- toxic appearing; well-nourished; cooperative; SpO2 96% on RA HEENT: normocephalic, atraumatic; vision and hearing intact Neck: supple; trachea midline Skin: warm, dry without signs of tenting; no cyanosis; no rashes, bruising, lesions, or erythema noted CV: Right chest wall is mildly TTP; RRR; S1/S2 normal; no murmurs/rubs/gallops; pulses intact and symmetric at radial, DP, and PT Lungs: no acute respiratory distress; symmetrical chest wall expansion; clear breath sounds across all lung goodman w/o adventitious sounds; no wheezing ABD: Soft; LUQ and LLQ are NTP; RUQ is TTP; BS present; no rebound/guarding; no distention; no signs of rashes or bruising on the abdomen or flanks bilaterally Back: Right middle spine is TTP; mild right-sided CVA tenderness MSK: no tics or fasciculations; no edema noted in the LEs b/l, nonerythematous Neuro: A&Ox3; normal mood and affect; fluent speech; no focal deficits; sensation intact and symmetric in the lower extremity bilaterally Results & Data Results & Data Vital Signs (Past 12 Hours) Vital Signs Temp Pulse Pulse Resp BP BP Pulse Ox 09/19/24 09:00 70 16 139/74 96 09/19/24 07:40 69 22 150/85 H 95 09/19/24 07:19 75 09/19/24 06:03 70 18 95 09/19/24 05:57 65 09/19/24 05:42 36.4 C L 73 16 150/74 H 95 O2 Del Method 09/19/24 09:00 Room Air 09/19/24 07:40 Room Air 09/19/24 07:19 09/19/24 06:03 Room Air 09/19/24 05:57 09/19/24 05:42 Room Air Laboratory Results Abnormal lab results 09/19/24 Range/Units 06:00 RBC 3.62 L (4.20-5.40) M/uL Hgb 10.0 L (12.0-16.0) g/dl Hct 31.8 L (37.0-47.0) % MCHC 31.4 L (32.0-36.0) g/dL RDW Std Deviation 47.7 H (36.4-46.3) fL RDW Coeff of Matthew 14.9 H (11.5-14.5) % Neut # (Auto) 6.79 H (1.40-6.50) K/uL Lymph # (Auto) 0.82 L (1.20-3.40) K/uL PT 32.2 H (9.0-12.0) Seconds INR 3.3 H (0.9-1.1) APTT 46 H (21-31) Seconds Carbon Dioxide 34 H (21-32) mmol/L Glucose 124 H (70-99(Fasting)) mg/dl B-Natriuretic Peptide 629 H (0-100) pg/ml Diagnostic Findings Chest X-Ray 09/19/24 05:46 EXAM: XR chest 1V portable CLINICAL HISTORY: Chest pain. TECHNIQUE: An X-ray image of the chest is obtained in AP projection. COMPARISON: Prior to 08/16/2022. FINDINGS: Pulmonary Parenchyma: Bilateral prominent bronchopulmonary vasculature with basal reticulations and right basal thin atelectatic bands. No evidence of pleural effusion or pleural thickening. Heart and Mediastinum: Evidence of previous sternotomy and cardiomegaly. No mediastinal widening or masses. No hilar or mediastinal lymphadenopathy. Bony Thorax: Bony thorax appears intact without fractures or deformities. Soft Tissues: Soft tissues overlying the chest wall are unremarkable. IMPRESSION: 1. Bilateral prominent bronchopulmonary vasculature with basal reticulations and right basal thin atelectatic bands. (stable). 2. Evidence of previous sternotomy and cardiomegaly (stable). 3. No time interval significant radiological changes. Electronically signed by Blane Real 09-19-2024 06:55 AM Abdomen/Pelvis CT 09/19/24 06:46 EXAM: CT abd pelvis IV con only CLINICAL HISTORY: R flank/chest pain, hx bleed. R CP down to RLQ TECHNIQUE: Multiple contiguous axial images were obtained from the level of diaphragm to the pubis symphysis. This study was acquired after the IV administration of iodinated contrast material, given the patients indications for the examination. If IV contrast material had not been administered, the likelihood of detecting abnormalities relevant to the patients condition would have been substantially decreased. Coronal and sagittal reformatted images were generated and reviewed to improve anatomic localization and optimize lesion detection. CT scan was performed according to ALARA (as low as reasonable achievable). 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 ABDOMEN/PELVIS: The liver is normal in size and attenuation. No focal liver lesions are seen. There is no intra or extrahepatic biliary ductal dilatation. Hepatic vasculature is patent. The gallbladder is distended with few tiny calculi within. The spleen and adrenal glands are unremarkable. Mild fat stranding is noted along the head and uncinate process of pancreas The kidneys are normal in size and attenuation. There is no hydronephrosis or perinephric fat stranding. No renal calculi or renal masses are identified. The ureters are normal in caliber and no ureteral calculi are seen. The bladder is normal in contour. No evidence of focal or diffuse bowel wall thickening or evidence of bowel obstruction is seen. The appendix is visualized in the right lower quadrant and appears within normal limits. No adenopathy or fluid collections are seen. The aorta is normal in caliber. No aggressive appearing osseous lesions are identified. A calcified lesion of size 1.6 x 1.5cm is noted in the region of vagina, likely a calcified Bartholin's cyst. IMPRESSION: 1. Mild peripancreatic fat stranding along the head and uncinate process of pancreas, likely suggestive of acute interstitial pancreatitis. Suggest- Serum amylase/ lipase correlation. (New finding) 2. Cholelithiasis. (New finding) Electronically signed by Gilmer Castillo 09-19-2024 08:[address] 09/19/24 06:46 EXAM: CT chest diagnostic w con CLINICAL HISTORY: R chest flank pain, hx CHF/abd bleed TECHNIQUE: Contiguous axial images were obtained from the neck base through the upper abdomen without contrast. In addition, sagittal and coronal reconstructions were performed to potentially increase the sensitivity for the detection of disease. CT scan was performed according to ALARA (as low as reasonable achievable). 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 Few subsegmental atelectatic bands in right lower zone. No pulmonary nodules are seen. The central airways are patent. There are no pleural effusions. No pneumothorax is seen. Evaluation of the mediastinum and michelle is limited due to the lack of intravenous contrast. No axillary or mediastinal adenopathy is identified. The thyroid is unremarkable. The heart, aorta, and pulmonary arteries are of normal size and configuration. There are no appreciable coronary artery and aortic atherosclerotic calcifications. No pericardial effusion is identified. Imaged portions of the upper abdomen show cholelithiasis. No aggressive appearing osseous lesions are identified. Old left 4th to 6th rib fractures. IMPRESSION: 1. Few subsegmental atelectatic bands in posterior basal segment of right lower lobe. (Significant resolution of basal atelectasis compared to previous study) 2. Rest unremarkable. Electronically signed by Gilmer Castillo 09-19-2024 08:06 AM ECG Additional Comments: ECG revealed sinus rhythm with first-degree AV block at 72 bpm; QTc 457 Code Status & VTE Plan Code Status Full code VTE Prophylaxis Plan VTE Prophylaxis will be ordered: Yes Supervising Physician Co-Signing Physician Notes PA Supervision Note: I personally saw and examined the patient. I verified all onofre points and agree with LISHA Maldonado with the following exceptions and/or additions: S-This pt is a 73 yo female with a h/o CAD s/p 1 v CABG, mech AVR, chronic HFpEF, prediabetes, fatty liver, GIB, CKD stage 3, depression, osteoporosis, OA, GERD, obesity, BRIDGETT on BiPAP, restrictive lung disease and asthma, frequent PVCs on Ranexa, who p/w 3 days of progressively worsening right sided chest and RUQ pain with radiation to right back. Had 5 days of dark stools twice daily that clogged up her toilet, but now back to once daily brown stools. Had lightheadedness x 1 time 2 days prior. Pain became severe overnight and had some nausea but no vomiting. No fevers/chills but developed nasal congestion and sneezing 2 days ago. History and ROS reviewed otherwise as above O- Vitals reviewed Gen: [AAOx3, NAD, obese] HEENT: [anicteric sclerae, EOMI] CV: [RRR no mgr nl S1S2, no TTP over chest wall] Pulm: [CTAB no wcr] Abd: [+BS soft mild +TTP in RUQ without guarding or rebound, ND no masses or hernias] Ext: [no edema] Skin: [no rashes, warm/dry] Neuro: [full strength throughout] CBC, CMP, lipase, troponin reviewed CT A/P, Chest CT reviewed A/P-73 yo female with history as above, here with acute pancreatitis, acute blood loss anemia from possible GI bleed, abd pain and chest pain. Suspect duodenal ulcer and duodenitis causing pancreatitis vs gallstone induced pancreatitis Check RUQ US, follow LFTs, lipase NPO, gentle IVFs, pain control, serial CBC, IV PPI bid, consult GI for EGD Hold ASA, continue coumadin for now Not likely PE as therapeutic INR. No pathology on chest CT PG Care Time/CCT Total # of Minutes Spent Total Time Spent with Patient: Total time spent is greater than 50% in coordination of care (as documented) at patient's floor/unit and/or counseling patient: Coding [place] [address] INT INP/OBS CARE 3/75MIN Patient Type Established Medical Decision Making High Complexity Diagnoses Acute pancreatitis K85.90 Chest pain R07.9 History of pulmonary embolism Z86.711 Melena K92.1
[2024-09-19] MEDS: SODIUM CHLORIDE 0.9% 1,000 ML IV ONE (11:06)
[2024-09-19] MEDS: PANTOprazole 40 MG/10 ML SYR IV SCH ×2 (11:06→20:26)
--- NOTE | 2024-09-19 11:42 | Electrocardiogram Report ---
Test Reason : Blood Pressure : */* mmHG Vent. Rate : 72 BPM Atrial Rate : 72 BPM P-R Int : 276 ms QRS Dur : 98 ms QT Int : 418 ms P-R-T Axes : 52 56 57 degrees QTcB Int : 457 ms Sinus rhythm with 1st degree A-V block Incomplete right bundle branch block Right axis deviation Nonspecific ST abnormality Abnormal ECG When compared with ECG of 27-Dec-2020 18:09, T wave inversion now evident in Lateral leads Confirmed by Lydia Neely ([id number]) on 09/19/2024 11:42:28 AM Referred By: Confirmed By: Lydia Neely
[2024-09-19] MEDS: HYDROmorphone INJ 0.5 MG/0.5 ML SYR IV PRN (12:47)
[2024-09-19] MEDS: LACTATED RINGER'S 1,000 ML IV SCH (12:50)
--- NOTE | 2024-09-19 14:16 | Ultrasound Report ---
INDICATION: Abdominal pain. COMPARISON: CT from earlier the same day. TECHNIQUE: Transverse and longitudinal perez scale and color Doppler images of the right upper quadrant were obtained. FINDINGS: Liver: Measures up to 17.5 cm in length. Diffuse increased hepatic echotexture. No focal hepatic mass or intrahepatic biliary ductal dilatation. Hepatopedal flow in the portal vein. Gallbladder: Gallbladder distention. Gallstones in the dependent portion of the gallbladder. No gallbladder wall thickening or pericholecystic fluid. The common bile duct is not dilated. Pancreas: Pancreatic head cystic lesion measuring 0.6 cm. No well seen on prior CT. Negative for pancreatic ductal dilation. Right kidney: Negative for solid renal mass, hydronephrosis, cyst or shadowing calculus. IMPRESSION: 1. Gallbladder distention and cholelithiasis. No evidence of acute cholecystitis. 2. Pancreatic cystic lesion measuring 0.6 cm. Not well seen on prior CT. Consider MRI with and without contrast, pancreas protocol on a nonemergent basis for further evaluation. 3. Hepatomegaly and hepatic steatosis. Electronically signed by Fei Garcia 09-19-2024 2:16 PM
[2024-09-19] MEDS ORDERED: ALBUT/IPRATROP 3MG/0.5MG NEB 3 ML VIAL INH PRN (14:43)
[2024-09-19] MEDS: WARFARIN SOD 5 MG TAB PO SCH (15:40)
[2024-09-19] MEDS: MONTELUKAST SODIUM 10 MG TABLET PO SCH (20:26)
[2024-09-19] MEDS: METOPROLOL TARTRATE 100 MG TAB PO SCH (20:26)
[2024-09-19] MEDS: RANOLAZINE 500 MG ER TAB PO SCH (20:26)
[2024-09-19] MEDS: SERTRALINE HCL 100 MG TABLET PO SCH (20:26)
[2024-09-19 21:29] LABS: Adenovirus PCR Not Detected (NotDetected); Bordetella parapertussis PCR Not Detected (NotDetected); Bordetella pertussis PCR Not Detected (NotDetected); Chlamydia pneumoniae PCR Not Detected (NotDetected); Coronavirus 229E PCR Not Detected (NotDetected); Coronavirus CoV-2 (COVID19)PCR Not Detected (NotDetected); Coronavirus HKU1 PCR Not Detected (NotDetected); Coronavirus NL63 PCR Not Detected (NotDetected); Coronavirus OC43PCR Not Detected (NotDetected); Human Metapneumovirus PCR Not Detected (NotDetected); Influenza A PCR Not Detected (NotDetected); Influenza B PCR Not Detected (NotDetected); Mycoplasma pneumoniae PCR Not Detected (NotDetected); Parainfluenza Virus 1 PCR Not Detected (NotDetected); Parainfluenza Virus 2 PCR Not Detected (NotDetected); Parainfluenza Virus 3 PCR Not Detected (NotDetected); Parainfluenza Virus 4 PCR Not Detected (NotDetected); Respiratory Syncytial VirusPCR Not Detected (NotDetected); Rhinovirus/Enterovirus PCR Not Detected (NotDetected)
[2024-09-20 07:09] LABS: Basophils # (auto) 0.02 K/uL (0.00-0.20); Basophils % (auto) 0.3 %; Eosinophils # (auto) 0.08 K/uL (0.00-0.50); Hematocrit (blood only) 28.4 % (37.0-47.0); Hemoglobin 8.8 g/dl (12.0-16.0); Immature Granulocytes # (auto) 0.03 K/uL (0.01-0.20); Immature Granulocytes % (auto) 0.4 %; Lymphocytes # (auto) 0.74 K/uL (1.20-3.40); Lymphocytes % (auto) 9.4 %; Mean Corpuscular Hemoglobin 27.5 pg (25.0-34.0); Mean Corpuscular Volume 88.8 fL (80.0-100.0); Mean Platelet Volume 12.3 fL (9.4-12.4); Monocytes # (auto) 0.47 K/uL (0.11-0.59); Monocytes % (auto) 5.9 %; Neutrophils # (auto) 6.57 K/uL (1.40-6.50); Platelet Count 146 K/uL (130-400); RDW Coefficient of Variation 15.2 % (11.5-14.5); RDW Standard Deviation 48.9 fL (36.4-46.3); White Blood Count 7.91 K/ul (4.8-10.8)
[2024-09-20 07:23] LABS: Albumin Globulin Ratio 1.3 (0.9-2); Albumin Level 3.5 gm/dl (3.4-5.0); BUN Creatinine Ratio 15.7 (10-20); Bilirubin,Total 0.6 mg/dl (0.2-1.0); Calcium 8.4 mg/dl (8.6-10.3); Creatinine Clr Calc Pharmacy 64.3 ml/min; Globulin 2.8 gm/dl (2.5-4.0); Potassium 3.6 mmol/L (3.5-5.1); Total Protein 6.3 gm/dl (6.0-8.3)
[2024-09-20] MEDS: ONDANSETRON INJ 2 MG/ML 2 ML VIAL IV PRN (07:35)
[2024-09-20] MEDS: FEXOFENADINE HCL 180 MG TAB PO SCH (07:37)
[2024-09-20] MEDS: ATORVASTATIN 40 MG TAB PO SCH (07:37)
[2024-09-20 07:44] LABS: INR 3.3 (0.9-1.1); Prothrombin Time 31.8 Seconds (9.0-12.0)
--- NOTE | 2024-09-20 08:34 | Hospitalist Progress Note ---
Date of Service September 20, 2024 Assessment & Plan (1) Acute pancreatitis: (2) Chest pain: (3) History of pulmonary embolism: (4) Melena: Plan This pt is a 73-year-old female who presented on 09/19 for right sided chest pain and RUQ abd pain with radiation to the back and RLQ that began on Saturday 09/16. She also had 5 days of dark stools twice a day which is now resolved. A/P CT revealed acute pancreatitis on arrival. While lipase was WNL, patient coming in for pain control/fluids, and further workup for possible GIB. #Acute pancreatitis/RUQ pain Lipase WNL at 44-->17 However, A/P CT revealed peripancreatic fat stranding suggestive of acute inters titial pancreatitis Patient does endorse right-sided chest pain/RUQ abdominal pain with radiation to her back Unclear etiology, but leading DDx includes secondary to Jardiance; ? Duodenal ulcer causing duodenitis/pancreatitis EUS of the pancreas recommended 4 to 6 weeks after discharge/resolution of pancreatitis Gallstones on CT without obstruction, no CBD dilation, LFTs normal No prior h/o pancreatitis LFTs WNL throughout the course of hospital stay Triglycerides WNL on arrival Patient denies nausea/vomiting; Will plan to advance patient to clear liquid diet on 09/20; n.p.o. at midnight in the event that patient requires EGD Given weight gain in setting of CHF, will hold additional fluids on 09/20 Continuous pulse oximetry Acetaminophen 1000 mg IV for pain 1-5 Dilaudid 0.25 mg IV for pain 6-10 Voltaren gel 2% PRN for superficial pain # Suspected acute blood loss Anemia; recent episodes of melena Note: Patient reports dark stool starting approximately 5 days ago; this has since since resolved No diarrhea (stool was formed) but did have stools twice daily rather than her usual once daily Hgb 10.0-->8.8; down from 12.4 one month prior Suspect acute drop is secondary to IV fluids, but will continue to monitor Given resolution of dark tarry stool + high risk (h/o B/L PEs), will plan to continue warfarin for now, but HOLD ASA Close monitoring of H&H GI consult appreciated; no emergent need for EGD Increase PPI to Protonix 40mg IV bid #Chronic HFpEF Last echocardiogram on 12/14/2022 revealed LVEF at 55 to 60%. She is euvolemic, currently Strict I&O monitoring Daily weights Continue home metoprolol,holding home diuretics and Jardiance #Chest pain Troponin WNL on arrival, repeat pending EKG without acute changes While suspect that patient's chest pain is largely secondary to pancreatitis, will continue on continuous telemetry for now #History of pulmonary embolism/mechanical AVR Continue warfarin INR 3.3 on arrival; recommend holding warfarin if INR >3.5 Trend PT/INR #BRIDGETT - BiPAP HS #HTN/Frequent PVCs - continue metoprolol, Ranexa; montor on tele #HLD - continue atorvastatin #GERD - hold omeprazole, IV Protonix bid #History of CABG - continue, metoprolol, statin; hold ASA #Depression - continue sertraline #Arthritis - hold tramadol, IV pain medicine as above Disposition: Upgraded to full admission; continued stay on to MedSurg telemetry Full code Clear liquid diet VTE PPx: Warfarin Admission and Anticipated Discharge Date Admission Date: September 19, 2024 Supervising Physician Co-Signing Physician Notes PA Supervision Note: I personally saw and examined the patient. I verified all onofre points and agree with LISHA Maldonado with the following exceptions and/or additions: S-Pt seen with LISHA Maldonado for hypoxia with sleeping after receiving IV dilaudid and not wearing BiPAP. BiPAP placed and POx now normal. Pt is awake, alert, oriented, answering questions. Reports abd pain is resolved, no other concerns. O- Vitals reviewed Gen: [AAOx3, NAD] HEENT: [anicteric sclerae, EOMI] CV: [RRR no mgr nl S1S2] Pulm: [CTAB no wcr] Abd: [+BS soft NT ND no masses or hernias] Ext: [no edema, 2+ DP pulses] Skin: [no rashes, warm/dry] Neuro: [full strength throughout] CBC, BMP reviewed A/P-73 yo female here with RUQ pain, acute pancreatitis Continue current treatment as above BiPAP while sleeping encouraged. NPO after midnight in case of need for EGD. Hgb dropped slightly, no melena Subjective Ophelia reports that she did not sleep well last night. She reports that she is still having right upper quadrant, and right chest wall pain, which is 8/10 at worst, and 6/10 at present after receiving Dilaudid 0.5 mg IV 2 to 3 hours ago. The pain is still radiating into her right shoulder blade, and she reports that it is worse with movements. She also expresses concern that she has gained 3 pounds since being in the hospital; was around 241 lb at time of arrival, and is 244 lb today, per patient. She did have an additional bowel movement in the hospital, which was regular for her. No dark tarry stool, or bright red blood in her stool. Again, while she was having dark bowel movements Saturday through , they have been normal since Monday 09/18. ROS: Patient endorses fatigue, right-sided chest pain, RUQ pain, right middle back pain, mild pleuritic CP, and some leg swelling. Patient denies fever, chills, night sweats, SOB, nausea, vomiting, diarrhea, or numbness or tingling in arms or legs. Addendum at 1630: Alerted by nursing staff that the patient's SpO2 was continuously dropping into the 70 to 79% range while she was sleeping. She returned to 98% on room air upon waking, but then had an episode where she desatted to 76 to 80% on room air when she was napping again. Patient normally uses a BiPAP when she sleeps. In the setting of heart failure, will obtain chest x-ray to rule out pleural effusions in the setting of IVF given for pancre atitis. Review of Systems Review of Systems: See HPI above Physical Exam Physical Exam: General: Mild distress/discomfort secondary to RUQ abdominal pain; anxious; non- toxic appearing; well-nourished; cooperative; SpO2 96% on RA HEENT: normocephalic, atraumatic; vision and hearing intact Neck: supple; trachea midline Skin: warm, dry without signs of tenting; no cyanosis; no rashes, bruising, lesions, or erythema noted CV: Right chest wall is mildly TTP; RRR; S1/S2 normal; no murmurs/rubs/gallops; pulses intact and symmetric at radial, DP, and PT Lungs: no acute respiratory distress; symmetrical chest wall expansion; clear breath sounds across all lung goodman w/o adventitious sounds; no wheezing ABD: Soft; LUQ and LLQ are NTP; RUQ is TTP; BS present; no rebound/guarding; no distention; no signs of rashes or bruising on the abdomen or flanks bilaterally Back: Right middle spine is TTP; mild right-sided CVA tenderness MSK: no tics or fasciculations; no edema noted in the LEs b/l, nonerythematous Neuro: A&Ox3; normal mood and affect; fluent speech; no focal deficits; sensation intact and symmetric in the lower extremity bilaterally Results & Data Results & Data Vital Signs (Past 12 Hours) Vital Signs Temp Pulse Pulse Resp BP Pulse Ox O2 Del Method 09/20/24 07:51 Room Air 09/20/24 06:59 71 09/20/24 06:40 37.4 C 76 18 116/68 93 Room Air 09/20/24 01:27 36.9 C 81 20 132/49 L 95 Nasal Cannula 09/19/24 21:49 72 09/19/24 21:45 37 C 64 18 141/75 H 96 Room Air O2 Flow Rate 09/20/24 07:51 09/20/24 06:59 09/20/24 06:40 09/20/24 01:27 2 09/19/24 21:49 09/19/24 21:45 Laboratory Results Abnormal lab results 09/20/24 Range/Units 06:26 RBC 3.20 L (4.20-5.40) M/uL Hgb 8.8 L (12.0-16.0) g/dl Hct 28.4 L (37.0-47.0) % MCHC 31.0 L (32.0-36.0) g/dL RDW Std Deviation 48.9 H (36.4-46.3) fL RDW Coeff of Matthew 15.2 H (11.5-14.5) % Neut # (Auto) 6.57 H (1.40-6.50) K/uL Lymph # (Auto) 0.74 L (1.20-3.40) K/uL PT 31.8 H (9.0-12.0) Seconds INR 3.3 H (0.9-1.1) Calcium 8.4 L (8.6-10.3) mg/dl Diagnostic Findings Abdomen/Pelvis CT 09/19/24 06:46 EXAM: CT abd pelvis IV con only CLINICAL HISTORY: R flank/chest pain, hx bleed. R CP down to RLQ TECHNIQUE: Multiple contiguous axial images were obtained from the level of diaphragm to the pubis symphysis. This study was acquired after the IV administration of iodinated contrast material, given the patients indications for the examination. If IV contrast material had not been administered, the likelihood of detecting abnormalities relevant to the patients condition would have been substantially decreased. Coronal and sagittal reformatted images were generated and reviewed to improve anatomic localization and optimize lesion detection. CT scan was performed according to ALARA (as low as reasonable achievable). COMPARISON: 07/27/2018 18:37:24 BUSINESS DEVELOPMENT DIRECTOR FINDINGS: The visualized lung bases are clear. ABDOMEN/PELVIS: The liver is normal in size and attenuation. No focal liver lesions are seen. There is no intra or extrahepatic biliary ductal dilatation. Hepatic vasculature is patent. The gallbladder is distended with few tiny calculi within. The spleen and adrenal glands are unremarkable. Mild fat stranding is noted along the head and uncinate process of pancreas The kidneys are normal in size and attenuation. There is no hydronephrosis or perinephric fat stranding. No renal calculi or renal masses are identified. The ureters are normal in caliber and no ureteral calculi are seen. The bladder is normal in contour. No evidence of focal or diffuse bowel wall thickening or evidence of bowel obstruction is seen. The appendix is visualized in the right lower quadrant and appears within normal limits. No adenopathy or fluid collections are seen. The aorta is normal in caliber. No aggressive appearing osseous lesions are identified. A calcified lesion of size 1.6 x 1.5cm is noted in the region of vagina, likely a calcified Bartholin's cyst. IMPRESSION: 1. Mild peripancreatic fat stranding along the head and uncinate process of pancreas, likely suggestive of acute interstitial pancreatitis. Suggest- Serum amylase/ lipase correlation. (New finding) 2. Cholelithiasis. (New finding) Electronically signed by Gilmer Castillo 09-19-2024 08:11 AM Gallbladder Ultrasound 09/19/24 10:31 INDICATION: Abdominal pain. COMPARISON: CT from earlier the same day. TECHNIQUE: Transverse and longitudinal perez scale and color Doppler images of the right upper quadrant were obtained. FINDINGS: Liver: Measures up to 17.5 cm in length. Diffuse increased hepatic echotexture. No focal hepatic mass or intrahepatic biliary ductal dilatation. Hepatopedal flow in the portal vein. Gallbladder: Gallbladder distention. Gallstones in the dependent portion of the gallbladder. No gallbladder wall thickening or pericholecystic fluid. The common bile duct is not dilated. Pancreas: Pancreatic head cystic lesion measuring 0.6 cm. No well seen on prior CT. Negative for pancreatic ductal dilation. Right kidney: Negative for solid renal mass, hydronephrosis, cyst or shadowing calculus. IMPRESSION: 1. Gallbladder distention and cholelithiasis. No evidence of acute cholecystitis. 2. Pancreatic cystic lesion measuring 0.6 cm. Not well seen on prior CT. Consider MRI with and without contrast, pancreas protocol on a nonemergent basis for further evaluation. 3. Hepatomegaly and hepatic steatosis. Electronically signed by Fei Garcia 09-19-2024 2:16 PM PG Care Time/CCT Total # of Minutes Spent Total Time Spent with Patient: Total time spent is greater than 50% in coordination of care (as documented) at patient's floor/unit and/or counseling patient: Coding [place] [id number] SUB INP/OBS CARE 3/50MIN Patient Type Established Medical Decision Making High Complexity Diagnoses Acute pancreatitis K85.00 Acute pancreatitis complication: no infection or necrosis Pancreatitis type: idiopathic Chest pain R07.9 History of pulmonary embolism Z86.711 Melena K92.1 (1) Acute pancreatitis Acute pancreatitis complication: no infection or necrosis Pancreatitis type: idiopathic Qualified Code(s): K85.00 - Idiopathic acute pancreatitis without necrosis or infection
[2024-09-20] MEDS ORDERED: ASPIRIN 81 MG ECTAB PO SCH (09:00)
--- NOTE | 2024-09-20 10:15 | Gastrointestinal Consultation ---
Date of Consultation September 20, 2024 Assessment & Plan (1) Chest pain: Pleasant woman admitted with chest pain and "pancreatitis" on CT. I am not convinced her chest pain is from pancreatitis because her description is very high in location for it to be related to the pancreas. As far as ulcer disease causing her pancreatitis it is possible but she has no real risks for ulcer disease. I would prefer not to do EGD with her on warfarin as well. She is on one and maybe two meds that can cause pancreatitis or pain and that is jardiance and wegovy--although there is question as to if wegovy has been started yet. For now I would treat as if pancreatitis and see how she does. Decision about EGD can be made based on her clinical course. I would consider at least the jardiance as a cause for her issues though. History of Present Illness Reason for Consultation: pancreatitis Attending Physician: Tashia Leonard MD History of Present Illness 73 year old female admitted with chest pain that started earlier this week. She describes it has a hard pain in the upper part of her chest that radiates into her back between her shoulders. It has been persistent since it started and has required pain meds. She was nauseated with it but did not throw up. She denies fever or chills. She says she gets pain in her chest all of the time and is always concerned because of the heart problems she has had. CT on admit showed possible pancreatitis and she does admit that she was tender on exam. She says she drinks only socially. She says she cannot take NSAIDs because of her need for warfarin treatment and only takes tylenol for aches and pains. She does have gallstones on ultrasound of her gallbladder. Wegovy is listed on her admit meds and she does take jardiance. Allergies Allergy/AdvReac Type Severity Reaction Status Date / Time amlodipine Allergy Unknown Unknown Verified 08/21/24 11:52 furosemide [From Lasix] AdvReac Severe Loud ear Verified 08/21/24 11:52 ringing Home Medications Medication Instructions Recorded Confirmed Type fexofenadine 180 mg tablet 180 mg PO QAM 07/27/18 09/19/24 History ipratropium 0.5 mg-albuterol 3 mg 3 ml inhalation Q6H PRN shortness 11/17/19 09/19/24 Rx (2.5 mg base)/3 mL nebulization of breath or wheezing #360 mL soln calcium carbonate (Calcium 600) 325 mg PO BID 03/17/20 09/19/24 History cyanocobalamin (vitamin B-12) 100 100 mcg PO QAM 10/25/21 09/19/24 History mcg tablet (Vitamin B-12) potassium chloride 10 mEq 10 meq PO UD diurectic use 10/25/21 09/19/24 History tablet,extended release aspirin 81 mg tablet,delayed 81 mg PO DAILY 03/25/23 09/19/24 History release empagliflozin 10 mg tablet 10 mg PO DAILY #90 tabs 11/28/23 09/19/24 Rx (Jardiance) ranolazine 500 mg tablet,extended 500 mg PO BID #180 tabs 02/26/24 09/19/24 Rx release,12 hr atorvastatin 80 mg tablet 80 mg PO QAM #90 tabs 07/06/24 09/19/24 Rx acetaminophen 500 mg capsule 1,000 mg PO TID PRN Pain 08/21/24 09/19/24 History amoxicillin 500 mg tablet 2,000 mg PO ONCE PRN dental yusra 08/21/24 09/19/24 History montelukast 10 mg tablet 10 mg PO UD 08/21/24 09/19/24 History omeprazole 20 mg capsule,delayed 20 mg PO HS #90 caps 08/21/24 09/19/24 Rx release sennosides 8.6 mg-docusate sodium 1 tab-cap PO Q OTHER DAY 08/21/24 09/19/24 History 50 mg tablet (Senokot-S) sertraline 100 mg tablet 100 mg PO HS #90 tabs 08/21/24 09/19/24 Rx trimethoprim 100 mg tablet 100 mg PO DAILY #90 tabs 09/02/24 09/19/24 Rx semaglutide (weight loss) 0.25 0.25 mg (0.5 mL) subcut Q7D #2 mL 09/09/24 09/19/24 Rx mg/0.5 mL subcutaneous pen injector (Andrea) tramadol 50 mg tablet 50 mg PO BID PRN ARTHRITIS pain 09/17/24 09/19/24 Rx #60 tabs bumetanide 2 mg tablet 4 mg PO UD 09/19/24 09/19/24 History metoprolol tartrate 100 mg tablet 100 mg PO UD 09/19/24 09/19/24 History semaglutide (weight loss) 0.5 0.5 mg subcut UD 09/19/24 09/19/24 History mg/0.5 mL subcutaneous pen injector (Wegovy) warfarin 5 mg tablet 5 mg PO UD 09/19/24 09/19/24 History Patient History Medical History Aortic valve disease s/p AVR (2016)- Mechanical PVC (premature ventricular contraction) Palpitations controlled since beta armando dose increase History of COVID-19 Dx 12/2021 (home test after vacation) Symptoms at time: cough and cold symptoms > resolved Osteoarthritis History of airway obstruction Airway collapse post-op heart surgery Urinary bladder incontinence Arthritis Diaphragmatic paralysis Transieny hemidiaphragmatic paralysis d/t CABG (2017) Follows with [facility] pulmonary BRIDGETT treated with BiPAP COPD (chronic obstructive pulmonary disease) Per records Chronic diastolic CHF (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 failure) 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 Coronary artery disease s/p CABG x1 ([facility]) 2016 Hyperlipidemia HTN (hypertension) Surgical History History of cardiac cath 2017 ([facility]) > referred for CABG x1 + AVR History of cataract surgery R/L History of endoscopy History of colonoscopy History of urologic surgery + mesh History of tubal ligation History of total left knee replacement S/P CABG (coronary artery bypass graft) CABG x1 (2016) History of delivery X2 Family History Family/Other Heart disease per patient-"all" Hypertension per patient "all" Sister Asthma Family history of diabetes mellitus Sister Family history of diabetes mellitus Father Myocardial infarction Aunt Myocardial infarction Uncle Myocardial infarction Grandmother (Maternal) Myocardial infarction Other No family history of adverse response to anesthesia No family history of bleeding disorder Denies family history of Ovarian cancer Prostate cancer Breast cancer Colorectal cancer Social History Smoking Status: Never smoker Second Hand Exposure: No; Do You Dip or Chew Tobacco: No; Tobacco Cessation Education Requested by Patient: No Hx Alcohol Use: Yes Alcohol type: wine and hard liquor Hx Substance Use: No Preferred Language: Mongolian Communication Ability: Effective Visual Impairment: No Limitations Soap Worker Required: No Beliefs That Will Affect Care: None marital status: Current Living Situation: Significant Other Current Living Situation Comment: Marianne Johnson current occupational status: employed current occupation: [employer] Other Information That Helps Us Care for You: No Feels Safe at Home: Yes Safety Concerns: Feels Safe At This Time Childhood Exposure to Second-Hand Smoke: No Dental Care, Regularly: No Physical Activity Frequency: Does not Exercise Seatbelt Use: sometimes Sunscreen Use: Yes Assistive Devices: Glasses Review of Systems Review of Systems: All systems reviewed & are unremarkable except as noted in HPI & below Physical Exam Physical Exam: Pleasant woman in no distress Constitutional: WD/WN, vitals as above Neck: trachea midline, no thyromegaly Respiratory: normal respiratory effort, lungs clear to auscultation Cardiovascular: RRR, no murmur, no edema Gastrointestinal (Abdomen): normal bowel sounds, soft, nontender, no hepatosplenomegaly Results & Data Vital Signs (Past 12 Hours) Vital Signs Temp Pulse Pulse Resp BP Pulse Ox O2 Del Method 09/20/24 07:51 Room Air 09/20/24 06:59 71 09/20/24 06:40 37.4 C 76 18 116/68 93 Room Air 09/20/24 01:27 36.9 C 81 20 132/49 L 95 Nasal Cannula O2 Flow Rate 09/20/24 07:51 09/20/24 06:59 09/20/24 06:40 09/20/24 01:27 2 Laboratory Results 09/20/24 09/19/24 09/19/24 Range/Units 06:26 20:10 06:00 WBC 7.91 (4.8-10.8) K/ul RBC 3.20 L (4.20-5.40) M/uL Hgb 8.8 L (12.0-16.0) g/dl Hct 28.4 L (37.0-47.0) % MCV 88.8 (80.0-100.0) fL MCH 27.5 (25.0-34.0) pg MCHC 31.0 L (32.0-36.0) g/dL RDW Std Deviation 48.9 H (36.4-46.3) fL RDW Coeff of Matthew 15.2 H (11.5-14.5) % Plt Count 146 (130-400) K/uL MPV 12.3 (9.4-12.4) fL Immature Gran % (Auto) 0.4 % Neut % (Auto) 83.0 % Lymph % (Auto) 9.4 % Charlton % (Auto) 5.9 % Eos % (Auto) 1.0 % Baso % (Auto) 0.3 % Neut # (Auto) 6.57 H (1.40-6.50) K/uL Lymph # (Auto) 0.74 L (1.20-3.40) K/uL Charlton # (Auto) 0.47 (0.11-0.59) K/uL Eos # (Auto) 0.08 (0.00-0.50) K/uL Baso # (Auto) 0.02 (0.00-0.20) K/uL Immature Gran # (Auto) 0.03 (0.01-0.20) K/uL PT 31.8 H (9.0-12.0) Seconds INR 3.3 H (0.9-1.1) Sodium 141 (136-145) mmol/L Potassium 3.6 (3.5-5.1) mmol/L Chloride 106 (98-107) mmol/L Carbon Dioxide 31 (21-32) mmol/L Anion Gap 4 (3-11) BUN 14 (6-23) mg/dl Creatinine 0.89 (0.6-1.2) mg/dl Est Cr Clr Drug Dosing 64.3 ml/min eGFR 67.57 BUN/Creatinine Ratio 15.7 (10-20) Glucose 87 (70-99(Fasting)) mg/dl Calcium 8.4 L (8.6-10.3) mg/dl Total Bilirubin 0.6 (0.2-1.0) mg/dl AST 18 (13-39) U/L ALT 10 (7-52) U/L Alkaline Phosphatase 77 (34-104) U/L Total Protein 6.3 (6.0-8.3) gm/dl Albumin 3.5 (3.4-5.0) gm/dl Globulin 2.8 (2.5-4.0) gm/dl Albumin/Globulin Ratio 1.3 (0.9-2) Triglycerides 120 (0-150) mg/dl Lipase 17 (11-82) U/L Adenovirus (PCR) Not Detected (NotDetected) B. pertussis DNA (PCR) Not Detected (NotDetected) B.parapertussis DNA PCR Not Detected (NotDetected) C. pneumoniae DNA (PCR) Not Detected (NotDetected) Coronavirus OC43 (PCR) Not Detected (NotDetected) Coronavirus HKU1 (PCR) Not Detected (NotDetected) Coronavirus 229E (PCR) Not Detected (NotDetected) SARS-CoV-2 (PCR) Not Detected (NotDetected) Coronavirus NL63 (PCR) Not Detected (NotDetected) Human Metapneumovir PCR Not Detected (NotDetected) Influenza Type A (PCR) Not Detected (NotDetected) Influenza Type B (PCR) Not Detected (NotDetected) M. pneumoniae (PCR) Not Detected (NotDetected) Parainfluenza 1 (PCR) Not Detected (NotDetected) Parainfluenza 2 (PCR) Not Detected (NotDetected) Parainfluenza 3 (PCR) Not Detected (NotDetected) Parainfluenza 4 (PCR) Not Detected (NotDetected) RSV (PCR) Not Detected (NotDetected) Entero/Rhino (PCR) Not Detected (NotDetected) Diagnostic Findings Chest X-Ray 09/19/24 05:46 EXAM: XR chest 1V portable CLINICAL HISTORY: Chest pain. TECHNIQUE: An X-ray image of the chest is obtained in AP projection. COMPARISON: Prior to 08/16/2022. FINDINGS: Pulmonary Parenchyma: Bilateral prominent bronchopulmonary vasculature with basal reticulations and right basal thin atelectatic bands. No evidence of pleural effusion or pleural thickening. Heart and Mediastinum: Evidence of previous sternotomy and cardiomegaly. No mediastinal widening or masses. No hilar or mediastinal lymphadenopathy. Bony Thorax: Bony thorax appears intact without fractures or deformities. Soft Tissues: Soft tissues overlying the chest wall are unremarkable. IMPRESSION: 1. Bilateral prominent bronchopulmonary vasculature with basal reticulations and right basal thin atelectatic bands. (stable). 2. Evidence of previous sternotomy and cardiomegaly (stable). 3. No time interval significant radiological changes. Electronically signed by Blane Real 09-19-2024 06:55 AM Abdomen/Pelvis CT 09/19/24 06:46 EXAM: CT abd pelvis IV con only CLINICAL HISTORY: R flank/chest pain, hx bleed. R CP down to RLQ TECHNIQUE: Multiple contiguous axial images were obtained from the level of diaphragm to the pubis symphysis. This study was acquired after the IV administration of iodinated contrast material, given the patients indications for the examination. If IV contrast material had not been administered, the likelihood of detecting abnormalities relevant to the patients condition would have been substantially decreased. Coronal and sagittal reformatted images were generated and reviewed to improve anatomic localization and optimize lesion detection. CT scan was performed according to ALARA (as low as reasonable achievable). COMPARISON: 07/27/2018 18:37:24 INSOLVENCY PRACTITIONER FINDINGS: The visualized lung bases are clear. ABDOMEN/PELVIS: The liver is normal in size and attenuation. No focal liver lesions are seen. There is no intra or extrahepatic biliary ductal dilatation. Hepatic vasculature is patent. The gallbladder is distended with few tiny calculi within. The spleen and adrenal glands are unremarkable. Mild fat stranding is noted along the head and uncinate process of pancreas The kidneys are normal in size and attenuation. There is no hydronephrosis or perinephric fat stranding. No renal calculi or renal masses are identified. The ureters are normal in caliber and no ureteral calculi are seen. The bladder is normal in contour. No evidence of focal or diffuse bowel wall thickening or evidence of bowel obstruction is seen. The appendix is visualized in the right lower quadrant and appears within normal limits. No adenopathy or fluid collections are seen. The aorta is normal in caliber. No aggressive appearing osseous lesions are identified. A calcified lesion of size 1.6 x 1.5cm is noted in the region of vagina, likely a calcified Bartholin's cyst. IMPRESSION: 1. Mild peripancreatic fat stranding along the head and uncinate process of pancreas, likely suggestive of acute interstitial pancreatitis. Suggest- Serum amylase/ lipase correlation. (New finding) 2. Cholelithiasis. (New finding) Electronically signed by Gilmer Castillo 09-19-2024 08:[address] 09/19/24 06:46 EXAM: CT chest diagnostic w con CLINICAL HISTORY: R chest flank pain, hx CHF/abd bleed TECHNIQUE: Contiguous axial images were obtained from the neck base through the upper abdomen without contrast. In addition, sagittal and coronal reconstructions were performed to potentially increase the sensitivity for the detection of disease. CT scan was performed according to ALARA (as low as reasonable achievable). COMPARISON: 07/27/2018 18:37:24 INSOLVENCY PRACTITIONER FINDINGS: The lungs are clear, with no focal areas of consolidation. Few subsegmental atelectatic bands in right lower zone. No pulmonary nodules are seen. The central airways are patent. There are no pleural effusions. No pneumothorax is seen. Evaluation of the mediastinum and michelle is limited due to the lack of intravenous contrast. No axillary or mediastinal adenopathy is identified. The thyroid is unremarkable. The heart, aorta, and pulmonary arteries are of normal size and configuration. There are no appreciable coronary artery and aortic atherosclerotic calcifications. No pericardial effusion is identified. Imaged portions of the upper abdomen show cholelithiasis. No aggressive appearing osseous lesions are identified. Old left 4th to 6th rib fractures. IMPRESSION: 1. Few subsegmental atelectatic bands in posterior basal segment of right lower lobe. (Significant resolution of basal atelectasis compared to previous study) 2. Rest unremarkable. Electronically signed by Gilmer Castillo 09-19-2024 08:06 AM Gallbladder Ultrasound 09/19/24 10:31 INDICATION: Abdominal pain. COMPARISON: CT from earlier the same day. TECHNIQUE: Transverse and longitudinal perez scale and color Doppler images of the right upper quadrant were obtained. FINDINGS: Liver: Measures up to 17.5 cm in length. Diffuse increased hepatic echotexture. No focal hepatic mass or intrahepatic biliary ductal dilatation. Hepatopedal flow in the portal vein. Gallbladder: Gallbladder distention. Gallstones in the dependent portion of the gallbladder. No gallbladder wall thickening or pericholecystic fluid. The common bile duct is not dilated. Pancreas: Pancreatic head cystic lesion measuring 0.6 cm. No well seen on prior CT. Negative for pancreatic ductal dilation. Right kidney: Negative for solid renal mass, hydronephrosis, cyst or shadowing calculus. IMPRESSION: 1. Gallbladder distention and cholelithiasis. No evidence of acute cholecystitis. 2. Pancreatic cystic lesion measuring 0.6 cm. Not well seen on prior CT. Consider MRI with and without contrast, pancreas protocol on a nonemergent basis for further evaluation. 3. Hepatomegaly and hepatic steatosis. Electronically signed by Fei Garcia 09-19-2024 2:16 PM
[2024-09-20] MEDS ORDERED: DICLOFENAC SOD 1% GEL 100 GM TUBE EXT PRN (11:18)
[2024-09-20] MEDS ORDERED: HYDROmorphone INJ 0.5 MG/0.5 ML SYR IV PRN (11:29)
--- NOTE | 2024-09-20 17:30 | XRay Report ---
INDICATION: Difficulty breathing. TECHNIQUE: Frontal radiograph of the chest. COMPARISON: Radiograph from the prior day. FINDINGS: Low inspiratory depth. Cardiomegaly. Mild pulmonary vascular congestion similar to prior. No infiltrate, pleural effusion or pneumothorax. No acute fracture. IMPRESSION: Mild pulmonary vascular congestion similar to prior. Electronically signed by Fei Garcia 09-20-2024 5:30 PM
[2024-09-20] MEDS: ACETAMINOPHEN 1,000 MG/100 ML VIAL IV PRN (20:17)
[2024-09-21 07:35] LABS: INR 5.2 (0.9-1.1); Prothrombin Time 48.6 Seconds (9.0-12.0)
[2024-09-21 10:08] LABS: Basophils # (auto) 0.01 K/uL (0.00-0.20); Basophils % (auto) 0.2 %; Eosinophils # (auto) 0.09 K/uL (0.00-0.50); Eosinophils % (auto) 1.5 %; Hematocrit (blood only) 28.5 % (37.0-47.0); Hemoglobin 8.8 g/dl (12.0-16.0); Immature Granulocytes # (auto) 0.03 K/uL (0.01-0.20); Immature Granulocytes % (auto) 0.5 %; Lymphocytes # (auto) 0.46 K/uL (1.20-3.40); Lymphocytes % (auto) 7.9 %; Mean Corpuscular Hemoglobin 27.7 pg (25.0-34.0); Mean Corpuscular Hgb Conc 30.9 g/dL (32.0-36.0); Mean Corpuscular Volume 89.6 fL (80.0-100.0); Mean Platelet Volume 12.4 fL (9.4-12.4); Monocytes # (auto) 0.34 K/uL (0.11-0.59); Monocytes % (auto) 5.8 %; Neutrophils # (auto) 4.92 K/uL (1.40-6.50); Neutrophils % (auto) 84.1 %; Platelet Count 124 K/uL (130-400); RDW Coefficient of Variation 15.3 % (11.5-14.5); RDW Standard Deviation 50.5 fL (36.4-46.3); Red Blood Count 3.18 M/uL (4.20-5.40); White Blood Count 5.85 K/ul (4.8-10.8)
[2024-09-21 10:17] LABS: Albumin Globulin Ratio 1.1 (0.9-2); Albumin Level 3.4 gm/dl (3.4-5.0); BUN Creatinine Ratio 15.2 (10-20); Bilirubin,Total 0.6 mg/dl (0.2-1.0); Calcium 8.3 mg/dl (8.6-10.3); Creatinine Clr Calc Pharmacy 55.3 ml/min; Potassium 3.7 mmol/L (3.5-5.1); Total Protein 6.4 gm/dl (6.0-8.3)
--- NOTE | 2024-09-21 11:31 | Gastroenterology Progress Note ---
Date of Service September 21, 2024 Assessment & Plan (1) Acute pancreatitis: Plan: She has improved from pancreatitis standpoint. I don't need her to stay in hospital for EGD. Discussed doing it as an outpatient. She will decide. Admission and Anticipated Discharge Date Admission Date: September 20, 2024 Subjective She is feeling much better. H/H are drifting a little lower. She did have four days of black stools a week ago or so. She had a bowel movement on Saturday that was normal Physical Exam Physical Exam: She looks comfortable Constitutional: WD/WN, vitals as above Results & Data Vital Signs (Past 12 Hours) Vital Signs Temp Pulse Pulse Pulse Resp BP Pulse Ox 09/21/24 11:23 37.4 C 61 18 144/73 H 95 09/21/24 09:00 09/21/24 07:12 37.0 C 58 L 18 151/73 H 99 09/21/24 07:00 73 09/21/24 02:42 36.4 C L 67 18 123/81 96 O2 Del Method O2 Flow Rate 09/21/24 11:23 Room Air, Nasal Cannula 2 09/21/24 09:00 Nasal Cannula 2 09/21/24 07:12 Nasal Cannula 2 09/21/24 07:00 09/21/24 02:42 CPAP 6 (1) Acute pancreatitis Acute pancreatitis complication: no infection or necrosis Pancreatitis type: idiopathic Qualified Code(s): K85.00 - Idiopathic acute pancreatitis without necrosis or infection
--- NOTE | 2024-09-21 15:55 | Hospitalist Progress Note ---
Date of Service September 21, 2024 Assessment & Plan (1) Acute pancreatitis: (2) Chest pain: (3) History of pulmonary embolism: (4) Melena: Plan This pt is a 73-year-old female who presented on 09/19 for right sided chest pain and RUQ abd pain with radiation to the back and RLQ that began on Saturday 09/16. She also had 5 days of dark stools twice a day which is now resolved. A/P CT revealed acute pancreatitis on arrival. While lipase was WNL, patient coming in for pain control/fluids, and further workup for possible GIB. #Acute pancreatitis/RUQ pain Lipase WNL, CBC w/o leukocytosis. LFTs WNL. BMP stable. TG WNL on arrival. CTAP revealed peripancreatic fat stranding suggestive of acute interstitial pancreatitis. Gallstones. Pain management w/ Acetaminophen, Dilaudid. O2 sat >88% goal. Advanced to low fiber diet. # Suspected acute blood loss Anemia; recent episodes of melena Note: Patient reports dark stool starting approximately 5 days ago; this has since since resolved No diarrhea (stool was formed) but did have stools twice daily rather than her usual once daily Hgb 10.0-->8.8; down from 12.4 one month prior Suspect acute drop is secondary to IV fluids, but will continue to monitor Given resolution of dark tarry stool + high risk (h/o B/L PEs), will plan to continue warfarin for now, but HOLD ASA GI consulted; no emergent need for EGD Protonix 40mg IV bid #Chronic HFpEF Last echocardiogram on 12/14/2022 revealed LVEF at 55 to 60%. Strict I&O monitoring Daily weights, up 4kg 09/21, resume Bumex given patient is tolerating low fiber diet. Continue home metoprolol,hold Jardiance #Chest pain Troponin WNL on arrival EKG without acute changes While suspect that patient's chest pain is largely secondary to pancreatitis, will continue on continuous telemetry for now #History of pulmonary embolism/mechanical AVR INR 3.3 on arrival Therapeutic range 2-3, currently 5.2, Warfarin on hold pending 09/22 INR Trend PT/INR Chronic conditions: #BRIDGETT - BiPAP HS #HTN/Frequent PVCs - continue metoprolol, Ranexa; montor on tele #HLD - continue atorvastatin #GERD - hold omeprazole, IV Protonix bid #History of CABG - continue, metoprolol, statin; hold ASA #Depression - continue sertraline #Arthritis - hold tramadol, IV pain medicine as above Full code VTE PPx: Warfarin Case discussed w/ Dr. Richardson 09/21. Admission and Anticipated Discharge Date Admission Date: September 20, 2024 Supervising Physician Co-Signing Physician Notes Attending Attestation & Progress Note: Pt seen/examined, chart reviewed, care plan d/w LISHA Fernando. I agree w/ the onofre components of her documentation. Pt reports no further abd pain or N/V. Tolerated liquid diet; advanced to regular diet. She reports dyspnea but says "I'm always short of breath." Still with mild O2 requirement. We discussed the possible etiology of her pancreatitis - gallstones vs Jardiance vs other. Exam - gen - obese, NAD, sitting in chair neck - probable mild JVD mouth - MMM heart - mech valve closure sound, s1 s2, RRR, no murmur lungs - mild b/l basilar rales, no wheeze abd - soft NT ND BS+; no HSM ext - pulses b/l feet 2+, no edema LFTs/lipase remain wnl all imaging from the stay reviewed A/P: 1. acute pancreatitis - resolved. Abd pain resolved. Advance diet to low fat. Probable etiology of pancreatitis - passed gallstone. Can't rule out Jardiance thus hold now and upon d/c. Plan gen surg referral as outpatient to discuss elective lap timbo. 2. hypoxia - possible acute/chronic HFpEF - stopped IV fluids, resume bumex now. 3. ?melena stool - H/H stable today. Trend CBC. Cont PPI. 4. supratherapeutic INR - hold coumadin, INR am. INR Goal due to mechanical AVR - 2.5 to 3.5. Cecilio Richardson MD Subjective Patient seen and examined this morning. Patient stated she felt okay today. She denied any abdominal pain. Denied nausea or vomiting. She has been tolerating a liquid diet w/o difficulty. Physical Exam Constitutional: WD/WN, vitals as above Eyes: PERRL, conjunctivae normal, anicteric sclerae Respiratory: breathing unlabored Cardiovascular: well perfused Gastrointestinal (Abdomen): +BS, no tenderness to palpation Psychiatric: A+Ox3, euthymic affect Results & Data Results & Data Vital Signs (Past 12 Hours) Vital Signs Temp Pulse Pulse Resp BP Pulse Ox O2 Del Method 09/21/24 14:59 36.6 C 72 18 120/71 96 Room Air 09/21/24 14:20 80 09/21/24 11:23 37.4 C 61 18 144/73 H 95 Room Air, Nasal Cannula 09/21/24 09:00 Nasal Cannula 09/21/24 07:12 37.0 C 58 L 18 151/73 H 99 Nasal Cannula 09/21/24 07:00 73 O2 Flow Rate 09/21/24 14:59 09/21/24 14:20 09/21/24 11:23 2 09/21/24 09:00 2 09/21/24 07:12 2 09/21/24 07:00 PG Care Time/CCT Total # of Minutes Spent Total Time Spent with Patient: Total time spent is greater than 50% in coordination of care (as documented) at patient's floor/unit and/or counseling patient: Coding Level of Care Code 45682 SUB INP/OBS CARE 3/50MIN Diagnoses Acute pancreatitis K85.00 Acute pancreatitis complication: no infection or necrosis Pancreatitis type: idiopathic Chest pain R07.9 History of pulmonary embolism Z86.711 Melena K92.1 (1) Acute pancreatitis Acute pancreatitis complication: no infection or necrosis Pancreatitis type: idiopathic Qualified Code(s): K85.00 - Idiopathic acute pancreatitis without necrosis or infection
[2024-09-21] MEDS: BUMETANIDE 1 MG TAB PO SCH (18:23)
[2024-09-22 06:15] LABS: Hematocrit (blood only) 27.8 % (37.0-47.0); Hemoglobin 8.8 g/dl (12.0-16.0); Mean Corpuscular Hemoglobin 27.7 pg (25.0-34.0); Mean Corpuscular Hgb Conc 31.7 g/dL (32.0-36.0); Mean Corpuscular Volume 87.4 fL (80.0-100.0); Mean Platelet Volume 12.2 fL (9.4-12.4); Platelet Count 141 K/uL (130-400); RDW Coefficient of Variation 14.6 % (11.5-14.5); RDW Standard Deviation 46.7 fL (36.4-46.3); Red Blood Count 3.18 M/uL (4.20-5.40); White Blood Count 4.58 K/ul (4.8-10.8)
[2024-09-22 06:39] LABS: Prothrombin Time 56.1 Seconds (9.0-12.0)
[2024-09-22 06:45] LABS: Albumin Globulin Ratio 1.1 (0.9-2); Albumin Level 3.3 gm/dl (3.4-5.0); BUN Creatinine Ratio 17.6 (10-20); Bilirubin,Total 0.6 mg/dl (0.2-1.0); Calcium 8.2 mg/dl (8.6-10.3); Creatinine Clr Calc Pharmacy 63.7 ml/min; Potassium 3.5 mmol/L (3.5-5.1); Total Protein 6.3 gm/dl (6.0-8.3)
[2024-09-22 07:02] LABS: INR 6.1 (0.9-1.1)
[2024-09-22 15:46] LABS: Prothrombin Time 52.9 Seconds (9.0-12.0)
[2024-09-22] MEDS ORDERED: WARFARIN SOD 2.5 MG TAB PO SCH (16:00)
--- NOTE | 2024-09-22 16:53 | Hospitalist Progress Note ---
Date of Service September 22, 2024 Assessment & Plan (1) Acute pancreatitis: (2) Chest pain: (3) History of pulmonary embolism: (4) Melena: Plan This pt is a 73-year-old female who presented on 09/19 for right sided chest pain and RUQ abd pain with radiation to the back and RLQ that began on Saturday 09/16. She also had 5 days of dark stools twice a day which is now resolved. #Acute pancreatitis/RUQ pain Likely gallstone induced - > referral to general surgery on discharge. Lipase WNL, CBC w/o leukocytosis. LFTs WNL. BMP stable. TG WNL on arrival. CTAP revealed peripancreatic fat stranding suggestive of acute interstitial pancreatitis. Gallstones. Pain management w/ Acetaminophen, Dilaudid. O2 sat ->88% goal. Continue low fiber diet. # Suspected acute blood loss Anemia; recent episodes of melena Patient reports dark stool starting approximately 5 days ago; this has since since resolved Hgb remains stable at 8.8. Given resolution of dark tarry stool + high risk (h/o B/L PEs), will plan to continue warfarin for now, but HOLD ASA GI consulted; no emergent need for EGD, follow up outpatient. Protonix 40mg IV bid #History of pulmonary embolism/mechanical AVR INR 3.3 on arrival Therapeutic range 2-3, currently 6.1, Warfarin on hold Patient may require small dose of vitamin K so INR can go back into therapeutic range, will await repeat INR this afternoon. Trend PT/INR Will require follow up w/ anticoagulation clinic this week for further management upon discharge. #Chronic HFpEF Last echocardiogram on 12/14/2022 revealed LVEF at 55 to 60%. Strict I&O monitoring Daily weights Bumex resumed Continue home metoprolol,hold Jardiance 2 step completed 09/22 - patient requires 1L w/ ambulation. Will sign script w/ CM for discharge. #Chest pain Resolved - likely secondary to pancreatitis Troponin WNL on arrival EKG without acute changes Chronic conditions: #BRIDGETT - BiPAP HS #HTN/Frequent PVCs - continue metoprolol, Ranexa; montor on tele #HLD - continue atorvastatin #GERD - hold omeprazole, IV Protonix bid #History of CABG - continue, metoprolol, statin; hold ASA #Depression - continue sertraline #Arthritis - hold tramadol, IV pain medicine as above Full code VTE PPx: Warfarin Anticipate discharge home, hopeful for 4/2 pending stabilization of INR. Admission and Anticipated Discharge Date Admission Date: September 20, 2024 Supervising Physician Co-Signing Physician Notes Attending Attestation: Chart reviewed, care plan d/w LISHA Fernando. I agree w/ the onofre components of her documentation except -- * INR goal should be 2.5 to 3.5 due to mechanical AV A/P: 1. acute pancreatitis - resolved. Tolerating low fat diet; would remain on low fat until she sees gen surg about elective lap timbo. Probable etiology of pancreatitis - passed gallstone. Can't rule out Jardiance thus hold now and upon d/c. 2. hypoxia - likely due to acute/chronic HFpEF - diurese. 3. ?melena stool - H/H again stable today suggesting no bleeding. 4. supratherapeutic INR - hold coumadin, serial INRs. May need very small dose of vit K given where the INR is today. Cecilio Richardson MD Subjective Patient seen and examined this morning. Patient reports to be feeling better today and feels she is ready to return home. She felt her breathing was slightly improved today. Denied any complaints. Physical Exam Constitutional: WD/WN, vitals as above Eyes: PERRL, conjunctivae normal, anicteric sclerae Respiratory: breath sounds diminshed at bases Cardiovascular: RRR, no murmur, no edema Gastrointestinal (Abdomen): normal bowel sounds, soft, nontender, no hepatosplenomegaly Psychiatric: A+Ox3, euthymic affect Results & Data Results & Data Vital Signs (Past 12 Hours) Vital Signs Temp Pulse Pulse Pulse Pulse Pulse Pulse 09/22/24 15:53 36.8 C 62 09/22/24 11:46 78 84 74 79 09/22/24 11:06 36.4 C L 80 09/22/24 08:04 37 C 66 09/22/24 07:40 09/22/24 07:00 72 Resp Resp Resp Resp Resp BP BP 09/22/24 15:53 18 150/65 H 09/22/24 11:46 20 20 16 16 09/22/24 11:06 16 131/69 09/22/24 08:04 18 152/82 H 09/22/24 07:40 09/22/24 07:00 Pulse Ox Pulse Ox Pulse Ox Pulse Ox Pulse Ox O2 Del Method O2 Flow Rate 09/22/24 15:53 93 Room Air 09/22/24 11:46 94 88 L 96 90 09/22/24 11:06 96 Nasal Cannula 2 09/22/24 08:04 98 Nasal Cannula 2 09/22/24 07:40 Nasal Cannula 2 09/22/24 07:00 O2 Flow Rate 09/22/24 15:53 09/22/24 11:46 1 09/22/24 11:06 09/22/24 08:04 09/22/24 07:40 09/22/24 07:00 PG Care Time/CCT Total # of Minutes Spent Total Time Spent with Patient: Total time spent is greater than 50% in coordination of care (as documented) at patient's floor/unit and/or counseling patient: Coding Level of Care Code 50559 SUB INP/OBS CARE 3/50MIN Diagnoses Acute pancreatitis K85.00 Acute pancreatitis complication: no infection or necrosis Pancreatitis type: idiopathic Chest pain R07.9 History of pulmonary embolism Z86.711 Melena K92.1 (1) Acute pancreatitis Acute pancreatitis complication: no infection or necrosis Pancreatitis type: idiopathic Qualified Code(s): K85.00 - Idiopathic acute pancreatitis without necrosis or infection
[2024-09-22 17:36] LABS: INR 5.7 (0.9-1.1)
[2024-09-22] MEDS: PHYTONADIONE 2.5 MG in DEXTROSE 5% 50 ML IV ONE (18:27)
[2024-09-23 06:48] LABS: Hematocrit (blood only) 26.8 % (37.0-47.0); Hemoglobin 8.6 g/dl (12.0-16.0); Mean Corpuscular Hemoglobin 27.7 pg (25.0-34.0); Mean Corpuscular Hgb Conc 32.1 g/dL (32.0-36.0); Mean Corpuscular Volume 86.5 fL (80.0-100.0); Mean Platelet Volume 11.9 fL (9.4-12.4); Platelet Count 152 K/uL (130-400); RDW Coefficient of Variation 14.6 % (11.5-14.5); RDW Standard Deviation 45.9 fL (36.4-46.3); White Blood Count 4.19 K/ul (4.8-10.8)
[2024-09-23 07:10] LABS: Calcium 8.3 mg/dl (8.6-10.3); Creatinine Clr Calc Pharmacy 54.3 ml/min; Potassium 3.4 mmol/L (3.5-5.1)
[2024-09-23 07:12] LABS: INR 1.6 (0.9-1.1); Prothrombin Time 16.3 Seconds (9.0-12.0)
[2024-09-23 07:24] LABS: Ferritin 35.1 ng/ml (8-388)
[2024-09-23] MEDS: POTASSIUM CHLORIDE CRTAB 20 MEQ TABCR PO STA (08:10)
[2024-09-23 08:36] VITALS: RESP 14; TEMP 97.7
--- NOTE | 2024-09-23 09:37 | Discharge Summary ---
Discharge Summary Date of Service September 23, 2024 Principal Dx & Hospital Course #1 = Principal Diagnosis (1) Acute pancreatitis: (2) Chest pain: (3) History of pulmonary embolism: (4) Melena: Plan This pt is a 73-year-old female who presented on 09/19 for right sided chest pain and RUQ abd pain with radiation to the back and RLQ that began on Saturday 09/16. She also had 5 days of dark stools twice a day which is now resolved. #Acute pancreatitis/RUQ pain Likely gallstone induced - > referral to general surgery on discharge. Lipase WNL, CBC w/o leukocytosis. LFTs WNL. BMP stable. TG WNL on arrival. CTAP revealed peripancreatic fat stranding suggestive of acute interstitial pancreatitis. Gallstones. Low fat diet. Follow up CT in 4-6 weeks to ensure resolution - defer to PCP. # Suspected acute blood loss Anemia; recent episodes of melena Patient reports dark stool starting approximately 5 days ago; this has since since resolved Hgb remains stable at 8.6. Low iron, recommending iron supplement outpatient. Patient reports she has history of iron deficiency Consider iron infusion outpatient - defer to PCP. GI consulted; no emergent need for EGD, follow up outpatient. -> referral placed. Protonix 40mg IV while in patient, transitioned to 40mg Omeprazole BID at home. #History of pulmonary embolism/mechanical AVR INR 3.3 on arrival Therapeutic range 2-3 per PCP note s/p 2.5mg Vitamin K on 09/22 given a supratherapeutic INR INR 4/2 1.6 - resume home Warfarin dosing on discharge Close follow up with anticoagulation clinic for INR check and continued dose adjustments. #Chronic HFpEF Last echocardiogram on 12/14/2022 revealed LVEF at 55 to 60%. Bumex resumed Continue home metoprolol,hold Jardiance until seen by PCP given risk of pancreatitis 2 step completed 09/22 - patient requires 1L w/ ambulation.Script signed. #Chest pain Resolved - likely secondary to pancreatitis Troponin WNL on arrival EKG without acute changes Chronic conditions: #BRIDGETT - BiPAP HS #HTN/Frequent PVCs - continue metoprolol, Ranexa; montor on tele #HLD - continue atorvastatin #GERD - hold omeprazole, IV Protonix bid #History of CABG - continue metoprolol, statin; hold ASA #Depression - continue sertraline Discussed w/ patient spouse discharge plans via phone 09/23. Admission HPI Per Admitting Provider Ophelia is a 73-year-old female with PMH of HTN, B/L pulmonary embolism (on warfarin), GI bleed, AVR, BRIDGETT, GERD, and depression. She presented on 09/19 for intermittent right-sided chest pain. She reports that the pain initially started on Saturday 09/16. At first, it was in her right breast, with radiation to the back, but since then it has since moved to her right upper quadrant. Still rating to her back. She was having dark stool for approximately 5 days prior to this, and was concerned given her history of GI bleed, but she went back to having normal stool yesterday. Patient rates the pain in her right upper quadrant as an 8/10 at present. She has been taking Tylenol at home for the pain, which helps a bit. She is unsure if it is worse with movements or eating. No prior history of pancreatitis. No prior history of gallbladder issues or gallstones. She reports she was drinking on Saturday night; she had one lemon drop martini. No prior history of heavy alcohol use, but reports she is a social drinker. No recent change in diet. Patient did not take her regu lar morning medicine today; no recent change in medications. She was set to start Wegovy, but has not started it yet. She has been on Jardiance for almost a year now, which she takes for heart failure. No prior history of DM. Additionally, patient reports dyspnea on exertion at baseline. Patient sleeps in a recliner due to her history of heart failure. CPAP at night; no supplemental oxygen. Remote history of norovirus in June 2024 with diarrhea x 1 week. She denies smoking or tobacco use. Patient's vitals are stable at time of admission. ED course: Acetaminophen 1000 mg IV ROS: Patient endorses lightheadedness on , right-sided chest pain with radiation to back, RUQ pain, SANCHES (attributes to diaphragm injury and current weight), pleuritic CP, nausea, melena (formed; resolved yesterday), urinary incontinence (wears briefs; ongoing), Patient denies fever, chills, night-sweats, syncope, recent falls, headache, SOB at night, cough, hemoptysis, vomiting, diarrhea, BRB in stool, changes in urinary habits, saddle anesthesia, or numbness/tingling in the legs. Discharge Exam Constitutional WD/WN, vitals as above Eyes PERRL, conjunctivae normal, anicteric sclerae Respiratory breathing unlabored Cardiovascular well perfused Psychiatric A+Ox3, euthymic affect Discharge Plan Discharge Items Patient Disposition: Home - Self-Care Reason For Visit: ACUTE PANCREATITIS Discharge Diagnosis: Pancreatitis Activity: Resume your previous activity Non-emergency contact: Primary Care Provider, Surgeon and Bar Turner Call non-emergency contact if: you have any medication questions, your symptoms worsen and you have a fever Follow-up/Referrals: Viri Keller MD [Primary Care Provider] - 09/29/24 11:00 am Dee Johnson Jr, MD [Physician] - Diet: Heart Healthy and Low Fat Addtl Attending Provider Instructions: Ms. Serrano, You were recently hospitalized for abdominal and chest pain. You were found to have an episode of acute pancreatitis secondary to gallstones. You were treated with IV fluids and responded appropriately. Please see recommendations below regarding your discharge. Please discuss Jardiance and Wegovy with your PCP. Please hold these medications until the discussion takes place. Although you had gallstone pancreatitis, these also have side effects of pancreatitis. We have referred you to general surgery to discuss gallbladder removal on an outpatient basis. Please follow up with gastroenterology outpatient, a referral has been placed. Given your anemia and low iron, you should have a GI work up to look for causes of bleeding. Please start taking an iron supplement daily. Discuss with your PCP about benefits of iron infusions on an outpatient basis. Resume your Warfarin at your typical dose. Please follow up with the anticoagulation clinic very closely for an INR check. You should undergo a repeat CT scan in 4-6 weeks to ensure resolution of your pancreatitis. Your PCP can schedule this at your follow up visit. You completed a test with respiratory therapy that revealed you require 1L of oxygen while ambulating. A script has been filled out for you to receive home oxygen. Your omeprazole has been switched to 40mg twice daily given you had dark stools. Please stay on a low fat diet. Please follow up with your PCP within 1-2 weeks of discharge. If you develop any severe abdominal pain, nausea, vomiting, dark tarry stools please report back to the ER for further care. Sincerely, Dianna Fernando PA-C Pending Studies at Discharge: No Stand-Alone Forms: My [facility] [employer], Smoking Cessation Medications and DC Order Prescriptions: New omeprazole 40 mg capsule,delayed release(DR/EC) 40 mg PO BID Qty: 60 0RF Rx Instructions: DID NOT SUPPLY CHAIN ASSOCIATE FROM PHARMACY ferrous sulfate 325 mg (65 mg iron) tablet 325 mg PO DAILY Qty: 30 0RF Continued ipratropium-albuterol 0.5 mg-3 mg(2.5 mg base)/3 mL solution for nebulization 3 ml INH Q6H PRN (Reason: shortness of breath or wheezing) Qty: 360 0RF Patient Comments: HAVEN'T USED IN QUITE A WHILE ranolazine 500 mg tablet extended release 12 hr 500 mg PO BID Qty: 180 3RF atorvastatin 80 mg tablet 80 mg PO QAM Qty: 90 3RF trimethoprim 100 mg tablet 100 mg PO DAILY Qty: 90 3RF Hold Instructions: Resume on 10/15/24. tramadol 50 mg tablet 50 mg PO BID PRN (Reason: ARTHRITIS pain) Qty: 60 0RF calcium carbonate [Calcium 600] 600 mg calcium (1,500 mg) tablet 325 mg PO BID Rx Instructions: FAMILY UNSURE IF STILL TAKING aspirin 81 mg tablet,delayed release (DR/EC) 81 mg PO DAILY Rx Instructions: FAMILY UNSURE IF STILL TAKING montelukast 10 mg tablet 10 mg PO QPM PRN (Reason: Congestion) acetaminophen 500 mg capsule 1,000 mg PO TID PRN (Reason: Pain) amoxicillin 500 mg tablet 2,000 mg PO DIRECTED PRN (Reason: 1 HR PRIOR TO DENTAL APPT.) Hold Instructions: Resume on 10/15/24. sennosides-docusate sodium [Senokot-S] 8.6-50 mg tablet 1 tab-cap PO DIRECTED PRN (Reason: Constipation) Rx Instructions: Take every other day to prevent constipation sertraline 100 mg tablet 100 mg PO HS Qty: 90 3RF fexofenadine 180 mg Tablet 180 mg PO QAM PRN (Reason: Congestion) cyanocobalamin (vitamin B-12) [Vitamin B-12] 100 mcg Tablet 100 mcg PO QAM Rx Instructions: FAMILY UNSURE IF STILL TAKING potassium chloride 10 mEq tablet extended release 10 meq PO UD Rx Instructions: FAMILY UNSURE IF STILL TAKING bumetanide 2 mg tablet 4 mg PO QAM Rx Instructions: May take an additional 2 mg in the afternoon for weight gain, SOB, swelling. metoprolol tartrate 100 mg tablet 100 mg PO BID warfarin 5 mg tablet 5 mg PO UD Protocol: Dose Management Condition: Saturday Dose/Route: 5 mg Instruction: 1 x 5 mg tablet Condition: Saturday Dose/Route: 5 mg Instruction: 1 x 5 mg tablet Condition: Saturday Dose/Route: 2.5 mg Instruction: 0.5 x 5 mg tablets Condition: Saturday Dose/Route: 5 mg Instruction: 1 x 5 mg tablet Condition: Dose/Route: 2.5 mg Instruction: 0.5 x 5 mg tablets Condition: Saturday Dose/Route: 5 mg Instruction: 1 x 5 mg tablet Condition: Saturday Dose/Route: 5 mg Instruction: 1 x 5 mg tablet Protocol Text: Adjustment Start Date: 08/27/24 INR Value: 2.6 INR Date: 08/27/24 Recheck Date: 09/24/24 Rx Instructions: DIRECTED FROM [facility]. Held Jardiance 10 mg tablet 10 mg PO DAILY Qty: 90 3RF Hold Instructions: Resume on 10/21/24. until discussed w/ PCP Wegovy 0.5 mg/0.5 mL pen injector 0.5 mg subcut WK Hold Instructions: Resume on 10/08/24. until discussed w/ PCP Discontinued omeprazole 20 mg capsule,delayed release(DR/EC) 20 mg PO HS Qty: 90 3RF No Action Wegovy 0.25 mg/0.5 mL pen injector 0.25 mg subcut WK Hold Instructions: Resume on 10/15/24. Discharge Orders: Discharge Order (Routine); Ordered 09/23/24 Ordered By: Dianna Diaz/Other Patient Handouts: Anemia, Treating Gallstones, Pancreatitis Acute Dc, ED Lower GI Bleeding (Stable) Admission Data Admit Date/Time: 09/20/24 08:42 Attending Provider: Cecilio Richardson Admit Provider: Tashia Leonard Primary Care Provider: Viri Keller Other Providers: Dee Johnson Jr Other Interventions: Discharge Summary Assessment (RN) Last Done: 09/23/24 09:55 Hospital Stay Data Consultations 09/19/24 09:59 ED Decision to Admit Stat 09/19/24 17:57 Consult Gastroenterology Routine Diagnostic Imagining Performed 09/19/24 06:46 CT abd pelvis IV con only Stat CT chest diagnostic w con Stat 09/19/24 10:31 US gallbladder Stat Pending Results Patient Have Any Pending Studies at Discharge: No Discharge Instructions Given to Patient (Per Discharging Provider) Ms. Serrano, Manny were recently hospitalized for abdominal and chest pain. You were found to have an episode of acute pancreatitis secondary to gallstones. You were treated with IV fluids and responded appropriately. Please see recommendations below regarding your discharge. Please discuss Jardiance and Wegovy with your PCP. Please hold these medications until the discussion takes place. Although you had gallstone pancreatitis, these also have side effects of pancreatitis. We have referred you to general surgery to discuss gallbladder removal on an outpatient basis. Please follow up with gastroenterology outpatient, a referral has been placed. Given your anemia and low iron, you should have a GI work up to look for causes of bleeding. Please start taking an iron supplement daily. Discuss with your PCP about benefits of iron infusions on an outpatient basis. Resume your Warfarin at your typical dose. Please follow up with the anticoagulation clinic very closely for an INR check. You should undergo a repeat CT scan in 4-6 weeks to ensure resolution of your pancreatitis. Your PCP can schedule this at your follow up visit. You completed a test with respiratory therapy that revealed you require 1L of oxygen while ambulating. A script has been filled out for you to receive home oxygen. Your omeprazole has been switched to 40mg twice daily given you had dark stools. Please stay on a low fat diet. Please follow up with your PCP within 1-2 weeks of discharge. If you develop any severe abdominal pain, nausea, vomiting, dark tarry stools p david report back to the ER for further care. Sincerely, Dianna Fernando PA-C Supervising Physician Co-Signing Physician Notes Attending Attestation and Discharge Note: Chart reviewed, discharge care plan d/w LISHA Fernando. I agree w/ the onofre components of her discharge documentation. Of note - I did not perform a bedside visit or perform a physical exam on day of discharge. 73yo female with h/o mechanical aortic valve on coumadin, CAD s/p 1-vessel CABG, morbid obesity with BMI 45, asthma, h/o PE, BRIDGETT, and pre-DM. Presented with severe right-sided breast pain and RUQ pain with radiation to the back. She also had 5 days of ?melena stool. Upon presentation to the ER she had evidence of acute pancreatitis on CT a/p. Gallstones were present as well but no signs of acute cholecystitis or CBD dilatation. Lipase surprisingly was normal on hospital day #1, #2 and #3. LFTs were normal the entire stay as well. She was treated in customary fashion with dietary restriction, gentle IV fluids (given h/o HFpEF), pain meds, etc. Pain gradually improved then resolved prior to d/c home. Resumed on a liquid diet and advanced without difficulty. Etiology of pancreatitis - likely a passed gallstone. Jardiance can cause pancreatitis but this was felt to be the unlikely cause. With that said we did recommend STOPPING THE JARDIANCE upon discharge. She will be referred to general surgery for consideration of cholecystectomy. She should follow a low fat diet. Other issues addressed while here - * hypoxia - did have O2 requirement while here, likely due to acute/chronic HFpEF; did receive diuresis while here; at discharge a 2-step was done showing need for 1 liter of NC O2 with activity only * ?melena stool - serial H/H's were obtained without any significant drop while here; admit hemoglobin was 10, and subsequent hemoglobins were 8.6 to 8.8; EGD was deferred by GI as it was suspected that she did not have active GI bleeding; with that said her PPI was increased to twice daily dosing * supratherapeutic INR - likely due to unopposed action of coumadin in the setting of dietary restriction; did receive 2.5mg of vit K while here due to persistently high INRs (>5); discharge INR was 1.6 Cecilio Richardson MD Total Time Total Time Spent Total Time Spent (In Minutes): 50 Total Time Includes: Examination of the Patient, Discharge Planning and Medication Reconciliation Coding Level of Care Code 63377 INP/OBS DISCH >30 MIN Diagnoses Acute pancreatitis K85.00 Acute pancreatitis complication: no infection or necrosis Pancreatitis type: idiopathic Chest pain R07.9 History of pulmonary embolism Z86.711 Melena K92.1
[2024-09-23 12:23] VITALS: BP 136/70; PULSE 75; O2SAT 96
== END 2024-09-23 13:23 | disposition home or self-care (01) | DRG 439 ==
LOC: 2N 05:40 → ED 05:40 → 2N 14:23 → SUATTDRO 09-20 08:42
DX: G47.33 Obstructive sleep apnea (adult) (pediatric); R07.9 Chest pain, unspecified; I49.3 Ventricular premature depolarization; K21.9 Gastro-esophageal reflux disease without esophagitis; K85.10 Biliary acute pancreatitis without necrosis or infection; Z88.8 Allergy status to other drugs, medicaments and biological substances; I11.0 Hypertensive heart disease with heart failure; Z79.01 Long term (current) use of anticoagulants; K92.1 Melena; R09.02 Hypoxemia; D62 Acute posthemorrhagic anemia; E78.5 Hyperlipidemia, unspecified; Z95.5 Presence of coronary angioplasty implant and graft; Z86.711 Personal history of pulmonary embolism; T50.995A Adverse effect of other drugs, medicaments and biological substances, initial encounter; Z95.4 Presence of other heart-valve replacement; Z79.82 Long term (current) use of aspirin; Z79.899 Other long term (current) drug therapy; I50.32 Chronic diastolic (congestive) heart failure; R79.1 Abnormal coagulation profile; F32.A Depression, unspecified

== ENCOUNTER 2024-09-23 18:20 | Inpatient (IN) ==
[2024-09-23 19:12] LABS: Hematocrit (blood only) 34.3 % (37.0-47.0); Hemoglobin 10.8 g/dl (12.0-16.0); Mean Corpuscular Hemoglobin 27.3 pg (25.0-34.0); Mean Corpuscular Hgb Conc 31.5 g/dL (32.0-36.0); Mean Corpuscular Volume 86.8 fL (80.0-100.0); Mean Platelet Volume 11.7 fL (9.4-12.4); Platelet Count 208 K/uL (130-400); RDW Coefficient of Variation 14.6 % (11.5-14.5); RDW Standard Deviation 46.4 fL (36.4-46.3); Red Blood Count 3.95 M/uL (4.20-5.40); White Blood Count 9.46 K/ul (4.8-10.8)
[2024-09-23 19:28] LABS: Basophils # (auto) 0.01 K/uL (0.00-0.20); Basophils % (auto) 0.1 %; Eosinophils # (auto) 0.02 K/uL (0.00-0.50); Eosinophils % (auto) 0.2 %; Immature Granulocytes # (auto) 0.03 K/uL (0.01-0.20); Immature Granulocytes % (auto) 0.3 %; Lymphocytes # (auto) 0.26 K/uL (1.20-3.40); Lymphocytes % (auto) 2.7 %; Monocytes # (auto) 0.17 K/uL (0.11-0.59); Monocytes % (auto) 1.8 %; Neutrophils # (auto) 8.97 K/uL (1.40-6.50); Neutrophils % (auto) 94.9 %; Polychromasia 1+
[2024-09-23 19:48] LABS: Albumin Globulin Ratio 1.1 (0.9-2); Albumin Level 3.8 gm/dl (3.4-5.0); BUN Creatinine Ratio 14.2 (10-20); Bilirubin,Total 1.9 mg/dl (0.2-1.0); Calcium 8.8 mg/dl (8.6-10.3); Creatinine Clr Calc Pharmacy 50.8 ml/min; Globulin 3.5 gm/dl (2.5-4.0); Potassium 3.6 mmol/L (3.5-5.1); Total Protein 7.3 gm/dl (6.0-8.3)
--- NOTE | 2024-09-23 21:00 | Ultrasound Report ---
Exam(s): US GALLBLADDER EXAM: US Abdomen Limited, Gallbladder CLINICAL HISTORY: Reason for exam: abd pain epigastric. TECHNIQUE: Real-time ultrasound of the right upper quadrant with image documentation. COMPARISON: 09/19/24 FINDINGS: Liver: Hepatomegaly measuring 18.4 cm. Gallbladder: Cholelithiasis and gallbladder distention, but no wall thickening or Saleem sign to suggest cholecystitis. Common bile duct: No biliary dilatation. CBD measures 5 mm. Pancreas: Stable 6 mm cyst in the pancreas body. Right kidney: Unremarkable. Right kidney measures 11 cm. No hydronephrosis. Other vasculature: Patent, normally directed portal vein. IMPRESSION: 1. Stable 6 mm cyst in the pancreas body. Recommend a contrast- enhanced, pancreas-protocol abdominal CT or MR in 2 years. 2. Cholelithiasis and gallbladder distention, but no wall thickening or Saleem sign to suggest cholecystitis. Electronically signed by: Jonn Fernando M.D. 09/23/24 20:59 PM
--- NOTE | 2024-09-23 21:11 | XRay Report ---
Exam(s): XR ABDOMEN, 2 views EXAM: XR Abdomen, 2 Views and XR Chest, 1 View CLINICAL HISTORY: Reason for exam: abd pain epigastric. TECHNIQUE: Frontal view of the chest, frontal view of the abdomen/pelvis and upright or decubitus view of the abdomen. COMPARISON: CT abdomen and pelvis 09/19/24 FINDINGS: Lungs: No airspace consolidation. Pleural space: Unremarkable. No pleural effusion or pneumothorax. Heart: Prior sternotomy and CABG. No cardiomegaly. Mediastinum: Unremarkable. Normal mediastinal contour. Intraperitoneal space: No free air. Gastrointestinal tract: Nonobstructive bowel gas pattern with increased colonic stool and gas. Bones/joints: Thoracolumbar spondylosis. No acute osseous findings. Calcification measuring 2.4 cm projecting over the pubic symphysis, corresponding to calcified presumed vaginal cyst as depicted on CT exam. Vasculature: Atherosclerosis of the aorta. IMPRESSION: Nonobstructive bowel gas pattern with increased colonic stool and gas. Correlate for constipation. Electronically signed by: Jonn Fernando M.D. 09/23/24 21:10 PM
[2024-09-23] MEDS: LACTATED RINGER'S 2,000 ML IV ONE (21:19)
--- NOTE | 2024-09-23 21:27 | History & Physical Report ---
Date of Service September 23, 2024 Assessment & Plan (1) Acute pancreatitis: Plan 73-year-old female PMHx chronic HFpEF, history of PE/mechanical AVR, HTN, HLD, GERD, history of CABG, depression, arthritis, and BRIDGETT on BiPAP who presents to ED for abdominal pain starting at 1500 the day of arrival. Patient was recently discharged from hospital following stay from 09/19/2024 until 09/23/2024 for acute pancreatitis with complication of suspected acute blood loss anemia. ED evaluation reveals no leukocytosis, H&H 10.8/34.3; CMP CO2 35, glucose 113, bilirubin 1.9, AST 304, ALT 117, alk phos 330; lipase 1690; chest/abdomen XR with nonobstructive bowel gas pattern and increased colonic stool and gas; gallbladder ultrasound stable 6 mm cyst in pancreas body, cholelithiasis and gallbladder distention no wall thickening or Saleem sign. Provided with 2L LR in ED. #Acute pancreatitis Symptoms of abdominal pain worsening after d/c earlier on day of arrival. Admission on 09/19/2024 CTAP revealing pancreatic fat stranding suggestive of acute or/pancreatitis also with gallstones present, initially thought to be duodenal ulcer causing duodenitis/pancreatitis but also impacted by Jardiance, then considered to be ? gallstones. Lipase was 44 at admission, then repeat 17. LFTs remained WNL throughout hospital course (09/23 with bilirubin 0.6, AST 18. ALT 11, alk phos 77). 09/11/2024- GB US with GB distention and cholelithiasis as well as pancreatic cyst; CTAP peripancreatic fat stranding along head and uncinate process of pancreas suggestive of acute interstitial pancreatitis also with cholelithiasis. GI thought possible pancreatitis from ulcerative disease (but NO EGD for suspected GI bleed done given on Warfarin) in conjunction with being on Jardiance (werosalinday also, but states that she has not started this). Recommended EGD outpatient. Presenting today for worsening abdominal pain now with significant LFT elevations and lipase >1.6k; US gallbladder does reveal cholelithiasis and some gallbladder distention. No evidence of cholecystitis as admission. Suspect gallstone pancreatitis. - CBC w/o leukocytosis; CMP no gross electrolyte abnormalities; Ca 8.8; LFTs bilirubin 1.9, AST 304, ALT 117, alk phos 330; lipase 1690; TG pending, coags pending - CBC, LFTs am - GBUS with stable 6 mm cyst in pancreatic body, cholelithiasis and gallbladder distention without wall thickening or Saleem sign - NPO - LR @ 2L bolus now, then gentle maintenance @ 80 mL/hr - Continue to hold Jardiance and DO NOT start wegovy - Hold diuretics, warfarin, and ASA - HOLD po meds while NPO - Zofran prn N/V - Dilaudid prn pain - MRCP pending - Will likely require ERCP but pending MRCP and specialist recs - Gen sx consulted- appreciate input + recs - GI consulted- appreciate input + recs #Chronic HFpEF- on Bumex, Jardiance, and metoprolol at home; Echo 11/2022 ef 55- 60% - hold diuretics #H/o PE, mechanical AVR- Warfarin, goal INR 2-3; pending PT/INR- HOLD warfarin #Anemia- W/ history of anemia and suspected acute blood loss anemia, melena- no overt bleeding reported at admission; H/H admission 10.8/34.3; H/H am #Psych- Sertraline #GERD- Pantoprazole, has not started since d/c Dispo: Admit, med/tele VTE Prophylaxis- On Warfarin- HELD at admission pending +/- ERCP This document was dictated utilizing [employer]. Please excuse any grammatical errors that may be secondary to use of this software. Admission and Anticipated Discharge Date Admission Date: 09/23/2024 History of Present Illness Chief Complaint: Abdominal pain Primary Care Provider: Viri Keller MD 73-year-old female PMHx chronic HFpEF, history of PE/mechanical AVR, HTN, HLD, GERD, history of CABG, depression, arthritis, and BRIDGETT on BiPAP who presents to ED for abdominal pain starting at 1500 the day of arrival. Patient was recently discharged from hospital following stay from 09/19/2024 until 09/23/2024 for acute pancreatitis with complication of suspected acute blood loss anemia. Was discharged day of arrival around 1000. States that when she got home after having lunch at the hospital, she started to have worsening abdominal pain at the epigastric region, rating it a 4 out of 10 on the pain scale but persistent and this concerned her. She did not have any fatty meals following d/c from hospital. Pain started around 1500. Associated nausea, coming and going. No vomiting. Denies chest pain, shortness of breath, palpitations, diarrhea/constipation, numbness/tingling, fever/chills, LUTS, or URI symptoms. ED evaluation reveals no leukocytosis, H&H 10.8/34.3; CMP CO2 35, glucose 113, bilirubin 1.9, AST 304, ALT 117, alk phos 330; lipase 1690; chest/abdomen XR with nonobstructive bowel gas pattern and increased colonic stool and gas; gallbladder ultrasound stable 6 mm cyst in pancreas body, cholelithiasis and gallbladder distention no wall thickening or Saleem sign. Provided with 2L LR in ED. Admission on 09/19/2024 CTAP revealing pancreatic fat stranding suggestive of acute or/pancreatitis also with gallstones present, initially thought to be duodenal ulcer causing duodenitis/pancreatitis but also impacted by Jardiance, then considered to be ? gallstones. Lipase was 44 at admission, then repeat 17. LFTs remained WNL throughout hospital course. 09/11/2024- GB US with GB distention and cholelithiasis as well as pancreatic cyst; CTAP peripancreatic fat stranding along head and uncinate process of pancreas suggestive of acute interstitial pancreatitis also with cholelithiasis. GI thought possible pancreatitis from ulcerative disease but (NO EGD for suspected GI bleed done given on Warfarin) in conjunction with being on Jardiance (wegovy also, but states that she has not started this). Recommended EGD outpatient. Please see Dr. East's attestation for adjustments/additions to treatment plan. Allergies Allergy/AdvReac Type Severity Reaction Status Date / Time amlodipine Allergy Unknown Unknown Verified 09/23/24 20:09 furosemide [From Lasix] AdvReac Severe Loud ear Verified 09/23/24 20:09 ringing Home Medications Medication Instructions Recorded Confirmed Type fexofenadine 180 mg tablet 180 mg PO QAM PRN Congestion 07/27/18 09/23/24 History ipratropium 0.5 mg-albuterol 3 mg 3 ml inhalation Q6H PRN shortness 11/17/19 09/23/24 Rx (2.5 mg base)/3 mL nebulization of breath or wheezing #360 mL soln calcium carbonate (Calcium 600) 325 mg PO BID 03/17/20 09/23/24 History cyanocobalamin (vitamin B-12) 100 100 mcg PO QAM 10/25/21 09/23/24 History mcg tablet (Vitamin B-12) potassium chloride 10 mEq 10 meq PO UD diurectic use 10/25/21 09/23/24 History tablet,extended release aspirin 81 mg tablet,delayed 81 mg PO DAILY 03/25/23 09/23/24 History release empagliflozin 10 mg tablet 10 mg PO DAILY #90 tabs 11/28/23 09/23/24 Rx (Jardiance) ranolazine 500 mg tablet,extended 500 mg PO BID #180 tabs 02/26/24 09/23/24 Rx release,12 hr atorvastatin 80 mg tablet 80 mg PO QAM #90 tabs 07/06/24 09/23/24 Rx acetaminophen 500 mg capsule 1,000 mg PO TID PRN Pain 08/21/24 09/23/24 History amoxicillin 500 mg tablet 2,000 mg PO DIRECTED PRN 1 HR 08/21/24 09/23/24 History PRIOR TO DENTAL APPT. montelukast 10 mg tablet 10 mg PO QPM PRN Congestion 08/21/24 09/23/24 History sennosides 8.6 mg-docusate sodium 1 tab-cap PO DIRECTED PRN 08/21/24 09/23/24 History 50 mg tablet (Senokot-S) Constipation sertraline 100 mg tablet 100 mg PO HS #90 tabs 08/21/24 09/23/24 Rx trimethoprim 100 mg tablet 100 mg PO DAILY #90 tabs 09/02/24 09/23/24 Rx tramadol 50 mg tablet 50 mg PO BID PRN ARTHRITIS pain 09/17/24 09/23/24 Rx #60 tabs bumetanide 2 mg tablet 4 mg PO QAM 09/19/24 09/23/24 History metoprolol tartrate 100 mg tablet 100 mg PO BID 09/19/24 09/23/24 History semaglutide (weight loss) 0.5 0.5 mg subcut WK 09/19/24 09/23/24 History mg/0.5 mL subcutaneous pen injector (Wegovy) warfarin 5 mg tablet 5 mg PO UD 09/19/24 09/23/24 History ferrous sulfate 325 mg (65 mg 325 mg PO DAILY #30 tabs 09/23/24 09/23/24 Rx iron) tablet omeprazole 40 mg capsule,delayed 40 mg PO BID #60 caps 09/23/24 09/23/24 Rx release semaglutide (weight loss) 0.25 0.25 mg subcut WK 09/23/24 09/23/24 History mg/0.5 mL subcutaneous pen injector (Wegovy) Past Med/Surg History Problem List (Updated 09/23/24 @ 23:07 by Alayna Sesay PA-C) Gallstone pancreatitis Melena Chest pain Acute pancreatitis (Acute) Prediabetes Nocturnal hypoxemia Chronic heart failure with preserved ejection fraction Depression GERD (gastroesophageal reflux disease) Osteopenia History of pulmonary embolism Severe obesity (BMI >= 40) Mild persistent asthma Anticoagulated on Coumadin Status post total right knee replacement S/P AVR (Chronic) Mechanical (2017) Status post left knee replacement Right knee DJD Arthritis (Chronic) Anemia (Chronic) HTN (hypertension) (Acute) Transaminitis Hemidiaphragm paralysis Paralyzed hemidiaphragm Dyspnea on exertion BRIDGETT (obstructive sleep apnea) Bradycardia Frequent PVCs Sinusitis Chronic rhinitis Medical History Aortic valve disease s/p AVR (2016)- Mechanical PVC (premature ventricular contraction) Palpitations controlled since beta armando dose increase History of COVID-19 Dx 12/2021 (home test after vacation) Symptoms at time: cough and cold symptoms > resolved Osteoarthritis History of airway obstruction Airway collapse post-op heart surgery Urinary bladder incontinence Arthritis Diaphragmatic paralysis Transieny hemidiaphragmatic paralysis d/t CABG (2017) Follows with [facility] pulmonary BRIDGETT treated with BiPAP COPD (chronic obstructive pulmonary disease) Per records Chronic diastolic CHF (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 failure) 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 Coronary artery disease s/p CABG x1 ([facility]) 2017 Hyperlipidemia HTN (hypertension) Surgical History History of cardiac cath 2017 ([facility]) > referred for CABG x1 + AVR History of cataract surgery R/L History of endoscopy History of colonoscopy History of urologic surgery + mesh History of tubal ligation History of total left knee replacement S/P CABG (coronary artery bypass graft) CABG x1 (2017) History of delivery X2 Family History Family/Other Heart disease per patient-"all" Hypertension per patient "all" Sister Asthma Family history of diabetes mellitus Sister Family history of diabetes mellitus Father Myocardial infarction Aunt Myocardial infarction Uncle Myocardial infarction Grandmother (Maternal) Myocardial infarction Other No family history of adverse response to anesthesia No family history of bleeding disorder Denies family history of Ovarian cancer Prostate cancer Breast cancer Colorectal cancer Social History Smoking Status: Never smoker Second Hand Exposure: No; Do You Dip or Chew Tobacco: No; Hx Alcohol Use: Yes Alcohol type: wine and hard liquor Hx Substance Use: No Preferred Language: [place]an Communication Ability: Effective Visual Impairment: No Limitations Fruit Canner Required: No Beliefs That Will Affect Care: None marital status: Current Living Situation: Spouse Current Living Situation Comment: home with current occupational status: employed current occupation: [employer] Feels Safe at Home: Yes Safety Concerns: Feels Safe At This Time Childhood Exposure to Second-Hand Smoke: No Dental Care, Regularly: No Physical Activity Frequency: Does not Exercise Seatbelt Use: sometimes Sunscreen Use: Yes Assistive Devices: BiPap Review of Systems Review of Systems: All systems reviewed & are unremarkable except as noted in Subjective Physical Exam Physical Exam: General: No acute distress, appears uncomfortable Skin: Warm and dry Head: Normocephalic, atraumatic Eyes: PERRL, conjunctivae clear, sclera non-icteric ENT: External ear and ear canal without swelling; nose atraumatic; good dentition, tongue normal appearance, pharynx normal Neck: Supple, no LAD Cardio: RRR, click auscultated, no M/G/R, S1 and S2 normal Resp: No respiratory distress, Lungs CTA in all lobes bilaterally, no wheezes, rales, or rhonchi Abdomen: Soft, symmetric, tenderness to palpation epigastric/RUQ; No masses or hepatosplenomegaly; Bowel sounds normoactive MSK: No deformities; pulses palpable and equal; no edema. Neuro: Awake, alert; CN grossly intact Psych: Appropriate mood and affect; responsive to questions and answering appropriately 2 family members present in room at time of visit. Results & Data Results & Data Vital Signs (Past 12 Hours) Vital Signs Temp Pulse Pulse Resp BP BP Pulse Ox 09/23/24 21:03 95 H 31 H 163/83 H 95 09/23/24 20:30 88 32 H 160/70 H 97 09/23/24 19:30 92 H 28 H 156/78 H 95 09/23/24 19:02 92 H 39 H 133/66 96 09/23/24 18:41 88 09/23/24 18:27 37.2 C 90 24 164/67 H 95 O2 Del Method O2 Flow Rate 09/23/24 21:03 09/23/24 20:30 Nasal Cannula 1 09/23/24 19:30 Nasal Cannula 1 09/23/24 19:02 Nasal Cannula 1 09/23/24 18:41 09/23/24 18:27 Room Air Laboratory Results 09/23/24 18:55 WBC 9.46 RBC 3.95 L Hgb 10.8 L Hct 34.3 L MCV 86.8 MCH 27.3 MCHC 31.5 L RDW Std Deviation 46.4 H RDW Coeff of Matthew 14.6 H Plt Count 208 MPV 11.7 Immature Gran % (Auto) 0.3 Neut % (Auto) 94.9 Lymph % (Auto) 2.7 Petroleum % (Auto) 1.8 Eos % (Auto) 0.2 Baso % (Auto) 0.1 Neut # (Auto) 8.97 H Lymph # (Auto) 0.26 L Petroleum # (Auto) 0.17 Eos # (Auto) 0.02 Baso # (Auto) 0.01 Immature Gran # (Auto) 0.03 Polychromasia 1+ Sodium 142 Potassium 3.6 Chloride 102 Carbon Dioxide 35 H Anion Gap 5 BUN 16 Creatinine 1.13 Est Cr Clr Drug Dosing 50.8 eGFR 50.74 BUN/Creatinine Ratio 14.2 Glucose 113 H Calcium 8.8 Total Bilirubin 1.9 H D AST 304 H ALT 117 H Alkaline Phosphatase 330 H D Total Protein 7.3 Albumin 3.8 Globulin 3.5 Albumin/Globulin Ratio 1.1 Lipase 1690 H Diagnostic Findings Chest/Abdomen X-ray 09/23/24 19:30 Exam(s): XR ABDOMEN, 2 views EXAM: XR Abdomen, 2 Views and XR Chest, 1 View CLINICAL HISTORY: Reason for exam: abd pain epigastric. TECHNIQUE: Frontal view of the chest, frontal view of the abdomen/pelvis and upright or decubitus view of the abdomen. COMPARISON: CT abdomen and pelvis 09/19/24 FINDINGS: Lungs: No airspace consolidation. Pleural space: Unremarkable. No pleural effusion or pneumothorax. Heart: Prior sternotomy and CABG. No cardiomegaly. Mediastinum: Unremarkable. Normal mediastinal contour. Intraperitoneal space: No free air. Gastrointestinal tract: Nonobstructive bowel gas pattern with increased colonic stool and gas. Bones/joints: Thoracolumbar spondylosis. No acute osseous findings. Calcification measuring 2.4 cm projecting over the pubic symphysis, corresponding to calcified presumed vaginal cyst as depicted on CT exam. Vasculature: Atherosclerosis of the aorta. IMPRESSION: Nonobstructive bowel gas pattern with increased colonic stool and gas. Correlate for constipation. Electronically signed by: Jonn Fernando M.D. 09/23/24 21:10 PM Gallbladder Ultrasound 09/23/24 19:30 Exam(s): US GALLBLADDER EXAM: US Abdomen Limited, Gallbladder CLINICAL HISTORY: Reason for exam: abd pain epigastric. TECHNIQUE: Real-time ultrasound of the right upper quadrant with image documentation. COMPARISON: 09/19/24 FINDINGS: Liver: Hepatomegaly measuring 18.4 cm. Gallbladder: Cholelithiasis and gallbladder distention, but no wall thickening or Saleem sign to suggest cholecystitis. Common bile duct: No biliary dilatation. CBD measures 5 mm. Pancreas: Stable 6 mm cyst in the pancreas body. Right kidney: Unremarkable. Right kidney measures 11 cm. No hydronephrosis. Other vasculature: Patent, normally directed portal vein. IMPRESSION: 1. Stable 6 mm cyst in the pancreas body. Recommend a contrast- enhanced, pancreas-protocol abdominal CT or MR in 2 years. 2. Cholelithiasis and gallbladder distention, but no wall thickening or Saleem sign to suggest cholecystitis. Electronically signed by: Jonn Fernando M.D. 09/23/24 20:59 PM Medications Administered 2L LR Code Status & VTE Plan Code Status Full VTE Prophylaxis Plan VTE Prophylaxis will be ordered: Yes Supervising Physician Co-Signing Physician Notes I personally saw and examined the patient. I independently reviewed the labs, imaging, problem list, medication list, past medical history and family history. I verified all onofre points and agree with Cass Henderson PA-C with the following exceptions and/or additions: 73 year old presents to the ER after discharge earlier today with pancreatitis. She reports not eating since she got home with return of pain spontaneously. Suspected to have gallstone pancreatitis last admission but no stone O/E HS RRR, no murmurs, Chest CTAB, Abdo - RUQ and epigastric tenderness on exam without guarding or rebound tenderness A/P Suspected gallstone pancreatitis - worsening LFTs concerning for need for ERCP but ER provider discussed with GI and will get MRCP first. NPO, IV fluids. Ok to continue metoprolol and pantoprazole. Consult GI and general surgery [facility] Care Time/CCT Total # of Minutes Spent Total Time Spent with Patient: Total time spent is greater than 50% in coordination of care (as documented) at patient's floor/unit and/or counseling patient: Coding Level of Care Code 40340 INT INP/OBS CARE MIN Diagnoses Acute pancreatitis K85.00 Acute pancreatitis complication: no infection or necrosis Pancreatitis type: idiopathic (1) Acute pancreatitis Acute pancreatitis complication: no infection or necrosis Pancreatitis type: idiopathic Qualified Code(s): K85.00 - Idiopathic acute pancreatitis without necrosis or infection
[2024-09-23] MEDS ORDERED: HYDROmorphone INJ 0.5 MG/0.5 ML SYR IV PRN ×2 (21:57)
[2024-09-23 22:36] LABS: INR 1.2 (0.9-1.1)
--- NOTE | 2024-09-23 22:39 | Surgery Consultation ---
<Statement entered by Tucker Arceo DO - 09/24/24 07:38> This case was discussed with the surgical PA. I agree with the immediate plan. Please hold oral anticoagulation. Date of Consultation September 23, 2024 Assessment & Plan (1) Gallstone pancreatitis: Patient is a 73-year-old female presented to the emergency department with complaints of epigastric and RUQ abdominal pain with associated nausea. The patient was just here and treated for duodenitis/pancreatitis thought to be from her Jardiance. However prior to discharge it was thought the pancreatitis was secondary to gallstones. The patient was discharged home this morning and was instructed to follow up with general surgery as an outpatient. However, this afternoon her symptoms started again shortly after eating lunch. Due to her abdominal pain continuing throughout the afternoon she came back to the emergen cy department and was found to have evidence of gallstone pancreatitis and r/o choledocholithiasis. The patient's lipase is 1690, Tbili 1.9 and elevated AST and ALT. From a surgical standpoint recommend the following: -Treat acute pancreatitis with supportive measure - IV fluids, pain control and continue to trend Lipase -Due to elevation of LFTs, recommend patient undergoing MRCP imaging this evening to further evaluate for choledocholithiasis. If MRCP is positive, will need GI to perform ERCP. Continue to trend LFTs. -Keep patient NPO -Recommend patient undergoing cholecystectomy after acute pancreatitis resolves. For now continue medical management per primary team, surgery will continue to follow History of Present Illness Reason for Consultation: gallstone pancreatitis r/o choledocholithiasis History of Present Illness The patient is a 73-year-old female who presented to the emergency department this evening with complaints of abdominal pain. To note, the patient was just admitted to the hospital on 09/19/2024 for similar complaints and was diagnosed with acute pancreatitis and ABLA. The patient also underwent gallbladder US at that time which did show gallbladder distention and cholelithiasis. The patient was treated and discharged earlier this morning, general surgery wasn't consulted during that admission however the medical service did believe pancreatitis was initially believed to be due to duodenal ulcer causing duodenitis/pancreatitis from her Jardiance. However prior to discharge was thought it was possibly gallbladder induced and she was instructed to follow up as an outpatient for elective cholecystectomy with general surgery. However, the patient states when she got home this afternoon she had lunch and shortly after started with abdominal pain in the epigastric and RUQ region that was persistent along with associated nausea. The patient presented back to the emergency room due to symptoms not improving. Agin the patient underwent gallbladder US, again showing distention and cholelithiasis. Lab work did reveal elevated lipase of 1690 and LFT are now elevated compared to previous admission with Tbili of 1.9, AST 304, ALT 117 and Alk Phos of 330. The patient was seen and evaluated this evening in the emergency department. She appears to be in moderate amount of pain, however is in no acute distress. Patient does have tenderness through her upper epigastric region with +Saleem's sign. Her past abdominal surgical history includes 2 C-sections and tubal ligation. The patient does take Warfarin and her last dose was today. Allergies Allergy/AdvReac Type Severity Reaction Status Date / Time amlodipine Allergy Unknown Unknown Verified 09/23/24 20:09 furosemide [From Lasix] AdvReac Severe Loud ear Verified 09/23/24 20:09 ringing Home Medications Medication Instructions Recorded Confirmed Type fexofenadine 180 mg tablet 180 mg PO QAM PRN Congestion 07/27/18 09/23/24 H istory ipratropium 0.5 mg-albuterol 3 mg 3 ml inhalation Q6H PRN shortness 11/17/19 09/23/24 Rx (2.5 mg base)/3 mL nebulization of breath or wheezing #360 mL soln calcium carbonate (Calcium 600) 325 mg PO BID 03/17/20 09/23/24 History cyanocobalamin (vitamin B-12) 100 100 mcg PO QAM 10/25/21 09/23/24 History mcg tablet (Vitamin B-12) potassium chloride 10 mEq 10 meq PO UD diurectic use 10/25/21 09/23/24 History tablet,extended release aspirin 81 mg tablet,delayed 81 mg PO DAILY 03/25/23 09/23/24 History release empagliflozin 10 mg tablet 10 mg PO DAILY #90 tabs 11/28/23 09/23/24 Rx (Jardiance) ranolazine 500 mg tablet,extended 500 mg PO BID #180 tabs 02/26/24 09/23/24 Rx release,12 hr atorvastatin 80 mg tablet 80 mg PO QAM #90 tabs 07/06/24 09/23/24 Rx acetaminophen 500 mg capsule 1,000 mg PO TID PRN Pain 08/21/24 09/23/24 History amoxicillin 500 mg tablet 2,000 mg PO DIRECTED PRN 1 HR 08/21/24 09/23/24 History PRIOR TO DENTAL APPT. montelukast 10 mg tablet 10 mg PO QPM PRN Congestion 08/21/24 09/23/24 History sennosides 8.6 mg-docusate sodium 1 tab-cap PO DIRECTED PRN 08/21/24 09/23/24 History 50 mg tablet (Senokot-S) Constipation sertraline 100 mg tablet 100 mg PO HS #90 tabs 08/21/24 09/23/24 Rx trimethoprim 100 mg tablet 100 mg PO DAILY #90 tabs 09/02/24 09/23/24 Rx tramadol 50 mg tablet 50 mg PO BID PRN ARTHRITIS pain 09/17/24 09/23/24 Rx #60 tabs bumetanide 2 mg tablet 4 mg PO QAM 09/19/24 09/23/24 History metoprolol tartrate 100 mg tablet 100 mg PO BID 09/19/24 09/23/24 History semaglutide (weight loss) 0.5 0.5 mg subcut WK 09/19/24 09/23/24 History mg/0.5 mL subcutaneous pen injector (Wegovy) warfarin 5 mg tablet 5 mg PO UD 09/19/24 09/23/24 History ferrous sulfate 325 mg (65 mg 325 mg PO DAILY #30 tabs 09/23/24 09/23/24 Rx iron) tablet omeprazole 40 mg capsule,delayed 40 mg PO BID #60 caps 09/23/24 09/23/24 Rx release semaglutide (weight loss) 0.25 0.25 mg subcut WK 09/23/24 09/23/24 History mg/0.5 mL subcutaneous pen injector (Wegovy) Patient History Medical History Aortic valve disease s/p AVR (2016)- Mechanical PVC (premature ventricular contraction) Palpitations controlled since beta armando dose increase History of COVID-19 Dx 12/2021 (home test after vacation) Symptoms at time: cough and cold symptoms > resolved Osteoarthritis History of airway obstruction Airway collapse post-op heart surgery Urinary bladder incontinence Arthritis Diaphragmatic paralysis Transieny hemidiaphragmatic paralysis d/t CABG (2017) Follows with [facility] treated with BiPAP COPD (chronic obstructive pulmonary disease) Per records Chronic diastolic CHF (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 failure) senior care (current) use of anticoagulants Coronary artery disease s/p CABG x1 ([facility]) 2017 Hyperlipidemia HTN (hypertension) Surgical History History of cardiac cath 2017 ([facility]) > referred for CABG x1 + AVR History of cataract surgery R/L History of endoscopy History of colonoscopy History of urologic surgery + mesh History of tubal ligation History of total left knee replacement S/P CABG (coronary artery bypass graft) CABG x1 (2017) History of delivery X2 Family History Family/Other Heart disease per patient-"all" Hypertension per patient "all" Sister Asthma Family history of diabetes mellitus Sister Family history of diabetes mellitus Father Myocardial infarction Aunt Myocardial infarction Uncle Myocardial infarction Grandmother (Maternal) Myocardial infarction Other No family history of adverse response to anesthesia No family history of bleeding disorder Denies family history of Ovarian cancer Prostate cancer Breast cancer Colorectal cancer Social History Smoking Status: Never smoker Second Hand Exposure: No; Do You Dip or Chew Tobacco: No; Hx Alcohol Use: Yes Alcohol type: wine and hard liquor Hx Substance Use: No Preferred Language: Kiswahili Communication Ability: Effective Visual Impairment: No Limitations Servicer Required: No Beliefs That Will Affect Care: None marital status: Current Living Situation: Significant Other Current Living Situation Comment: Marianne Johnson current occupational status: employed current occupation: [employer] Feels Safe at Home: Yes Childhood Exposure to Second-Hand Smoke: No Dental Care, Regularly: No Physical Activity Frequency: Does not Exercise Seatbelt Use: sometimes Sunscreen Use: Yes Assistive Devices: BiPap Review of Systems Constitutional: no fever and no chills Respiratory: no chest congestion and no problem reported Cardiovascular: no chest pain, no palpitations and no syncope Gastrointestinal: + abdominal pain and + nausea; no vomiti ng Genitourinary: no dysuria, no urinary frequency and no hematuria Physical Exam Constitutional: WD/WN, vitals as above Respiratory: normal respiratory effort, lungs clear to auscultation Cardiovascular: Rate/Rhythm: regular rate Gastrointestinal (Abdomen): Abdomen soft, nondistended, +moderate TTP through epigastric and RUQ with +Saleem's sign. Skin: no rashes, warm and dry Psychiatric: A+Ox3, euthymic affect Results & Data Vital Signs (Past 12 Hours) Vital Signs Temp Pulse Pulse Resp BP BP Pulse Ox 09/23/24 22:03 95 H 27 H 156/74 H 94 09/23/24 21:36 90 26 H 158/71 H 09/23/24 21:03 95 H 31 H 163/83 H 95 09/23/24 20:30 88 32 H 160/70 H 97 09/23/24 19:30 92 H 28 H 156/78 H 95 09/23/24 19:02 92 H 39 H 133/66 96 09/23/24 18:41 88 09/23/24 18:27 37.2 C 90 24 164/67 H 95 O2 Del Method O2 Flow Rate 09/23/24 22:03 09/23/24 21:36 09/23/24 21:03 09/23/24 20:30 Nasal Cannula 1 09/23/24 19:30 Nasal Cannula 1 09/23/24 19:02 Nasal Cannula 1 09/23/24 18:41 09/23/24 18:27 Room Air Diagnostic Findings Exam(s): US GALLBLADDER EXAM: US Abdomen Limited, Gallbladder CLINICAL HISTORY: Reason for exam: abd pain epigastric. TECHNIQUE: Real-time ultrasound of the right upper quadrant with image documentation. COMPARISON: 09/19/24 FINDINGS: Liver: Hepatomegaly measuring 18.4 cm. Gallbladder: Cholelithiasis and gallbladder distention, but no wall thickening or Saleem sign to suggest cholecystitis. Common bile duct: No biliary dilatation. CBD measures 5 mm. Pancreas: Stable 6 mm cyst in the pancreas body. Right kidney: Unremarkable. Right kidney measures 11 cm. No hydronephrosis. Other vasculature: Patent, normally directed portal vein. IMPRESSION: 1. Stable 6 mm cyst in the pancreas body. Recommend a contrast- enhanced, pancreas-protocol abdominal CT or MR in 2 years. 2. Cholelithiasis and gallbladder distention, but no wall thickening or Saleem sign to suggest cholecystitis. PG Care Time/CCT Total # of Minutes Spent Total Time Spent with Patient: Total time spent is greater than 50% in coordination of care (as documented) at patient's floor/unit and/or counseling patient: [place] [address] INT INP/OBS CARE 1/40MIN Patient Type New History Problem Focused Exam Problem Focused Medical Decision Making Straight Forward Diagnoses Gallstone pancreatitis K85.10
--- NOTE | 2024-09-23 22:50 | Emergency Department Note ---
History of Present Illness General Chief Complaint: Abdominal Pain Stated Complaint: UPPER ABDOMINAL PAIN, JUST D/C'D Time Seen by Provider: 09/23/24 19:17 History of Present Illness Provider Complaint: abdominal pain Onset (ago): 1 hour(s) Pain Consistency: constant Radiation: epigastric Severity: severe Quality: + stabbing and + sharp Relieved By: + nothing Exacerbated By: + nothing Context: + history of similar episodes (Patient was discharged from the hospital less than 12 hours ago after being admitted for pancreatitis); no foreign travel, no possible food poisoning, no sick contacts, no recent antibiotic use, no recent surgery/procedure or no recent injury Associated Symptoms: + nausea and + vomiting; no diarrhea, no fever, no chills, no constipation, no dysuria, no hematemesis, no hematochezia, no melena, no hematuria, no headache, no chest pain and no breathing difficulty Home Medications Medication Instructions Recorded Confirmed Type fexofenadine 180 mg tablet 180 mg PO QAM PRN Congestion 07/27/18 09/23/24 History ipratropium 0.5 mg-albuterol 3 mg 3 ml inhalation Q6H PRN shortness 11/17/19 09/23/24 Rx (2.5 mg base)/3 mL nebulization of breath or wheezing #360 mL soln calcium carbonate (Calcium 600) 325 mg PO BID 03/17/20 09/23/24 History cyanocobalamin (vitamin B-12) 100 100 mcg PO QAM 10/25/21 09/23/24 History mcg tablet (Vitamin B-12) potassium chloride 10 mEq 10 meq PO UD diurectic use 10/25/21 09/23/24 History tablet,extended release aspirin 81 mg tablet,delayed 81 mg PO DAILY 03/25/23 09/23/24 History release empagliflozin 10 mg tablet 10 mg PO DAILY #90 tabs 11/28/23 09/23/24 Rx (Jardiance) ranolazine 500 mg tablet,extended 500 mg PO BID #180 tabs 02/26/24 09/23/24 Rx release,12 hr atorvastatin 80 mg tablet 80 mg PO QAM #90 tabs 07/06/24 09/23/24 Rx acetaminophen 500 mg capsule 1,000 mg PO TID PRN Pain 08/21/24 09/23/24 History amoxicillin 500 mg tablet 2,000 mg PO DIRECTED PRN 1 HR 08/21/24 09/23/24 History PRIOR TO DENTAL APPT. montelukast 10 mg tablet 10 mg PO QPM PRN Congestion 08/21/24 09/23/24 History sennosides 8.6 mg-docusate sodium 1 tab-cap PO DIRECTED PRN 08/21/24 09/23/24 History 50 mg tablet (Senokot-S) Constipation sertraline 100 mg tablet 100 mg PO HS #90 tabs 08/21/24 09/23/24 Rx trimethoprim 100 mg tablet 100 mg PO DAILY #90 tabs 09/02/24 09/23/24 Rx tramadol 50 mg tablet 50 mg PO BID PRN ARTHRITIS pain 09/17/24 09/23/24 Rx #60 tabs bumetanide 2 mg tablet 4 mg PO QAM 09/19/24 09/23/24 History metoprolol tartrate 100 mg tablet 100 mg PO BID 09/19/24 09/23/24 History semaglutide (weight loss) 0.5 0.5 mg subcut WK 09/19/24 09/23/24 History mg/0.5 mL subcutaneous pen injector (Wegovy) warfarin 5 mg tablet 5 mg PO UD 09/19/24 09/23/24 History ferrous sulfate 325 mg (65 mg 325 mg PO DAILY #30 tabs 09/23/24 09/23/24 Rx iron) tablet omeprazole 40 mg capsule,delayed 40 mg PO BID #60 caps 09/23/24 09/23/24 Rx release semaglutide (weight loss) 0.25 0.25 mg subcut WK 09/23/24 09/23/24 History mg/0.5 mL subcutaneous pen injector (Wegovy) Allergies Allergy/AdvReac Type Severity Reaction Status Date / Time amlodipine Allergy Unknown Unknown Verified 09/23/24 20:09 furosemide [From Lasix] AdvReac Severe Loud ear Verified 09/23/24 20:09 ringing Past Med/Surg History Problem List (Updated 09/23/24 @ 23:07 by Alayna Sesay PA-C) Gallstone pancreatitis Melena Chest pain Acute pancreatitis (Acute) Prediabetes Nocturnal hypoxemia Chronic heart failure with preserved ejection fraction Depression GERD (gastroesophageal reflux disease) Osteopenia History of pulmonary embolism Severe obesity (BMI >= 40) Mild persistent asthma Anticoagulated on Coumadin Status post total right knee replacement S/P AVR (Chronic) Mechanical (2017) Status post left knee replacement Right knee DJD Arthritis (Chronic) Anemia (Chronic) HTN (hypertension) (Acute) Transaminitis Hemidiaphragm paralysis Paralyzed hemidiaphragm Dyspnea on exertion BRIDGETT (obstructive sleep apnea) Bradycardia Frequent PVCs Sinusitis Chronic rhinitis Medical History Aortic valve disease s/p AVR (2017)- Mechanical PVC (premature ventricular contraction) Palpitations controlled since beta armando dose increase History of COVID-19 Dx 12/2021 (home test after vacation) Symptoms at time: cough and cold symptoms > resolved Osteoarthritis History of airway obstruction Airway collapse post-op heart surgery Urinary bladder incontinence Arthritis Diaphragmatic paralysis Transieny hemidiaphragmatic paralysis d/t CABG (2017) Follows with [facility] pulmonary BRIDGETT treated with BiPAP COPD (chronic obstructive pulmonary disease) Per records Chronic diastolic CHF (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 failure) 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 Coronary artery disease s/p CABG x1 ([facility]) 2017 Hyperlipidemia HTN (hypertension) Surgical History History of cardiac cath 2017 ([facility]) > referred for CABG x1 + AVR History of cataract surgery R/L History of endoscopy History of colonoscopy History of urologic surgery + mesh History of tubal ligation History of total left knee replacement S/P CABG (coronary artery bypass graft) CABG x1 (2017) History of delivery X2 Family History Family/Other Heart disease per patient-"all" Hypertension per patient "all" Sister Asthma Family history of diabetes mellitus Sister Family history of diabetes mellitus Father Myocardial infarction Aunt Myocardial infarction Uncle Myocardial infarction Grandmother (Maternal) Myocardial infarction Other No family history of adverse response to anesthesia No family history of bleeding disorder Denies family history of Ovarian cancer Prostate cancer Breast cancer Colorectal cancer Social History Smoking Status: Never smoker Second Hand Exposure: No; Do You Dip or Chew Tobacco: No; Hx Alcohol Use: Yes Alcohol type: wine and hard liquor Hx Substance Use: No Preferred Language: [place] Communication Ability: Effective Visual Impairment: No Limitations Catalogue Librarian Required: No Beliefs That Will Affect Care: None marital status: Current Living Situation: Significant Other Current Living Situation Comment: Marianne Johnson current occupational status: employed current occupation: [employer] Feels Safe at Home: Yes Childhood Exposure to Second-Hand Smoke: No Dental Care, Regularly: No Physical Activity Frequency: Does not Exercise Seatbelt Use: sometimes Sunscreen Use: Yes Assistive Devices: BiPap Physical Exam 2 Vital Signs: Vital Signs - 24 hr 09/23/24 18:27 09/23/24 18:41 09/23/24 19:02 Temperature 37.2 C Temperature Source Oral Pulse Rate 90 88 Pulse Rate [Apical ] 92 H Pulse Rhythm Regular Pulse Rhythm [Apic al] Regular Pulse Strength Normal Pulse Strength [Ap ical] Normal Respiratory Rate 24 39 H Respiratory Effort / Characteristics Non-Labored Non-Labored Sponta neous Respiratory Depth Normal Deep Respiratory Patter n Regular Regular Tachypnea Blood Pressure 164/67 H Blood Pressure [Le ft Arm] 133/66 Blood Pressure Geraldine n 99 Blood Pressure Geraldine n [Left Arm] 88 Blood Pressure Pos ition Lying Pulse Oximetry 95 96 Oxygen Delivery Me thod Room Air Nasal Cannula Oxygen Flow Rate 1 Sepsis Recent Feve r Within 48 Hours No Sepsis New/Unexpla ined Change in Men rose Status N/A Sepsis Action Take n by Nursing No Action Required 09/23/24 19:30 09/23/24 20:30 09/23/24 21:03 Temperature Temperature Source Pulse Rate 92 H 88 95 H Pulse Rate [Apical ] Pulse Rhythm Pulse Rhythm [Apic al] Pulse Strength Pulse Strength [Ap ical] Respiratory Rate 28 H 32 H 31 H Respiratory Effort / Characteristics Respiratory Depth Respiratory Patter n Blood Pressure 156/78 H 160/70 H 163/83 H Blood Pressure [Le ft Arm] Blood Pressure Geraldine n 104 100 109 Blood Pressure Geraldine n [Left Arm] Blood Pressure Pos ition Pulse Oximetry 95 97 95 Oxygen Delivery Me thod Nasal Cannula Nasal Cannula Oxygen Flow Rate 1 1 Sepsis Recent Feve r Within 48 Hours Sepsis New/Unexpla ined Change in Men rose Status Sepsis Action Take n by Nursing 09/23/24 21:36 09/23/24 22:03 09/23/24 22:43 Temperature Temperature Source Pulse Rate 90 95 H 90 Pulse Rate [Apical ] Pulse Rhythm Pulse Rhythm [Apic al] Pulse Strength Pulse Strength [Ap ical] Respiratory Rate 26 H 27 H Respiratory Effort / Characteristics Respiratory Depth Respiratory Patter n Blood Pressure 158/71 H 156/74 H Blood Pressure [Le ft Arm] Blood Pressure Geraldine n 100 101 Blood Pressure Geraldine n [Left Arm] Blood Pressure Pos ition Pulse Oximetry 94 Oxygen Delivery Me thod Oxygen Flow Rate Sepsis Recent Feve r Within 48 Hours Sepsis New/Unexpla ined Change in Men rose Status Sepsis Action Take n by Nursing Physical Exam: Physical Exam HENT: Exam performed. -Head: Normocephalic and atraumatic. EYES: Conjunctivae and EOM are normal.Right eye exhibits no discharge. Left eye exhibits no discharge. No scleral icterus. NECK: Normal range of motion. Neck supple. No JVD present. No tracheal deviation and normal range of motion present. CV: Normal rate, regular rhythm, normal heart sounds and intact distal pulses. There is no peripheral edema. Palpable radial pulses bue. PULM/CHEST: Effort normal and breath sounds normal. No respiratory distress. No stridor. no wheezes.no rales. ABD: The abdomen is soft. Bowel sounds are normal. no distension. No mass is present. There is tenderness to palpation of the epigastric area. There is no rebound, no guarding, no Saleem's sign and no tenderness at McBurney's point. Rovsig negative MUSC/SKEL: Normal range of motion. There is no peripheral edema, tenderness or deformity. NEURO: Motor and sensation grossly intact. Course Course 1916: The patient was evaluated in room A12. A complete history and physical exam was performed Cardiac monitoring: An order was placed for continuous cardiac monitoring. The monitor shows a rate of 90 with sinus rhythm interpreted by me External medical records reviewed. Patient was recently admitted from September 19 to today. Patient was discharged from hospital today at approximately 10:30 AM. 2109: Vital signs stable. Labs show normal white blood cell count hemoglobin 10.8. Total bilirubin 1.9 AST 304 ALT 117 alkaline phosphatase 330. Lipase 1690. Ultrasound viewed by me showed no gallbladder wall thickening. Acute abdominal series showed no air-fluid levels and nonspecific bowel gas pattern. Discussed the case with the hospitalist team Dr. East. He stated to speak with GI and general surgery to see if the patient needed to be transferred for emergent ERCP. Spoke with general surgery who stated speak with GI. Spoke with GI who stated to admit to the medicine team to get an MRCP. Administered Medications Lactated Ringer's (Lr) 2,000 mls @ 999 mls/hr IV .Q2H1M ONE Stop: 09/23/24 23:06 Last Admin: 09/23/24 21:19 Dose: 999 mls/hr Documented By: ROXANE Medical Decision Making Medical Records Attestation: I reviewed the patient's medical records. External medical records reviewed. Patient was recently admitted from September 19 to today. Patient was discharged from hospital today at approximately 10:30 AM. Patient's last lipase on September 21 was 19 and her total bilirubin was 0.6 on September 22 AST 18 ALT 11 on September 22. Laboratory Data Attestation: I reviewed the patient's lab results. 09/23/24 18:55 09/23/24 18:55 Lab Results 09/23/24 Range/Units 18:55 WBC 9.46 (4.8-10.8) K/ul RBC 3.95 L (4.20-5.40) M/uL Hgb 10.8 L (12.0-16.0) g/dl Hct 34.3 L (37.0-47.0) % MCV 86.8 (80.0-100.0) fL MCH 27.3 (25.0-34.0) pg MCHC 31.5 L (32.0-36.0) g/dL RDW Std Deviation 46.4 H (36.4-46.3) fL RDW Coeff of Matthew 14.6 H (11.5-14.5) % Plt Count 208 (130-400) K/uL MPV 11.7 (9.4-12.4) fL Immature Gran % (Auto) 0.3 % Neut % (Auto) 94.9 % Lymph % (Auto) 2.7 % Bureau % (Auto) 1.8 % Eos % (Auto) 0.2 % Baso % (Auto) 0.1 % Neut # (Auto) 8.97 H (1.40-6.50) K/uL Lymph # (Auto) 0.26 L (1.20-3.40) K/uL Bureau # (Auto) 0.17 (0.11-0.59) K/uL Eos # (Auto) 0.02 (0.00-0.50) K/uL Baso # (Auto) 0.01 (0.00-0.20) K/uL Immature Gran # (Auto) 0.03 (0.01-0.20) K/uL Polychromasia 1+ PT 13.0 H (9.0-12.0) Seconds INR 1.2 H (0.9-1.1) Sodium 142 (136-145) mmol/L Potassium 3.6 (3.5-5.1) mmol/L Chloride 102 (98-107) mmol/L Carbon Dioxide 35 H (21-32) mmol/L Anion Gap 5 (3-11) BUN 16 (6-23) mg/dl Creatinine 1.13 (0.6-1.2) mg/dl Est Cr Clr Drug Dosing 50.8 ml/min eGFR 50.74 BUN/Creatinine Ratio 14.2 (10-20) Glucose 113 H (70-99(Fasting)) mg/dl Calcium 8.8 (8.6-10.3) mg/dl Total Bilirubin 1.9 H D (0.2-1.0) mg/dl AST 304 H (13-39) U/L ALT 117 H (7-52) U/L Alkaline Phosphatase 330 H D (34-104) U/L Total Protein 7.3 (6.0-8.3) gm/dl Albumin 3.8 (3.4-5.0) gm/dl Globulin 3.5 (2.5-4.0) gm/dl Albumin/Globulin Ratio 1.1 (0.9-2) Triglycerides 130 (0-150) mg/dl Lipase 1690 H (11-82) U/L Imaging Data Attestation: I personally reviewed and interpreted this imaging study as follows: My Impression: Ultrasound viewed by me showed no gallbladder wall thickening. Acute abdominal series viewed by me showed no air-fluid levels and nonspecific bowel gas pattern. Radiologist's Impression: Chest/Abdomen X-ray 09/23/24 19:30 Exam(s): XR ABDOMEN, 2 views EXAM: XR Abdomen, 2 Views and XR Chest, 1 View CLINICAL HISTORY: Reason for exam: abd pain epigastric. TECHNIQUE: Frontal view of the chest, frontal view of the abdomen/pelvis and upright or decubitus view of the abdomen. COMPARISON: CT abdomen and pelvis 09/19/24 FINDINGS: Lungs: No airspace consolidation. Pleural space: Unremarkable. No pleural effusion or pneumothorax. Heart: Prior sternotomy and CABG. No cardiomegaly. Mediastinum: Unremarkable. Normal mediastinal contour. Intraperitoneal space: No free air. Gastrointestinal tract: Nonobstructive bowel gas pattern with increased colonic stool and gas. Bones/joints: Thoracolumbar spondylosis. No acute osseous findings. Calcification measuring 2.4 cm projecting over the pubic symphysis, corresponding to calcified presumed vaginal cyst as depicted on CT exam. Vasculature: Atherosclerosis of the aorta. IMPRESSION: Nonobstructive bowel gas pattern with increased colonic stool and gas. Correlate for constipation. Electronically signed by: Jonn Fernando M.D. 09/23/24 21:10 PM Gallbladder Ultrasound 09/23/24 19:30 Exam(s): US GALLBLADDER EXAM: US Abdomen Limited, Gallbladder CLINICAL HISTORY: Reason for exam: abd pain epigastric. TECHNIQUE: Real-time ultrasound of the right upper quadrant with image documentation. COMPARISON: 09/19/24 FINDINGS: Liver: Hepatomegaly measuring 18.4 cm. Gallbladder: Cholelithiasis and gallbladder distention, but no wall thickening or Saleem sign to suggest cholecystitis. Common bile duct: No biliary dilatation. CBD measures 5 mm. Pancreas: Stable 6 mm cyst in the pancreas body. Right kidney: Unremarkable. Right kidney measures 11 cm. No hydronephrosis. Other vasculature: Patent, normally directed portal vein. IMPRESSION: 1. Stable 6 mm cyst in the pancreas body. Recommend a contrast- enhanced, pancreas-protocol abdominal CT or MR in 2 years. 2. Cholelithiasis and gallbladder distention, but no wall thickening or Saleem sign to suggest cholecystitis. Electronically signed by: Jonn Fernando M.D. 09/23/24 20:59 PM [facility] Narrative 1917: The patient was evaluated in room A12. A complete history and physical exam was performed Cardiac monitoring: An order was placed for continuous cardiac monitoring. The monitor shows a rate of 90 with sinus rhythm interpreted by me External medical records reviewed. Patient was recently admitted from September 19 to today. Patient was discharged from hospital today at approximately 10:30 AM. 2109: Vital signs stable. Labs show normal white blood cell count hemoglobin 10.8. Total bilirubin 1.9 AST 304 ALT 117 alkaline phosphatase 330. Lipase 1690. Ultrasound viewed by me showed no gallbladder wall thickening. Acute abdominal series viewed by me showed no air-fluid levels and nonspecific bowel gas pattern. Discussed the case with the hospitalist team Dr. East. He stated to speak with GI and general surgery to see if the patient needed to be transferred for emergent ERCP. Spoke with general surgery who stated speak with GI. Spoke with GI who stated to admit to the medicine team to get an MRCP. Impression & Plan Acute pancreatitis Discharge Plan Visit Data Chief Complaint: Abdominal Pain Stated Complaint: UPPER ABDOMINAL PAIN, JUST D/C'D ED Provider: Dimitri Peterson Discharge Problem: Acute pancreatitis Patient Disposition: Admitted As Inpatient Forms Stand Alone Forms: [facility] Tintri Prescriptions Prescriptions: No Action ipratropium-albuterol 0.5 mg-3 mg(2.5 mg base)/3 mL solution for nebulization 3 ml INH Q6H PRN (Reason: shortness of breath or wheezing) Qty: 360 0RF Patient Comments: HAVEN'T USED IN QUITE A WHILE Jardiance 10 mg tablet 10 mg PO DAILY Qty: 90 3RF Hold Instructions: Resume on 10/21/24. until discussed w/ PCP ranolazine 500 mg tablet extended release 12 hr 500 mg PO BID Qty: 180 3RF atorvastatin 80 mg tablet 80 mg PO QAM Qty: 90 3RF trimethoprim 100 mg tablet 100 mg PO DAILY Qty: 90 3RF tramadol 50 mg tablet 50 mg PO BID PRN (Reason: ARTHRITIS pain) Qty: 60 0RF calcium carbonate [Calcium 600] 600 mg calcium (1,500 mg) tablet 325 mg PO BID Rx Instructions: FAMILY UNSURE IF STILL TAKING aspirin 81 mg tablet,delayed release (DR/EC) 81 mg PO DAILY Rx Instructions: FAMILY UNSURE IF STILL TAKING montelukast 10 mg tablet 10 mg PO QPM PRN (Reason: Congestion) acetaminophen 500 mg capsule 1,000 mg PO TID PRN (Reason: Pain) amoxicillin 500 mg tablet 2,000 mg PO DIRECTED PRN (Reason: 1 HR PRIOR TO DENTAL APPT.) sennosides-docusate sodium [Senokot-S] 8.6-50 mg tablet 1 tab-cap PO DIRECTED PRN (Reason: Constipation) Rx Instructions: Take every other day to prevent constipation sertraline 100 mg tablet 100 mg PO HS Qty: 90 3RF fexofenadine 180 mg Tablet 180 mg PO QAM PRN (Reason: Congestion) cyanocobalamin (vitamin B-12) [Vitamin B-12] 100 mcg Tablet 100 mcg PO QAM Rx Instructions: FAMILY UNSURE IF STILL TAKING potassium chloride 10 mEq tablet extended release 10 meq PO UD Rx Instructions: FAMILY UNSURE IF STILL TAKING bumetanide 2 mg tablet 4 mg PO QAM Rx Instructions: May take an additional 2 mg in the afternoon for weight gain, SOB, swelling. metoprolol tartrate 100 mg tablet 100 mg PO BID Wegovy 0.5 mg/0.5 mL pen injector 0.5 mg subcut WK Hold Instructions: Resume on 10/08/24. until discussed w/ PCP warfarin 5 mg tablet 5 mg PO UD Protocol: Dose Management Condition: Saturday Dose/Route: 5 mg Instruction: 1 x 5 mg tablet Condition: Saturday Dose/Route: 5 mg Instruction: 1 x 5 mg tablet Condition: Saturday Dose/Route: 2.5 mg Instruction: 0.5 x 5 mg tablets Condition: Saturday Dose/Route: 5 mg Instruction: 1 x 5 mg tablet Condition: Dose/Route: 2.5 mg Instruction: 0.5 x 5 mg tablets Condition: Saturday Dose/Route: 5 mg Instruction: 1 x 5 mg tablet Condition: Saturday Dose/Route: 5 mg Instruction: 1 x 5 mg tablet Protocol Text: Adjustment Start Date: 08/27/24 INR Value: 2.6 INR Date: 08/27/24 Recheck Date: 09/24/24 Rx Instructions: [facility]ED [facility]. omeprazole 40 mg capsule,delayed release(DR/EC) 40 mg PO BID Qty: 60 0RF Rx Instructions: DID NOT MIDWIFE PRACTITIONER FROM PHARMACY ferrous sulfate 325 mg (65 mg iron) tablet 325 mg PO DAILY Qty: 30 0RF Wegovy 0.25 mg/0.5 mL pen injector 0.25 mg subcut WK Referrals Referrals: Viri Keller MD [Primary Care Provider] -
[2024-09-23 23:59] LABS: Appearance Urine Turbid (Clear); Bacteria Urine Automated 4+ (None Seen); Bilirubin Urine 2+ (Negative); Blood Urine Trace (Negative); Color Urine Dark Yellow; Glucose Urine UA Negative (Negative); Hyaline Casts Urine Present /lpf (None Presnt); Ketones Urine Trace (Negative); Leukocyte Esterase Urine 2+ (Negative); Mucus Urine Present (None Prsent); Nitrite Urine Negative (Negative); Protein Urine 2+ (Negative); RBC Urine Automated 0-2 /hpf (0-2); Specific Gravity Urine 1.018 (1.000-1.030); Urobilinogen Urine Positive (Negative); WBC Urine Automated >50 /hpf (0-5); pH Urine 5.5 (4.5-7.5)
[2024-09-24] MEDS ORDERED: ONDANSETRON INJ 2 MG/ML 2 ML VIAL IV PRN (00:34)
[2024-09-24] MEDS ORDERED: ALBUT/IPRATROP 3MG/0.5MG NEB 3 ML VIAL INH PRN (00:34)
[2024-09-24] MEDS: LACTATED RINGER'S 1,000 ML IV SCH (01:22)
--- NOTE | 2024-09-24 01:50 | Magnetic Resonance Report ---
EXAM: MR MRCP CLINICAL HISTORY: pancreatitis, gallstones TECHNIQUE: Multiplanar/multisequence MRI of the abdomen was performed without the use of gadolinium. COMPARISON: none FINDINGS: The liver is of normal signal intensity without evidence of a hepatic mass. No evidence of intrahepatic biliary ductal dilatation. The gallbladder is unremarkable. The adrenal glands demonstrate no gross mass. IMPRESSION: 1. Unremarkable study: no evidence of cholelithiasis/choledocholithiasis or biliary dilatation Electronically signed by Gilmer Castillo 09-24-2024 01:50 AM
[2024-09-24 07:33] LABS: Mean Corpuscular Hemoglobin 27.6 pg (25.0-34.0); Mean Corpuscular Hgb Conc 32.1 g/dL (32.0-36.0); Mean Corpuscular Volume 85.9 fL (80.0-100.0); Mean Platelet Volume 12.2 fL (9.4-12.4); Platelet Count 163 K/uL (130-400); RDW Coefficient of Variation 14.9 % (11.5-14.5); RDW Standard Deviation 46.7 fL (36.4-46.3); Red Blood Count 3.26 M/uL (4.20-5.40)
[2024-09-24 07:38] LABS: Adenovirus PCR Not Detected (NotDetected); Bordetella parapertussis PCR Not Detected (NotDetected); Bordetella pertussis PCR Not Detected (NotDetected); Chlamydia pneumoniae PCR Not Detected (NotDetected); Coronavirus 229E PCR Not Detected (NotDetected); Coronavirus CoV-2 (COVID19)PCR Not Detected (NotDetected); Coronavirus HKU1 PCR Not Detected (NotDetected); Coronavirus NL63 PCR Not Detected (NotDetected); Coronavirus OC43PCR Not Detected (NotDetected); Human Metapneumovirus PCR Not Detected (NotDetected); Influenza A PCR Not Detected (NotDetected); Influenza B PCR Not Detected (NotDetected); Mycoplasma pneumoniae PCR Not Detected (NotDetected); Parainfluenza Virus 1 PCR Not Detected (NotDetected); Parainfluenza Virus 2 PCR Not Detected (NotDetected); Parainfluenza Virus 3 PCR Not Detected (NotDetected); Parainfluenza Virus 4 PCR Not Detected (NotDetected); Respiratory Syncytial VirusPCR Not Detected (NotDetected); Rhinovirus/Enterovirus PCR Not Detected (NotDetected)
[2024-09-24 07:45] VITALS: RESP 18
[2024-09-24 08:03] LABS: Albumin Level 3.3 gm/dl (3.4-5.0); BUN Creatinine Ratio 16.7 (10-20); Bilirubin Direct 2.3 mg/dl (0-0.2); Bilirubin,Total 3.4 mg/dl (0.2-1.0); Calcium 8.4 mg/dl (8.6-10.3); Creatinine Clr Calc Pharmacy 55.2 ml/min; Potassium 3.6 mmol/L (3.5-5.1); Total Protein 6.4 gm/dl (6.0-8.3)
--- NOTE | 2024-09-24 08:15 | Hospitalist Progress Note ---
Date of Service September 24, 2024 Assessment & Plan (1) Acute pancreatitis: Plan 73-year-old female PMHx chronic HFpEF, history of PE/mechanical AVR, HTN, HLD, GERD, history of CABG, depression, arthritis, and BRIDGETT on BiPAP who presents to ED for abdominal pain starting at 1500 the day of arrival. Patient was recently discharged from hospital following stay from 09/19/2024 until 09/23/2024 for acute pancreatitis with complication of suspected acute blood loss anemia. ED evaluation reveals no leukocytosis, H&H 10.8/34.3; CMP CO2 35, glucose 113, bilirubin 1.9, AST 304, ALT 117, alk phos 330; lipase 1690; chest/abdomen XR with nonobstructive bowel gas pattern and increased colonic stool and gas; gallbladder ultrasound stable 6 mm cyst in pancreas body, cholelithiasis and gallbladder distention no wall thickening or Saleem sign. Provided with 2L LR in ED. #Acute pancreatitis Symptoms of abdominal pain worsening after d/c earlier on day of arrival. Admission on 09/19/2024 CTAP revealing pancreatic fat stranding suggestive of acute or/pancreatitis also with gallstones present, initially thought to be duodenal ulcer causing duodenitis/pancreatitis but also impacted by Jardiance, then considered to be ? gallstones. Lipase was 44 at admission, then repeat 17. LFTs remained WNL throughout hospital course (09/23 with bilirubin 0.6, AST 18. ALT 11, alk phos 77). 09/11/2024- GB US with GB distention and cholelithiasis as well as pancreatic cyst; CTAP peripancreatic fat stranding along head and uncinate process of pancreas suggestive of acute interstitial pancreatitis also with cholelithiasis. GI thought possible pancreatitis from ulcerative disease (but NO EGD for suspected GI bleed done given on Warfarin) in conjunction with being on Jardiance (werosalinday also, but states that she has not started this). Recommended EGD outpatient. Presenting today for worsening abdominal pain now with significant LFT elevations and lipase >1.6k; US gallbladder does reveal cholelithiasis and some gallbladder distention. No evidence of cholecystitis as admission. Suspect gallstone pancreatitis. - CBC w/o leukocytosis; CMP no gross electrolyte abnormalities; Ca 8.8; LFTs bilirubin 1.9, AST 304, ALT 117, alk phos 330; lipase 1690; TG pending, coags pending - CBC, LFTs am - GBUS with stable 6 mm cyst in pancreatic body, cholelithiasis and gallbladder distention without wall thickening or Saleem sign - NPO - LR @ 2L bolus now, then 125cc/hr - Continue to hold Jardiance and DO NOT start wegovy - Hold diuretics, warfarin, and ASA - HOLD po meds while NPO - Zofran prn N/V - Dilaudid prn pain - MRCP pending - Will likely require ERCP but pending MRCP and specialist recs - Gen sx consulted- appreciate input + recs - GI consulted- appreciate input + recs 09/24 Temp 38.2C, 1gm IV x 1. Avoiding NSAIDs w/ concerns anemia/ulcer as above. MRCP w/o acute timbo HOWEVER LFTs much worse. Lipase added to AM labs. Surgery/GI consult appreciated. Coumadin on hold/IVF continued. #Chronic HFpEF- on Bumex, Jardiance, and metoprolol at home; Echo 11/2022 ef 55- 60% - hold diuretics #H/o PE, mechanical AVR- Warfarin, goal INR 2-3; pending PT/INR- HOLD warfarin #Anemia- W/ history of anemia and suspected acute blood loss anemia, melena- no overt bleeding reported at admission; H/H admission 10.8/34.3; H/H am #Psych- Sertraline #GERD- Pantoprazole, has not started since d/c Dispo: Admit, med/tele VTE Prophylaxis- On Warfarin- HELD at admission pending +/- ERCP This document was dictated utilizing [employer]. Please excuse any grammatical errors that may be secondary to use of this software. Admission and Anticipated Discharge Date Admission Date: September 23, 2024 Results & Data Results & Data Vital Signs (Past 12 Hours) Vital Signs Temp Pulse Pulse Pulse Resp BP BP 09/24/24 07:53 09/24/24 07:44 38.2 C H 87 18 118/69 09/24/24 06:03 83 09/24/24 03:30 37.1 C 87 20 119/55 L 09/24/24 00:37 09/24/24 00:37 36.9 C 92 H 22 148/90 H 09/24/24 00:34 36.9 C 92 H 22 148/90 H 09/24/24 00:12 98 H 09/23/24 22:43 90 09/23/24 22:03 95 H 27 H 156/74 H 09/23/24 21:36 90 26 H 158/71 H 09/23/24 21:03 95 H 31 H 163/83 H 09/23/24 20:30 88 32 H 160/70 H Pulse Ox O2 Del Method O2 Flow Rate 09/24/24 07:53 Room Air 09/24/24 07:44 94 Room Air 09/24/24 06:03 09/24/24 03:30 94 Nasal Cannula 2 09/24/24 00:37 Nasal Cannula 1 09/24/24 00:37 94 Nasal Cannula 1 09/24/24 00:34 94 Nasal Cannula 1 09/24/24 00:12 09/23/24 22:43 09/23/24 22:03 94 09/23/24 21:36 09/23/24 21:03 95 09/23/24 20:30 97 Nasal Cannula 1 PG Care Time/CCT Total # of Minutes Spent Total Time Spent with Patient: Total time spent is greater than 50% in coordination of care (as documented) at patient's floor/unit and/or counseling patient: Coding Diagnoses Acute pancreatitis K85.00 Acute pancreatitis complication: no infection or necrosis Pancreatitis type: idiopathic (1) Acute pancreatitis Acute pancreatitis complication: no infection or necrosis Pancreatitis type: idiopathic Qualified Code(s): K85.00 - Idiopathic acute pancreatitis without necrosis or infection
[2024-09-24 08:28] LABS: INR 1.2 (0.9-1.1); Prothrombin Time 13.1 Seconds (9.0-12.0)
--- NOTE | 2024-09-24 08:39 | Surgery Progress Note ---
Date of Service September 24, 2024 Assessment & Plan (1) Gallstone pancreatitis: Plan: Patient readmitted with gallstone pancreatitis, abd pain TTP Temp 100.8 this am without wbc elevation Elevation in LFTs , T bili 3.4 (1.9), D bili 2.3, with elevation in ast and alt. ordered recheck of lipase Likely patient has a CBD stone despite MRCP reading negative for choledocholithiasis, given the elevation in LFT GI consult is placed, if GI is unable to do ERCP, general surgery is recommending transfer to a tertiary care center that has this capability Keep npo, IV fluids pt seen and examined with Dr Arceo, and she agreed with above. Admission and Anticipated Discharge Date Admission Date: September 23, 2024 Supervising Physician Co-Signing Physician Notes Pt most likely with gallstone pancreatitis and now has worsening elevation of LFTs. She was also febrile this am. I have seen and examined this patient this am with the surgical team. She denies any significant abdominal pain this am. She was febrile this am and LFTs have increased with a T bili increased to 3.4. Will need ERCP capability here in order to proceed with surgery. The patient will require transfer if the GI coverage available today does not perform ERCP. Subjective pt with abd pain congestion , runny nose Review of Systems Ear, Nose, Mouth, Throat: + nasal congestion Respiratory: no dyspnea Gastrointestinal: + abdominal pain, + nausea and + vomitin g Physical Exam Constitutional: cooperative; + uncomfortable Respiratory: normal respiratory effort; no respiratory distress Cardiovascular: Rate/Rhythm: regular rate Gastrointestinal (Abdomen): Inspection/Auscultation: abdomen not distended Percussion/Palpation: + abdomen tender and abdomen soft Results & Data Vital Signs (Past 12 Hours) Vital Signs Temp Pulse Pulse Pulse Resp BP BP 09/24/24 07:53 09/24/24 07:44 100.8 F H 87 18 118/69 09/24/24 06:03 83 09/24/24 03:30 98.8 F 87 20 119/55 L 09/24/24 00:37 09/24/24 00:37 98.4 F 92 H 22 148/90 H 09/24/24 00:34 98.4 F 92 H 22 148/90 H 09/24/24 00:12 98 H 09/23/24 22:43 90 09/23/24 22:03 95 H 27 H 156/74 H 09/23/24 21:36 90 26 H 158/71 H 09/23/24 21:03 95 H 31 H 163/83 H Pulse Ox O2 Del Method O2 Flow Rate 09/24/24 07:53 Room Air 09/24/24 07:44 94 Room Air 09/24/24 06:03 09/24/24 03:30 94 Nasal Cannula 2 09/24/24 00:37 Nasal Cannula 1 09/24/24 00:37 94 Nasal Cannula 1 09/24/24 00:34 94 Nasal Cannula 1 09/24/24 00:12 09/23/24 22:43 09/23/24 22:03 94 09/23/24 21:36 09/23/24 21:03 95 Results CBC w Diff Results: RBC 3.26 M/uL (4.20-5.40) L 09/24/24 WBC 9.90 K/ul (4.8-10.8) 09/24/24 Hgb 9.0 g/dl (12.0-16.0) L 09/24/24 Hct 28.0 % (37.0-47.0) L 09/24/24 MCV 85.9 fL (80.0-100.0) 09/24/24 MCH 27.6 pg (25.0-34.0) 09/24/24 MCHC 32.1 g/dL (32.0-36.0) 09/24/24 RDW Standard Deviation 46.7 fL (36.4-46.3) H 09/24/24 RDW Coefficient of Variation 14.9 % (11.5-14.5) H 09/24/24 Plt Count 163 K/uL (130-400) 09/24/24 MPV 12.2 fL (9.4-12.4) 09/24/24 Neutrophils (%) (Auto) 94.9 % 09/23/24 Lymphocytes (%) (Auto) 2.7 % 09/23/24 Monocytes # (Auto) 0.17 K/uL (0.11-0.59) 09/23/24 Eosinophils # (Auto) 0.02 K/uL (0.00-0.50) 09/23/24 Immature Granulocyte % (Auto) 0.3 % 09/23/24 Neutrophils # (Auto) 8.97 K/uL (1.40-6.50) H 09/23/24 Lymphocytes # (Auto) 0.26 K/uL (1.20-3.40) L 09/23/24 Monocytes # (Auto) 0.17 K/uL (0.11-0.59) 09/23/24 Eosinophils # (Auto) 0.02 K/uL (0.00-0.50) 09/23/24 Basophils # (Auto) 0.01 K/uL (0.00-0.20) 09/23/24 Immature Granulocyte # (Auto) 0.03 K/uL (0.01-0.20) 5 Hyposegmented Neutrophils 2+ 07/29/18 Polychromasia 1+ 09/23/24 Results CMP Results: Sodium 141 mmol/L (136-145) 09/24/24 Potassium 3.6 mmol/L (3.5-5.1) 09/24/24 Chloride 104 mmol/L (98-107) 09/24/24 Carbon Dioxide 34 mmol/L (21-32) H 09/24/24 Anion Gap 3 (3-11) 09/24/24 BUN 17 mg/dl (6-23) 09/24/24 Creatinine 1.02 mg/dl (0.6-1.2) 09/24/24 eGFR 57.37 09/24/24 Est GFR ( Amer) 36.7 ml/min 03/05/24 Est GFR (Non-Af Amer) 31.7 ml/min 03/05/24 BUN/Creatinine Ratio 16.7 (10-20) 09/24/24 Glucose 123 mg/dl (70-99(Fasting)) H 09/24/24 Calcium 8.4 mg/dl (8.6-10.3) L 09/24/24 Total Bilirubin 3.4 mg/dl (0.2-1.0) H 09/24/24 Direct Bilirubin 2.3 mg/dl (0-0.2) H 09/24/24 AST 933 U/L (13-39) H 09/24/24 ALT 496 U/L (7-52) H 09/24/24 Alkaline Phosphatase 396 U/L (34-104) H 09/24/24 Total Protein 6.4 gm/dl (6.0-8.3) 09/24/24 Albumin 3.3 gm/dl (3.4-5.0) L 09/24/24 Globulin 3.5 gm/dl (2.5-4.0) 09/23/24 Albumin/Globulin Ratio 1.1 (0.9-2) 09/23/24 Lactate Dehydrogenase 234 U/L (86-244) 05/24/22 PG Care Time/CCT Total # of Minutes Spent Total Time Spent with Patient: Total time spent is greater than 50% in coordination of care (as documented) at patient's floor/unit and/or counseling patient: Coding Level of Care Code 30127 SUB INP/OBS CARE 07/18MIN Diagnoses Gallstone pancreatitis K85.10
[2024-09-24] MEDS: METOPROLOL TARTRATE 100 MG TAB PO SCH (08:56)
[2024-09-24] MEDS: PANTOprazole 40 MG TAB PO SCH (08:56)
[2024-09-24] MEDS ORDERED: Heparin IV Adult Wt-Based Standard *NO* INITIAL Bolus Protocol IV SCH (09:07)
[2024-09-24] MEDS: ACETAMINOPHEN 1,000 MG/100 ML VIAL IV STA (09:46)
[2024-09-24] MEDS: HEPARIN 25000 UNIT/500 ML D5W 25,000 UNITS/500 ML BAG IV SCH (09:47)
[2024-09-24] MEDS: PIPERACILLIN/TAZOBACTAM 4.5 GM/100 ML BAG IV STA (10:03)
[2024-09-24 10:07] VITALS: TEMP 97.7
[2024-09-24 11:36] VITALS: O2SAT 95
[2024-09-24] MEDS: PIPERACILLIN/TAZOBACTAM 4.5 GM/100 ML BAG IV SCH (13:21)
--- NOTE | 2024-09-24 13:24 | Discharge Summary ---
<Statement entered by Angie Walker MD - 09/24/24 18:05> fever and LFTs bilirubin are worsening very suspicious for choledocholithiasis. She did have gallstones on previous imaging. started pip-tazo, started heparin drip for bridging for mechanical valve and plan for transfer to [facility] for ERCP Discharge Summary Date of Service September 24, 2024 Principal Dx & Hospital Course #1 = Principal Diagnosis (1) Gallstone pancreatitis: Plan 73-year-old female PMHx chronic HFpEF, history of PE/mechanical AVR, HTN, HLD, GERD, history of CABG, depression, arthritis, and BRIDGETT on BiPAP who presents to ED for abdominal pain starting at 1500 the day of arrival. Patient was recently discharged from hospital following stay from 09/19/2024 until 09/23/2024 for acute pancreatitis with complication of suspected acute blood loss anemia. #Acute pancreatitis Symptoms of abdominal pain worsening after d/c earlier on day of arrival. Admission on 09/19/2024 CTAP revealing pancreatic fat stranding suggestive of acute or/pancreatitis also with gallstones present. 09/11/2024- GB US with GB distention and cholelithiasis as well as pancreatic cyst; CTAP peripancreatic fat stranding along head and uncinate process of pancreas suggestive of acute interstitial pancreatitis also with cholelithiasis. Presenting back for worsening abdominal pain now with significant LFT elevations and lipase >1.6k; US gallbladder does reveal cholelithiasis and some gallbladder distention. No evidence of cholecystitis as admission. Suspect gallstone pancreatitis. - CBC w/o leukocytosis; CMP w/ rising LFTs including TB 3.4, DB 2.3, AST/ALT 933/496, AP 396. - GBUS with stable 6 mm cyst in pancreatic body, cholelithiasis and gallbladder distention without wall thickening or Saleem sign - NPO - LR @ 2L bolus now, then gentle maintenance @ 80 mL/hr - Continue to hold Jardiance and DO NOT start wegovy - Hold diuretics, warfarin, and ASA - HOLD po meds while NPO - Zofran prn N/V - Dilaudid prn pain - MRCP negative but upon further reviewed, Dr. Solorio reports exam was moderately compromised by motion. - Will likely require ERCP but pending MRCP and specialist recs - Gen sx consulted- recommended transfer to center w/ ERCP capabilities prior to a cholecystectomy. - GI consulted- discussed they do not currently have ERCP capabilities. #Chronic HFpEF- on Bumex, Jardiance, and metoprolol at home; Echo 11/2022 ef 55- 60% - hold diuretics #H/o PE, mechanical AVR- Warfarin, goal INR 2-3; INR 1.2 - HOLD warfarin, was started on heparin drip 09/24 due to presence of mechanical valve. #Anemia- W/ history of anemia and suspected acute blood loss anemia, melena- no overt bleeding reported at admission; H/H admission 10.8/34.3; H/H am #Psych- Sertraline #GERD- Pantoprazole, has not started since d/c Extensively discussed w/ patient and her spouse, patient agreeable to transfer to [facility]. Discussed w/ GI and general surgery 09/24. Admission HPI Per Admitting Provider 73-year-old female PMHx chronic HFpEF, history of PE/mechanical AVR, HTN, HLD, GERD, history of CABG, depression, arthritis, and BRIDGETT on BiPAP who presents to ED for abdominal pain starting at 1500 the day of arrival. Patient was recently discharged from hospital following stay from 09/19/2024 until 09/23/2024 for acute pancreatitis with complication of suspected acute blood loss anemia. Was discharged day of arrival around 1000. States that when she got home after having lunch at the hospital, she started to have worsening abdominal pain at the epigastric region, rating it a 4 out of 10 on the pain scale but persistent and this concerned her. She did not have any fatty meals following d/c from hospital. Pain started around 1500. Associated nausea, coming and going. No vomiting. Denies chest pain, shortness of breath, palpitations, diarrhea/constipation, numbness/tingling, fever/chills, LUTS, or URI symptoms. ED evaluation reveals no leukocytosis, H&H 10.8/34.3; CMP CO2 35, glucose 113, bilirubin 1.9, AST 304, ALT 117, alk phos 330; lipase 1690; chest/abdomen XR with nonobstructive bowel gas pattern and increased colonic stool and gas; gallbladder ultrasound stable 6 mm cyst in pancreas body, cholelithiasis and gallbladder distention no wall thickening or Saleem sign. Provided with 2L LR in ED. Admission on 09/19/2024 CTAP revealing pancreatic fat stranding suggestive of acute or/pancreatitis also with gallstones present, initially thought to be duodenal ulcer causing duodenitis/pancreatitis but also impacted by Jardiance, then considered to be ? gallstones. Lipase was 44 at admission, then repeat 17. LFTs remained WNL throughout hospital course. 09/11/2024- GB US with GB distention and cholelithiasis as well as pancreatic cyst; CTAP peripancreatic fat stranding along head and uncinate process of pancreas suggestive of acute interstitial pancreatitis also with cholelithiasis. GI thought possible pancreatitis from ulcerative disease but (NO EGD for suspected GI bleed done given on Warfarin) in conjunction with being on Jardiance (wegovroslyn also, but states that she has not started this). Recommended EGD outpatient. Please see Dr. East's attestation for adjustments/additions to treatment plan. Discharge Exam Constitutional WD/WN, vitals as above Eyes PERRL, conjunctivae normal, anicteric sclerae Respiratory normal respiratory effort, lungs clear to auscultation Cardiovascular RRR, no murmur, no edema Gastrointestinal (Abdomen) normal bowel sounds, soft, nontender, no hepatosplenomegaly Psychiatric A+Ox3, euthymic affect Discharge Plan Discharge Items Patient Disposition: Transfer Acute Care Hospital Reason For Visit: PANREATITIS Discharge Diagnosis: Gallstone pancreatitis Activity: Resume your previous activity Non-emergency contact: Primary Care Provider Call non-emergency contact if: you have any medication questions and your symptoms worsen Follow-up/Referrals: Viri Keller MD [Primary Care Provider] - Diet: Heart Healthy and Low Fat Addtl Attending Provider Instructions: Ms. Serrano, You were recently hospitalized for abdominal pain. You were found to have gallstone induced pancreatitis. Your liver enzymes are rising and there is a high suspicion that there is a gallstone in your common bile duct. For this reas on, you are being transferred to [facility] for a procedure called an ERCP. Unfortunately we do not have this procedure at our hospital currently. You were treated with IV fluids and antibiotics which will continue upon transfer. It was a pleasure taking care of you during your hospital stays. Best of luck, Dianna Fernando PA-C Pending Studies at Discharge: No Stand-Alone Forms: My [facility] Skilled Items Patient informed of condition?: Yes DNR: No Discharge Level of Care: Other Communicable Disease: No Discharge Prognosis: Stable Lines: None Urinary Catheter: No Medications and DC Order Prescriptions: Continued ipratropium-albuterol 0.5 mg-3 mg(2.5 mg base)/3 mL solution for nebulization 3 ml INH Q6H PRN (Reason: shortness of breath or wheezing) Qty: 360 0RF Patient Comments: HAVEN'T USED IN QUITE A WHILE ranolazine 500 mg tablet extended release 12 hr 500 mg PO BID Qty: 180 3RF atorvastatin 80 mg tablet 80 mg PO QAM Qty: 90 3RF tramadol 50 mg tablet 50 mg PO BID PRN (Reason: ARTHRITIS pain) Qty: 60 0RF calcium carbonate [Calcium 600] 600 mg calcium (1,500 mg) tablet 325 mg PO BID Rx Instructions: FAMILY UNSURE IF STILL TAKING aspirin 81 mg tablet,delayed release (DR/EC) 81 mg PO DAILY Rx Instructions: FAMILY UNSURE IF STILL TAKING montelukast 10 mg tablet 10 mg PO QPM PRN (Reason: Congestion) acetaminophen 500 mg capsule 1,000 mg PO TID PRN (Reason: Pain) sennosides-docusate sodium [Senokot-S] 8.6-50 mg tablet 1 tab-cap PO DIRECTED PRN (Reason: Constipation) Rx Instructions: Take every other day to prevent constipation sertraline 100 mg tablet 100 mg PO HS Qty: 90 3RF fexofenadine 180 mg Tablet 180 mg PO QAM PRN (Reason: Congestion) cyanocobalamin (vitamin B-12) [Vitamin B-12] 100 mcg Tablet 100 mcg PO QAM Rx Instructions: FAMILY UNSURE IF STILL TAKING potassium chloride 10 mEq tablet extended release 10 meq PO UD Rx Instructions: FAMILY UNSURE IF STILL TAKING bumetanide 2 mg tablet 4 mg PO QAM Rx Instructions: May take an additional 2 mg in the afternoon for weight gain, SOB, swelling. metoprolol tartrate 100 mg tablet 100 mg PO BID warfarin 5 mg tablet 5 mg PO UD Protocol: Dose Management Condition: Saturday Dose/Route: 5 mg Instruction: 1 x 5 mg tablet Condition: Saturday Dose/Route: 5 mg Instruction: 1 x 5 mg tablet Condition: Saturday Dose/Route: 2.5 mg Instruction: 0.5 x 5 mg tablets Condition: Saturday Dose/Route: 5 mg Instruction: 1 x 5 mg tablet Condition: Dose/Route: 2.5 mg Instruction: 0.5 x 5 mg tablets Condition: Saturday Dose/Route: 5 mg Instruction: 1 x 5 mg tablet Condition: Saturday Dose/Route: 5 mg Instruction: 1 x 5 mg tablet Protocol Text: Adjustment Start Date: 08/27/24 INR Value: 2.6 INR Date: 08/27/24 Recheck Date: 09/24/24 Rx Instructions: DIRECTED FROM [facility]. omeprazole 40 mg capsule,delayed release(DR/EC) 40 mg PO BID Qty: 60 0RF Rx Instructions: DID NOT CREAM HAULER FROM PHARMACY ferrous sulfate 325 mg (65 mg iron) tablet 325 mg PO DAILY Qty: 30 0RF Held Jardiance 10 mg tablet 10 mg PO DAILY Qty: 90 3RF Hold Instructions: Resume on 10/21/24. until discussed w/ PCP trimethoprim 100 mg tablet 100 mg PO DAILY Qty: 90 3RF Hold Instructions: Resume on 10/15/24. amoxicillin 500 mg tablet 2,000 mg PO DIRECTED PRN (Reason: 1 HR PRIOR TO DENTAL APPT.) Hold Instructions: Resume on 10/15/24. Wegovy 0.5 mg/0.5 mL pen injector 0.5 mg subcut WK Hold Instructions: Resume on 10/08/24. until discussed w/ PCP Wegovy 0.25 mg/0.5 mL pen injector 0.25 mg subcut WK Hold Instructions: Resume on 10/15/24. Discharge Orders: Discharge Order (Routine); Ordered 09/24/24 Ordered By: Dianna Fernando Admission Data Admit Date/Time: 09/23/24 21:20 Attending Provider: Angie Walker Admit Provider: Cecilio East Primary Care Provider: Viri Keller Other Providers: Cecilio East; Dee Johnson Jr; Tucker Arceo Other Interventions: Discharge Summary Assessment (RN) Last Done: 09/24/24 15:41 Hospital Stay Data Consultations 09/23/24 20:30 ED Decision to Admit Stat 09/24/24 00:34 Consult Gastroenterology Routine Consult General Surgery Routine Diagnostic Imagining Performed 09/23/24 19:30 US gallbladder Stat 09/23/24 21:36 MRI MRCP [MR MRCP] Stat Pending Results Patient Have Any Pending Studies at Discharge: No Discharge Instructions Given to Patient (Per Discharging Provider) Ms. Serrano, Manny were recently hospitalized for abdominal pain. You were found to have gallstone induced pancreatitis. Your liver enzymes are rising and there is a high suspicion that there is a gallstone in your common bile duct. For this reason, you are being transferred to [facility] for a procedure called an ERCP. Unfortunately we do not have this procedure at our hospital currently. You were treated with IV fluids and antibiotics which will continue upon transfer. It was a pleasure taking care of you during your hospital stays. Best of Dianna celaya PA-C Total Time Total Time Spent Total Time Spent (In Minutes): 70 Total Time Includes: Examination of the Patient, Discharge Planning, Medication Reconciliation and Communication With Other Providers Coding Level of Care Code 93619 INP/OBS DISCH >30 MIN Diagnoses Gallstone pancreatitis K85.10
[2024-09-24] MEDS: LORATADINE 10 MG TAB PO ONE (14:38)
[2024-09-24 15:43] VITALS: BP 118/69; PULSE 87
== END 2024-09-24 15:42 | disposition short-term general hospital (02) | DRG 439 ==
LOC: ED 18:20 → 2W 21:20 → SUATTDRO 21:20 → 2W 23:11
DX: F32.A Depression, unspecified; Z79.01 Long term (current) use of anticoagulants; Z79.82 Long term (current) use of aspirin; I11.0 Hypertensive heart disease with heart failure; Z88.8 Allergy status to other drugs, medicaments and biological substances; K85.10 Biliary acute pancreatitis without necrosis or infection; D64.9 Anemia, unspecified; K21.9 Gastro-esophageal reflux disease without esophagitis; E78.5 Hyperlipidemia, unspecified; Z95.5 Presence of coronary angioplasty implant and graft; I50.32 Chronic diastolic (congestive) heart failure; Z79.899 Other long term (current) drug therapy; Z86.711 Personal history of pulmonary embolism; Z95.4 Presence of other heart-valve replacement; G47.33 Obstructive sleep apnea (adult) (pediatric)

== ENCOUNTER 2024-09-29 18:26 | Inpatient (IN) ==
[2024-09-29 19:09] LABS: Hematocrit (blood only) 25.7 % (37.0-47.0); Mean Corpuscular Hemoglobin 26.8 pg (25.0-34.0); Mean Corpuscular Hgb Conc 31.1 g/dL (32.0-36.0); Mean Corpuscular Volume 86.2 fL (80.0-100.0); Mean Platelet Volume 12.4 fL (9.4-12.4); Platelet Count 255 K/uL (130-400); RDW Coefficient of Variation 16.1 % (11.5-14.5); RDW Standard Deviation 50.3 fL (36.4-46.3); Red Blood Count 2.98 M/uL (4.20-5.40); White Blood Count 13.73 K/ul (4.8-10.8)
--- NOTE | 2024-09-29 19:21 | XRay Report ---
EXAM: X-ray chest one-view not portable CLINICAL HISTORY: Dyspnea, heart failure, nauseated, diarrhea, gallstones removed last week PRIORS: September 23, 2024 acute abdominal series TECHNIQUE: Frontal view chest FINDINGS: Median sternotomy wires noted with prosthetic cardiac valve, unchanged. Appearance of the chest is improved. The chest is well-expanded. No airspace consolidation, effusion or congestive changes. Cardiac silhouette is mildly enlarged, unchanged. No pneumothorax. Trachea is patent. No subdiaphragmatic gas. Moderate atherosclerotic disease of the aortic knob. Osseous structures demonstrate no acute abnormality. No radiopaque foreign body. IMPRESSION: No plain film evidence of an acute cardiopulmonary process. Electronically signed by Cass Sandoval 09-29-2024 7:20 PM
[2024-09-29 19:30] LABS: Alanine Aminotransferase 109 U/L (7-52); Albumin Globulin Ratio 1.1 (0.9-2); Albumin Level 3.5 gm/dl (3.4-5.0); Alkaline Phosphatase 294 U/L (34-104); Anion Gap 6 (3-11); BUN Creatinine Ratio 25.2 (10-20); Bilirubin,Total 1.1 mg/dl (0.2-1.0); Blood Urea Nitrogen 29 mg/dl (6-23); Calcium 8.6 mg/dl (8.6-10.3); Carbon Dioxide 30 mmol/L (21-32); Chloride 100 mmol/L (98-107); Globulin 3.2 gm/dl (2.5-4.0); Glucose 120 mg/dl (70-99(Fasting)); Sodium 136 mmol/L (136-145); Total Protein 6.7 gm/dl (6.0-8.3); Troponin I High Sensitivity 9.7 pg/ml (0-14)
[2024-09-29 19:31] LABS: INR 1.8 (0.9-1.1); Partial Thromboplastin Ratio 1.3; Partial Thromboplastin Time 34 Seconds (21-31); Prothrombin Time 18.6 Seconds (9.0-12.0)
[2024-09-29 19:35] LABS: Basophils # (auto) 0.04 K/uL (0.00-0.20); Basophils % (auto) 0.3 %; Eosinophils # (auto) 0.07 K/uL (0.00-0.50); Eosinophils % (auto) 0.5 %; Immature Granulocytes # (auto) 0.15 K/uL (0.01-0.20); Immature Granulocytes % (auto) 1.1 %; Lymphocytes # (auto) 1.58 K/uL (1.20-3.40); Lymphocytes % (auto) 11.5 %; Monocytes # (auto) 0.61 K/uL (0.11-0.59); Monocytes % (auto) 4.4 %; Neutrophils # (auto) 11.28 K/uL (1.40-6.50); Neutrophils % (auto) 82.2 %; Stomatocytes 1+
[2024-09-29 20:21] LABS: Potassium 3.1 mmol/L (3.5-5.1)
[2024-09-29] MEDS ORDERED: SODIUM CHLORIDE 0.9% 100 ML IV PRN (21:41)
--- NOTE | 2024-09-29 22:17 | History & Physical Report ---
Date of Service September 29, 2024 Assessment & Plan (1) GI bleed: (2) Anemia: (3) Transaminitis: (4) HTN (hypertension): (5) Gallstone pancreatitis: (6) Chronic heart failure with preserved ejection fraction: Plan Pt is a 73 yo female with a past medical history of recent gallstone pancreatitis requiring transfer to [facility], recent admission with notable melena, HFpEF, asthma, BRIDGETT, HTN, hx PE and mechanical AVR on warfarin chronically who presents to the hospital on 09/29 for weakness and GI bleed. #Acute GI bleed #Acute blood loss anemia - pt presenting with hematochezia and melena episodes yesterday and ongoing anemia - ED gave 1 unit PRBCs - protonix IV 40 mg BID - GI consult pending - hold anticoagulation until GI consult - NPO until GI consult for possible scope - had been on augmentin outpatient; will do unasyn inpatient #Transaminitis #Gallstone pancreatitis - in the setting of recent gallstone pancreatitis with transfer out for ERCP without cholecystectomy - on admission enzymes elevated TBili 1.1, AST 85, ALT 109, alk phosph 294 but all improved at least somewhat from 09/24 labs prior to transfer for ERCP - continue to trend LFTs #HTN - continue home metoprolol tartrate #HFpEF - hold home bumex am dose as she has been holding this and looks clinically euvolemic (home dose is 2mg + extra 2mg for SOB/weight gain) - continue home ranolazine once able to po #Sinusitis, chronic - continue home inhalers #Arthritis - on tramadol at home for arthritis pain prn, per PDMP filled about every other month - no pain on admission but if pain starts can consider morphine as she is NPO or continuing home tramadol once able to po Diet: NPO pending GI consult VTE prophylaxis: defer right now in the setting of GI bleed History of Present Illness Chief Complaint: Weakness Primary Care Provider: Viri Keller MD Pt is a 73 yo female with a past medical history of recent gallstone pancreatitis requiring transfer to [facility], recent admission with notable melena, HFpEF, asthma, BRIDGETT, HTN, hx PE and mechanical AVR on warfarin chronically who presents to the hospital on 09/29 for weakness and GI bleed. Pt states that she came in to the hospital today because she saw her PCP who did blood work and told her "all her blood counts are off and she needs to go back to the hospital." She states since leaving the hospital over the weekend she has felt very fatigued and run down. She states that additionally, yesterday she had 3-4 bowel movements with the first containing bright red blood and the ones after being black tar-like stools. She states she has baseline chronic chest pain and SOB given hx of heart failure per pt and these symptoms have not been worse. No nausea or vomiting. No abdominal pain. Primary complaint this visit is fatigue and continued signs of GI bleed. Allergies Allergy/AdvReac Type Severity Reaction Status Date / Time amlodipine Allergy Unknown Unknown Verified 09/29/24 20:22 furosemide [From Lasix] AdvReac Severe Loud ear Verified 09/29/24 20:22 ringing Home Medications Medication Instructions Recorded Confirmed Type fexofenadine 180 mg tablet 180 mg PO QAM PRN Congestion 07/27/18 09/29/24 History ipratropium 0.5 mg-albuterol 3 mg 3 ml inhalation Q6H PRN shortness 11/17/19 09/29/24 Rx (2.5 mg base)/3 mL nebulization of breath or wheezing #360 mL soln calcium carbonate (Calcium 600) 600 mg PO BID 03/17/20 09/29/24 History cyanocobalamin (vitamin B-12) 100 100 mcg PO QAM 10/25/21 09/29/24 History mcg tablet (Vitamin B-12) potassium chloride 10 mEq 10 meq PO DAILY diurectic use 10/25/21 09/29/24 History tablet,extended release aspirin 81 mg tablet,delayed 81 mg PO DAILY 03/25/23 09/29/24 History release ranolazine 500 mg tablet,extended 500 mg PO BID #180 tabs 02/26/24 09/29/24 Rx release,12 hr atorvastatin 80 mg tablet 80 mg PO QAM #90 tabs 07/06/24 09/29/24 Rx acetaminophen 500 mg capsule 1,000 mg PO TID PRN Pain 08/21/24 09/29/24 History amoxicillin 500 mg tablet 2,000 mg PO DIRECTED PRN 1 HR 08/21/24 09/29/24 History PRIOR TO DENTAL APPT. montelukast 10 mg tablet 10 mg PO QPM PRN Congestion 08/21/24 09/29/24 History sertraline 100 mg tablet 100 mg PO HS #90 tabs 08/21/24 09/29/24 Rx tramadol 50 mg tablet 50 mg PO BID PRN ARTHRITIS pain 09/17/24 09/29/24 Rx #60 tabs bumetanide 2 mg tablet 4 mg PO QAM 09/19/24 09/29/24 History warfarin 5 mg tablet 5 mg PO QPM 09/19/24 09/29/24 History omeprazole 40 mg capsule,delayed 40 mg PO BID #60 caps 09/23/24 09/29/24 Rx release metoprolol tartrate 100 mg tablet 100 mg PO BID #180 tabs 09/28/24 09/29/24 Rx amoxicillin 875 mg-potassium 1 tab PO BID 09/29/24 09/29/24 History clavulanate 125 mg tablet cholecalciferol (vitamin D3) 50 50 mcg PO DAILY 09/29/24 09/29/24 History mcg (2,000 unit) capsule (Vitamin D3) docusate sodium 100 mg capsule 100 mg PO BID 09/29/24 09/29/24 History enoxaparin 120 mg/0.8 mL 110 mg subcut BID 09/29/24 09/29/24 History subcutaneous syringe ferrous sulfate 325 mg (65 mg 325 mg PO QDL 09/29/24 09/29/24 History iron) tablet Past Med/Surg History Problem List (Updated 09/30/24 @ 01:56 by Beatriz Stehpens MD) Weakness (Acute) GI bleed Gallstone pancreatitis Melena (Acute) Chest pain Acute pancreatitis (Acute) Prediabetes Nocturnal hypoxemia Chronic heart failure with preserved ejection fraction Depression GERD (gastroesophageal reflux disease) Osteopenia History of pulmonary embolism Severe obesity (BMI >= 40) Mild persistent asthma Anticoagulated on Coumadin Status post total right knee replacement S/P AVR (Chronic) Mechanical (2017) Status post left knee replacement Right knee DJD Arthritis (Chronic) Anemia (Chronic) HTN (hypertension) (Acute) Transaminitis Hemidiaphragm paralysis Paralyzed hemidiaphragm Dyspnea on exertion BRIDGETT (obstructive sleep apnea) Bradycardia Frequent PVCs Sinusitis Chronic rhinitis Medical History Aortic valve disease PVC (premature ventricular contraction) History of COVID-19 Osteoarthritis History of airway obstruction Urinary bladder incontinence Arthritis Diaphragmatic paralysis BRIDGETT treated with BiPAP COPD (chronic obstructive pulmonary disease) Chronic diastolic CHF (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 failure) 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 Coronary artery disease Hyperlipidemia HTN (hypertension) Surgical History History of cardiac cath History of cataract surgery History of endoscopy History of colonoscopy History of urologic surgery History of tubal ligation History of total left knee replacement S/P CABG (coronary artery bypass graft) History of delivery Family History Family/Other Heart disease Hypertension Sister Asthma Family history of diabetes mellitus Sister Family history of diabetes mellitus Father Myocardial infarction Aunt Myocardial infarction Uncle Myocardial infarction Grandmother (Maternal) Myocardial infarction Other No family history of adverse response to anesthesia No family history of bleeding disorder Denies family history of Ovarian cancer Prostate cancer Breast cancer Colorectal cancer Social History Smoking Status: Never smoker Second Hand Exposure: No; Do You Dip or Chew Tobacco: No; Hx Alcohol Use: Yes Alcohol type: wine and hard liquor Hx Substance Use: No Preferred Language: Liberian Communication Ability: Effective Visual Impairment: No Limitations Erp Engineer Required: No Beliefs That Will Affect Care: None marital status: Current Living Situation: Spouse Current Living Situation Comment: home with current occupational status: employed current occupation: [employer] Feels Safe at Home: Yes Childhood Exposure to Second-Hand Smoke: No Dental Care, Regularly: No Physical Activity Frequency: Does not Exercise Seatbelt Use: sometimes Sunscreen Use: Yes Assistive Devices: BiPap and Oxygen - Continuous Review of Systems Review of Systems: Per HPI. Physical Exam Physical Exam: General: Alert and oriented but very fatigued appearing and pale HEENT: Normocephalic, moist oral mucosa, Cardio: Regular rate and rhythm, Resp: Lungs clear to auscultation b/l, no wheezes or rhonchi, GI: Soft and nondistended, bowel sounds active, RUQ tenderness to palpation noted Skin: Warm, dry, no LE edema noted Results & Data Results & Data Vital Signs (Past 12 Hours) Vital Signs Temp Pulse Pulse Resp BP BP Pulse Ox 09/29/24 20:28 91 H 18 159/75 H 97 09/29/24 20:01 92 H 09/29/24 18:42 97 09/29/24 18:42 09/29/24 18:35 36.9 C 96 H 18 138/70 97 O2 Del Method 09/29/24 20:28 Room Air 09/29/24 20:01 09/29/24 18:42 Room Air 09/29/24 18:42 Room Air 09/29/24 18:35 Room Air Supervising Physician Co-Signing Physician Notes I personally saw and examined the patient. I independently reviewed the labs, EKG, imaging, problem list, medication list, past medical history and family history. I verified all onofre points and agree with Dr. Evelyne Christensen, DO with the following exceptions and/or additions: 73-year-old female presents to the ER with melena. Recent GI bleed with supratherapeutic INR. Also recently diagnosed with choledocholithiasis and acute cholangitis s/p ERCP currently on Augmentin. No recurrence in abdominal pain. She is recently started on Lovenox for cross coverage due to mechanical heart valve. No GI bleed seen on recent ERCP. O/E HS RRR, click, no murmurs, Chest CTAB, Abdo mild epigastric pain without guarding or rebound tenderness A/P Acute GI bleed / melena / acute blood loss anemia - Transfuse 1 unit, serial H&H, Transfuse < 8 due to ongoing bleeding, No need to reverse anticoagulation at this time but hold warfarin and Lovenox. Suspect small bowel bleed and may just need to be more careful increasing her warfarin back to therapeutic levels Acute cholangitis - prior diagnosis, switch Augmentin to Unasyn as NPO to complete course of further 3 days Resident Activity Tracking Resident Involvement: Resident Care Provided Care Provided: Adult Hospital Medicine (4) HTN (hypertension) Hypertension type: unspecified Qualified Code(s): I10 - Essential (primary) hypertension
[2024-09-29] MEDS: PANTOprazole 40 MG/10 ML SYR IV SCH (23:08)
[2024-09-30] MEDS ORDERED: POLYETHYLENE (MIRALAX) 17 GM PACK PO PRN (00:35)
[2024-09-30] MEDS ORDERED: ONDANSETRON INJ 2 MG/ML 2 ML VIAL IV PRN (00:35)
[2024-09-30] MEDS ORDERED: ALBUT/IPRATROP 3MG/0.5MG NEB 3 ML VIAL INH PRN (00:35)
[2024-09-30] MEDS: POTASSIUM CHLORIDE / WTR 10 MEQ/100 ML PLCT IV SCH ×2 (00:53→08:12)
[2024-09-30] MEDS: AMPICILLIN/SULBACTAM SOD 3,000 MG/100 ML BAG IV SCH (01:00)
--- NOTE | 2024-09-30 01:49 | Emergency Department Note ---
Impression & Plan Melena, Anemia, Weakness ED Provider Note NAME: DONNA MENSAH AGE: 73 SEX: F : 1950 ARRIVES VIA: Walk-In INFORMANT: Patient, ED PROVIDER(S): Beatriz Stephens MD CHIEF COMPLAINT: Anemia, melena HPI: This is a 73-year-old female presenting for anemia and melena. Patient states she was recently discharged from an outside hospital where she had a tooth or gallbladder and stents placed for this. She was discharged and told to take warfarin as well as Lovenox. She notes that over the past 2 days she has had bloody stool progressive to dark tarry stool. She notes weakness. She went to her primary care doctor today who did blood work antibiotic come to the ER. She reports no current pain. She does report fatigue and this black tarry diarrhea ROS: See above HPI for pertinent positives & negatives. A total of 10 systems reviewed and were otherwise negative. PAST MEDICAL HISTORY: See Below PAST SURGICAL HISTORY: See Below FAMILY HISTORY: See Below SOCIAL HISTORY: See Below HOME MEDICATIONS: See Below ALLERGIES: See Below VITALS: See Below PHYSICAL EXAMINATION: General: Fatigued but arousable Head: Normocephalic and atraumatic Eyes: Normal inspection, extraocular muscles intact Ear, nose, throat: Normal external exam Neck: Normal range of motion Respiratory: lungs clear to auscultation bilaterally Cardiovascular: Regular rate/rhythm, no murmur GI: soft, nontender, no guarding or rebound Extremities: nontender, moves all extremities Neuro: The patient awake and alert, appropriately conversive, no focal deficits, symmetric faces Skin: Warm, dry, and intact MEDICAL DECISION MAKING: This is 73-year-old female presenting for anemia/melena. Patient notes that she has had initial bloody stool which is progressed to dark tarry stool. Her hemoglobin is now downtrending to 8. She recently had ERCP in outside hospital stent placement. -She bloodwork reviewed showing a leukocytosis of 13.73. Hemoglobin is 8. Otherwise INR 1.8. Potassium 3.1. Transaminitis is downtrending from previous values. -Will admit the patient to the hospital for new onset anemia and melena currently on warfarin/Lovenox. -With patient's dropping blood levels, active GI bleed, will give blood at this time patient consented for blood transfusion. -Care discussed with Dr. East for admission Differential diagnosis: Upper versus lower GI bleed Independent History obtained from: Family Diagnostics interpreted by me: ECG: ECG independently interpreted by me with normal sinus rhythm, rate of 97, normal axis, first-degree AV block, right bundle branch block, prolonged QTc, no ST segment elevations consistent with STEMI criteria Cardiac Monitoring: An order was placed for continuous cardiac monitoring. The monitor shows a rate of 91 with sinus rhythm. Critical Care Note: I have personally spent 35 minutes of critical care time in the direct management of this patient. This includes bedside care, interpretation of diagnostic studies, and testing, discussion with consultants, patient, and family members, and other required patient management activities. This 35 minutes is in excess of all separately billable procedures. Past Med/Surg History Problem List (Updated 09/30/24 @ 01:56 by Beatriz Stephens MD) Weakness (Acute) GI bleed Gallstone pancreatitis Melena (Acute) Chest pain Acute pancreatitis (Acute) Prediabetes Nocturnal hypoxemia Chronic heart failure with preserved ejection fraction Depression GERD (gastroesophageal reflux disease) Osteopenia History of pulmonary embolism Severe obesity (BMI >= 40) Mild persistent asthma Anticoagulated on Coumadin Status post total right knee replacement S/P AVR (Chronic) Mechanical (2017) Status post left knee replacement Right knee DJD Arthritis (Chronic) Anemia (Chronic) HTN (hypertension) (Acute) Transaminitis Hemidiaphragm paralysis Paralyzed hemidiaphragm Dyspnea on exertion BRIDGETT (obstructive sleep apnea) Bradycardia Frequent PVCs Sinusitis Chronic rhinitis Medical History Aortic valve disease PVC (premature ventricular contraction) History of COVID-19 Osteoarthritis History of airway obstruction Urinary bladder incontinence Arthritis Diaphragmatic paralysis BRIDGETT treated with BiPAP COPD (chronic obstructive pulmonary disease) Chronic diastolic CHF (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 failure) jail (current) use of anticoagulants Coronary artery disease Hyperlipidemia HTN (hypertension) Surgical History History of cardiac cath History of cataract surgery History of endoscopy History of colonoscopy History of urologic surgery History of tubal ligation History of total left knee replacement S/P CABG (coronary artery bypass graft) History of delivery Family History Family/Other Heart disease Hypertension Sister Asthma Family history of diabetes mellitus Sister Family history of diabetes mellitus Father Myocardial infarction Aunt Myocardial infarction Uncle Myocardial infarction Grandmother (Maternal) Myocardial infarction Other No family history of adverse response to anesthesia No family history of bleeding disorder Denies family history of Ovarian cancer Prostate cancer Breast cancer Colorectal cancer Social History Smoking Status: Never smoker Second Hand Exposure: No; Do You Dip or Chew Tobacco: No; Hx Alcohol Use: Yes Alcohol type: wine and hard liquor Hx Substance Use: No Preferred Language: Croatian Communication Ability: Effective Visual Impairment: No Limitations Plate Stacker Hand Required: No Beliefs That Will Affect Care: Spiritual marital status: Current Living Situation: Spouse Current Living Situation Comment: home with current occupational status: employed current occupation: [employer] Feels Safe at Home: Yes Childhood Exposure to Second-Hand Smoke: No Dental Care, Regularly: No Physical Activity Frequency: Does not Exercise Seatbelt Use: sometimes Sunscreen Use: Yes Assistive Devices: BiPap and Oxygen - Continuous Allergies Allergies Allergy/AdvReac Type Severity Reaction Status Date / Time amlodipine Allergy Unknown Unknown Verified 09/29/24 20:22 furosemide [From Lasix] AdvReac Severe Loud ear Verified 09/29/24 20:22 ringing Home Meds Home Medications Medication Instructions Recorded Confirmed fexofenadine 180 mg tablet 180 mg PO QAM PRN Congestion 07/27/18 09/29/24 calcium carbonate (Calcium 600) 600 mg PO BID 03/17/20 09/29/24 cyanocobalamin (vitamin B-12) 100 100 mcg PO QAM 10/25/21 09/29/24 mcg tablet (Vitamin B-12) potassium chloride 10 mEq 10 meq PO DAILY diurectic use 10/25/21 09/29/24 tablet,extended release aspirin 81 mg tablet,delayed 81 mg PO DAILY 03/25/23 09/29/24 release acetaminophen 500 mg capsule 1,000 mg PO TID PRN Pain 08/21/24 09/29/24 amoxicillin 500 mg tablet 2,000 mg PO DIRECTED PRN 1 HR 08/21/24 09/29/24 PRIOR TO DENTAL APPT. montelukast 10 mg tablet 10 mg PO QPM PRN Congestion 08/21/24 09/29/24 bumetanide 2 mg tablet 4 mg PO QAM 09/19/24 09/29/24 warfarin 5 mg tablet 5 mg PO QPM 09/19/24 09/29/24 amoxicillin 875 mg-potassium 1 tab PO BID 09/29/24 09/29/24 clavulanate 125 mg tablet cholecalciferol (vitamin D3) 50 50 mcg PO DAILY 09/29/24 09/29/24 mcg (2,000 unit) capsule (Vitamin D3) docusate sodium 100 mg capsule 100 mg PO BID 09/29/24 09/29/24 enoxaparin 120 mg/0.8 mL 110 mg subcut BID 09/29/24 09/29/24 subcutaneous syringe ferrous sulfate 325 mg (65 mg 325 mg PO QDL 09/29/24 09/29/24 iron) tablet Previous Rx's Medication Instructions Recorded ipratropium 0.5 mg-albuterol 3 mg 3 ml inhalation Q6H PRN shortness 11/17/19 (2.5 mg base)/3 mL nebulization of breath or wheezing #360 mL soln ranolazine 500 mg tablet,extended 500 mg PO BID #180 tabs 02/26/24 release,12 hr atorvastatin 80 mg tablet 80 mg PO QAM #90 tabs 07/06/24 sertraline 100 mg tablet 100 mg PO HS #90 tabs 08/21/24 tramadol 50 mg tablet 50 mg PO BID PRN ARTHRITIS pain 09/17/24 #60 tabs omeprazole 40 mg capsule,delayed 40 mg PO BID #60 caps 09/23/24 release metoprolol tartrate 100 mg tablet 100 mg PO BID #180 tabs 09/28/24 Results & Data (ED) Vital Signs Vital Signs - 24 hr 09/29/24 18:35 09/29/24 18:42 09/29/24 18:42 Temperature 36.9 C Temperature Source Temporal Artery Scan Pulse Rate 96 H Pulse Rate [Right Brachial] Pulse Rate from SpO2 Sensor Pulse Rhythm Regular Pulse Rhythm [Right Brachial] Pulse Strength Normal Pulse Strength [Right Brachial] Respiratory Rate 18 Respiratory Effort / Characteristics Non-Labored Spontaneous Respiratory Depth Normal Respiratory Pattern Blood Pressure 138/70 Blood Pressure [Right Arm] Blood Pressure Mean 92 Blood Pressure Mean [Right Arm] Blood Pressure Position Sitting Blood Pressure Position [Right Arm] Pulse Oximetry 97 97 Oxygen Delivery Method Room Air Room Air Room Air Sepsis Recent Fever Within 48 Hours No Sepsis New/Unexplained Change in Mental Status N/A Sepsis Action Taken by Nursing No Action Required 09/29/24 20:01 09/29/24 20:28 09/29/24 22:44 Temperature Temperature Source Pulse Rate 92 H 88 Pulse Rate [Right Brachial] 91 H Pulse Rate from SpO2 Sensor Pulse Rhythm Pulse Rhythm [Right Brachial] Regular Pulse Strength Pulse Strength [Right Brachial] Normal Respiratory Rate 18 Respiratory Effort / Characteristics Non-Labored Respiratory Depth Normal Respiratory Pattern Regular Blood Pressure Blood Pressure [Right Arm] 159/75 H Blood Pressure Mean Blood Pressure Mean [Right Arm] 103 Blood Pressure Position Blood Pressure Position [Right Arm] Lying Pulse Oximetry 97 Oxygen Delivery Method Room Air Sepsis Recent Fever Within 48 Hours Sepsis New/Unexplained Change in Mental Status Sepsis Action Taken by Nursing 09/29/24 23:00 Temperature Temperature Source Pulse Rate 92 H Pulse Rate [Right Brachial] Pulse Rate from SpO2 Sensor 92 H Pulse Rhythm Pulse Rhythm [Right Brachial] Pulse Strength Pulse Strength [Right Brachial] Respiratory Rate 17 Respiratory Effort / Characteristics Respiratory Depth Respiratory Pattern Blood Pressure 136/69 Blood Pressure [Right Arm] Blood Pressure Mean 91 Blood Pressure Mean [Right Arm] Blood Pressure Position Blood Pressure Position [Right Arm] Pulse Oximetry 97 Oxygen Delivery Method Room Air Sepsis Recent Fever Within 48 Hours Sepsis New/Unexplained Change in Mental Status Sepsis Action Taken by Nursing Laboratory Data 09/29/24 18:50 09/29/24 19:49 Lab Results 09/29/24 09/29/24 09/29/24 Range/Units 18:50 19:49 19:50 WBC 13.73 H (4.8-10.8) K/ul RBC 2.98 L (4.20-5.40) M/uL Hgb 8.0 L (12.0-16.0) g/dl Hct 25.7 L (37.0-47.0) % MCV 86.2 (80.0-100.0) fL MCH 26.8 (25.0-34.0) pg MCHC 31.1 L (32.0-36.0) g/dL RDW Std Deviation 50.3 H (36.4-46.3) fL RDW Coeff of Matthew 16.1 H (11.5-14.5) % Plt Count 255 (130-400) K/uL MPV 12.4 (9.4-12.4) fL Immature Gran % (Auto) 1.1 % Neut % (Auto) 82.2 % Lymph % (Auto) 11.5 % [place] % (Auto) 4.4 % Eos % (Auto) 0.5 % Baso % (Auto) 0.3 % Neut # (Auto) 11.28 H (1.40-6.50) K/uL Lymph # (Auto) 1.58 (1.20-3.40) K/uL [place] # (Auto) 0.61 H (0.11-0.59) K/uL Eos # (Auto) 0.07 (0.00-0.50) K/uL Baso # (Auto) 0.04 (0.00-0.20) K/uL Immature Gran # (Auto) 0.15 (0.01-0.20) K/uL Stomatocytes 1+ PT 18.6 H (9.0-12.0) Seconds INR 1.8 H (0.9-1.1) APTT 34 H (21-31) Seconds PTT Ratio 1.3 Sodium 136 (136-145) mmol/L Potassium TNP 3.1 L Chloride 100 (98-107) mmol/L Carbon Dioxide 30 (21-32) mmol/L Anion Gap 6 (3-11) BUN 29 H (6-23) mg/dl Creatinine 1.15 (0.6-1.2) mg/dl Est Cr Clr Drug Dosing Not Reportable eGFR 49.68 BUN/Creatinine Ratio 25.2 H (10-20) Glucose 120 H (70-99(Fasting)) mg/dl Calcium 8.6 (8.6-10.3) mg/dl Total Bilirubin 1.1 H (0.2-1.0) mg/dl AST TNP 85 H ALT 109 H (7-52) U/L Alkaline Phosphatase 294 H (34-104) U/L Troponin I High Sens 9.7 (0-14) pg/ml Total Protein 6.7 (6.0-8.3) gm/dl Albumin 3.5 (3.4-5.0) gm/dl Globulin 3.2 (2.5-4.0) gm/dl Albumin/Globulin Ratio 1.1 (0.9-2) Blood Type O Positive Antibody Screen NEGATIVE Crossmatch See Detail Administered Medications Pantoprazole Sodium (Protonix) 40 mg in 10 mls @ 5 mls/min IV BID [place] Stop: 10/29/24 22:29 Last Admin: 09/29/24 23:08 Dose: 5 mls/min Documented By: RODERICK Potassium Chloride (K German / Wtr) 10 meq in 100 mls @ 100 mls/hr IV Q1H [place] Stop: 09/30/24 03:29 Last Infusion: 09/30/24 01:39 Dose: 100 mls/hr Documented By: Infusion: 09/30/24 00:58 Dose: 0 mls/hr Documented By: Admin: 09/30/24 00:53 Dose: 100 mls/hr Documented By: ESTRELLA Ampicillin Sodium/Sulbactam Sodium (Unasyn) 3,000 mg in 100 mls @ 200 mls/hr IV Q6H [place] Stop: 10/10/24 00:59 Last Infusion: 09/30/24 01:39 Dose: Infused Documented By: Admin: 09/30/24 01:00 Dose: 200 mls/hr Documented By: ESTRELLA Imaging Data Radiologist's Impression: Chest X-Ray 09/29/24 18:42 EXAM: X-ray chest one-view not portable CLINICAL HISTORY: Dyspnea, heart failure, nauseated, diarrhea, gallstones removed last week PRIORS: September 23, 2024 acute abdominal series TECHNIQUE: Frontal view chest FINDINGS: Median sternotomy wires noted with prosthetic cardiac valve, unchanged. Appearance of the chest is improved. The chest is well-expanded. No airspace consolidation, effusion or congestive changes. Cardiac silhouette is mildly enlarged, unchanged. No pneumothorax. Trachea is patent. No subdiaphragmatic gas. Moderate atherosclerotic disease of the aortic knob. Osseous structures demonstrate no acute abnormality. No radiopaque foreign body. IMPRESSION: No plain film evidence of an acute cardiopulmonary process. Electronically signed by Cass Sandoval 09-29-2024 7:20 PM Discharge Plan Visit Data Chief Complaint: Weakness Stated Complaint: WEAKNESS, FATIGUE, LOW WBC ED Provider: Beatriz Stephens Discharge Problem: Melena, Anemia, Weakness Patient Disposition: Admitted As Inpatient Discharge Instructions Interventions: ED Discharge Assessment Last Done: 09/30/24 00:10
[2024-09-30 05:36] LABS: Basophils # (auto) 0.02 K/uL (0.00-0.20); Basophils % (auto) 0.2 %; Eosinophils # (auto) 0.08 K/uL (0.00-0.50); Eosinophils % (auto) 0.8 %; Hematocrit (blood only) 24.4 % (37.0-47.0); Hemoglobin 7.8 g/dl (12.0-16.0); Immature Granulocytes # (auto) 0.14 K/uL (0.01-0.20); Immature Granulocytes % (auto) 1.4 %; Lymphocytes # (auto) 1.16 K/uL (1.20-3.40); Lymphocytes % (auto) 11.4 %; Mean Corpuscular Hemoglobin 27.5 pg (25.0-34.0); Mean Corpuscular Volume 85.9 fL (80.0-100.0); Mean Platelet Volume 11.9 fL (9.4-12.4); Monocytes # (auto) 0.49 K/uL (0.11-0.59); Monocytes % (auto) 4.8 %; Neutrophils % (auto) 81.4 %; Platelet Count 197 K/uL (130-400); RDW Coefficient of Variation 16.1 % (11.5-14.5); RDW Standard Deviation 50.2 fL (36.4-46.3); Red Blood Count 2.84 M/uL (4.20-5.40); White Blood Count 10.19 K/ul (4.8-10.8)
[2024-09-30 05:50] LABS: Albumin Globulin Ratio 1.1 (0.9-2); BUN Creatinine Ratio 24.7 (10-20); Bilirubin,Total 1.2 mg/dl (0.2-1.0); Calcium 8.3 mg/dl (8.6-10.3); Creatinine Clr Calc Pharmacy 63.5 ml/min; Globulin 2.8 gm/dl (2.5-4.0); Potassium 3.4 mmol/L (3.5-5.1); Total Protein 5.8 gm/dl (6.0-8.3)
[2024-09-30] MEDS ORDERED: SODIUM CHLORIDE 0.9% 100 ML IV PRN (06:00)
[2024-09-30 06:07] LABS: Polychromasia 1+
--- NOTE | 2024-09-30 06:08 | Billing Data ---
Date of Service September 29, 2024 Coding Level of Care Code 58102 INT INP/OBS CARE
[2024-09-30] MEDS: METOPROLOL TARTRATE 100 MG TAB PO SCH (08:12)
[2024-09-30] MEDS: RANOLAZINE 500 MG ER TAB PO SCH (08:13)
--- NOTE | 2024-09-30 09:58 | Hospitalist Progress Note ---
Date of Service September 30, 2024 Assessment & Plan (1) GI bleed: (2) Anemia: (3) Transaminitis: (4) HTN (hypertension): (5) Gallstone pancreatitis: (6) Chronic heart failure with preserved ejection fraction: Plan Pt is a 73 yo female with a past medical history of GI bleed, recent gallstone pancreatitis, and choledocholithiasis/cholangitis requiring transfer to [facility] for ERCP. Patient symptoms improved but GI bleed restarted prompting recent admission with notable melena, HFpEF, asthma, BRIDGETT, HTN, hx PE, Factor V leiden and mechanical AVR on warfarin chronically who presents to the hospital on 09/29 for weakness related to GI bleed requiring transfusion. #GI bleed #Anemia - pt presenting with hematochezia and melena episodes yesterday and ongoing anemia - ED gave 1 unit PRBCs, Hgb 8 decreased to 7.8 with fatigue prompting 2nd unit PRBCs - Hgb now improved to 9.0 - protonix IV 40 mg BID - GI consult: recommend transfer back to [facility] where ERCP was completed if bleeding or hemodynamics worsen, bleeding potentially due s/p sphincterotomy during ERCP - hold anticoagulation; consider restarting Heparin drip once Hgb stabilizes and slowly increase Warfarin and wean Heparin until therapeutic INR is reached allowing heparin to be discontinued. Anticipate that this will take 2-3 days - Cont. Unasyn therapy inpatient - Start clears diet for lunch today, advance as tolerated #Transaminitis #Gallstone pancreatitis - in the setting of recent gallstone pancreatitis/choledocholithiasis/cholangitis with [facility] transfer for ERCP/sphincterotomy/balloon extraction - on admission enzymes elevated TBili 1.1, AST 85, ALT 109, alk phosph 294 but significantly improved since past admit and asymptomatic other than fatigue/weakness likely related to anemia - continue to trend LFTs #HTN - continue home metoprolol tartrate #HFpEF - hold home bumex am dose as she has been holding this and looks clinically euvolemic (home dose is 2mg + extra 2mg for SOB/weight gain) - continue home ranolazine once able to po #Sinusitis, chronic - continue home inhalers #Arthritis - on tramadol at home for arthritis pain prn, per PDMP filled about every other month - no pain on admission but if pain starts can consider continuing home tramadol Diet: NPO pending GI consult VTE prophylaxis: defer right now in the setting of GI bleed Admission and Anticipated Discharge Date Admission Date: September 29, 2024 Supervising Physician Co-Signing Physician Notes I personally examined the patient and verified all noofre points of history and exam, discussed case, and agree with decision making with Dr Lind revisited HPI - melena did not start until after discharge from [facility]. no cp no new sob (notes chronic but nothing worse than her normal) did feel weak but now that's better too. abdominal pain that led to ERCP/stenting is much better. she is also hungry. vitals noted nad heent nc at mmm breathing unlabored no accessory muscles good effort abd soft nd nt no guarding no rebound no rigidity labs and diagnostics reviewed GI bleeding/acute blood loss anemia (s/p 2 units PRBC transfusion, does not currently appear that further transfusion is necessary)- appearing most c/w sphincterotomy bleed. discussed difficult balance of mechanical valve but active bleeding. for now hold anticoagulation - bleeding appears to be stopping. as long as bleeding stops, would hold on all anticoag for ~24hrs. if still stable, discussed most prudent would be heparin -> bridge to coumadin given immediate reversibility; discussed that obviously this prolongs hospitalization (but also does allow for ongoing close observation and medical intervention should bleeding recur). discussed rationale for anticoag as unbroken as possible with mechanical valve, discussed rationale for bridging. she expresses good understanding. otheriwse as above Subjective Ophelia Serrano is seen this AM resting comfortably. Patient is largely asymptomatic but does endorse fatigue and weakness. Patient denies chest pain, palpitations, SOB, abdominal pain, nausea, and vomiting. Patient does reports a bowel movement that was dark in color but different compared to BM 2 days ago that was black and tarry. Patient remains afebrile and stable. Currently not on an ticoagulation,but patient is amenable to AC management over the next few days as she is placed back on Warfarin with heparin weaned and frequent INR checks. Physical Exam Physical Exam: General: patient resting comfortably, NAD, non-toxic in appearance, answers questions appropriately. Skin: warm, dry, intact HEENT: NC/AT, anicteric sclera, conjunctiva without injection, moist mucus membranes. Heart: +S1/S2, regular, no m/r/g Lungs: equal air entry bilaterally, no rales/rhonchi/wheezes Abd: +BS, soft, NT/ND Ext: warm, no clubbing/cyanosis or edema, Fina's neg. Neuro: nonfocal, speech intact, no facial droop, moving all extremities. Results & Data Results & Data Vital Signs (Past 12 Hours) Vital Signs Temp Pulse Pulse Pulse Resp BP BP 09/30/24 09:54 89 09/30/24 09:08 36.6 C 92 H 17 148/97 H 09/30/24 08:25 36.6 C 89 16 156/81 H 09/30/24 07:25 36.6 C 90 17 143/70 H 09/30/24 06:55 36.5 C 89 18 145/72 H 09/30/24 06:55 36.5 C 89 18 145/72 H 09/30/24 06:40 37 C 90 18 163/64 H 09/30/24 06:21 36.7 C 92 H 18 178/79 H 09/30/24 03:07 36.7 C 89 16 155/68 H 09/30/24 02:28 36.7 C 92 H 18 156/75 H 09/30/24 02:15 36.7 C 90 18 158/76 H 09/30/24 01:15 36.6 C 91 H 18 153/70 H 09/30/24 00:40 37.4 C 92 H 18 146/65 H 09/30/24 00:30 95 H 09/30/24 00:30 09/30/24 00:30 37.4 C 88 18 146/65 H 09/30/24 00:30 37.4 C 92 H 18 146/65 H 09/30/24 00:15 36.8 C 89 18 179/90 H 09/30/24 00:00 36.9 C 83 18 165/86 H 09/29/24 23:45 91 H 19 161/98 H 09/29/24 23:45 36.9 C 90 18 161/98 H 09/29/24 23:30 184/90 H 09/29/24 23:30 36.9 C 93 H 16 184/90 H 09/29/24 23:15 181/82 H 09/29/24 23:13 36.8 C 90 24 177/77 H 09/29/24 23:00 92 H 17 136/69 09/29/24 22:44 88 Pulse Ox O2 Del Method O2 Flow Rate 09/30/24 09:54 09/30/24 09:08 100 2 09/30/24 08:25 100 2 09/30/24 07:25 93 0 09/30/24 06:55 95 0 09/30/24 06:55 95 0 09/30/24 06:40 94 09/30/24 06:21 96 0 09/30/24 03:07 94 CPAP 09/30/24 02:28 96 2 09/30/24 02:15 95 2 09/30/24 01:15 93 09/30/24 00:40 92 Room Air 09/30/24 00:30 09/30/24 00:30 Room Air 09/30/24 00:30 92 Room Air 09/30/24 00:30 92 Room Air 09/30/24 00:15 96 09/30/24 00:00 96 09/29/24 23:45 96 Room Air 09/29/24 23:45 96 09/29/24 23:30 09/29/24 23:30 95 09/29/24 23:15 09/29/24 23:13 09/29/24 23:00 97 Room Air 09/29/24 22:44 Resident Activity Tracking Resident Involvement: Resident Care Provided Care Provided: Adult Hospital Medicine (4) HTN (hypertension) Hypertension type: unspecified Qualified Code(s): I10 - Essential (primary) hypertension
--- NOTE | 2024-09-30 11:09 | Gastrointestinal Consultation ---
Date of Consultation September 30, 2024 Assessment & Plan (1) Melena: Plan I reviewed this case with Dr. Ott. Dr. Ott had spoken to Dr. Damon who had done her ERCP last week. It is suspected that she possibly bled from site of sphincterotomy. She has not had further melena and perhaps this has resolved. - would hold anticoagulation. - if there are further signs of melena, would recommend transfer back to [facility]. - continue to follow hgb/hct. transfuse as needed. - continue with protonix 40mg bid. Supervising Physician Co-Signing Physician Notes I saw and examined this patient with our nurse practitioner and agree with her assessment and plan. Suspect post ERCP and cholecystostomy bleed at site of intervention aggravated by anticoagulation. Clinically hemodynamically stable no overt bleeding at the present time. [facility] is recommended that we treat her conservatively at this time. If rebleeding recurs they have requested that we transfer her to their institution for management. Will need to hold anticoagulation for now. Recommend getting cardiology involved regarding risk of holding the anticoagulation recommendations as to how long we can do that safely. History of Present Illness Reason for Consultation: [facility] Requesting Physician: Evelyne Davis DO Attending Physician: Joselo Rees DO History of Present Illness Patient is a 73 year old female with a past medical history of HFpEF, asthma, BRIDGETT, HTN, PE and mechanical AVR on warfarin with recent gallstone pancreatitis that last week required transfer to [facility] where she underwent an ERCP on 09/25 for choledocholithiasis requiring sphincterotomy and stent in [place]. She tells me that after her procedure she was started on warfarin and lovenox and started to notice dark stools. The last time she noticed a dark stool was 09/28. no bowel movement since. rest of GI ros are unremarkable. 4/8 hgb 8.1, INR 1.8 /9 hgb 7.8. Allergies Allergy/AdvReac Type Severity Reaction Status Date / Time amlodipine Allergy Unknown Unknown Verified 09/29/24 20:22 furosemide [From Lasix] AdvReac Severe Loud ear Verified 09/29/24 20:22 ringing Home Medications Medication Instructions Recorded Confirmed Type fexofenadine 180 mg tablet 180 mg PO QAM PRN Congestion 07/27/18 09/29/24 History ipratropium 0.5 mg-albuterol 3 mg 3 ml inhalation Q6H PRN shortness 11/17/19 09/29/24 Rx (2.5 mg base)/3 mL nebulization of breath or wheezing #360 mL soln calcium carbonate (Calcium 600) 600 mg PO BID 03/17/20 09/29/24 History cyanocobalamin (vitamin B-12) 100 100 mcg PO QAM 10/25/21 09/29/24 History mcg tablet (Vitamin B-12) potassium chloride 10 mEq 10 meq PO DAILY diurectic use 10/25/21 09/29/24 History tablet,extended release aspirin 81 mg tablet,delayed 81 mg PO DAILY 03/25/23 09/29/24 History release ranolazine 500 mg tablet,extended 500 mg PO BID #180 tabs 02/26/24 09/29/24 Rx release,12 hr atorvastatin 80 mg tablet 80 mg PO QAM #90 tabs 07/06/24 09/29/24 Rx acetaminophen 500 mg capsule 1,000 mg PO TID PRN Pain 08/21/24 09/29/24 History amoxicillin 500 mg tablet 2,000 mg PO DIRECTED PRN 1 HR 08/21/24 09/29/24 History PRIOR TO DENTAL APPT. montelukast 10 mg tablet 10 mg PO QPM PRN Congestion 08/21/24 09/29/24 History sertraline 100 mg tablet 100 mg PO HS #90 tabs 08/21/24 09/29/24 Rx tramadol 50 mg tablet 50 mg PO BID PRN ARTHRITIS pain 09/17/24 09/29/24 Rx #60 tabs bumetanide 2 mg tablet 4 mg PO QAM 09/19/24 09/29/24 History warfarin 5 mg tablet 5 mg PO QPM 09/19/24 09/29/24 History omeprazole 40 mg capsule,delayed 40 mg PO BID #60 caps 09/23/24 09/29/24 Rx release metoprolol tartrate 100 mg tablet 100 mg PO BID #180 tabs 09/28/24 09/29/24 Rx amoxicillin 875 mg-potassium 1 tab PO BID 09/29/24 09/29/24 History clavulanate 125 mg tablet cholecalciferol (vitamin D3) 50 50 mcg PO DAILY 09/29/24 09/29/24 History mcg (2,000 unit) capsule (Vitamin D3) docusate sodium 100 mg capsule 100 mg PO BID 09/29/24 09/29/24 History enoxaparin 120 mg/0.8 mL 110 mg subcut BID 09/29/24 09/29/24 History subcutaneous syringe ferrous sulfate 325 mg (65 mg 325 mg PO QDL 09/29/24 09/29/24 History iron) tablet Patient History Medical History Aortic valve disease PVC (premature ventricular contraction) History of COVID-19 Osteoarthritis History of airway obstruction Urinary bladder incontinence Arthritis Diaphragmatic paralysis BRIDGETT treated with BiPAP COPD (chronic obstructive pulmonary disease) Chronic diastolic CHF (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 failure) retirement (current) use of anticoagulants Coronary artery disease Hyperlipidemia HTN (hypertension) Surgical History History of cardiac cath History of cataract surgery History of endoscopy History of colonoscopy History of urologic surgery History of tubal ligation History of total left knee replacement S/P CABG (coronary artery bypass graft) History of delivery Family History Family/Other Heart disease Hypertension Sister Asthma Family history of diabetes mellitus Sister Family history of diabetes mellitus Father Myocardial infarction Aunt Myocardial infarction Uncle Myocardial infarction Grandmother (Maternal) Myocardial infarction Other No family history of adverse response to anesthesia No family history of bleeding disorder Denies family history of Ovarian cancer Prostate cancer Breast cancer Colorectal cancer Social History Smoking Status: Never smoker Second Hand Exposure: No; Do You Dip or Chew Tobacco: No; Hx Alcohol Use: Yes Alcohol type: wine and hard liquor Hx Substance Use: No Preferred Language: Surinamese Communication Ability: Effective Visual Impairment: No Limitations Site Leader Required: No Beliefs That Will Affect Care: None marital status: Current Living Situation: Spouse Current Living Situation Comment: home with current occupational status: employed current occupation: [employer] Feels Safe at Home: Yes Childhood Exposure to Second-Hand Smoke: No Dental Care, Regularly: No Physical Activity Frequency: Does not Exercise Seatbelt Use: sometimes Sunscreen Use: Yes Assistive Devices: CPAP and Oxygen - at Night Review of Systems Review of Systems: All systems reviewed & are unremarkable except as noted in HPI & below Physical Exam Constitutional: WD/WN, vitals as above Respiratory: normal respiratory effort, lungs clear to auscultation Cardiovascular: Rate/Rhythm: regular rate and regular rhythm Gastrointestinal (Abdomen): normal bowel sounds, soft, nontender, no hepatosplenomegaly Psychiatric: Orientation: alert and oriented x 3 Affect: euthymic affect Results & Data Vital Signs (Past 12 Hours) Vital Signs Temp Pulse Pulse Pulse Resp BP BP 09/30/24 09:54 89 09/30/24 09:08 97.9 F 92 H 17 148/97 H 09/30/24 08:25 97.9 F 89 16 156/81 H 09/30/24 07:25 97.9 F 90 17 143/70 H 09/30/24 06:55 97.7 F 89 18 145/72 H 09/30/24 06:55 97.7 F 89 18 145/72 H 09/30/24 06:40 98.6 F 90 18 163/64 H 09/30/24 06:21 98.1 F 92 H 18 178/79 H 09/30/24 03:07 98.1 F 89 16 155/68 H 09/30/24 02:28 98.1 F 92 H 18 156/75 H 09/30/24 02:15 98.1 F 90 18 158/76 H 09/30/24 01:15 97.9 F 91 H 18 153/70 H 09/30/24 00:40 99.3 F 92 H 18 146/65 H 09/30/24 00:30 95 H 09/30/24 00:30 09/30/24 00:30 99.3 F 88 18 146/65 H 09/30/24 00:30 99.3 F 92 H 18 146/65 H 09/30/24 00:15 98.2 F 89 18 179/90 H 09/30/24 00:00 98.4 F 83 18 165/86 H 09/29/24 23:45 91 H 19 161/98 H 09/29/24 23:45 98.4 F 90 18 161/98 H 09/29/24 23:30 184/90 H 09/29/24 23:30 98.4 F 93 H 16 184/90 H 09/29/24 23:15 181/82 H 09/29/24 23:13 98.3 F 90 24 177/77 H Pulse Ox O2 Del Method O2 Flow Rate 09/30/24 09:54 09/30/24 09:08 100 2 09/30/24 08:25 100 2 09/30/24 07:25 93 0 09/30/24 06:55 95 0 09/30/24 06:55 95 0 09/30/24 06:40 94 09/30/24 06:21 96 0 09/30/24 03:07 94 CPAP 09/30/24 02:28 96 2 09/30/24 02:15 95 2 09/30/24 01:15 93 09/30/24 00:40 92 Room Air 09/30/24 00:30 09/30/24 00:30 Room Air 09/30/24 00:30 92 Room Air 09/30/24 00:30 92 Room Air 09/30/24 00:15 96 09/30/24 00:00 96 09/29/24 23:45 96 Room Air 09/29/24 23:45 96 09/29/24 23:30 09/29/24 23:30 95 09/29/24 23:15 09/29/24 23:13 Laboratory Results Laboratory Results - last 48 hr 09/29/24 09/29/24 09/29/24 18:50 19:49 19:50 WBC 13.73 H RBC 2.98 L Hgb 8.0 L Hct 25.7 L MCV 86.2 MCH 26.8 MCHC 31.1 L RDW Std Deviation 50.3 H RDW Coeff of Matthew 16.1 H Plt Count 255 MPV 12.4 Immature Gran % (Auto) 1.1 Neut % (Auto) 82.2 Lymph % (Auto) 11.5 [place] % (Auto) 4.4 Eos % (Auto) 0.5 Baso % (Auto) 0.3 Neut # (Auto) 11.28 H Lymph # (Auto) 1.58 [place] # (Auto) 0.61 H Eos # (Auto) 0.07 Baso # (Auto) 0.04 Immature Gran # (Auto) 0.15 Polychromasia Stomatocytes 1+ PT 18.6 H INR 1.8 H APTT 34 H PTT Ratio 1.3 Sodium 136 Potassium TNP 3.1 L Chloride 100 Carbon Dioxide 30 Anion Gap 6 BUN 29 H Creatinine 1.15 Est Cr Clr Drug Dosing Not Reportable eGFR 49.68 BUN/Creatinine Ratio 25.2 H Glucose 120 H Calcium 8.6 Total Bilirubin 1.1 H AST TNP 85 H ALT 109 H Alkaline Phosphatase 294 H Troponin I High Sens 9.7 Total Protein 6.7 Albumin 3.5 Globulin 3.2 Albumin/Globulin Ratio 1.1 Blood Type O Positive Antibody Screen NEGATIVE Crossmatch See Detail 09/30/24 09/30/24 05:07 11:01 WBC 10.19 RBC 2.84 L Hgb 7.8 L 9.0 L Hct 24.4 L 27.1 L MCV 85.9 MCH 27.5 MCHC 32.0 RDW Std Deviation 50.2 H RDW Coeff of Matthew 16.1 H Plt Count 197 MPV 11.9 Immature Gran % (Auto) 1.4 Neut % (Auto) 81.4 Lymph % (Auto) 11.4 [place] % (Auto) 4.8 Eos % (Auto) 0.8 Baso % (Auto) 0.2 Neut # (Auto) 8.30 H Lymph # (Auto) 1.16 L [place] # (Auto) 0.49 Eos # (Auto) 0.08 Baso # (Auto) 0.02 Immature Gran # (Auto) 0.14 Polychromasia 1+ Stomatocytes PT INR APTT PTT Ratio Sodium 139 Potassium 3.4 L Chloride 104 Carbon Dioxide 29 Anion Gap 6 BUN 22 Creatinine 0.89 Est Cr Clr Drug Dosing 63.5 eGFR 67.57 BUN/Creatinine Ratio 24.7 H Glucose 101 H Calcium 8.3 L Total Bilirubin 1.2 H AST 67 H ALT 83 H Alkaline Phosphatase 231 H Troponin I High Sens Total Protein 5.8 L Albumin 3.0 L Globulin 2.8 Albumin/Globulin Ratio 1.1 Blood Type Antibody Screen Crossmatch Coding Level of Care Code 06290 INT INP/OBS CARE 2/55MIN Diagnoses Melena K92.1
[2024-09-30 11:14] LABS: Hematocrit (blood only) 27.1 % (37.0-47.0)
[2024-09-30] MEDS: FERROUS SULFATE 325 MG TAB PO SCH (11:54)
--- NOTE | 2024-09-30 13:33 | Billing Data ---
Date of Service September 30, 2024 Coding Level of Care Code 16034 SUB INP/OBS CARE
[2024-09-30 17:25] LABS: Hematocrit (blood only) 27.6 % (37.0-47.0); Hemoglobin 8.9 g/dl (12.0-16.0)
[2024-09-30] MEDS: SERTRALINE HCL 100 MG TABLET PO SCH (19:58)
[2024-10-01 00:34] LABS: Hematocrit (blood only) 26.3 % (37.0-47.0); Hemoglobin 8.5 g/dl (12.0-16.0)
--- NOTE | 2024-10-01 05:54 | Electrocardiogram Report ---
Test Reason : Blood Pressure : */* mmHG Vent. Rate : 97 BPM Atrial Rate : 97 BPM P-R Int : 294 ms QRS Dur : 92 ms QT Int : 372 ms P-R-T Axes : -18 20 75 degrees QTcB Int : 473 ms Sinus rhythm with 1st degree A-V block Incomplete right bundle branch block Minimal voltage criteria for LVH, may be normal variant ( R in aVL ) Nonspecific ST and T wave abnormality Abnormal ECG When compared with ECG of 19-Sep-2024 05:48, T wave inversion more evident in Anterior leads Confirmed by Osmin Gallegos ([id number]) on 10/01/2024 5:54:16 AM Referred By: REFERRED SELF Confirmed By: Osmin Gallegos
[2024-10-01 07:17] LABS: Basophils # (auto) 0.02 K/uL (0.00-0.20); Basophils % (auto) 0.3 %; Eosinophils # (auto) 0.15 K/uL (0.00-0.50); Eosinophils % (auto) 2.3 %; Hematocrit (blood only) 26.5 % (37.0-47.0); Hemoglobin 8.5 g/dl (12.0-16.0); Immature Granulocytes % (auto) 1.5 %; Lymphocytes # (auto) 0.77 K/uL (1.20-3.40); Lymphocytes % (auto) 11.9 %; Mean Corpuscular Hemoglobin 28.4 pg (25.0-34.0); Mean Corpuscular Hgb Conc 32.1 g/dL (32.0-36.0); Mean Corpuscular Volume 88.6 fL (80.0-100.0); Mean Platelet Volume 12.1 fL (9.4-12.4); Monocytes # (auto) 0.38 K/uL (0.11-0.59); Monocytes % (auto) 5.9 %; Neutrophils # (auto) 5.07 K/uL (1.40-6.50); Neutrophils % (auto) 78.1 %; Platelet Count 188 K/uL (130-400); RDW Coefficient of Variation 16.1 % (11.5-14.5); RDW Standard Deviation 51.8 fL (36.4-46.3); Red Blood Count 2.99 M/uL (4.20-5.40); White Blood Count 6.49 K/ul (4.8-10.8)
[2024-10-01 08:05] LABS: BUN Creatinine Ratio 14.1 (10-20); Bilirubin,Total 1.1 mg/dl (0.2-1.0); Calcium 8.5 mg/dl (8.6-10.3); Creatinine Clr Calc Pharmacy 66.5 ml/min; Potassium 3.6 mmol/L (3.5-5.1)
[2024-10-01 09:00] LABS: INR 2.1 (0.9-1.1); Prothrombin Time 21.3 Seconds (9.0-12.0)
--- NOTE | 2024-10-01 10:28 | Gastroenterology Progress Note ---
Date of Service October 01, 2024 Assessment & Plan (1) Melena: Plan: Patient feeling well. only one dark stool yesterday that was likely old blood. hgb stable. discussed case with Dr. Ott. - advance diet to low fiber. - continue to follow hgb/hct. tranfuse as needed. - if rebleeding occurs, would transfer to [facility] as recommended by the [facility] team who had placed her stent. Admission and Anticipated Discharge Date Admission Date: September 29, 2024 Supervising Physician Co-Signing Physician Notes I saw and examined this patient with our nurse practitioner and agree with her assessment and plan. Hemoglobin hematocrit stable no overt bleeding. Tolerating regular diet. Clinically resolving GI bleed post biliary sphincterotomy and cholecystostomy. To discuss when to resume anticoagulation with her message clerk. Subjective Patient had one dark stool yesterday but feels this was improved from previously. no nausea, vomiting, acid reflux. no brbpr. she is tolerating a liquid diet and is requesting to advance diet to see how she does. hgb is stable at 8.5 this morning. Review of Systems Review of Systems: All systems reviewed & are unremarkable except as noted in HPI & below Physical Exam Constitutional: WD/WN, vitals as above Respiratory: normal respiratory effort, lungs clear to auscultation Cardiovascular: Rate/Rhythm: regular rate and regular rhythm Gastrointestinal (Abdomen): normal bowel sounds, soft, nontender, no hepatosplenomegaly Psychiatric: Orientation: alert and oriented x 3 Affect: euthymic affect Results & Data Results & Data Vital Signs (Past 12 Hours) Vital Signs Temp Pulse Pulse Resp BP Pulse Ox O2 Del Method 10/01/24 08:00 97.7 F 68 16 120/63 97 CPAP 10/01/24 02:36 97.9 F 73 18 136/78 99 Nasal CPAP 09/30/24 23:03 97.9 F 68 18 138/70 99 Nasal CPAP 09/30/24 22:29 69 Laboratory Results Laboratory Results - last 48 hr 09/29/24 09/29/24 09/29/24 18:50 19:49 19:50 WBC 13.73 H RBC 2.98 L Hgb 8.0 L Hct 25.7 L MCV 86.2 MCH 26.8 MCHC 31.1 L RDW Std Deviation 50.3 H RDW Coeff of Matthew 16.1 H Plt Count 255 MPV 12.4 Immature Gran % (Auto) 1.1 Neut % (Auto) 82.2 Lymph % (Auto) 11.5 [place] % (Auto) 4.4 Eos % (Auto) 0.5 Baso % (Auto) 0.3 Neut # (Auto) 11.28 H Lymph # (Auto) 1.58 [place] # (Auto) 0.61 H Eos # (Auto) 0.07 Baso # (Auto) 0.04 Immature Gran # (Auto) 0.15 Polychromasia Stomatocytes 1+ PT 18.6 H INR 1.8 H APTT 34 H PTT Ratio 1.3 Sodium 136 Potassium TNP 3.1 L Chloride 100 Carbon Dioxide 30 Anion Gap 6 BUN 29 H Creatinine 1.15 Est Cr Clr Drug Dosing Not Reportable eGFR 49.68 BUN/Creatinine Ratio 25.2 H Glucose 120 H Calcium 8.6 Total Bilirubin 1.1 H AST TNP 85 H ALT 109 H Alkaline Phosphatase 294 H Troponin I High Sens 9.7 Total Protein 6.7 Albumin 3.5 Globulin 3.2 Albumin/Globulin Ratio 1.1 Blood Type O Positive Antibody Screen NEGATIVE Crossmatch See Detail 09/30/24 09/30/24 09/30/24 05:07 11:01 17:11 WBC 10.19 RBC 2.84 L Hgb 7.8 L 9.0 L 8.9 L Hct 24.4 L 27.1 L 27.6 L MCV 85.9 MCH 27.5 MCHC 32.0 RDW Std Deviation 50.2 H RDW Coeff of Matthew 16.1 H Plt Count 197 MPV 11.9 Immature Gran % (Auto) 1.4 Neut % (Auto) 81.4 Lymph % (Auto) 11.4 [place] % (Auto) 4.8 Eos % (Auto) 0.8 Baso % (Auto) 0.2 Neut # (Auto) 8.30 H Lymph # (Auto) 1.16 L [place] # (Auto) 0.49 Eos # (Auto) 0.08 Baso # (Auto) 0.02 Immature Gran # (Auto) 0.14 Polychromasia 1+ Stomatocytes PT INR APTT PTT Ratio Sodium 139 Potassium 3.4 L Chloride 104 Carbon Dioxide 29 Anion Gap 6 BUN 22 Creatinine 0.89 Est Cr Clr Drug Dosing 63.5 eGFR 67.57 BUN/Creatinine Ratio 24.7 H Glucose 101 H Calcium 8.3 L Total Bilirubin 1.2 H AST 67 H ALT 83 H Alkaline Phosphatase 231 H Troponin I High Sens Total Protein 5.8 L Albumin 3.0 L Globulin 2.8 Albumin/Globulin Ratio 1.1 Blood Type Antibody Screen Crossmatch 10/01/24 10/01/24 10/01/24 00:20 06:24 08:13 WBC 6.49 RBC 2.99 L Hgb 8.5 L 8.5 L Hct 26.3 L 26.5 L MCV 88.6 MCH 28.4 MCHC 32.1 RDW Std Deviation 51.8 H RDW Coeff of Matthew 16.1 H Plt Count 188 MPV 12.1 Immature Gran % (Auto) 1.5 Neut % (Auto) 78.1 Lymph % (Auto) 11.9 [place] % (Auto) 5.9 Eos % (Auto) 2.3 Baso % (Auto) 0.3 Neut # (Auto) 5.07 Lymph # (Auto) 0.77 L [place] # (Auto) 0.38 Eos # (Auto) 0.15 Baso # (Auto) 0.02 Immature Gran # (Auto) 0.10 Polychromasia Stomatocytes PT 21.3 H INR 2.1 H APTT PTT Ratio Sodium 141 Potassium 3.6 Chloride 108 H Carbon Dioxide 29 Anion Gap 4 BUN 12 Creatinine 0.85 Est Cr Clr Drug Dosing 66.5 eGFR 71.40 BUN/Creatinine Ratio 14.1 Glucose 94 Calcium 8.5 L Total Bilirubin 1.1 H AST 42 H ALT 60 H Alkaline Phosphatase 215 H Troponin I High Sens Total Protein 6.0 Albumin 3.0 L Globulin 3.0 Albumin/Globulin Ratio 1.0 Blood Type Antibody Screen Crossmatch Coding Level of Care Code 61570 SUB INP/OBS CARE 07/18MIN Diagnoses Melena K92.1
--- NOTE | 2024-10-01 11:27 | Hospitalist Progress Note ---
Date of Service October 01, 2024 Assessment & Plan (1) GI bleed: (2) Anemia: (3) Transaminitis: (4) HTN (hypertension): (5) Gallstone pancreatitis: (6) Chronic heart failure with preserved ejection fraction: Plan Pt is a 73 yo female with a past medical history of GI bleed, recent gallstone pancreatitis, and choledocholithiasis/cholangitis requiring transfer to [facility] for ERCP. Patient symptoms improved but GI bleed restarted prompting recent admission with notable melena, HFpEF, asthma, BRIDGETT, HTN, hx PE, Factor V leiden and mechanical AVR on warfarin chronically who presents to the hospital on 09/29 for weakness related to GI bleed requiring transfusion. #GI bleed #Anemia - pt presenting with hematochezia and melena episodes yesterday and ongoing anemia - ED gave 1 unit PRBCs, Hgb 8 decreased to 7.8 with fatigue prompting 2nd unit PRBCs - Hgb now improved to 9.0 - protonix IV 40 mg BID - GI consult: recommend transfer back to [facility] where ERCP was completed if bleeding or hemodynamics worsen, bleeding potentially due s/p sphincterotomy during ERCP - hold anticoagulation; consider restarting Heparin drip once Hgb stabilizes and slowly increase Warfarin and wean Heparin until therapeutic INR is reached allowing heparin to be discontinued. Anticipate that this will take 2-3 days - Cont. Unasyn therapy inpatient - Patient tolerating low-fiber diet without issue - Consider re-starting Warfarin therapy tomorrow without heparin as most recent INR 2.1 #Transaminitis #Gallstone pancreatitis - in the setting of recent gallstone pancreatitis/choledocholithiasis/cholangitis with [facility] transfer for ERCP/sphincterotomy/balloon extraction - on admission enzymes elevated TBili 1.1, AST 85, ALT 109, alk phosph 294 but significantly improved since past admit and asymptomatic other than fatigue/weakness likely related to anemia - continue to trend LFTs #HTN - continue home metoprolol tartrate #HFpEF - hold home bumex am dose as she has been holding this and looks clinically euvolemic (home dose is 2mg + extra 2mg for SOB/weight gain) - continue home ranolazine once able to po #Sinusitis, chronic - continue home inhalers #Arthritis - on tramadol at home for arthritis pain prn, per PDMP filled about every other month - no pain on admission but if pain starts can consider continuing home tramadol Diet: NPO pending GI consult VTE prophylaxis: defer right now in the setting of GI bleed Admission and Anticipated Discharge Date Admission Date: September 29, 2024 Supervising Physician Co-Signing Physician Notes I personally examined the patient and verified all onofre points of history and exam, discussed case, and agree with decision making with Dr Lind feeling good overall. no weak/dizzy. vitals noted nad heent nc at mmm breathing unlabored no accessory muscles good effort skin no rashes no pallor or icterus neuro no focal deficits GI bleeding/acute blood loss anemia (s/p 2 units PRBC transfusion, does not currently appear that further transfusion is necessary)- appearing most c/w sphincterotomy bleed. literature favors no need for bridging and in d/w her product sales representative fortunately that is now the local standard of care. as a late finding her INR today is actually 2.1 - likely because while the coumadin was held, her bleeding resolved quickly enough true reversal was not needed; and since she was NPO or clear liquids, her diet was essentially devoid of vitamin K. this likely simplifies things for her greatly as we won't need to watch as long since her bleeding has resolved AND she is just below therapeutic for a valve. Subjective Ophelia Serrano is seen this AM sitting on recliner comfortably. Patient is largely asymptomatic without fatigue or weakness . Patient denies chest pain, palpitations, SOB, abdominal pain, nausea, and vomiting. Patient remains afebrile and stable. Patient remains therapeutic INR 2.1 and can restart Warfarin tomorrow morning if she continues to feel well and hemodynamically stable. Patient is amenable to this plan. Physical Exam Physical Exam: General: patient resting comfortably, NAD, non-toxic in appearance, answers questions appropriately. Skin: warm, dry, intact HEENT: NC/AT, anicteric sclera, conjunctiva without injection, moist mucus membranes. Heart: +S1/S2, regular, no m/r/g Lungs: equal air entry bilaterally, no rales/rhonchi/wheezes Abd: +BS, soft, NT/ND Ext: warm, no clubbing/cyanosis or edema Neuro: nonfocal, speech intact, no facial droop, moving all extremities. Results & Data Results & Data Vital Signs (Past 12 Hours) Vital Signs Temp Pulse Pulse Resp BP Pulse Ox O2 Del Method 10/01/24 11:22 36.6 C 77 18 131/74 98 Nasal Cannula 10/01/24 11:18 72 10/01/24 08:00 36.5 C 68 16 120/63 97 CPAP 10/01/24 02:36 36.6 C 73 18 136/78 99 Nasal CPAP Resident Activity Tracking Resident Involvement: Resident Care Provided Care Provided: Adult Hospital Medicine (4) HTN (hypertension) Hypertension type: unspecified Qualified Code(s): I10 - Essential (primary) hypertension
--- NOTE | 2024-10-01 17:04 | Billing Data ---
Date of Service October 01, 2024 Coding Level of Care Code 10690 SUB INP/OBS CARE MIN
[2024-10-02 10:11] LABS: Basophils # (auto) 0.01 K/uL (0.00-0.20); Basophils % (auto) 0.2 %; Eosinophils # (auto) 0.09 K/uL (0.00-0.50); Eosinophils % (auto) 1.5 %; Hematocrit (blood only) 26.9 % (37.0-47.0); Hemoglobin 8.4 g/dl (12.0-16.0); Immature Granulocytes # (auto) 0.06 K/uL (0.01-0.20); Lymphocytes % (auto) 11.4 %; Mean Corpuscular Hemoglobin 28.2 pg (25.0-34.0); Mean Corpuscular Hgb Conc 31.2 g/dL (32.0-36.0); Mean Corpuscular Volume 90.3 fL (80.0-100.0); Mean Platelet Volume 12.2 fL (9.4-12.4); Monocytes # (auto) 0.36 K/uL (0.11-0.59); Monocytes % (auto) 5.9 %; Neutrophils # (auto) 4.93 K/uL (1.40-6.50); Platelet Count 207 K/uL (130-400); RDW Coefficient of Variation 16.3 % (11.5-14.5); RDW Standard Deviation 53.1 fL (36.4-46.3); Red Blood Count 2.98 M/uL (4.20-5.40); White Blood Count 6.15 K/ul (4.8-10.8)
[2024-10-02 10:16] LABS: INR 1.7 (0.9-1.1); Prothrombin Time 17.3 Seconds (9.0-12.0)
[2024-10-02 10:46] LABS: Albumin Level 3.1 gm/dl (3.4-5.0); BUN Creatinine Ratio 13.8 (10-20); Bilirubin,Total 0.9 mg/dl (0.2-1.0); Calcium 8.6 mg/dl (8.6-10.3); Creatinine Clr Calc Pharmacy 59.9 ml/min; Globulin 3.1 gm/dl (2.5-4.0); Potassium 3.7 mmol/L (3.5-5.1); Total Protein 6.2 gm/dl (6.0-8.3)
--- NOTE | 2024-10-02 12:58 | Gastroenterology Progress Note ---
Date of Service October 02, 2024 Assessment & Plan (1) Melena: Plan Will need to monitor further for bleeding once her anticoagulants have been restarted. - follow hgb/hct. - if further bleeding or blood loss, recommend that she be transferred to [facility] as recommended by her endoscopist there. Admission and Anticipated Discharge Date Admission Date: September 29, 2024 Supervising Physician Co-Signing Physician Notes I saw and examined this patient with our nurse practitioner and agree with her assessment and plan. Hemoglobin stable no further evidence of GI bleeding. Waiting reinstitution of anticoagulation trial. Subjective Tolerating diet so far. hgb 8.4 (previously 8.5). no bowel movements yet. Review of Systems Review of Systems: All systems reviewed & are unremarkable except as noted in HPI & below Physical Exam Constitutional: WD/WN, vitals as above Respiratory: normal respiratory effort, lungs clear to auscultation Cardiovascular: Rate/Rhythm: regular rate and regular rhythm Gastrointestinal (Abdomen): normal bowel sounds, soft, nontender, no hepatosplenomegaly Psychiatric: Orientation: alert and oriented x 3 Affect: euthymic affect Results & Data Results & Data Vital Signs (Past 12 Hours) Vital Signs Temp Pulse Pulse Resp BP Pulse Ox O2 Del Method 10/02/24 12:34 98.1 F 89 18 149/89 H 98 CPAP 10/02/24 08:06 97.9 F 79 20 146/77 H 97 CPAP 10/02/24 07:34 63 10/02/24 02:56 97.7 F 73 18 150/78 H 97 CPAP Coding Level of Care Code 89235 SUB INP/OBS CARE 25MIN Diagnoses Melena K92.1
[2024-10-02] MEDS: BUMETANIDE 1 MG TAB PO ONE (15:04)
[2024-10-02] MEDS: WARFARIN SOD 5 MG TAB PO SCH (15:05)
--- NOTE | 2024-10-02 15:09 | Hospitalist Progress Note ---
Date of Service October 02, 2024 Assessment & Plan (1) GI bleed: (2) Anemia: (3) Transaminitis: (4) HTN (hypertension): (5) Gallstone pancreatitis: (6) Chronic heart failure with preserved ejection fraction: Plan Pt is a 73 yo female with a past medical history of GI bleed, recent gallstone pancreatitis, and choledocholithiasis/cholangitis requiring transfer to [facility] for ERCP. Patient symptoms improved but GI bleed restarted prompting recent admission with notable melena, HFpEF, asthma, BRIDGETT, HTN, hx PE, Factor V leiden and mechanical AVR on warfarin chronically who presents to the hospital on 09/29 for weakness related to GI bleed requiring transfusion. #GI bleed #Anemia - pt presenting with hematochezia and melena episodes yesterday and ongoing anemia - ED gave 1 unit PRBCs, Hgb 8 decreased to 7.8 with fatigue prompting 2nd unit PRBCs - Hgb now improved to 9.0 - protonix IV 40 mg BID - GI consult: recommend transfer back to [facility] where ERCP was completed if bleeding or hemodynamics worsen, bleeding potentially due s/p sphincterotomy during ERCP - hold anticoagulation; consider restarting Heparin drip once Hgb stabilizes and slowly increase Warfarin and wean Heparin until therapeutic INR is reached allowing heparin to be discontinued. Anticipate that this will take 2-3 days - Cont. Unasyn therapy inpatient - Patient tolerating low-fiber diet without issue - INR 1.7 10/02. Resumed Coumadin 5mg PO QPM. Check INR tomorrow, can consider d/c if within range and asymptomatic #Transaminitis #Gallstone pancreatitis - in the setting of recent gallstone pancreatitis/choledocholithiasis/cholangitis with [facility] transfer for ERCP/sphincterotomy/balloon extraction - on admission enzymes elevated TBili 1.1, AST 85, ALT 109, alk phosph 294 but significantly improved since past admit and asymptomatic other than fatigue/weakness likely related to anemia - LFTs normalized, with slight persistent elevation in alk phos #HTN - continue home metoprolol tartrate #HFpEF - Resume home Bumex, 2mg daily with 2mg prn for SOB - continue home ranolazine once able to po #Sinusitis, chronic - continue home inhalers #Arthritis - on tramadol at home for arthritis pain prn, per PDMP filled about every other month - no pain on admission but if pain starts can consider continuing home tramadol Diet: NPO pending GI consult VTE prophylaxis: defer right now in the setting of GI bleed Admission and Anticipated Discharge Date Admission Date: September 29, 2024 Supervising Physician Co-Signing Physician Notes I personally examined the patient and verified all onofre points of history and exam, discussed case, and agree with decision making with Dr Lind feeling good overall. wondering about restarting warfarin and going home. vitals noted nad heent nc at mmm breathing unlabored no accessory muscles good effort skin no rashes no pallor or icterus neuro no focal deficits GI bleeding/acute blood loss anemia (s/p 2 units PRBC transfusion, does not currently appear that further transfusion is necessary)- appearing most c/w sphincterotomy bleed. literature favors no need for bridging and in d/w her radio repairman fortunately that is now the local standard of care. yesterday her INR today was actually 2.1 - likely because while the coumadin was held, her bleeding resolved quickly enough true reversal was not needed; and since she was NPO or clear liquids, her diet was essentially devoid of vitamin K. today 1.7 - but resuming coumadin. this likely simplifies things for her greatly as we won't need to watch as long since her bleeding has resolved AND she is just below therapeutic for a valve. start coumadin today, and since she was essentially anticoagulated yesterday, if no restart of bleeding probably will be safe to go home once INR > ~2.0 Subjective Patient feels well today. Reports some increased fluid retention and slight shortness of breath on exertion. Otherwise patient without acute complaints or concerns and denies fatigue, weakness, chest pain, palpitations, abdominal pain, nausea, vomiting, and fevers/rigors. Patient remains afebrile and hemodynamically stable. Physical Exam Physical Exam: General: patient resting comfortably, NAD, non-toxic in appearance, answers questions appropriately. Skin: warm, dry, intact HEENT: NC/AT, anicteric sclera, conjunctiva without injection, moist mucus membranes. Heart: +S1/S2, regular, no m/r/g Lungs: equal air entry bilaterally, no rales/rhonchi/wheezes Abd: +BS, soft, NT/ND Ext: warm, no clubbing/cyanosis or edema Neuro: nonfocal, speech intact, no facial droop, moving all extremities. Results & Data Results & Data Vital Signs (Past 12 Hours) Vital Signs Temp Pulse Pulse Resp BP Pulse Ox O2 Del Method 10/02/24 14:13 76 10/02/24 12:34 36.7 C 89 18 149/89 H 98 CPAP 10/02/24 08:06 36.6 C 79 20 146/77 H 97 CPAP 10/02/24 07:34 63 10/02/24 02:56 36.5 C 73 18 150/78 H 97 CPAP Resident Activity Tracking Resident Involvement: Resident Care Provided Care Provided: Adult Hospital Medicine (4) HTN (hypertension) Hypertension type: unspecified Qualified Code(s): I10 - Essential (primary) hypertension
[2024-10-02] MEDS ORDERED: WARFARIN SOD 5 MG TAB PO ONE (16:00)
--- NOTE | 2024-10-02 17:49 | Billing Data ---
Date of Service October 02, 2024 Coding Level of Care Code 68046 SUB INP/OBS CARE MIN
[2024-10-02] MEDS: PANTOprazole 40 MG TAB PO SCH (20:25)
[2024-10-03] MEDS ORDERED: BUMETANIDE 1 MG TAB PO SCH (09:00)
[2024-10-03] MEDS: BUMETANIDE 1 MG TAB PO SCH (09:31)
[2024-10-03] MEDS: CETIRIZINE HCL 10 MG TABLET PO ONE (10:15)
--- NOTE | 2024-10-03 10:28 | Hospitalist Progress Note ---
Date of Service October 03, 2024 Assessment & Plan (1) GI bleed: (2) Anemia: (3) Transaminitis: (4) HTN (hypertension): (5) Gallstone pancreatitis: (6) Chronic heart failure with preserved ejection fraction: Plan Pt is a 73 yo female with a past medical history of GI bleed, recent gallstone pancreatitis, and choledocholithiasis/cholangitis requiring transfer to [facility] for ERCP. Patient symptoms improved but GI bleed restarted prompting recent admission with notable melena, HFpEF, asthma, BRIDGETT, HTN, hx PE, Factor V leiden and mechanical AVR on warfarin chronically who presents to the hospital on 09/29 for weakness related to GI bleed requiring transfusion. #GI bleed #Anemia - S/P Sphincterectomy. - s/p 2 unit PRBC - Hgb stable: 8.4 today. - protonix IV 40 mg BID - GI consult: recommend transfer back to [facility] if HD unstable. - Patient tolerating low-fiber diet without issue - INR 1.4 10/03. Continue Coumadin 5mg PO QPM. Goal >2 for DC #Transaminitis #Gallstone pancreatitis - s/p sphincterotomy/balloon extraction - LFTs normalized, with slight persistent elevation in alk phos. - Clinically better. #Other issues. -HTN: continue home metoprolol tartrate -HFpEF: Resume home Bumex, 2mg daily with 2mg prn for SOB. continue home ranolazine. -Sinusitis, chronic: continue home inhalers -Arthritis : can give tramadol if pain, stable now. PDMP reviewed on admission. Diet: Low fibre diet. VTE prophylaxis: Warfarin. Dispo: Home after stable Code: Full code. Admission and Anticipated Discharge Date Admission Date: September 29, 2024 Supervising Physician Co-Signing Physician Notes I personally examined the patient and verified all onofre points of history and exam, discussed case, and agree with decision making with Dr Harley feeling good overall. Discussed labs. She expresses a good understanding. No new questions today. vitals noted nad heent nc at mmm breathing unlabored no accessory muscles good effort skin no rashes no pallor or icterus neuro no focal deficits GI bleeding/acute blood loss anemia (s/p 2 units PRBC transfusion, does not currently appear that further transfusion is necessary)- appearing most c/w sphincterotomy bleed. literature favors no need for bridging and in d/w her outdoor education teacher fortunately that is now the local standard of care. she is showing no bleeding, but would like to get her INR to at least 2.0 with no bleeding prior to discharge. Coumadin was resumed 10/02, not surprising that her INR went down a little bit today given that she was also increasing her p.o. intake over the last few days. Continue to follow clinically, continue to follow CBC and INR, home once INR is greater than 2 as long as no drop in hemoglobin/overt recurrence of bleeding. Subjective This morning Ophelia was still sleeping when I saw her, She endorses frequent reoccurring sneezing that woke her up this AM. Hence did not get proper sleep. Mentions h/o seasonal allergy. No h.o asthma, not aware of particular allergy. No more bleeding. No belly pain/distension. No trouble in breathing. Review of Systems Review of Systems: As per HPI Physical Exam Physical Exam: Constitutional: Well appearing, No acute distress HEENT: Atraumatic, Normocephalic, No conjunctival injection CVS: Looks well perfused. Respiratory: No increased work of breathing GI: Soft, Nondistended MSK: No gross deformities noted Neuro: Alert, Oriented Psych: Mood and Affect congruent, Cooperative. Results & Data Results & Data Vital Signs (Past 12 Hours) Vital Signs Temp Pulse Pulse Resp BP Pulse Ox O2 Del Method 10/03/24 09:25 145/85 H 10/03/24 07:15 68 10/03/24 07:00 36.6 C 53 L 16 93/62 L 96 Room Air 10/03/24 02:32 36.3 C L 74 18 162/80 H 97 CPAP 10/03/24 00:23 78 10/02/24 23:27 Room Air 10/02/24 22:44 37.2 C 81 18 157/73 H 97 CPAP Resident Activity Tracking Resident Involvement: Resident Care Provided Care Provided: Adult Hospital Medicine (4) HTN (hypertension) Hypertension type: unspecified Qualified Code(s): I10 - Essential (primary) hypertension
[2024-10-03 10:42] LABS: Basophils # (auto) 0.02 K/uL (0.00-0.20); Basophils % (auto) 0.3 %; Eosinophils # (auto) 0.12 K/uL (0.00-0.50); Eosinophils % (auto) 2.1 %; Hematocrit (blood only) 27.2 % (37.0-47.0); Hemoglobin 8.4 g/dl (12.0-16.0); Immature Granulocytes # (auto) 0.05 K/uL (0.01-0.20); Immature Granulocytes % (auto) 0.9 %; Lymphocytes # (auto) 0.84 K/uL (1.20-3.40); Lymphocytes % (auto) 14.5 %; Mean Corpuscular Hemoglobin 27.6 pg (25.0-34.0); Mean Corpuscular Hgb Conc 30.9 g/dL (32.0-36.0); Mean Corpuscular Volume 89.5 fL (80.0-100.0); Mean Platelet Volume 11.6 fL (9.4-12.4); Monocytes # (auto) 0.42 K/uL (0.11-0.59); Monocytes % (auto) 7.2 %; Neutrophils # (auto) 4.35 K/uL (1.40-6.50); Platelet Count 240 K/uL (130-400); RDW Coefficient of Variation 16.3 % (11.5-14.5); RDW Standard Deviation 52.6 fL (36.4-46.3); Red Blood Count 3.04 M/uL (4.20-5.40)
[2024-10-03 11:02] LABS: INR 1.5 (0.9-1.1); Prothrombin Time 15.6 Seconds (9.0-12.0)
[2024-10-03 15:03] VITALS: RESP 18
--- NOTE | 2024-10-03 16:55 | Billing Data ---
Date of Service October 03, 2024 Coding Level of Care Code 54647 SUB INP/OBS CARE MIN
[2024-10-04 07:13] LABS: Basophils # (auto) 0.02 K/uL (0.00-0.20); Basophils % (auto) 0.3 %; Eosinophils # (auto) 0.15 K/uL (0.00-0.50); Eosinophils % (auto) 1.9 %; Hematocrit (blood only) 30.3 % (37.0-47.0); Hemoglobin 9.6 g/dl (12.0-16.0); Immature Granulocytes # (auto) 0.08 K/uL (0.01-0.20); Lymphocytes # (auto) 1.11 K/uL (1.20-3.40); Lymphocytes % (auto) 13.9 %; Mean Corpuscular Hemoglobin 28.5 pg (25.0-34.0); Mean Corpuscular Hgb Conc 31.7 g/dL (32.0-36.0); Mean Corpuscular Volume 89.9 fL (80.0-100.0); Mean Platelet Volume 11.7 fL (9.4-12.4); Monocytes # (auto) 0.42 K/uL (0.11-0.59); Monocytes % (auto) 5.3 %; Neutrophils # (auto) 6.21 K/uL (1.40-6.50); Neutrophils % (auto) 77.6 %; Platelet Count 284 K/uL (130-400); RDW Coefficient of Variation 16.4 % (11.5-14.5); RDW Standard Deviation 53.1 fL (36.4-46.3); Red Blood Count 3.37 M/uL (4.20-5.40); White Blood Count 7.99 K/ul (4.8-10.8)
[2024-10-04 07:33] LABS: INR 1.5 (0.9-1.1); Prothrombin Time 15.5 Seconds (9.0-12.0)
--- NOTE | 2024-10-04 08:21 | Hospitalist Progress Note ---
Date of Service October 04, 2024 Assessment & Plan (1) GI bleed: (2) Anemia: (3) Transaminitis: (4) HTN (hypertension): (5) Gallstone pancreatitis: (6) Chronic heart failure with preserved ejection fraction: Plan Pt is a 73 yo female with a past medical history of GI bleed, recent gallstone pancreatitis, and choledocholithiasis/cholangitis requiring transfer to [facility] for ERCP. Patient symptoms improved but GI bleed restarted prompting recent admission with notable melena, HFpEF, asthma, BRIDGETT, HTN, hx PE, Factor V leiden and mechanical AVR on warfarin chronically who presents to the hospital on 09/29 for weakness related to GI bleed requiring transfusion. #GI bleed #Anemia - S/P Sphincterectomy. - s/p 2 unit PRBC - Hgb stable: 8.4 today. - protonix PO 40 mg BID - GI consult: recommend transfer back to [facility] if HD unstable. - Patient tolerating low-fiber diet without issue - INR 1.5 10/03. Continue Coumadin 5mg PO QPM (added additional 2mg today) Goal >2 for DC #Transaminitis #Gallstone pancreatitis - s/p sphincterotomy/balloon extraction - LFTs normalized, with slight persistent elevation in alk phos. - Clinically better. #Other issues. -HTN: continue home metoprolol tartrate -HFpEF: Resume home Bumex, 2mg daily with 2mg prn for SOB. continue home ranolazine. -Sinusitis, chronic: continue home inhalers -Arthritis : can give tramadol if pain, stable now. PDMP reviewed on admission. Diet: Low fiber diet. VTE prophylaxis: Warfarin. Dispo: Home after stable Code: Full code. Admission and Anticipated Discharge Date Admission Date: September 29, 2024 Subjective No acute events overnight Currently no new complaints Review of Systems Review of Systems: comprehensive ROS neg Physical Exam Physical Exam: Gen: NAD, in bed comfortable HEENT: NC/AT, anicteric, MMM Lungs: CTAB CVS: s1s2nl RRR Abd: nl bowel sounds, soft, NT : no castaneda Ext: no edema Neuro: AAOx3 Psych: calm / cooperative Results & Data Results & Data Vital Signs (Past 12 Hours) Vital Signs Temp Pulse Pulse Resp BP Pulse Ox O2 Del Method 10/04/24 07:08 73 10/04/24 07:01 36.7 C 76 18 143/70 H 95 Room Air 10/04/24 03:01 36.6 C 71 18 150/81 H 97 CPAP 10/03/24 23:51 80 10/03/24 22:32 36.9 C 76 18 159/74 H 94 Room Air PG Care Time/CCT Total # of Minutes Spent Total Time Spent with Patient: Total time spent is greater than 50% in coordination of care (as documented) at patient's floor/unit and/or counseling patient: Coding Level of Care Code 76376 SUB INP/OBS CARE 2/35MIN Diagnoses GI bleed K92.2 Anemia D64.9 Transaminitis R74.0 HTN (hypertension) I10 Hypertension type: unspecified Gallstone pancreatitis K85.10 Chronic heart failure with preserved ejection fraction I50.32 (4) HTN (hypertension) Hypertension type: unspecified Qualified Code(s): I10 - Essential (primary) hypertension
[2024-10-04] MEDS: MONTELUKAST SODIUM 10 MG TABLET PO PRN (08:44)
[2024-10-04] MEDS: WARFARIN SOD 2 MG TAB PO SCH (16:28)
[2024-10-05 06:40] LABS: Hematocrit (blood only) 27.9 % (37.0-47.0); Hemoglobin 8.8 g/dl (12.0-16.0); Mean Corpuscular Hgb Conc 31.5 g/dL (32.0-36.0); Mean Corpuscular Volume 88.9 fL (80.0-100.0); Mean Platelet Volume 11.8 fL (9.4-12.4); Platelet Count 266 K/uL (130-400); RDW Coefficient of Variation 16.3 % (11.5-14.5); RDW Standard Deviation 53.1 fL (36.4-46.3); Red Blood Count 3.14 M/uL (4.20-5.40); White Blood Count 8.34 K/ul (4.8-10.8)
[2024-10-05 07:03] LABS: BUN Creatinine Ratio 17.4 (10-20); Calcium 8.8 mg/dl (8.6-10.3); Creatinine Clr Calc Pharmacy 48.5 ml/min; Magnesium 1.9 mg/dl (1.7-2.4); Phosphorus 3.6 mg/dl (2.5-4.9); Potassium 3.5 mmol/L (3.5-5.1)
[2024-10-05 07:07] LABS: INR 1.5 (0.9-1.1); Prothrombin Time 16.1 Seconds (9.0-12.0)
--- NOTE | 2024-10-05 07:26 | Hospitalist Progress Note ---
Date of Service October 05, 2024 Assessment & Plan (1) Gallstone pancreatitis: (2) GERD (gastroesophageal reflux disease): (3) GI bleed: Plan Pt is a 73 yo female with a past medical history of GI bleed, recent gallstone pancreatitis, and choledocholithiasis/cholangitis requiring transfer to [facility] for ERCP. Patient symptoms improved but GI bleed restarted prompting recent admission with notable melena, HFpEF, asthma, BRIDGETT, HTN, hx PE, Factor V leiden and mechanical AVR on warfarin chronically who presents to the hospital on 09/29 for weakness related to GI bleed requiring transfusion. #GI bleed #Anemia - S/P Sphincterectomy during ERCP - s/p 2 unit PRBC - Hgb stable: 8.8 today. - Patient tolerating low-fiber diet without issue - Protonix PO 40 mg BID Plan - GI consult: recommend transfer back to [facility] if HD unstable. - Patient tolerating low-fiber diet without issue - INR 1.5 Increase dose of Coumadin to 7mg PO QPM. Goal: Discharge with INR>2 . Will check PT/INR tomorrow morning. -She was also recently started on Lovenox 110mg BID. Stop Lovenox because of concerns for bleeding. #Transaminitis #Gallstone pancreatitis - s/p sphincterotomy/balloon extraction - LFTs normalized, with slight persistent elevation in alk phos. - Clinically better. #Other issues. -HTN: continue home metoprolol tartrate -HFpEF: Resume home Bumex, 2mg daily with 2mg prn for SOB. continue home ranolazine. -Sinusitis, chronic: continue home inhalers -Arthritis : can give tramadol if pain, stable now. PDMP reviewed on admission. Diet: Low fiber diet. VTE prophylaxis: Warfarin. Dispo: Home after stable Code: Full code. Admission and Anticipated Discharge Date Admission Date: September 29, 2024 Supervising Physician Co-Signing Physician Notes Attending attestation Pt seen and examined in concert with Dr. Harley. In agreement with the documented findings as noted in the resident documentation with any exceptions or additions as noted here. Resting comfortably in bed without new symptoms reported. Reiterates limitations and previous adverse events with anticoagulation. On examination, S1/S2 nl RRR no MCG. CTAB. Abd NT/ND BS+ve Hypochromic anemia in the setting of recent GIB on anticoagulation - trend daily hgb and INR. Continue warfarin 7mg dose daily. Repeat labs in AM. Elevated alk phos in the setting of recent gallstone pancreatitis s/p intervention - no symptomatic change, repeat alk phos at follow up Else see resident documentation as noted. Subjective Overnight events:slept well. everything good Ongoing symptoms; Denies bleeding and weakness New concerns: no any Review of Systems Review of Systems: As per HPI Physical Exam Constitutional: WD/WN, vitals as above well developed; no acute distress Eyes: PERRL, conjunctivae normal, anicteric sclerae ENMT: external ear and nose normal, oropharynx normal Ears: no hearing impairment Neck: trachea midline, no thyromegaly trachea midline Respiratory: normal respiratory effort, lungs clear to auscultation normal respiratory effort and + respiratory distress; no labored breathing and no retractions Auscultation: lungs clear to auscultation bilaterally Cardiovascular: RRR, no murmur, no edema Rate/Rhythm: regular rate and regular rhythm Chest (Breasts): normal inspection/palpation of breasts Chest: normal inspection of chest Results & Data Results & Data Vital Signs (Past 12 Hours) Vital Signs Temp Pulse Pulse Resp BP Pulse Ox O2 Del Method 10/05/24 07:11 83 10/05/24 06:57 36.7 C 86 18 125/73 95 Room Air 10/05/24 03:08 37.0 C 84 18 124/67 94 CPAP 10/05/24 00:27 82 10/04/24 22:35 36.8 C 85 18 176/70 H 96 CPAP 10/04/24 19:59 Room Air 10/04/24 19:54 36.4 C L 78 18 138/71 99 Room Air
[2024-10-05] MEDS: WARFARIN SOD 2 MG TAB PO SCH (16:33)
[2024-10-06 06:52] LABS: Hemoglobin 8.6 g/dl (12.0-16.0); Mean Corpuscular Hemoglobin 28.1 pg (25.0-34.0); Mean Corpuscular Hgb Conc 31.9 g/dL (32.0-36.0); Mean Corpuscular Volume 88.2 fL (80.0-100.0); Mean Platelet Volume 12.1 fL (9.4-12.4); Platelet Count 257 K/uL (130-400); RDW Coefficient of Variation 16.2 % (11.5-14.5); RDW Standard Deviation 52.8 fL (36.4-46.3); Red Blood Count 3.06 M/uL (4.20-5.40); White Blood Count 7.33 K/ul (4.8-10.8)
[2024-10-06 07:13] LABS: BUN Creatinine Ratio 18.6 (10-20); Calcium 8.7 mg/dl (8.6-10.3); Creatinine Clr Calc Pharmacy 49.6 ml/min; Potassium 3.4 mmol/L (3.5-5.1)
--- NOTE | 2024-10-06 07:17 | Hospitalist Progress Note ---
Date of Service October 06, 2024 Assessment & Plan (1) Gallstone pancreatitis: (2) GERD (gastroesophageal reflux disease): (3) GI bleed: Plan Pt is a 73 yo female with a past medical history of GI bleed, recent gallstone pancreatitis, and choledocholithiasis/cholangitis requiring transfer to [facility] for ERCP. Patient symptoms improved but GI bleed restarted prompting recent admission with notable melena, HFpEF, asthma, BRIDGETT, HTN, hx PE, Factor V leiden and mechanical AVR on warfarin chronically who presents to the hospital on 09/29 for weakness related to GI bleed requiring transfusion. #GI bleed #Anemia - S/P Sphincterectomy during ERCP - s/p 2 unit PRBC - Hgb stable: 8.6 today. - Patient tolerating low-fiber diet without issue - Protonix PO 40 mg BID -She was also recently started on Lovenox 110mg BID. Plan - GI consult: recommend transfer back to [facility] if HD unstable. - Coumadin on home dose 7mg PO QPM. - Stop Lovenox because of concerns for bleeding. -Goal: Discharge with INR>2. Her INR today morning 1.9. Repeat at 3 PM today. Discharge if INR at goal. #Transaminitis #Gallstone pancreatitis - s/p sphincterotomy/balloon extraction - LFTs normalized, with slight persistent elevation in alk phos. - Clinically better. #Other issues. -HTN: continue home metoprolol tartrate -HFpEF: Resume home Bumex, 2mg daily with 2mg prn for SOB. continue home ranolazine. -Sinusitis, chronic: continue home inhalers -Arthritis : can give tramadol if pain, stable now. PDMP reviewed on admission. Diet: Low fiber diet. VTE prophylaxis: Warfarin. Dispo: Home after stable Code: Full code. Admission and Anticipated Discharge Date Admission Date: September 29, 2024 Subjective Overnight events:slept well;overall everything good Ongoing symptoms; Denies bleeding and weakness New concerns: Nod had her BM since past 2 or 3 days. Used to taking Colase Review of Systems Review of Systems: As per HPI Physical Exam Constitutional: WD/WN, vitals as above well developed; no acute distress Eyes: PERRL, conjunctivae normal, anicteric sclerae ENMT: external ear and nose normal, oropharynx normal Ears: no hearing impairment Neck: trachea midline, no thyromegaly trachea midline Respiratory: normal respiratory effort, lungs clear to auscultation normal respiratory effort and + respiratory distress; no labored breathing and no retractions Auscultation: lungs clear to auscultation bilaterally Cardiovascular: RRR, no murmur, no edema Rate/Rhythm: regular rate and regular rhythm Chest (Breasts): normal inspection/palpation of breasts Chest: normal inspection of chest Results & Data Results & Data Vital Signs (Past 12 Hours) Vital Signs Temp Pulse Pulse Resp BP Pulse Ox O2 Del Method 10/06/24 07:11 36.6 C 82 18 145/75 H 93 Room Air 10/06/24 03:18 36.8 C 77 18 145/76 H 95 CPAP 10/05/24 22:44 37.5 C 78 18 144/74 H 95 CPAP 10/05/24 22:01 75 10/05/24 19:45 Room Air 10/05/24 19:32 36.9 C 89 18 140/65 96 Room Air
[2024-10-06 07:22] LABS: INR 1.9 (0.9-1.1); Prothrombin Time 19.2 Seconds (9.0-12.0)
[2024-10-06] MEDS: DOCUSATE SODIUM 100 MG CAP PO ONE (10:22)
[2024-10-06] MEDS: DOCUSATE SODIUM 100 MG CAP PO SCH (10:22)
[2024-10-06 15:33] LABS: INR 1.9 (0.9-1.1); Prothrombin Time 19.4 Seconds (9.0-12.0)
[2024-10-06 15:57] VITALS: TEMP 98.1; O2SAT 98
--- NOTE | 2024-10-06 17:06 | Discharge Summary ---
Date of Service October 06, 2024 Admission HPI Per Admitting Provider Pt is a 73 yo female with a past medical history of recent gallstone pancreatitis requiring transfer to [facility], recent admission with notable melena, HFpEF, asthma, BRIDGETT, HTN, hx PE and mechanical AVR on warfarin chronically who presents to the hospital on 09/29 for weakness and GI bleed. Pt states that she came in to the hospital today because she saw her PCP who did blood work and told her "all her blood counts are off and she needs to go back to the hospital." She states since leaving the hospital over the weekend she has felt very fatigued and run down. She states that additionally, yesterday she had 3-4 bowel movements with the first containing bright red blood and the ones after being black tar-like stools. She states she has baseline chronic chest pain and SOB given hx of heart failure per pt and these symptoms have not been worse. No nausea or vomiting. No abdominal pain. Primary complaint this visit is fatigue and continued signs of GI bleed. Admission Exam Per Admitting Provider General: Fatigued but arousable Head: Normocephalic and atraumatic Eyes: Normal inspection, extraocular muscles intact Ear, nose, throat: Normal external exam Neck: Normal range of motion Respiratory: lungs clear to auscultation bilaterally Cardiovascular: Regular rate/rhythm, no murmur GI: soft, nontender, no guarding or rebound Extremities: nontender, moves all extremities Neuro: The patient awake and alert, appropriately conversive, no focal deficits, symmetric faces Skin: Warm, dry, and intact Principal Diagnosis 1. GI bleed S/P Sphincterectomy during ERCP. 2.Recent Gall stone Pancreatitis Discharge Exam Constitutional WD/WN, vitals as above well developed; no acute distress Eyes PERRL, conjunctivae normal, anicteric sclerae ENMT external ear and nose normal, oropharynx normal Ears: no hearing impairment Neck trachea midline, no thyromegaly trachea midline Respiratory normal respiratory effort, lungs clear to auscultation normal respiratory effort and + respiratory distress; no labored breathing and no retractions Auscultation: lungs clear to auscultation bilaterally Cardiovascular RRR, no murmur, no edema Rate/Rhythm: regular rate and regular rhythm Chest (Breasts) normal inspection/palpation of breasts Chest: normal inspection of chest Discharge Data Allergies Allergy/AdvReac Type Severity Reaction Status Date / Time amlodipine Allergy Unknown Unknown Verified 09/29/24 20:22 furosemide [From Lasix] AdvReac Severe Loud ear Verified 09/29/24 20:22 ringing Consultations 09/30/24 00:35 Consult Gastroenterology Routine Hospital Course (1) GI bleed: (2) Gallstone pancreatitis: (3) Prediabetes: (4) Nocturnal hypoxemia: (5) Chronic heart failure with preserved ejection fraction: (6) Depression: (7) GERD (gastroesophageal reflux disease): (8) History of pulmonary embolism: (9) Severe obesity (BMI >= 40): (10) Anticoagulated on Coumadin: (11) HTN (hypertension): (12) BRIDGETT (obstructive sleep apnea): (13) Transaminitis: Plan Pt is a 73 yo female with a past medical history of GI bleed, recent gallstone pancreatitis, and choledocholithiasis/cholangitis requiring transfer to [facility] for ERCP. Patient symptoms improved but GI bleed restarted prompting recent admission with notable melena, HFpEF, asthma, BRIDGETT, HTN, hx PE, Factor V leiden and mechanical AVR on warfarin chronically who presents to the hospital on 09/29 for weakness related to GI bleed requiring transfusion. #GI bleed #Anemia - S/P Sphincterectomy during ERCP - s/p 2 unit PRBC - Hgb stable: 8.6 today. - Patient tolerating low-fiber diet without issue - Protonix PO 40 mg BID -She was also recently started on Lovenox 110mg BID. - Coumadin on home dose 7mg PO QPM. - Stop Lovenox because of concerns for bleeding. -Goal: Discharge with INR>2. Her INR today morning 1.9. Repeat at 3 PM today. Repeat INR: 1.9 -Discharge today. Recommend Coumadin 7.5 mg daily for 3 days. Follow up with PCP/anticoagulation clinic for PT/INR on Saturday. Adjust dose of Warfarin as needed. #Transaminitis #Gallstone pancreatitis - s/p sphincterotomy/balloon extraction - LFTs normalized, with slight persistent elevation in alk phos. - Clinically better. -Repeat LFTS on followup. #Other issues. -HTN: continue home metoprolol tartrate -HFpEF: Resume home Bumex, 2mg daily with 2mg prn for SOB. continue home ranolazine. -Sinusitis, chronic: continue home inhalers -Arthritis : can give tramadol if pain, stable now. PDMP reviewed on admission. Total Time Total Time Spent Total Time Spent (In Minutes): See attending attestation. Discharge Plan Discharge Items Patient Disposition: Home - Self-Care Reason For Visit: WEAKNESS, GI BLEED Discharge Diagnosis: 1. GI bleed S/P Sphincterectomy during ERCP. 2.Recent Gall stone Pancreatitis Activity: Per Instructions section Non-emergency contact: Primary Care Provider Call non-emergency contact if: you have any medication questions and your symptoms worsen Follow-up/Referrals: Viri Keller MD [Primary Care Provider] - 10/15/24 10:30 am (Scheduled with Tamara Teixeira PA-C) Diet: Regular Addtl Attending Provider Instructions: You were admitted to the hospital because you were bleeding from your gastrointestinal tract , which was thought to be from Sphincterotomy site post ERCP. You are chronically on Warfarin for Aortic Valve Replacement. We held Warfarin because of bleeding.Your INR dropped below the therapeutic range after warfarin was held. Once your bleeding was controlled , we resumed warfarin, and we were able to achieve a therapeutic INR. At this point, your condition is stable, and we believe you are safe to be discharged home today. A discharge summary will be sent to your primary care physician to ensure continuity of care. Please bring this discharge summary with you to your next office appointment so that your provider can review it at that time. Follow-up appointments: Make a follow-up appointment with your PCP on Saturday. It is very important that you follow up with them to check your PT/INR and adjust dose of Warfarin. Keep all your follow-up appointments as already scheduled. If you cannot make an appointment, notify your provider. Medications: Your medication list has been reviewed and reconciled upon discharge to ensure accuracy and continuity of care. An updated list of all your medications is included with your hospital discharge paperwork. Please review this list closely, and make note of any changes. -We have sent Warfarin 7.5 mg to your pharmacy. Take 7.5 mg daily for 3 days and it is very important to monitor your PT/INR after 3 days and adjust dose of Warfarin. If you have any issues filling these prescriptions, please call [phone] and ask to leave a message for Dr. Felecia Harley. Take your medications as instructed; do not skip a dose of your medicines. Make sure all of your doctors know every medicine you are taking (including rlvk-yrd-gixxasy medicines, vitamins, and supplements). Call your primary care provider before taking any new medicines (including overthe- counter medicines, vitamins, and supplements), because some of these may interact with your current medications, or may make your symptoms worse. Tell your primary care provider if you cannot afford your medications. CONTACT YOUR PRIMARY CARE PROVIDER if you experience any of the following: Recurrence of bleeding from rectum or bleeding from any site of your body like nose bleeds, bleeding gums, dark brown urine. Difficulty following your treatment plan, or difficulty taking medications CALL 911 OR GO TO THE EMERGENCY DEPARTMENT if you experience any of the following: Sudden, severe abdominal pain or nausea/vomiting Severe chest pain, or chest pain that radiates (moves) to your jaw or arm Sudden, severe shortness of breath or difficulty breathing Thank you for allowing us to participate in your care. . Pending Studies at Discharge: No Stand-Alone Forms: My [facility], Smoking Cessation Medications and DC Order Prescriptions: New warfarin 7.5 mg tablet 7.5 mg PO DAILY 30 Days Qty: 30 0RF Continued ipratropium-albuterol 0.5 mg-3 mg(2.5 mg base)/3 mL solution for nebulization 3 ml INH Q6H PRN (Reason: shortness of breath or wheezing) Qty: 360 0RF Patient Comments: HAVEN'T USED IN QUITE A WHILE ranolazine 500 mg tablet extended release 12 hr 500 mg PO BID Qty: 180 3RF atorvastatin 80 mg tablet 80 mg PO QAM Qty: 90 3RF tramadol 50 mg tablet 50 mg PO BID PRN (Reason: ARTHRITIS pain) Qty: 60 0RF metoprolol tartrate 100 mg tablet 100 mg PO BID Qty: 180 3RF calcium carbonate [Calcium 600] 600 mg calcium (1,500 mg) tablet 600 mg PO BID Rx Instructions: FAMILY UNSURE IF STILL TAKING aspirin 81 mg tablet,delayed release (DR/EC) 81 mg PO DAILY Rx Instructions: FAMILY UNSURE IF STILL TAKING, PER [facility] STILL TAKING. montelukast 10 mg tablet 10 mg PO QPM PRN (Reason: Congestion) acetaminophen 500 mg capsule 1,000 mg PO TID PRN (Reason: Pain) amoxicillin 500 mg tablet 2,000 mg PO DIRECTED PRN (Reason: 1 HR PRIOR TO DENTAL APPT.) Hold Instructions: Resume on 10/15/24. sertraline 100 mg tablet 100 mg PO HS Qty: 90 3RF fexofenadine 180 mg Tablet 180 mg PO QAM PRN (Reason: Congestion) cyanocobalamin (vitamin B-12) [Vitamin B-12] 100 mcg Tablet 100 mcg PO QAM Rx Instructions: FAMILY UNSURE IF STILL TAKING potassium chloride 10 mEq tablet extended release 10 meq PO DAILY Rx Instructions: FAMILY UNSURE IF STILL TAKING bumetanide 2 mg tablet 4 mg PO QAM Rx Instructions: May take an additional 2 mg in the afternoon for weight gain, SOB, swelling. omeprazole 40 mg capsule,delayed release(DR/EC) 40 mg PO BID Qty: 60 0RF docusate sodium 100 mg Capsule 100 mg PO BID cholecalciferol (vitamin D3) [Vitamin D3] 50 mcg (2,000 unit) Capsule 50 mcg PO DAILY ferrous sulfate 325 mg (65 mg iron) tablet 325 mg PO QDL Discontinued warfarin 5 mg tablet 5 mg PO QPM Protocol: Dose Management Condition: Saturday Dose/Route: 5 mg Instruction: 1 x 5 mg tablet Condition: Saturday Dose/Route: 5 mg Instruction: 1 x 5 mg tablet Condition: Saturday Dose/Route: 2.5 mg Instruction: 0.5 x 5 mg tablets Condition: Saturday Dose/Route: 5 mg Instruction: 1 x 5 mg tablet Condition: Dose/Route: 2.5 mg Instruction: 0.5 x 5 mg tablets Condition: Saturday Dose/Route: 5 mg Instruction: 1 x 5 mg tablet Condition: Saturday Dose/Route: 5 mg Instruction: 1 x 5 mg tablet Protocol Text: Adjustment Start Date: 08/27/24 INR Value: 2.6 INR Date: 08/27/24 Recheck Date: 09/24/24 Rx Instructions: DIRECTED FROM ANTICOAG CLINIC. amoxicillin-pot clavulanate 875-125 mg tablet 1 tab PO BID Rx Instructions: STARTED 09/25/24 FOR 4 DAYS. enoxaparin 120 mg/0.8 mL syringe 110 mg subcut BID Discharge Orders: Discharge Order (Routine); Ordered 10/06/24 Ordered By: Arju Cherri Admission Data Admit Date/Time: 09/29/24 23:11 Attending Provider: Ck Vazquez Admit Provider: Evelyne Davis Primary Care Provider: Viri Keller Other Providers: Greg Ott I Other Interventions: Discharge Summary Assessment (RN) Last Done: 10/06/24 17:16 Supervising Physician Co-Signing Physician Notes Attending attestation Pt seen and examined in concert with Dr. Harley. In agreement with the documented findings as noted in the resident documentation with any exceptions or additions as noted here. Resting comfortably in bed without new symptoms reported. Limitations and previous adverse events with anticoagulation. On examination, S1/S2 nl RRR no MCG. CTAB. Abd NT/ND BS+ve Hypochromic anemia in the setting of recent GIB on anticoagulation - trend daily hgb and INR. Increase warfarin on discharge to 7.5mg daily and repeat in 3 days following discharge to ensure target region on home diet. Elevated alk phos in the setting of recent gallstone pancreatitis s/p intervention - no symptomatic change, repeat alk phos at follow up Else see resident documentation as noted. Total attending physician time spent with this patient's care on the day of discharge: 31 minutes. Resident Activity Tracking Resident Involvement: Resident Care Provided Care Provided: Adult Hospital Medicine
[2024-10-06 17:17] VITALS: BP 131/74; PULSE 92
== END 2024-10-06 18:37 | disposition home or self-care (01) | DRG 377 ==
LOC: ED 18:26 → 2S 23:11 → SUATTDRO 23:11 → 2S 09-30 00:10